=== PATIENT | male | born 1965 | race Hispanic/Latino ===

== ENCOUNTER 2021-12-24 19:20 | Inpatient (IN) | payer SELFPAY ==
[2021-12-24] MEDS ORDERED: SODIUM CHLORIDE 0.9% 1000 ML 1,000 ML IV ONE ×3 (19:37→20:15)
--- NOTE | 2021-12-24 19:45 | Emergency Department Report ---
HPI - General Chief Complaint: Dyspnea/Respdistress Time Seen by Provider: 12/24/21 19:33 - HPI HPI: 56-year-old male with history of diabetes brought in by EMS unresponsive and with agonal breathing. According to the EMS report, initial call out was for shortness of breath. When EMS arrived, the patient was noted to be with agonal respirations and was unresponsive. He was given albuterol and 125 mg of Solu- Medrol. Further history was obtained stating that the patient has been missing for the past 3 days and stepped on a nail with his left foot which has become extremely swollen and red. The patient's fingerstick blood glucose was 233. Further details of the HPI are limited due to the patient's current clinical condition ED Past Medical Hx - Past Medical History Previous Medical History?: Yes Hx Diabetes: Yes ED Review of Systems ROS: Stated complaint: RESPIRATORY DISTRESS Other details as noted in HPI Comment: Unobtainable due to pts medical conditions Physical Exam - Physical Exam Physical Exam: GENERAL: male who appears older than stated age. Obtunded and with agonal respirations. HEAD: Normocephalic. No obvious signs of trauma. ENT: Moist mucous membranes. Very poor dentition. EYES: Pupils are equal round and reactive to light bilaterally NECK: Supple. Full ROM is intact. Trachea is midline. LUNGS: Equal chest rise bilaterally with [id number] ventilation. Scattered rales heard throughout the bilateral lung flores. CARDIOVASCULAR: Tachycardic but with regular rhythm. No murmurs or rubs. VASCULAR: Cap refill < 2 seconds. 1+ pitting edema of the right lower extremity. 3+ pitting edema of the left lower extremity. See musculoskeletal exam below. ABDOMEN: Abdomen is soft and nondistended. There is no significant tenderness, guarding or rebound. SKIN: Skin is warm and dry. There is significant swelling noted of the dorsum of the left foot which extends into the ankle. Over the dorsum of the left foot there is fluctuance and overlying erythema. No crepitus. NEURO: Patient is obtunded. Does not withdraw to pain. GCS of 5. MUSCULOSKELETAL: No obvious deformities with the exception of significant swelling/fluctuance/erythema of the dorsum of the left foot extending into the ankle. - Intubation Sedative: Etomidate Mg Given: 20 Paralytic: Rocuronium Mg Given: 50 Laryngoscope: fiberoptic video scope Size: 4 Assist Device Used: fiberoptic device ET Tube Size: 7 Tube Secured Depth (cm): 24 Tube Secured Location: lips Tube Placement Confirmation: visualized tube passing t, equal breath sounds bilat Patient Tolerated Procedure: no complications Intubation Complications: none ED Medical Decision Making - Lab Data Result diagrams: 12/25/21 08:26 12/25/21 08:26 - EKG Data -: EKG Interpreted by Me - EKG Data 12/25/21 00:55 Sinus bradycardia. Normal axis. Normal intervals. No ectopy. No significant ST segment or T wave abnormalities. - Radiology Data Radiology results: report reviewed - Medical Decision Making 56-year-old male with history of diabetes brought in by EMS from home with initial complaint of shortness of breath but subsequently found to be unresponsive and with agonal respirations. Fingerstick blood glucose was 233. Patient was bagged in route and given 125 mg of Solu-Medrol. Upon arrival to emergency department, the patient was obtunded and with agonal respirations and oxygen saturations in the 60s even with bagging. I immediately called for emergent RSI the patient was backed up to the 90s and then successfully intubated using the glide scope. After intubation the patient was found to be with normal vital signs. On exam, the patient has what appears to be a large abscess to the dorsum of his left foot with overlying erythema and fluctuance and swelling which extends into the ankle. Given his history of diabetes I am concerned about possible necrotizing fasciitis. We will perform broad work-up with a full set of labs and sepsis orders including cultures. We will give 30 m L/kg of IV fluids and broad-spectrum IV vancomycin, Zosyn, and clindamycin. Tdap has been ordered I spoke with Dr. Cotton at 7:48 PM regarding the case and he request CT of the lower extremity and agrees with current antibiotics and states he will come in to perform I&D. Plain film x-rays of the left foot and ankle have been ordered. Chest x-ray shows ET tube in expected position but no other acute findings. X-ray of the left foot shows diffuse soft tissue swelling but no gas or foreign body. Labs reveal no significant leukocytosis or anemia. He has several electrolyte abnormalities including hyponatremia with sodium of 128, hypokalemia with potassium 3.3, normal kidney function and with hypoglycemia and glucose of 38. IV potassium repletion has been ordered. Patient has been started on a D10 drip. Lactic acid is normal. Troponin is negative. AST and ALT are both elevated in the 100s. I have ordered CT of the head, C-spine, chest, abdomen, and pelvis as well as the left lower extremity given the possibility of intracranial bleeding versus mass, traumatic injury, pneumonia, intra-abdominal infection/catastrophe or other abnormality to explain the patient's presentation. I was told by the certified cytotechnologist that the scan will take a long time given that there is only one respiratory therapist in the hospital. I spoke with Dr. Crocker of critical care medicine regarding the case and she accepts patient for admission to the critical care unit I spoke with Dr. Conrad the on-call hospitalist regarding the case and he accepts the patient for admission will assume care. He understands that CT of the head/chest/abdomen are still pending and will be followed up by Dr. Maloney CT of the head, cervical spine, chest, abdomen/pelvis, and left lower extremity reveal findings consistent with left-sided pneumonia, possible colitis/diverticulitis, and suspected osteomyelitis of the left lower extremity. Critical Care Time: Yes Critical care time in (mins) excluding proc time.: 60 Critical care attestation.: If time is entered above; I have spent that time in minutes in the direct care of this critically ill patient, excluding procedure time. Critical care time was spent in the evaluation/assessment, work-up, and management of hypoxic respiratory failure with hypoglycemia and several electrolyte abnormalities requiring initiation of the D10 drip and IV electrolyte repletion as well as intubation and mechanical ventilation, interpretation of EKGs and blood gases, frequent and repeat assessment, and discussion with specialist.. ED Disposition Clinical Impression: Hypoglycemia, Bradycardia, Hyponatremia, Hypokalemia, Abscess of left foot, Acute respiratory failure with hypoxia, Transaminitis, Pneumonia involving left lung, Osteomyelitis of left foot, Colitis Disposition: 09 ADMITTED INPATIENT Is pt being admited?: Yes Condition: Stable
[2021-12-24] MEDS ORDERED: TETANUS,DIPH,PERTUSS(ACELL) VACCINE 0.5 ML SYRINGE IM ONE (20:00)
[2021-12-24 20:06] LABS: Basophils % (Auto) 0.6 % (0.0-1.8); Eosinophils % (Auto) 0.2 % (0.0-4.3); Hematocrit 31.5 % (35.5-45.6); Hemoglobin 10.3 gm/dl (11.8-15.2); Lymphocytes # (Auto) 1.1 K/mm3 (1.2-5.4); Lymphocytes % (Auto) 20.7 % (13.4-35.0); Mean Corpuscular HGB Conc 33 % (32-34); Mean Corpuscular Volume 88 fl (84-94); Monocytes # (Auto) 0.6 K/mm3 (0.0-0.8); Monocytes % (Auto) 10.9 % (0.0-7.3); Platelet Count 178 K/mm3 (140-440); Red Blood Count 3.58 M/mm3 (3.65-5.03); Red Cell Distribution Width 14.2 % (13.2-15.2)
[2021-12-24 20:07] LABS: Bilirubin,Urine NEG (Negative); Blood,Urine MOD (Negative); Color,Urine Yellow (Yellow)
[2021-12-24 20:17] LABS: INR 0.96 (0.87-1.13)
[2021-12-24 20:18] LABS: Partial Thromboplastin Time 39.7 Sec. (24.2-36.6)
[2021-12-24 20:28] LABS: Alanine Aminotransferase 126 units/L (7-56); Albumin 2.6 g/dL (3.9-5); Blood Urea Nitrogen 19 mg/dL (9-20); Calcium 8.5 mg/dL (8.4-10.2); Hemolysis Index 23
--- NOTE | 2021-12-24 20:32 | XRay Report ---
XR ankle 2V LT INDICATION / CLINICAL INFORMATION: assess for gas. COMPARISON: None available. FINDINGS: BONES/JOINT(S): No acute fracture or subluxation. No significant degenerative changes. SOFT TISSUES: No appreciable soft tissue gas or radiopaque foreign body. ADDITIONAL FINDINGS: None. Signer Name: Fran Elam MD Signed: 12/24/2021 8:27 PM Workstation Name: [id number]
--- NOTE | 2021-12-24 20:32 | XRay Report ---
XR foot 2V LT INDICATION / CLINICAL INFORMATION: assess for gas. COMPARISON: None available. FINDINGS: BONES/JOINT(S): There are chronic appearing Lisfranc fracture dislocations in the proximal first thro ugh fourth metatarsals. No significant degenerative changes. SOFT TISSUES: Diffuse soft tissue swelling without soft tissue gas or foreign body. ADDITIONAL FINDINGS: None. Signer Name: Fran Elam MD Signed: 12/24/2021 8:28 PM Workstation Name: [id number]
--- NOTE | 2021-12-24 20:32 | XRay Report ---
XR tibia fibula 2V LT INDICATION / CLINICAL INFORMATION: assess for gas. COMPARISON: None available. FINDINGS: BONES/JOINT(S): No acute fracture or subluxation. No significant degenerative changes. SOFT TISSUES: No radiopaque foreign body or soft tissue gas. ADDITIONAL FINDINGS: None. Signer Name: Fran Elam MD Signed: 12/24/2021 8:28 PM Workstation Name: [id number]
--- NOTE | 2021-12-24 20:33 | XRay Report ---
CHEST 1 VIEW 12/24/2021 8:03 PM INDICATION / CLINICAL INFORMATION: intubation. COMPARISON: None available. FINDINGS: SUPPORT DEVICES: ET tube tip is about 4 cm above the momo. HEART / MEDIASTINUM: No significant abnormality. LUNGS / PLEURA: No significant pulmonary or pleural abnormality. No pneumothorax. ADDITIONAL FINDINGS: No significant additional findings. IMPRESSION: 1. Endotracheal tube in expected position. Signer Name: Fran Elam MD Signed: 12/24/2021 8:28 PM Workstation Name: [id number]
[2021-12-24 20:36] LABS: BUN/Creatinine Ratio 32
[2021-12-24 20:38] LABS: Bilirubin,Direct < 0.2 mg/dL (0-0.2)
[2021-12-24] MEDS ORDERED: DEXTROSE 10% *Hypoglycemia IV ONE (20:39)
[2021-12-24 20:40] LABS: Bacteria,Urine 1+ /HPF (Negative); Mucus,Urine FEW /HPF
[2021-12-24] MEDS ORDERED: propofoL 200 MG/20 ML VIAL IV ONE (20:47)
[2021-12-24] MEDS ORDERED: VANCOMYCIN/NS 1 GM/250 ML 1 GM/250 ML BAG IV ONE (21:00)
[2021-12-24] MEDS ORDERED: POTASSIUM CHLORIDE 40 MEQ in DEXTROSE 10% IN WATER 1,000 ML IV SCH ×2 (21:00)
[2021-12-24] MEDS ORDERED: PIPERACIL/TAZOBACTA 4.5/NS 100 4.5 GM/100 ML VIAL IV ONE (21:00)
--- NOTE | 2021-12-24 21:18 | Procedure Note ---
Date of procedure: 12/24/21 Pre-op diagnosis: Left foot abscess Post-op diagnosis: same Procedure: Incision and drainage left foot abscess Findings: This is a 56-year-old male patient who is with signs of sepsis intubated and in the emergency room. Consultation is for management of a left foot abscess. There is history possibly of of the patient stepping on a nail as etiology of the abscess. He is diabetic and unresponsive. The area of concern is on the dorsum and medial aspect of the left foot and an area of swelling induration and erythema is located. It is fluctuant. The skin is prepped with an alcohol prep and a #11 scalpel was used to make a 3 cm cruciate incision where thick purulent material is immediately encountered. Q- tips were used to probe the wound minimal tunneling is noted. Wound cultures and Gram stain were obtained. Wound is at irrigated with copious amounts of normal saline. A Betadine solution soaked gauze is then used as a dressing with Kerlix Anesthesia: none Surgeon: LATESHA MANCERA Estimated blood loss: minimal Pathology: list (Wound culture and sensitivity and Gram stain) Specimen disposition: to lab Condition: critical Disposition: other (In the emergency room)
[2021-12-24 22:57] LABS: ABG HCO3 19.2 mmol/L (20.0-26.0); ABG Methemoglobin 0.5 % (0.0-1.5); ABG Oxygen Saturation 99.5 % (95.0-99.0); ABG PCO2 32.7 mm Hg; ABG PH 7.386 pH Units (7.350-7.450)
[2021-12-24 22:58] LABS: ABG PO2 308.2 mm Hg (80.0-90.0)
--- NOTE | 2021-12-24 23:26 | History and Physical Report ---
History of Present Illness Date of examination: 12/24/21 Date of admission: 12/24/2021 Chief complaint: Altered mental status History of present illness: 56-year-old male with known history of diabetes mellitus brought into the emergency room today via EMS after being found unresponsive and having agonal breathing. Most of the history was obtained from the ER staff as patient is already intubated and sedated. Patient was found to have been having agonal respiration and unresponsive by EMS. Was given albuterol nebulizing treatment and Solu-Medrol. He was subsequently intubated and sedated in the emergency room. Patient was said to have been missing from home for about 3 days was also said to have stepped on it nail with which his left foot. Left foot has been swollen and red. Work-up in the emergency room today, initial blood glucose was 38, hypokalemia of 3.3 and hyponatremia of 128. Patient was given boluses of IV glucose with improvement of his blood glucose. General surgeon on-call was notified of patient's swollen left foot. He immediately had an incision and drainage of the swollen left foot. Patient also had a tetanus toxoid injection. CT of the head and neck, abdomen and pelvis did not reveal any acute abnormality. Chest x-ray within normal limits. Past History Past Medical History: other (Unobtainable) Past Surgical History: Other (Unobtainable) Social history: other (Unobtainable) Family history: other (Unobtainable) Medications and Allergies Allergies Allergy/AdvReac Type Severity Reaction Status Date / Time No Known Allergies Allergy Unverified 12/24/21 20:07 Active Meds: Active Medications Propofol (Diprivan 10 Mg/Ml) 1,000 mg in 100 mls @ 3.946 mls/hr IV TITR KELTON; Protocol Potassium Chloride 40 meq/ (Dextrose) 1,020 mls @ 100 mls/hr IV DIRECT KELTON Review of Systems ROS unobtainable: due to endotracheal tube Exam - Constitutional Vitals: Temp Pulse Resp BP Pulse Ox 97.0 F L 69 126/86 100 12/24/21 21:07 12/24/21 21:07 12/24/21 21:12/24/21 19:45 General appearance: Present: well-nourished, other (Intubated and sedated) - EENT Eyes: Present: PERRL, EOM intact. Absent: scleral icterus ENT: hearing intact, clear oral mucosa, dentition normal - Neck Neck: Present: supple, normal ROM - Respiratory Respiratory effort: normal Respiratory: bilateral: CTA (ET tube in place) - Cardiovascular Rhythm: regular Heart Sounds: Present: S1 & S2. Absent: gallop, systolic murmur, diastolic murmur, rub, click - Extremities Extremities: no ischemia, pulses intact, pulses symmetrical, No edema, normal temperature, Full ROM Peripheral Pulses: within normal limits - Abdominal General gastrointestinal: Present: soft, non-tender, non-distended, normal bowel sounds. Absent: mass - Integumentary Integumentary: Present: clear, warm, dry. Absent: rash - Musculoskeletal Musculoskeletal: other (Intubated and Sedated) - Psychiatric Psychiatric: cooperative - Neurologic Neurologic: other (Intubated and Sedated) HEART Score - HEART Score Troponin: Troponin T < 0.010 ng/mL (0.00-0.029) 12/24/21 19:43 Results - Labs CBC & Chem 7: 12/24/21 19:43 12/24/21 22:33 Labs: Abnormal lab results 12/24/21 12/24/21 12/24/21 Range/Units 19:43 19:43 19:43 RBC 3.58 L (3.65-5.03) M/mm3 Hgb 10.3 L (11.8-15.2) gm/dl Hct 31.5 L (35.5-45.6) % [place] % (Auto) 10.9 H (0.0-7.3) % Lymph # (Auto) 1.1 L (1.2-5.4) K/mm3 APTT 39.7 H (24.2-36.6) Sec. ABG pO2 (80.0-90.0) mm Hg ABG HCO3 (20.0-26.0) mmol/L ABG O2 Saturation (95.0-99.0) % ABG Base Excess (-2.0-3.0) mmol/L ABG Hemoglobin (14.0-18.0) gm/dl Sodium 128 L (137-145) mmol/L Potassium 3.3 L (3.6-5.0) mmol/L Chloride 95.9 L (98-107) mmol/L Carbon Dioxide 18 L (22-30) mmol/L Creatinine 0.6 L (0.8-1.3) mg/dL Glucose 38 L* (75-100) mg/dL AST 232 H (5-40) units/L ALT 126 H (7-56) units/L Alkaline Phosphatase 132 H (35-129) units/L Albumin 2.6 L (3.9-5) g/dL Lipase 6 L (13-60) units/L Salicylates (2.8-20.0) mg/dL Acetaminophen (10.0-30.0) ug/mL 12/24/21 12/24/21 12/24/21 Range/Units 19:43 19:43 Unknown RBC (3.65-5.03) M/mm3 Hgb (11.8-15.2) gm/dl Hct (35.5-45.6) % [place] % (Auto) (0.0-7.3) % Lymph # (Auto) (1.2-5.4) K/mm3 APTT (24.2-36.6) Sec. ABG pO2 308.2 H (80.0-90.0) mm Hg ABG HCO3 19.2 L (20.0-26.0) mmol/L ABG O2 Saturation 99.5 H (95.0-99.0) % ABG Base Excess -5.0 L (-2.0-3.0) mmol/L ABG Hemoglobin 10.6 L (14.0-18.0) gm/dl Sodium (137-145) mmol/L Potassium (3.6-5.0) mmol/L Chloride (98-107) mmol/L Carbon Dioxide (22-30) mmol/L Creatinine (0.8-1.3) mg/dL Glucose (75-100) mg/dL AST (5-40) units/L ALT (7-56) units/L Alkaline Phosphatase (35-129) units/L Albumin (3.9-5) g/dL Lipase (13-60) units/L Salicylates < 0.3 L (2.8-20.0) mg/dL Acetaminophen 5.0 L (10.0-30.0) ug/mL Assessment and Plan - Patient Problems (1) Acute respiratory failure with hypoxia Current Visit: Yes Status: Acute Plan to address problem: Patient currently intubated and sedated. Consult placed to computer repair technician for further evaluation and recommendations. Will monitor ABG. (2) Abscess of left foot Current Visit: Yes Status: Acute Plan to address problem: Incision and drainage done by general surgeon. We'll continue on empiric IV antibiotics. Patient has had Tdap Injection (3) Hypoglycemia Current Visit: Yes Status: Acute Plan to address problem: Patient placed on dextrose IV fluid. We'll monitor Accu-Cheks closely. (4) Hypokalemia Current Visit: Yes Status: Acute Plan to address problem: We'll replete potassium and monitor chemistry. (5) Hyponatremia Current Visit: Yes Status: Acute Plan to address problem: We'll continue patient on IV fluid normal saline. Will monitor chemistry. (6) Transaminitis Current Visit: Yes Status: Acute Plan to address problem: Etiology unclear. We will monitor liver enzymes. Consult placed to gastroenterology for evaluation and recommendations. (7) DVT prophylaxis Current Visit: Yes Status: Acute Plan to address problem: Patient placed on subcutaneous heparin. (8) Full code status Current Visit: Yes Status: Acute Plan to address problem: Patient is full code.
[2021-12-24 23:48] LABS: Blood Urea Nitrogen 19 mg/dL (9-20); Calcium 8.3 mg/dL (8.4-10.2); Hemolysis Index 6
[2021-12-24 23:54] LABS: BUN/Creatinine Ratio 27
[2021-12-25] MEDS ORDERED: ETOMIDATE 20 MG/10 ML INJ IV ONE (00:30)
[2021-12-25] MEDS ORDERED: ROCURONIUM 50 MG/5 ML INJ IV ONE (00:30)
[2021-12-25] MEDS ORDERED: MORPHINE 4 MG/1 ML INJ IV PRN (01:40)
[2021-12-25] MEDS ORDERED: MAGNESIUM HYDROXIDE (MOM) ORAL LIQD UDC PO PRN (01:40)
[2021-12-25] MEDS ORDERED: ACETAMINOPHEN 650 MG RECT SUPP PR PRN (01:40)
[2021-12-25] MEDS ORDERED: ONDANSETRON 4 MG/2 ML INJ IV PRN (01:40)
[2021-12-25] MEDS ORDERED: MORPHINE 2 MG/1 ML INJ IV PRN (01:40)
[2021-12-25] MEDS ORDERED: DEXTROSE 50% IN WATER (25GM) 50 ML SYRINGE IV PRN ×2 (01:40→10:57)
[2021-12-25] MEDS ORDERED: SODIUM CHLORIDE 0.9% 1000 ML 1,000 ML IV SCH (01:45)
[2021-12-25] MEDS ORDERED: VANCOMYCIN 1,250 MG in SODIUM CHLORIDE 0.9% 250ML 250 ML IV ONE (02:00)
[2021-12-25] MEDS ORDERED: VANCOMYCIN PHARMACY TO DOSE IV SCH (02:00)
[2021-12-25] MEDS ORDERED: DEXTROSE 10% *Hypoglycemia IV PRN (02:02)
--- NOTE | 2021-12-25 03:15 | Cat Scan Report ---
CT lower extremity LT wo con INDICATION / CLINICAL INFORMATION: Tib / Fib to foot, eval for pus COMPARISON: None available. TECHNIQUE: CT of the left tibia and fibula was performed without the administration of intravenous co ntrast. In addition to axial source images, coronal and sagittal series were provided. FINDINGS: Healing fractures of the Lisfranc joint is demonstrated with callus formation and/or sclerotic interf milton is suspected in part reflect chronic osteomyelitis. Moderate soft tissue swelling is noted in the region of the mid foot and dorsum of the foot. Addition al soft tissue swelling is noted along the lower calf and ankle. No discrete fluid collections are cl early demonstrated however the lack of intravenous contrast precludes exclusion of small collections. Possible ulceration along the dorsal medial aspect of the foot in the region of the great toe tarsome tatarsal junction. IMPRESSION: 1. Findings compatible with sequelae of previous Lisfranc fracture dislocation with sclerotic bony st ructures suggestive of chronic osteomyelitis and/or healing fracture. Superimposed acute osteomyeliti s not excluded. 2. Moderate soft tissue swelling in region of fracture/midfoot without obvious drainable collection. Findings thought to reflect sequelae of trauma and/or infection. Signer Name: Shoaib Staley II, MD Signed: 12/25/2021 3:11 AM Workstation Name: [id number]
--- NOTE | 2021-12-25 03:16 | Cat Scan Report ---
CT HEAD WITHOUT CONTRAST INDICATION / CLINICAL INFORMATION: Respiratory arrest. TECHNIQUE: CT of the head was performed without administration of intravenous contrast. All CT scans at this location are performed using CT dose reduction for ALARA by means of automated exposure contr ol. COMPARISON: None available. FINDINGS: CEREBRAL PARENCHYMA: Lopez-white matter differentiation remains fairly distinct throughout the cerebra l hemispheres. HEMORRHAGE: None. EXTRA-AXIAL SPACES: Normal in size and morphology for the patient's age. VENTRICULAR SYSTEM: Normal in size and morphology for the patient's age. MIDLINE SHIFT / HERNIATION: None. CEREBELLUM / BRAINSTEM: No significant abnormality. ORBITS: Normal as visualized. SOFT TISSUES: No significant abnormality. SKULL: No significant abnormality. PARANASAL SINUSES / MASTOID AIR CELLS: Normal as visualized. ADDITIONAL FINDINGS: None. IMPRESSION: 1. No acute intracranial abnormality. Signer Name: Shoaib Staley II, MD Signed: 12/25/2021 3:12 AM Workstation Name: [id number]
--- NOTE | 2021-12-25 03:18 | Cat Scan Report ---
CT CERVICAL SPINE WITHOUT CONTRAST INDICATION / CLINICAL INFORMATION: Respiratory arrest. TECHNIQUE: Axial CT images were obtained through the cervical spine. Sagittal and coronal reformatted images were produced. All CT scans at this location are performed using CT dose reduction for ALARA by means of automated exposure control. COMPARISON: None available. FINDINGS: MANDIBLE: No significant abnormality of the visualized mandible or TMJs. SKULL BASE: No significant abnormality of the skull base. CRANIOCERVICAL JUNCTION: No significant abnormality of the craniocervical junction. ALIGNMENT: No significant abnormality of alignment. VERTEBRAL BODIES: Vertebral body heights fairly uniform throughout. DISK SPACES: Disk spaces are fairly uniform throughout. FACET JOINTS: No significant abnormality of facet articulations. STENOSIS BY LEVEL: None. CENTRAL CANAL: No significant central stenosis. SOFT TISSUES: No significant abnormality of soft tissues or musculature. THYROID: No significant abnormality. UPPER CHEST: No significant abnormality of the visualized chest. ADDITIONAL FINDINGS: Endotracheal tube is present. Small air-fluid level within the posterior pharynx . IMPRESSION: 1. No acute cervical spine injury. No significant degenerative changes. No significant soft tissue ab normalities. Signer Name: Shoaib Staley II, MD Signed: 12/25/2021 3:14 AM Workstation Name: [id number]
--- NOTE | 2021-12-25 03:22 | Cat Scan Report ---
CT CHEST WITH CONTRAST INDICATION / CLINICAL INFORMATION: Sepsis / Respiratory distress. TECHNIQUE: Axial CT images were obtained through the chest after 100 cc Omnipaque [address] IV contrast[address] l CT scans at this location are performed using CT dose reduction for ALARA by means of automated exp osure control. COMPARISON: CT of the abdomen and pelvis performed same date. FINDINGS: CHEST LOWER NECK: Soft tissues of the lower neck including the thyroid demonstrate no significant abnormali ty evidence of acute pathology. THORACIC AORTA: No significant abnormality. PULMONARY ARTERY:No significant abnormality. HEART: No significant abnormality. Small pericardial effusion. CORONARY ARTERY CALCIFICATION: Present -- Mild. MEDIASTINUM / JERRY: Endotracheal tube terminates above the momo. ESOPHAGUS: No significant abnormality. LYMPH NODES: No adenopathy demonstrated within the axilla, jerry, or mediastinum. LUNGS: Nodular foci of airspace attenuation noted within the left upper lobe and more subtle left low er lobe with some evidence of additional associated volume loss in the left lower lobe. Lungs otherwi se appear clear. PLEURA: No pleural effusion. No pneumothorax. THORACIC SOFT TISSUES: No significant abnormality of the chest wall or upper thoracic musculature. OSSEOUS STRUCTURES: No significant abnormality of included osseous structures. UPPER ABDOMEN: Please see comparison study. ADDITIONAL CHEST FINDINGS: None. IMPRESSION: 1. Appearance of the left lung suggests infectious process. 2. Satisfactory positioning of endotracheal tube. Signer Name: Shoaib Staley II, MD Signed: 12/25/2021 3:17 AM Workstation Name: [email or web address]
--- NOTE | 2021-12-25 03:26 | Cat Scan Report ---
CT ABDOMEN AND PELVIS WITH CONTRAST INDICATION / CLINICAL INFORMATION: Sepsis / Respiratory distress. TECHNIQUE: Axial CT images were obtained through the abdomen and pelvis after 100 cc Omnipaque [address] scans at this location are performed using CT dose reduction for ALARA by means of automated exposure control. COMPARISON: CT chest same date FINDINGS: LOWER CHEST: Findings within the chest will be reported separately on dedicated CT of the chest perfo ed same date. LIVER: No significant abnormality. GALLBLADDER: Partially contracted. BILE DUCTS: No significant abnormality. SPLEEN: No significant abnormality. PANCREAS: No significant abnormality. ADRENALS: No significant abnormality. RIGHT KIDNEY / URETER: No significant abnormality. LEFT KIDNEY / URETER: No significant abnormality. STOMACH / DUODENUM / SMALL BOWEL: No significant abnormality. COLON: Nonspecific fluid attenuation around the cecum is demonstrated without evidence of wall thicke stew. Diverticulosis of the sigmoid colon suggested. This segment of bowel is not well distended mild inflammatory changes and excluded. APPENDIX: Normal in size. PERITONEUM: Small collection of dependent free fluid within the pelvis. LYMPH NODES: No significant adenopathy. AORTA / ARTERIES: No significant abnormality. IVC / VEINS: No significant abnormality. URINARY BLADDER: Circumferential bladder wall thickening is present. Phillip catheter is present. REPRODUCTIVE ORGANS: No significant abnormality. ADDITIONAL ABDOMINAL/PELVIC FINDINGS: None. SKELETAL SYSTEM: No significant abnormality. IMPRESSION: 1. Nonspecific fat stranding around the cecum. No obvious abnormality of the sacrum without. Sigmoid colon is underdistended but has suggested diverticula and wall thickening in sigmoid diverticulitis o r colitis not excluded. 2. Circumferential bladder wall thickening with small amount of dependent free fluid within the pelvi s. Acute cystitis not excluded. Signer Name: Shoaib Staley II, MD Signed: 12/25/2021 3:21 AM Workstation Name: [id number]
[2021-12-25] MEDS ORDERED: CLINDAMYCIN 600 MG/50 mL 600 MG/50 ML BAG IV SCH (06:00)
[2021-12-25] MEDS ORDERED: POTASSIUM CHLORIDE 10 MEQ 10 MEQ/100 ML BAG IV ONE (06:01)
[2021-12-25] MEDS: HEPARIN 5,000 UNIT/1 ML VIAL SUB-Q SCH ×3 (06:06→21:44)
[2021-12-25] MEDS ORDERED: NORepinephrine/NS 8 MG-250 ML 8 MG/250 ML INFUS..BTL IV ONE (06:31)
--- NOTE | 2021-12-25 06:39 | XRay Report ---
XR abdomen 1V ap INDICATION / CLINICAL INFORMATION: NG tube placement. COMPARISON: None available. FINDINGS: TUBES / LINES: Esophagogastric tube terminates mid fundus. BOWEL GAS PATTERN: No significant abnormality. FREE AIR / EXTRALUMINAL GAS: None seen. ADDITIONAL FINDINGS: No significant additional findings. IMPRESSION: 1. Esophagogastric tube terminates mid fundus. Signer Name: Shoaib Staley II, MD Signed: 12/25/2021 6:35 AM Workstation Name: [id number]
[2021-12-25 07:06] LABS: Hepatitis B Surface Antigen Non-Reactive (Negative); Hepatitis C Virus Antibody Non-Reactive (NonReactive)
--- NOTE | 2021-12-25 07:19 | Consultation ---
History of Present Illness Consult date: 12/24/21 Reason for consult: other (Left foot abscess in an unresponsive patient) - History of present illness History of present illness: This is a 56-year-old male patient found unresponsive missing for several days patient is known to be a diabetic. He is noted to be hypoglycemic on admission. Patient was intubated on admission to the emergency room. A concerning amount of swelling is noted in the left foot surgical consultation was specifically for management of what is presumed to be an abscess of the left foot. In the emergency room an incision and drainage is done for copious amounts of thick purulent material. Saline irrigations are done and a Betadine soaked gauze is placed. CT scan and x-rays of the foot show a Lisfranc fracture with osteomyelitis likely chronic. The fracture and osteomyelitis immediately below the site of the abscess. Past History Past Medical History: other (Unobtainable) Past Surgical History: Other (Unobtainable) Social history: other (Unobtainable) Family history: other (Unobtainable) Medications and Allergies Allergies Allergy/AdvReac Type Severity Reaction Status Date / Time No Known Allergies Allergy Unverified 12/24/21 20:07 Active Meds: Active Medications Acetaminophen (Acetaminophen 650 Mg Rect Supp) 650 mg OR Q6H PRN PRN Reason: Pain MILD(1-3)/Fever >100.5/PATEL Dextrose (Dextrose 10% *Hypoglycemia) 0 ml IV PRN PRN; Protocol PRN Reason: Hypoglycemia Heparin Sodium (Porcine) (Heparin 5,000 Unit/1 Ml Vial) 5,000 unit SUB-Q Q8HR [facility] Last Admin: 12/25/21 06:06 Dose: 5,000 unit Propofol (Diprivan 10 Mg/Ml) 1,000 mg in 100 mls @ 3.946 mls/hr IV TITR [facility]; Protocol Last Titration: 12/25/21 07:00 Dose: 35 mcg/kg/min, 13.812 mls/hr Potassium Chloride 40 meq/ (Dextrose) 1,020 mls @ 100 mls/hr IV DIRECT [facility] Sodium Chloride (Nacl 0.9% 1000 Ml) 1,000 mls @ 125 mls/hr IV DIRECT [facility] Piperacillin Sod/Tazobactam Sod (Zosyn/Ns 4.5gm/100ml) 4.5 gm in 100 mls @ 200 mls/hr IV Q8H [facility]; Protocol Vancomycin HCl (Vancomycin/Ns 1 Gm/250 Ml) 1 gm in 250 mls @ 166.667 mls/hr IV Q12H [facility] Clindamycin HCl (Cleocin 600 Mg/50 Ml) 600 mg in 50 mls @ 100 mls/hr IV Q8H [facility]; Protocol Insulin Human Lispro (Insulin Lispro 100 Unit/Ml) 0 unit SUB-Q ACHS [facility]; Protocol Magnesium Hydroxide (Magnesium Hydroxide (Mom) Oral Liqd Udc) 30 ml PO Q4H PRN PRN Reason: Constipation Morphine Sulfate (Morphine 2 Mg/1 Ml Inj) 2 mg IV Q4H PRN PRN Reason: Pain, Moderate (4-6) Morphine Sulfate (Morphine 4 Mg/1 Ml Inj) 4 mg IV Q4H PRN PRN Reason: Pain , Severe (7-10) Ondansetron HCl (Ondansetron 4 Mg/2 Ml Inj) 4 mg IV Q8H PRN PRN Reason: Nausea And Vomiting Sodium Chloride (Sodium Chloride 0.9% 10 Ml Flush Syringe) 10 ml IV BID [facility] Sodium Chloride (Sodium Chloride 0.9% 10 Ml Flush Syringe) 10 ml IV PRN PRN PRN Reason: LINE FLUSH Exam Vital Signs Pulse Resp BP Pulse Ox 78 20 124/85 100 12/24/21 19:45 12/24/21 19:45 12/24/21 19:45 12/24/21 19:45 - General physical appearance Positive: other (Patient unresponsive and intubated. No response to deep pain.) - Neck Positive: no masses, no bruits, trachea midline - Respiratory Positive: normal expansion - Cardiovascular Rhythm: regular - Extremities Extremities: abnormal (Swelling is noted in the distal extremity and appears to be centered in the dorsum of the left foot) - Abdomen Abdomen: Present: soft. Absent: masses, guarding, rigid - Neurologic Neurologic: other (Unable to evaluate patient is unresponsive and sedated) Results - Labs 12/24/21 19:43 12/24/21 22:33 Abnormal lab results 12/24/21 12/24/21 12/24/21 Range/Units 19:43 19:43 19:43 RBC 3.58 L (3.65-5.03) M/mm3 Hgb 10.3 L (11.8-15.2) gm/dl Hct 31.5 L (35.5-45.6) % [place] % (Auto) 10.9 H (0.0-7.3) % Lymph # (Auto) 1.1 L (1.2-5.4) K/mm3 APTT 39.7 H (24.2-36.6) Sec. ABG pO2 (80.0-90.0) mm Hg ABG HCO3 (20.0-26.0) mmol/L ABG O2 Saturation (95.0-99.0) % ABG Base Excess (-2.0-3.0) mmol/L ABG Hemoglobin (14.0-18.0) gm/dl Sodium 128 L (137-145) mmol/L Potassium 3.3 L (3.6-5.0) mmol/L Chloride 95.9 L (98-107) mmol/L Carbon Dioxide 18 L (22-30) mmol/L Creatinine 0.6 L (0.8-1.3) mg/dL Glucose 38 L* (75-100) mg/dL POC Glucose (70-105) mg/dL Calcium (8.4-10.2) mg/dL AST 232 H (5-40) units/L ALT 126 H (7-56) units/L Alkaline Phosphatase 132 H (35-129) units/L Albumin 2.6 L (3.9-5) g/dL Lipase 6 L (13-60) units/L Salicylates (2.8-20.0) mg/dL Acetaminophen (10.0-30.0) ug/mL 12/24/21 12/24/21 12/24/21 Range/Units 19:43 19:43 22:33 RBC (3.65-5.03) M/mm3 Hgb (11.8-15.2) gm/dl Hct (35.5-45.6) % [place] % (Auto) (0.0-7.3) % Lymph # (Auto) (1.2-5.4) K/mm3 APTT (24.2-36.6) Sec. ABG pO2 (80.0-90.0) mm Hg ABG HCO3 (20.0-26.0) mmol/L ABG O2 Saturation (95.0-99.0) % ABG Base Excess (-2.0-3.0) mmol/L ABG Hemoglobin (14.0-18.0) gm/dl Sodium 126 L (137-145) mmol/L Potassium 3.1 L (3.6-5.0) mmol/L Chloride 91.7 L (98-107) mmol/L Carbon Dioxide 19 L (22-30) mmol/L Creatinine 0.7 L (0.8-1.3) mg/dL Glucose 115 H (75-100) mg/dL POC Glucose (70-105) mg/dL Calcium 8.3 L (8.4-10.2) mg/dL AST (5-40) units/L ALT (7-56) units/L Alkaline Phosphatase (35-129) units/L Albumin (3.9-5) g/dL Lipase (13-60) units/L Salicylates < 0.3 L (2.8-20.0) mg/dL Acetaminophen 5.0 L (10.0-30.0) ug/mL 12/24/21 12/25/21 12/25/21 Range/Units Unknown 00:23 05:59 RBC (3.65-5.03) M/mm3 Hgb (11.8-15.2) gm/dl Hct (35.5-45.6) % [place] % (Auto) (0.0-7.3) % Lymph # (Auto) (1.2-5.4) K/mm3 APTT (24.2-36.6) Sec. ABG pO2 308.2 H (80.0-90.0) mm Hg ABG HCO3 19.2 L (20.0-26.0) mmol/L ABG O2 Saturation 99.5 H (95.0-99.0) % ABG Base Excess -5.0 L (-2.0-3.0) mmol/L ABG Hemoglobin 10.6 L (14.0-18.0) gm/dl Sodium (137-145) mmol/L Potassium (3.6-5.0) mmol/L Chloride (98-107) mmol/L Carbon Dioxide (22-30) mmol/L Creatinine (0.8-1.3) mg/dL Glucose (75-100) mg/dL POC Glucose 157 H 469 H (70-105) mg/dL Calcium (8.4-10.2) mg/dL AST (5-40) units/L ALT (7-56) units/L Alkaline Phosphatase (35-129) units/L Albumin (3.9-5) g/dL Lipase (13-60) units/L Salicylates (2.8-20.0) mg/dL Acetaminophen (10.0-30.0) ug/mL 12/25/21 Range/Units 06:01 RBC (3.65-5.03) M/mm3 Hgb (11.8-15.2) gm/dl Hct (35.5-45.6) % [place] % (Auto) (0.0-7.3) % Lymph # (Auto) (1.2-5.4) K/mm3 APTT (24.2-36.6) Sec. ABG pO2 (80.0-90.0) mm Hg ABG HCO3 (20.0-26.0) mmol/L ABG O2 Saturation (95.0-99.0) % ABG Base Excess (-2.0-3.0) mmol/L ABG Hemoglobin (14.0-18.0) gm/dl Sodium (137-145) mmol/L Potassium (3.6-5.0) mmol/L Chloride (98-107) mmol/L Carbon Dioxide (22-30) mmol/L Creatinine (0.8-1.3) mg/dL Glucose (75-100) mg/dL POC Glucose 316 H (70-105) mg/dL Calcium (8.4-10.2) mg/dL AST (5-40) units/L ALT (7-56) units/L Alkaline Phosphatase (35-129) units/L Albumin (3.9-5) g/dL Lipase (13-60) units/L Salicylates (2.8-20.0) mg/dL Acetaminophen (10.0-30.0) ug/mL Diabetes panel 12/24/21 12/24/21 Range/Units 19:43 22:33 Sodium 128 L 126 L (137-145) mmol/L Potassium 3.3 L 3.1 L (3.6-5.0) mmol/L Chloride 95.9 L 91.7 L (98-107) mmol/L Carbon Dioxide 18 L 19 L (22-30) mmol/L BUN 19 19 (9-20) mg/dL Creatinine 0.6 L 0.7 L (0.8-1.3) mg/dL Glucose 38 L* 115 H (75-100) mg/dL Calcium 8.5 8.3 L (8.4-10.2) mg/dL AST 232 H (5-40) units/L ALT 126 H (7-56) units/L Alkaline Phosphatase 132 H (35-129) units/L Total Protein 7.1 (6.3-8.2) g/dL Albumin 2.6 L (3.9-5) g/dL Thyroid panel 12/25/21 Range/Units Unknown TSH 0.570 (0.270-4.200) mlU/mL Calcium panel 12/24/21 12/24/21 Range/Units 19:43 22:33 Calcium 8.5 8.3 L (8.4-10.2) mg/dL Albumin 2.6 L (3.9-5) g/dL Pituitary panel 12/24/21 12/24/21 12/25/21 Range/Units 19:43 22:33 Unknown Sodium 128 L 126 L (137-145) mmol/L Potassium 3.3 L 3.1 L (3.6-5.0) mmol/L Chloride 95.9 L 91.7 L (98-107) mmol/L Carbon Dioxide 18 L 19 L (22-30) mmol/L BUN 19 19 (9-20) mg/dL Creatinine 0.6 L 0.7 L (0.8-1.3) mg/dL Glucose 38 L* 115 H (75-100) mg/dL Calcium 8.5 8.3 L (8.4-10.2) mg/dL TSH 0.570 (0.270-4.200) mlU/mL Adrenal panel 12/24/21 12/24/21 Range/Units 19:43 22:33 Sodium 128 L 126 L (137-145) mmol/L Potassium 3.3 L 3.1 L (3.6-5.0) mmol/L Chloride 95.9 L 91.7 L (98-107) mmol/L Carbon Dioxide 18 L 19 L (22-30) mmol/L BUN 19 19 (9-20) mg/dL Creatinine 0.6 L 0.7 L (0.8-1.3) mg/dL Glucose 38 L* 115 H (75-100) mg/dL Calcium 8.5 8.3 L (8.4-10.2) mg/dL Total Bilirubin 0.40 (0.1-1.2) mg/dL AST 232 H (5-40) units/L ALT 126 H (7-56) units/L Alkaline Phosphatase 132 H (35-129) units/L Total Protein 7.1 (6.3-8.2) g/dL Albumin 2.6 L (3.9-5) g/dL Assessment and Plan Patient with multiple medical issues severe hypoglycemia. Depressed mental status. CT of the chest with a indication of a left-sided posterior pneumonia. Sputum Gram stain with gram-negative rods. Patient will need 3 times daily dressing changes to the left foot wound with wound irrigations. Appropriate IV antibiotics. Eventually a vascular evaluation.
[2021-12-25] MEDS ORDERED: INSULIN LISPRO 100 UNIT/ML SUB-Q SCH (07:30)
[2021-12-25 09:08] LABS: Alanine Aminotransferase 111 units/L (7-56); Albumin 2.5 g/dL (3.9-5); Blood Urea Nitrogen 19 mg/dL (9-20); C-Reactive Protein 34.1 mg/dL (0.00-1.30); Calcium 8.3 mg/dL (8.4-10.2); Hemolysis Index 6
[2021-12-25 09:09] LABS: Basophils % (Auto) 0.2 % (0.0-1.8); Eosinophils % (Auto) 0.1 % (0.0-4.3); Hematocrit 35.2 % (35.5-45.6); Hemoglobin 11.7 gm/dl (11.8-15.2); Lymphocytes # (Auto) 0.5 K/mm3 (1.2-5.4); Lymphocytes % (Auto) 9.8 % (13.4-35.0); Mean Corpuscular HGB Conc 33 % (32-34); Mean Corpuscular Volume 90 fl (84-94); Monocytes # (Auto) 0.3 K/mm3 (0.0-0.8); Monocytes % (Auto) 5.7 % (0.0-7.3); Platelet Count 165 K/mm3 (140-440); Red Blood Count 3.92 M/mm3 (3.65-5.03); Red Cell Distribution Width 14.5 % (13.2-15.2)
[2021-12-25] MEDS: FAMOTIDINE 20 MG TAB PO SCH ×2 (09:10→21:46)
[2021-12-25] MEDS: PIPERACIL/TAZOBACTA 4.5/NS 100 4.5 GM/100 ML VIAL IV SCH ×2 (09:11)
[2021-12-25 09:33] LABS: BUN/Creatinine Ratio 27
--- NOTE | 2021-12-25 11:03 | Progress Note ---
<RICHA BANKS - Last Filed: 12/25/21 14:51> Assessment and Plan Assessment and plan: This is a 56-year-old male with known history of DM admitted for Hypoglycemia, hyponatremia, and acute hypoxemic respiratory failure requiring ventilatory support. Pateint also noted with left foot abscess s/p I&D by Gen. Surgery. Hospital Course to Date: 12/25: Patient remains on the vent, awake, following commends on propofol gtt. Possible PST today, plan to wean to extubate. High BG this am, D10W gtt D/C. Hyponatremia is improving continue IVF resuscitation, serial BMP Q6hrs. LLE wound noted with CDI dressing. General Surgery recommendation noted, Vascular consulted. Wound Care also consulted. Continue current IV Abx for now, ID consulted for IV Abx management. Assessment and Plan #Acute Hypoxemic Respiratory Failure 12/11 #Community-Acquired Pneumonia #COVID PUI - Presented with unresponsiveness with agonal breathing - Intubated in the ED on 12/24 - This am Vent Setting:PRVC-40%,6,20,450 - This am ABG pending - CCM consulted, appreciate recommendations - COVID PCR pending - Continue current IV Abx and nebs treatment - VAP bundle addressed - Aspiration precaution HOB above 30 - Daily SBT and SAT trials as tolerated - Daily ABG and CXR - Continue SPO2 monitoring for SPO2 goal above 92% #Community-Acquired Pneumonia #COVID PUI - Imagings suggesting possible Left lung pneumonia - COVID PCR pending - Inflammatory markers and procal pending - Blood culture pending, Sputum culture growing GPC - Continue current IV Abx for now - ID consulted - Continue to F/U on B.cult - Daily CBC monitor #Hyponatremia #Hypokalemia-improved - Probably related to dehydration/volume depletion - Na improved post IV hydration - Continue IVF resuscitation - Monitor and replace electrolytes as needed - Serial BMP Q6hrs - Strict intake and output #Acute Metabolic Encephalopathy - Probably r/t to multifactorial. hypoglycemia vs hyponatremia vs infectious process - Mentation improved this am. Awake, following commands - Plan to wean off sedation - Possible PST to wean to extubate - PRN Analgesia for CPOT greater than 3 - Avoid benzo to prevent delirium - Maintenance of sleep-wake cycle #Abscess of left foot #Possible Chronic Osteomyelitis - Presented LLE swelling and left foot abscess - General Surgery consulted - 12/24 s/p I&D of left foot by gen surgery - Vascular consulted per rec. - Continue current IV Abx - ID consulted - Continue wound care per General surgery - Wound Care also consulted #Hyperglycemia #Hypoglycemia-resolved #H/o Diabetes - Presented with low BG in the 30s required D10w gtt - Hyperglycemic this am, BG in the 300s - D/10w d/c - SSI initiated q6hrs - Continue IVF resuscitation with 1/2NS - Serial BMP - Avoid Hypoglycemia - Continue Hypoglycemic protocol #Transaminitis - Etiology unclear - Consult placed to gastroenterology for evaluation and recommendations - Continue to trend LFTs #GI/DVT prophylaxis - PPI- Pepcid - Continue AC- Hep SubQ The high probability of a clinically significant, sudden or life threatening deterioration of the [multiple] system(s) required my full and direct attention, intervention and personal management. The aggregate critical care time was [60] minutes. This time is in addition to time spent performing reported procedures but includes the following: [x] Data Review and interpretation [x] Patient assessment and monitoring of vital signs [x] Documentation [x] Medication orders and management Disposition Plan: ICU Total Time Spent with Patient (Minutes): 60 History Interval history: Patient seen and examined at the bedside. Intubated, awake, and following commands on propofol gtt, RASS 0. LLE wound with CDI dressing noted. ANISA overnight Hospitalist Physical - Constitutional Vitals: Temp Pulse Resp BP Pulse Ox 97.9 F 59 L 20 81/46 99 12/25/21 07:14 12/25/21 08:00 12/25/21 06:17 12/25/21 08:00 12/25/21 08:00 General appearance: Present: no acute distress, cachectic, other (On the vent) - EENT Eyes: Present: PERRL, EOM intact ENT: clear oral mucosa - Neck Neck: Present: normal ROM - Respiratory Respiratory effort: normal Respiratory: bilateral: rhonchi - Cardiovascular Rhythm: regular Heart Sounds: Present: S1 & S2 - Extremities Extremities: abnormal Extremity abnormal: edema, other (LLE wounds) - Peripheral Assessment Left Lower Extremity Edema Type: Non-pitting Edema Degree: 2+ Capillary Refill: < 3 seconds Skin Temperature: Warm Peripheral Pulses: within normal limits - Abdominal General gastrointestinal: soft, non-distended, normal bowel sounds - Integumentary Integumentary: Present: warm, dry - Psychiatric Psychiatric: appropriate mood/affect, cooperative - Neurologic Neurologic: moves all extremities - Allied Health Allied health notes reviewed: nursing HEART Score - HEART Score Troponin: Troponin T < 0.010 ng/mL (0.00-0.029) 12/24/21 22:33 Results - Labs CBC & Chem 7: 12/25/21 08:26 12/25/21 08:26 Labs: Laboratory Last Values WBC 5.1 K/mm3 (4.5-11.0) 12/25/21 08: RBC 3.92 M/mm3 (3.65-5.03) 12/25/21 08: Hgb 11.7 gm/dl (11.8-15.2) L 12/25/21 08: Hct 35.2 % (35.5-45.6) L 12/25/21 08:26 MCV 90 fl (84-94) 12/25/21 08: MCH 30 pg (28-32) 12/25/21 08: MCHC 33 % (32-34) 12/25/21 08:26 RDW 14.5 % (13.2-15.2) 12/25/21 08:26 Plt Count 165 K/mm3 (140-440) 12/25/21 08:26 Lymph % (Auto) 9.8 % (13.4-35.0) L 12/25/21 08: [place] % (Auto) 5.7 % (0.0-7.3) 12/25/21 08: Eos % (Auto) 0.1 % (0.0-4.3) 12/25/21 08: Baso % (Auto) 0.2 % (0.0-1.8) 12/25/21 08: Lymph # (Auto) 0.5 K/mm3 (1.2-5.4) L 12/25/21 08: [place] # (Auto) 0.3 K/mm3 (0.0-0.8) 12/25/21 08:26 Eos # (Auto) 0.0 K/mm3 (0.0-0.4) 12/25/21 08:26 Baso # (Auto) 0.0 K/mm3 (0.0-0.1) 12/25/21 08:26 Seg Neutrophils % 84.2 % (40.0-70.0) H 12/25/21 08:26 Seg Neutrophils # 4.3 K/mm3 (1.8-7.7) 12/25/21 08:26 PT 13.9 Sec. (12.2-14.9) 12/24/21 19:43 INR 0.96 (0.87-1.13) 12/24/21 19:43 APTT 39.7 Sec. (24.2-36.6) H 12/24/21 19:43 D-Dimer 2019.48 ng/mlDDU (0-234) H 12/25/21 08:26 ABG pH 7.386 pH Units (7.350-7.450) 12/24/21 Unknown ABG pCO2 32.7 mm Hg 12/24/21 Unknown ABG pO2 308.2 mm Hg (80.0-90.0) H 12/24/21 Unknown ABG HCO3 19.2 mmol/L (20.0-26.0) L 12/24/21 Unknown ABG O2 Saturation 99.5 % (95.0-99.0) H 12/24/21 Unknown ABG O2 Content 15.5 (0.0-44) 12/24/21 Unknown ABG Base Excess -5.0 mmol/L (-2.0-3.0) L 12/24/21 Unknown ABG Hemoglobin 10.6 gm/dl (14.0-18.0) L 12/24/21 Unknown ABG Carboxyhemoglobin 0.9 % (0.0-5.0) 12/24/21 Unknown ABG Methemoglobin 0.5 % (0.0-1.5) 12/24/21 Unknown Oxyhemoglobin 98.1 % (95.0-99.0) 12/24/21 Unknown FiO2 100 % 12/24/21 Unknown Sodium 130 mmol/L (137-145) L 12/25/21 08:26 Potassium 3.8 mmol/L (3.6-5.0) D 12/25/21 08:26 Chloride 96.6 mmol/L (98-107) L 12/25/21 08:26 Carbon Dioxide 19 mmol/L (22-30) L 12/25/21 08:26 Anion Gap 18 mmol/L 12/25/21 08:26 BUN 19 mg/dL (9-20) 12/25/21 08:26 Creatinine 0.7 mg/dL (0.8-1.3) L 12/25/21 08:26 Estimated GFR > 60 ml/min 12/25/21 08:26 BUN/Creatinine Ratio 27 % 12/25/21 08:26 Glucose 323 mg/dL (75-100) H 12/25/21 08:26 POC Glucose 305 mg/dL (70-105) H 12/25/21 10:59 Lactic Acid 1.20 mmol/L (0.7-2.0) 12/24/21 22:33 Calcium 8.3 mg/dL (8.4-10.2) L 12/25/21 08:26 Magnesium 1.90 mg/dL (1.7-2.3) 12/24/21 19:43 Ferritin 1288.0 ng/mL (30.0-300.0) H 12/25/21 08:26 Total Bilirubin 0.40 mg/dL (0.1-1.2) 12/25/21 08:26 Direct Bilirubin < 0.2 mg/dL (0-0.2) 12/24/21 19:43 Indirect Bilirubin 0.2 mg/dL 12/24/21 19:43 AST 123 units/L (5-40) H 12/25/21 08:26 ALT 111 units/L (7-56) H 12/25/21 08:26 Alkaline Phosphatase 144 units/L (35-129) H 12/25/21 08:26 Ammonia 31.0 umol/L (25-60) 12/24/21 19:43 Lactate Dehydrogenase 215 units/L (91-180) H 12/25/21 08:26 Troponin T < 0.010 ng/mL (0.00-0.029) 12/24/21 22:33 C-Reactive Protein 34.10 mg/dL (0.00-1.30) H 12/25/21 08:26 NT-Pro-B Natriuret Pep 520.8 pg/mL (0-900) 12/24/21 19:43 Total Protein 6.8 g/dL (6.3-8.2) 12/25/21 08:26 Albumin 2.5 g/dL (3.9-5) L 12/25/21 08:26 Albumin/Globulin Ratio 0.6 % 12/25/21 08:26 Lipase 6 units/L (13-60) L 12/24/21 19:43 Procalcitonin 6.09 ng/mL (<0.15) 12/25/21 08:26 TSH 0.570 mlU/mL (0.270-4.200) 12/25/21 Unknown Urine Color Yellow (Yellow) 12/24/21 Unknown Urine Turbidity Slightly-cloudy (Clear) 12/24/21 Unknown Urine pH 6.0 (5.0-7.0) 12/24/21 Unknown Ur Specific [place] 1.020 (1.003-1.030) 12/24/21 Unknown Urine Protein 100 mg/dl mg/dL (Negative) 12/24/21 Unknown Urine Glucose (UA) Neg mg/dL (Negative) 12/24/21 Unknown Urine Ketones Neg mg/dL (Negative) 12/24/21 Unknown Urine Blood Mod (Negative) 12/24/21 Unknown Urine Nitrite Neg (Negative) 12/24/21 Unknown Urine Bilirubin Neg (Negative) 12/24/21 Unknown Urine Urobilinogen 2.0 mg/dL (<2.0) 12/24/21 Unknown Ur Leukocyte Esterase Neg (Negative) 12/24/21 Unknown Urine WBC (Auto) 1.0 /HPF (0.0-6.0) 12/24/21 Unknown Urine RBC (Auto) 1.0 /HPF (0.0-6.0) 12/24/21 Unknown U Epithel Cells (Auto) 1.0 /HPF (0-13.0) 12/24/21 Unknown Urine Bacteria (Auto) 1+ /HPF (Negative) 12/24/21 Unknown Urine Mucus Few /HPF 12/24/21 Unknown Salicylates < 0.3 mg/dL (2.8-20.0) L 12/24/21 19:43 Acetaminophen 5.0 ug/mL (10.0-30.0) L 12/24/21 19:43 Plasma/Serum Alcohol < 0.01 % (0-0.07) 12/24/21 19:43 Hepatitis A IgM Ab Non-reactive (NonReactive) 12/25/21 Unknown Hep Bs Antigen Non-reactive (Negative) 12/25/21 Unknown Hep B Core IgM Ab Non-reactive (NonReactive) 12/25/21 Unknown Hepatitis C Antibody Non-reactive (NonReactive) 12/25/21 Unknown Blood Type O POSITIVE 12/24/21 19:43 Antibody Screen Negative 12/24/21 19:43 Microbiology: Microbiology 12/24/21 19:50 Sputum - Expectorated Sputum Sputum Culture - Preliminary 12/24/21 19:43 Peripheral/Venous Blood Culture - Preliminary Culture in Progress 12/24/21 19:43 Peripheral/Venous Blood Culture - Preliminary Culture in Progress Phillip/IV: Voiding Method Indwelling Catheter Active Medications - Current Medications Current Medications: Generic Name Dose Route Start Last Admin Trade Name Freq PRN Reason Stop Dose Admin Acetaminophen 650 mg 12/25/21 01:40 Acetaminophen 650 Mg Rect Supp NM Q6H PRN Pain MILD(1-3)/Fever >100.5/PATEL Dextrose 0 ml 12/25/21 02:02 Dextrose 10% *Hypoglycemia IV PRN PRN Hypoglycemia Protocol Dextrose 50 ml 12/25/21 10:57 Dextrose 50% In Water (25gm) 50 Ml Syringe IV Q30MIN PRN Hypoglycemia Protocol Famotidine 20 mg 12/25/21 10:00 12/25/21 09:10 Famotidine 20 Mg Tab PO 20 mg BID KELTON Administration Heparin Sodium (Porcine) 5,000 unit 12/25/21 06:00 12/25/21 06:06 Heparin 5,000 Unit/1 Ml Vial SUB-Q 5,000 unit Q8HR KELTON Administration Propofol 1,000 mg in 100 mls @ 3.946 mls/hr 12/24/21 20:00 12/25/21 07:00 Diprivan 10 Mg/Ml IV 35 mcg/kg/min TITR KELTON 13.812 mls/hr Titration Protocol 10 MCG/KG/MIN Sodium Chloride 1,000 mls @ 125 mls/hr 12/25/21 01:45 12/25/21 09:15 Nacl 0.9% 1000 Ml IV 125 mls/hr DIRECT KELTON Administration Piperacillin Sod/Tazobactam Sod 4.5 gm in 100 mls @ 200 mls/hr 12/25/21 02:00 12/25/21 09:11 Zosyn/Ns 4.5gm/100ml IV 200 mls/hr Q8H KELTON Administration Protocol Vancomycin HCl 1 gm in 250 mls @ 166.667 mls/hr 12/25/21 18:00 Vancomycin/Ns 1 Gm/250 Ml IV Q12H KELTON Clindamycin HCl 600 mg in 50 mls @ 100 mls/hr 12/25/21 14:00 Cleocin 600 Mg/50 Ml IV 12/27/21 22:29 Q8HR [facility] Protocol Insulin Human Lispro 0 unit 12/25/21 12:00 Insulin Lispro 100 Unit/Ml SUB-Q Q6HR [facility] Protocol Magnesium Hydroxide 30 ml 12/25/21 01:40 Magnesium Hydroxide (Mom) Oral Liqd Udc PO Q4H PRN Constipation Morphine Sulfate 2 mg 12/25/21 01:40 Morphine 2 Mg/1 Ml Inj IV Q4H PRN Pain, Moderate (4-6) Morphine Sulfate 4 mg 12/25/21 01:40 Morphine 4 Mg/1 Ml Inj IV Q4H PRN Pain , Severe (7-10) Ondansetron HCl 4 mg 12/25/21 01:40 Ondansetron 4 Mg/2 Ml Inj IV Q8H PRN Nausea And Vomiting Sodium Chloride 10 ml 12/25/21 10:00 12/25/21 09:07 Sodium Chloride 0.9% 10 Ml Flush Syringe IV 10 ml BID KELTON Administration Sodium Chloride 10 ml 12/25/21 01:40 Sodium Chloride 0.9% 10 Ml Flush Syringe IV PRN PRN LINE FLUSH <AJMSHID GREGORY - Last Filed: 12/26/21 08:10> Assessment and Plan Assessment and plan: I saw and evaluated the patient. I agree with the findings and the plan of care as documented in the Nurse Practitioner's~note, with the following corrections and additions. Hospitalist Physical - Constitutional Vitals: Temp Pulse Resp BP Pulse Ox 98.5 F 78 18 105/61 98 12/26/21 04:14 12/26/21 04:14 12/26/21 04:14 12/26/21 04:14 12/26/21 04:14 HEART Score - HEART Score Troponin: Troponin T < 0.010 ng/mL (0.00-0.029) 12/24/21 22:33 Results - Labs CBC & Chem 7: 12/26/21 06:08 12/26/21 06:08 Labs: Laboratory Last Values WBC 6.8 K/mm3 (4.5-11.0) 12/26/21 06:08 RBC 3.59 M/mm3 (3.65-5.03) L 12/26/21 06:08 Hgb 10.8 gm/dl (11.8-15.2) L 12/26/21 06:08 Hct 32.2 % (35.5-45.6) L 12/26/21 06:08 MCV 90 fl (84-94) 12/26/21 06:08 MCH 30 pg (28-32) 12/26/21 06:08 MCHC 34 % (32-34) 12/26/21 06:08 RDW 14.9 % (13.2-15.2) 12/26/21 06:08 Plt Count 215 K/mm3 (140-440) 12/26/21 06:08 Lymph % (Auto) 17.3 % (13.4-35.0) 12/26/21 06:08 [place] % (Auto) 10.2 % (0.0-7.3) H 12/26/21 06:08 Eos % (Auto) 0.1 % (0.0-4.3) 12/26/21 06:08 Baso % (Auto) 0.4 % (0.0-1.8) 12/26/21 06:08 Lymph # (Auto) 1.2 K/mm3 (1.2-5.4) 12/26/21 06:08 [place] # (Auto) 0.7 K/mm3 (0.0-0.8) 12/26/21 06:08 Eos # (Auto) 0.0 K/mm3 (0.0-0.4) 12/26/21 06:08 Baso # (Auto) 0.0 K/mm3 (0.0-0.1) 12/26/21 06:08 Seg Neutrophils % 72.0 % (40.0-70.0) H 12/26/21 06:08 Seg Neutrophils # 4.9 K/mm3 (1.8-7.7) 12/26/21 06:08 PT 13.9 Sec. (12.2-14.9) 12/24/21 19:43 INR 0.96 (0.87-1.13) 12/24/21 19:43 APTT 39.7 Sec. (24.2-36.6) H 12/24/21 19:43 D-Dimer 2019.48 ng/mlDDU (0-234) H 12/25/21 08:26 ABG pH 7.386 pH Units (7.350-7.450) 12/24/21 Unknown ABG pCO2 32.7 mm Hg 12/24/21 Unknown ABG pO2 308.2 mm Hg (80.0-90.0) H 12/24/21 Unknown ABG HCO3 19.2 mmol/L (20.0-26.0) L 12/24/21 Unknown ABG O2 Saturation 99.5 % (95.0-99.0) H 12/24/21 Unknown ABG O2 Content 15.5 (0.0-44) 12/24/21 Unknown ABG Base Excess -5.0 mmol/L (-2.0-3.0) L 12/24/21 Unknown ABG Hemoglobin 10.6 gm/dl (14.0-18.0) L 12/24/21 Unknown ABG Carboxyhemoglobin 0.9 % (0.0-5.0) 12/24/21 Unknown ABG Methemoglobin 0.5 % (0.0-1.5) 12/24/21 Unknown Oxyhemoglobin 98.1 % (95.0-99.0) 12/24/21 Unknown FiO2 100 % 12/24/21 Unknown Sodium 136 mmol/L (137-145) L 12/26/21 06:08 Potassium 3.6 mmol/L (3.6-5.0) 12/26/21 06:08 Chloride 105.2 mmol/L (98-107) 12/26/21 06:08 Carbon Dioxide 18 mmol/L (22-30) L 12/26/21 06:08 Anion Gap 16 mmol/L 12/26/21 06:08 BUN 15 mg/dL (9-20) 12/26/21 06:08 Creatinine 0.7 mg/dL (0.8-1.3) L 12/26/21 06:08 Estimated GFR > 60 ml/min 12/26/21 06:08 BUN/Creatinine Ratio 21 % 12/26/21 06:08 Glucose 154 mg/dL (75-100) H 12/26/21 06:08 POC Glucose 133 mg/dL (70-105) H 12/26/21 05:52 Hemoglobin A1c 14.9 % (4-6) H 12/26/21 06:08 Lactic Acid 1.20 mmol/L (0.7-2.0) 12/24/21 22:33 Calcium 8.4 mg/dL (8.4-10.2) 12/26/21 06:08 Phosphorus 3.40 mg/dL (2.5-4.5) 12/26/21 06:08 Magnesium 1.90 mg/dL (1.7-2.3) 12/26/21 06:08 Ferritin 1335.0 ng/mL (30.0-300.0) H 12/26/21 06:08 Total Bilirubin 0.40 mg/dL (0.1-1.2) 12/25/21 08:26 Direct Bilirubin < 0.2 mg/dL (0-0.2) 12/24/21 19:43 Indirect Bilirubin 0.2 mg/dL 12/24/21 19:43 AST 123 units/L (5-40) H 12/25/21 08:26 ALT 111 units/L (7-56) H 12/25/21 08:26 Alkaline Phosphatase 144 units/L (35-129) H 12/25/21 08:26 Ammonia 31.0 umol/L (25-60) 12/24/21 19:43 Lactate Dehydrogenase 215 units/L (91-180) H 12/25/21 08:26 Troponin T < 0.010 ng/mL (0.00-0.029) 12/24/21 22:33 C-Reactive Protein 34.10 mg/dL (0.00-1.30) H 12/25/21 08:26 NT-Pro-B Natriuret Pep 520.8 pg/mL (0-900) 12/24/21 19:43 Total Protein 6.8 g/dL (6.3-8.2) 12/25/21 08:26 Albumin 2.5 g/dL (3.9-5) L 12/25/21 08:26 Albumin/Globulin Ratio 0.6 % 12/25/21 08:26 Lipase 6 units/L (13-60) L 12/24/21 19:43 Procalcitonin 6.09 ng/mL (<0.15) 12/25/21 08:26 TSH 0.910 mlU/mL (0.270-4.200) 12/26/21 06:08 Urine Color Yellow (Yellow) 12/24/21 Unknown Urine Turbidity Slightly-cloudy (Clear) 12/24/21 Unknown Urine pH 6.0 (5.0-7.0) 12/24/21 Unknown Ur Specific [place] 1.020 (1.003-1.030) 12/24/21 Unknown Urine Protein 100 mg/dl mg/dL (Negative) 12/24/21 Unknown Urine Glucose (UA) Neg mg/dL (Negative) 12/24/21 Unknown Urine Ketones Neg mg/dL (Negative) 12/24/21 Unknown Urine Blood Mod (Negative) 12/24/21 Unknown Urine Nitrite Neg (Negative) 12/24/21 Unknown Urine Bilirubin Neg (Negative) 12/24/21 Unknown Urine Urobilinogen 2.0 mg/dL (<2.0) 12/24/21 Unknown Ur Leukocyte Esterase Neg (Negative) 12/24/21 Unknown Urine WBC (Auto) 1.0 /HPF (0.0-6.0) 12/24/21 Unknown Urine RBC (Auto) 1.0 /HPF (0.0-6.0) 12/24/21 Unknown U Epithel Cells (Auto) 1.0 /HPF (0-13.0) 12/24/21 Unknown Urine Bacteria (Auto) 1+ /HPF (Negative) 12/24/21 Unknown Urine Mucus Few /HPF 12/24/21 Unknown Salicylates < 0.3 mg/dL (2.8-20.0) L 12/24/21 19:43 Acetaminophen 5.0 ug/mL (10.0-30.0) L 12/24/21 19:43 Plasma/Serum Alcohol < 0.01 % (0-0.07) 12/24/21 19:43 Coronavirus (PCR) Negative (Negative) 12/25/21 09:45 Hepatitis A IgM Ab Non-reactive (NonReactive) 12/25/21 Unknown Hep Bs Antigen Non-reactive (Negative) 12/25/21 Unknown Hep B Core IgM Ab Non-reactive (NonReactive) 12/25/21 Unknown Hepatitis C Antibody Non-reactive (NonReactive) 12/25/21 Unknown Blood Type O POSITIVE 12/24/21 19:43 Antibody Screen Negative 12/24/21 19:43 Microbiology: Microbiology 12/24/21 19:43 Peripheral/Venous Blood Culture - Preliminary NO GROWTH AFTER 24 HOURS 12/24/21 19:43 Peripheral/Venous Blood Culture - Preliminary NO GROWTH AFTER 24 HOURS 12/24/21 19:48 Urine,Catheterized - Indwelling Catheter Urine Culture - Preliminary Staphylococcus Aureus 12/24/21 Unknown Foot - Left Wound Culture - Preliminary Staphylococcus Aureus Phillip/IV: Voiding Method Indwelling Catheter Active Medications - Current Medications Current Medications: Generic Name Dose Route Start Last Admin Trade Name Freq PRN Reason Stop Dose Admin Acetaminophen 650 mg 12/25/21 01:40 Acetaminophen 650 Mg Rect Supp NM Q6H PRN Pain MILD(1-3)/Fever >100.5/PATEL Dextrose 0 ml 12/25/21 02:02 Dextrose 10% *Hypoglycemia IV PRN PRN Hypoglycemia Protocol Famotidine 20 mg 12/25/21 10:00 12/25/21 21:46 Famotidine 20 Mg Tab PO 20 mg BID KELTON Administration Heparin Sodium (Porcine) 5,000 unit 12/25/21 06:00 12/26/21 05:17 Heparin 5,000 Unit/1 Ml Vial SUB-Q 5,000 unit Q8HR KELTON Administration Piperacillin Sod/Tazobactam Sod 4.5 gm in 100 mls @ 200 mls/hr 12/25/21 02:00 12/26/21 01:40 Zosyn/Ns 4.5gm/100ml IV 200 mls/hr Q8H KELTON Administration Protocol Vancomycin HCl 1 gm in 250 mls @ 166.667 mls/hr 12/25/21 18:00 12/25/21 21:54 Vancomycin/Ns 1 Gm/250 Ml IV 166.667 mls/hr Q12H KELTON Administration Clindamycin HCl 600 mg in 50 mls @ 100 mls/hr 12/25/21 14:00 12/26/21 05:16 Cleocin 600 Mg/50 Ml IV 12/27/21 22:29 100 mls/hr Q8HR KELTON Administration Protocol Sodium Chloride 1,000 mls @ 100 mls/hr 12/25/21 12:30 12/26/21 01:39 Nacl 0.45% 1000 Ml IV 100 mls/hr DIRECT KELTON Administration Insulin Human Lispro 0 unit 12/25/21 12:00 12/26/21 06:24 Insulin Lispro 100 Unit/Ml SUB-Q Not Given Q6HR [facility] Protocol Magnesium Hydroxide 30 ml 12/25/21 01:40 Magnesium Hydroxide (Mom) Oral Liqd Udc PO Q4H PRN Constipation Morphine Sulfate 2 mg 12/25/21 01:40 Morphine 2 Mg/1 Ml Inj IV Q4H PRN Pain, Moderate (4-6) Ondansetron HCl 4 mg 12/25/21 01:40 Ondansetron 4 Mg/2 Ml Inj IV Q8H PRN Nausea And Vomiting Sodium Chloride 10 ml 12/25/21 10:00 12/25/21 22:57 Sodium Chloride 0.9% 10 Ml Flush Syringe IV Not Given BID KELTON Sodium Chloride 10 ml 12/25/21 01:40 Sodium Chloride 0.9% 10 Ml Flush Syringe IV PRN PRN LINE FLUSH Nutrition/Malnutrition Assess - Dietary Evaluation Nutrition/Malnutrition Findings: Nutrition Notes Start: 12/25/21 11 :36 Freq: Status: Active Protocol: Document 12/25/21 11:36 ADELA (Rec: 12/25/21 12:35 ADELA [email or web address]) Nutrition Notes Need for Assessment generated from: MD Order,lighting specialist,MST Initial or Follow up Assessment Current Diagnosis Diabetes,Sepsis,Respiratory Failure Other Pertinent Diagnosis L-Foot Abscess/Fracture/ Ostomyelitis, AMS, Pneumonia. Current Diet NPO (since 12/25 01:41), TF- Glucerna 1.2 [place] @ 45 ml/hr ( since D 12/25). Labs/Tests 12/25: Na 130, Cl 96.6, CO2 19 , Crea 0.7, Glu 323, Ca 8.3. Pertinent Medications 12/25: Propofol 1000 mg in 100 ml @ 13.812 ml/hr (365 Kcal), others nutritionally unremarkable. Height 5 ft 3 in Weight 65.771 kg [place] Body Weight (kg) 56.36 BMI 25.7 Intake Prior to Admission Good Weight change and time frame Pt states being unsure if loss body weight recently. Weight Status Overweight Subjective/Other Information RD consult for skin risk and risk of malnutrition assessments, and write/manage TF. Pt shows no signs of concern for risk of malnutrition at the time, according to Physical Assessment History notes. Pt shows infected wound on left foot secondary to stepping on a needle few days ago, according to Progress notes. Pt has missing teeth, according to Physical Assessment History notes. TF ordered. Percent of energy/protein needs met: Pt currently on NPO. Prescribed TF-Glucerna 1.2 Jairo @ 45 ml/hr provides for energy/protein needs (1,299 Kcal/65 g) during LOS, 100% Kcal; 78% AA. Burn Absent Trauma Absent GI Symptoms None Food Allergy No Skin Integrity/Comment L-Foot abscess. Current % PO Other Minimum of two criteria No #1 Nutrition Diagnosis Increased nutrient needs ( specify in comment below) Comments: Protein to support wound healing processes. Etiology Pt stepped on a needle few days ago. As Evidenced by Signs and Symptoms Open wound with abscess, fracture and ostomyelitis. Is patient on ventilator? Yes Is Patient Ambulatory and/or Out of Bed No REE-([place] Je[facility]-confined to bed) [phone] Calculation Used for Recommendations [place] Additional Notes EEN: [phone] (propofol)= 1, 299 Kcal. Protein: 1.25-1.5 g/Kg; 83-99 g/day. Fluids: 1 ml/Kcal, or as per MD. Nutrition Intervention Nutrition Support: Start Glucerna 1.2 [place] @ 45 ml /hr. Flush: 70 ml water Q 4 hr, or as per MD. Kcal 1,299 Protein (gm) 65 Carbohydrates (gm) 124 Fat (gm) 65 Fluid (mL) 871 Fiber (gm) 17 % RDI: 100% Kcal; 78% AA. Goal #1 Provide at least 75% of energy /protein needs through Enteral Feeding during LOS. Goal #2 Maintain body weight within +/ -3% of admission body weight during LOS. Follow-Up By: 12/27/21 Additional Comments Continue monitoring TF tolerance and BM.
[2021-12-25] MEDS ORDERED: SODIUM CHLORIDE 0.9% 1000 ML 1,000 ML IV ONE (12:00)
[2021-12-25] MEDS: SODIUM CHLORIDE 0.45% 1000 ML 1,000 ML IV SCH (12:03)
[2021-12-25] MEDS: INSULIN LISPRO 100 UNIT/ML SUB-Q SCH ×2 (12:03→17:43)
--- NOTE | 2021-12-25 15:01 | Consultation ---
History of Present Illness - Reason for Consult Consult date: 12/25/21 Left Foot Abscess with Possible PVD Requesting physician: RICHA BANKS - History of Present Illness The patient is a 56-year-old male with a history of diabetes who was brought to the emergency department obtunded with agonal breathing. Per report the patient had been missing for 3 days and reportedly stepped on a nail with his left foot. He was found by EMS and brought to [facility] Emergency Department in the previously described condition. Upon evaluation he was found to have an abscess in his left foot and underwent incision and drainage in the emergency department along with administration of tetanus toxoid injection. Since incision and drainage the patient has improved medically. He has some pain in his left foot but has no other complaints at this time. Past History Past Medical History: diabetes Past Surgical History: Other (Incision and Drainage of Left Foot) Social history: no significant social history Family history: no significant family history Medications and Allergies Allergies Allergy/AdvReac Type Severity Reaction Status Date / Time No Known Allergies Allergy Unverified 12/24/21 20:07 Active Meds: Active Medications Acetaminophen (Acetaminophen 650 Mg Rect Supp) 650 mg NE Q6H PRN PRN Reason: Pain MILD(1-3)/Fever >100.5/PATEL Dextrose (Dextrose 10% *Hypoglycemia) 0 ml IV PRN PRN; Protocol PRN Reason: Hypoglycemia Famotidine (Famotidine 20 Mg Tab) 20 mg PO BID KELTON Last Admin: 12/25/21 09:10 Dose: 20 mg Heparin Sodium (Porcine) (Heparin 5,000 Unit/1 Ml Vial) 5,000 unit SUB-Q Q8HR [facility] Last Admin: 12/25/21 06:06 Dose: 5,000 unit Propofol (Diprivan 10 Mg/Ml) 1,000 mg in 100 mls @ 3.946 mls/hr IV TITR KEL[facility]; Protocol Last Admin: 12/25/21 12:02 Dose: 35 mcg/kg/min, 13.812 mls/hr Piperacillin Sod/Tazobactam Sod (Zosyn/Ns 4.5gm/100ml) 4.5 gm in 100 mls @ 200 mls/hr IV Q8H KEL[facility]; Protocol Last Infusion: 12/25/21 10:15 Dose: Infused Vancomycin HCl (Vancomycin/Ns 1 Gm/250 Ml) 1 gm in 250 mls @ 166.667 mls/hr IV Q12H [facility] Clindamycin HCl (Cleocin 600 Mg/50 Ml) 600 mg in 50 mls @ 100 mls/hr IV Q8HR [facility]; Protocol Stop: 12/27/21 22:29 Sodium Chloride (Nacl 0.45% 1000 Ml) 1,000 mls @ 100 mls/hr IV DIRECT KELTON Last Admin: 12/25/21 12:03 Dose: 100 mls/hr Insulin Human Lispro (Insulin Lispro 100 Unit/Ml) 0 unit SUB-Q Q6HR [facility]; Protocol Last Admin: 12/25/21 12:03 Dose: 6 unit Magnesium Hydroxide (Magnesium Hydroxide (Mom) Oral Liqd Udc) 30 ml PO Q4H PRN PRN Reason: Constipation Morphine Sulfate (Morphine 2 Mg/1 Ml Inj) 2 mg IV Q4H PRN PRN Reason: Pain, Moderate (4-6) Morphine Sulfate (Morphine 4 Mg/1 Ml Inj) 4 mg IV Q4H PRN PRN Reason: Pain , Severe (7-10) Ondansetron HCl (Ondansetron 4 Mg/2 Ml Inj) 4 mg IV Q8H PRN PRN Reason: Nausea And Vomiting Sodium Chloride (Sodium Chloride 0.9% 10 Ml Flush Syringe) 10 ml IV BID [facility] Last Admin: 12/25/21 09:07 Dose: 10 ml Sodium Chloride (Sodium Chloride 0.9% 10 Ml Flush Syringe) 10 ml IV PRN PRN PRN Reason: LINE FLUSH Review of Systems All systems: negative Exam - Constitutional Vitals: Temp Pulse Resp BP Pulse Ox 97.4 F L 72 12 113/74 99 12/25/21 11:44 12/25/21 14:41 12/25/21 14:41 12/25/21 14:41 12/25/21 14:41 General appearance: Present: no acute distress - Respiratory Respiratory effort: normal - Cardiovascular Rhythm: regular - Extremities Extremities: pulses intact (Palpable right pedal pulses, palpable left DP) Extremity abnormal: pulses diminished (difficulty palpating the left PT secondary to induration), other (left foot with induration, minimal purulent drainage from the medial aspect of the midfoot) - Abdominal General gastrointestinal: Present: soft, non-tender, non-distended Male genitourinary: Present: deferred - Rectal Rectal Exam: deferred Results - Labs CBC & Chem 7: 12/25/21 08:26 12/25/21 08:26 Labs: Abnormal lab results 12/24/21 12/24/21 12/24/21 Range/Units 19:43 19:43 19:43 RBC 3.58 L (3.65-5.03) M/mm3 Hgb 10.3 L (11.8-15.2) gm/dl Hct 31.5 L (35.5-45.6) % Lymph % (Auto) (13.4-35.0) % [place] % (Auto) 10.9 H (0.0-7.3) % Lymph # (Auto) 1.1 L (1.2-5.4) K/mm3 Seg Neutrophils % (40.0-70.0) % APTT 39.7 H (24.2-36.6) Sec. D-Dimer (0-234) ng/mlDDU ABG pO2 (80.0-90.0) mm Hg ABG HCO3 (20.0-26.0) mmol/L ABG O2 Saturation (95.0-99.0) % ABG Base Excess (-2.0-3.0) mmol/L ABG Hemoglobin (14.0-18.0) gm/dl Sodium 128 L (137-145) mmol/L Potassium 3.3 L (3.6-5.0) mmol/L Chloride 95.9 L (98-107) mmol/L Carbon Dioxide 18 L (22-30) mmol/L Creatinine 0.6 L (0.8-1.3) mg/dL Glucose 38 L* (75-100) mg/dL POC Glucose (70-105) mg/dL Calcium (8.4-10.2) mg/dL Ferritin (30.0-300.0) ng/mL AST 232 H (5-40) units/L ALT 126 H (7-56) units/L Alkaline Phosphatase 132 H (35-129) units/L Lactate Dehydrogenase (91-180) units/L C-Reactive Protein (0.00-1.30) mg/dL Albumin 2.6 L (3.9-5) g/dL Lipase 6 L (13-60) units/L Salicylates (2.8-20.0) mg/dL Acetaminophen (10.0-30.0) ug/mL 12/24/21 12/24/21 12/24/21 Range/Units 19:43 19:43 22:33 RBC (3.65-5.03) M/mm3 Hgb (11.8-15.2) gm/dl Hct (35.5-45.6) % Lymph % (Auto) (13.4-35.0) % [place] % (Auto) (0.0-7.3) % Lymph # (Auto) (1.2-5.4) K/mm3 Seg Neutrophils % (40.0-70.0) % APTT (24.2-36.6) Sec. D-Dimer (0-234) ng/mlDDU ABG pO2 (80.0-90.0) mm Hg ABG HCO3 (20.0-26.0) mmol/L ABG O2 Saturation (95.0-99.0) % ABG Base Excess (-2.0-3.0) mmol/L ABG Hemoglobin (14.0-18.0) gm/dl Sodium 126 L (137-145) mmol/L Potassium 3.1 L (3.6-5.0) mmol/L Chloride 91.7 L (98-107) mmol/L Carbon Dioxide 19 L (22-30) mmol/L Creatinine 0.7 L (0.8-1.3) mg/dL Glucose 115 H (75-100) mg/dL POC Glucose (70-105) mg/dL Calcium 8.3 L (8.4-10.2) mg/dL Ferritin (30.0-300.0) ng/mL AST (5-40) units/L ALT (7-56) units/L Alkaline Phosphatase (35-129) units/L Lactate Dehydrogenase (91-180) units/L C-Reactive Protein (0.00-1.30) mg/dL Albumin (3.9-5) g/dL Lipase (13-60) units/L Salicylates < 0.3 L (2.8-20.0) mg/dL Acetaminophen 5.0 L (10.0-30.0) ug/mL 12/24/21 12/25/21 12/25/21 Range/Units Unknown 00:23 05:59 RBC (3.65-5.03) M/mm3 Hgb (11.8-15.2) gm/dl Hct (35.5-45.6) % Lymph % (Auto) (13.4-35.0) % [place] % (Auto) (0.0-7.3) % Lymph # (Auto) (1.2-5.4) K/mm3 Seg Neutrophils % (40.0-70.0) % APTT (24.2-36.6) Sec. D-Dimer (0-234) ng/mlDDU ABG pO2 308.2 H (80.0-90.0) mm Hg ABG HCO3 19.2 L (20.0-26.0) mmol/L ABG O2 Saturation 99.5 H (95.0-99.0) % ABG Base Excess -5.0 L (-2.0-3.0) mmol/L ABG Hemoglobin 10.6 L (14.0-18.0) gm/dl Sodium (137-145) mmol/L Potassium (3.6-5.0) mmol/L Chloride (98-107) mmol/L Carbon Dioxide (22-30) mmol/L Creatinine (0.8-1.3) mg/dL Glucose (75-100) mg/dL POC Glucose 157 H 469 H (70-105) mg/dL Calcium (8.4-10.2) mg/dL Ferritin (30.0-300.0) ng/mL AST (5-40) units/L ALT (7-56) units/L Alkaline Phosphatase (35-129) units/L Lactate Dehydrogenase (91-180) units/L C-Reactive Protein (0.00-1.30) mg/dL Albumin (3.9-5) g/dL Lipase (13-60) units/L Salicylates (2.8-20.0) mg/dL Acetaminophen (10.0-30.0) ug/mL 12/25/21 12/25/21 12/25/21 Range/Units 06:01 08:26 08:26 RBC (3.65-5.03) M/mm3 Hgb 11.7 L (11.8-15.2) gm/dl Hct 35.2 L (35.5-45.6) % Lymph % (Auto) 9.8 L (13.4-35.0) % [place] % (Auto) (0.0-7.3) % Lymph # (Auto) 0.5 L (1.2-5.4) K/mm3 Seg Neutrophils % 84.2 H (40.0-70.0) % APTT (24.2-36.6) Sec. D-Dimer (0-234) ng/mlDDU ABG pO2 (80.0-90.0) mm Hg ABG HCO3 (20.0-26.0) mmol/L ABG O2 Saturation (95.0-99.0) % ABG Base Excess (-2.0-3.0) mmol/L ABG Hemoglobin (14.0-18.0) gm/dl Sodium 130 L (137-145) mmol/L Potassium (3.6-5.0) mmol/L Chloride 96.6 L (98-107) mmol/L Carbon Dioxide 19 L (22-30) mmol/L Creatinine 0.7 L (0.8-1.3) mg/dL Glucose 323 H (75-100) mg/dL POC Glucose 316 H (70-105) mg/dL Calcium 8.3 L (8.4-10.2) mg/dL Ferritin (30.0-300.0) ng/mL AST 123 H (5-40) units/L ALT 111 H (7-56) units/L Alkaline Phosphatase 144 H (35-129) units/L Lactate Dehydrogenase (91-180) units/L C-Reactive Protein (0.00-1.30) mg/dL Albumin 2.5 L (3.9-5) g/dL Lipase (13-60) units/L Salicylates (2.8-20.0) mg/dL Acetaminophen (10.0-30.0) ug/mL 12/25/21 12/25/21 12/25/21 Range/Units 08:26 08:26 08:26 RBC (3.65-5.03) M/mm3 Hgb (11.8-15.2) gm/dl Hct (35.5-45.6) % Lymph % (Auto) (13.4-35.0) % [place] % (Auto) (0.0-7.3) % Lymph # (Auto) (1.2-5.4) K/mm3 Seg Neutrophils % (40.0-70.0) % APTT (24.2-36.6) Sec. D-Dimer 2019.48 H (0-234) ng/mlDDU ABG pO2 (80.0-90.0) mm Hg ABG HCO3 (20.0-26.0) mmol/L ABG O2 Saturation (95.0-99.0) % ABG Base Excess (-2.0-3.0) mmol/L ABG Hemoglobin (14.0-18.0) gm/dl Sodium (137-145) mmol/L Potassium (3.6-5.0) mmol/L Chloride (98-107) mmol/L Carbon Dioxide (22-30) mmol/L Creatinine (0.8-1.3) mg/dL Glucose (75-100) mg/dL POC Glucose (70-105) mg/dL Calcium (8.4-10.2) mg/dL Ferritin 1288.0 H (30.0-300.0) ng/mL AST (5-40) units/L ALT (7-56) units/L Alkaline Phosphatase (35-129) units/L Lactate Dehydrogenase 215 H (91-180) units/L C-Reactive Protein 34.10 H (0.00-1.30) mg/dL Albumin (3.9-5) g/dL Lipase (13-60) units/L Salicylates (2.8-20.0) mg/dL Acetaminophen (10.0-30.0) ug/mL 12/25/21 Range/Units 10:59 RBC (3.65-5.03) M/mm3 Hgb (11.8-15.2) gm/dl Hct (35.5-45.6) % Lymph % (Auto) (13.4-35.0) % [place] % (Auto) (0.0-7.3) % Lymph # (Auto) (1.2-5.4) K/mm3 Seg Neutrophils % (40.0-70.0) % APTT (24.2-36.6) Sec. D-Dimer (0-234) ng/mlDDU ABG pO2 (80.0-90.0) mm Hg ABG HCO3 (20.0-26.0) mmol/L ABG O2 Saturation (95.0-99.0) % ABG Base Excess (-2.0-3.0) mmol/L ABG Hemoglobin (14.0-18.0) gm/dl Sodium (137-145) mmol/L Potassium (3.6-5.0) mmol/L Chloride (98-107) mmol/L Carbon Dioxide (22-30) mmol/L Creatinine (0.8-1.3) mg/dL Glucose (75-100) mg/dL POC Glucose 305 H (70-105) mg/dL Calcium (8.4-10.2) mg/dL Ferritin (30.0-300.0) ng/mL AST (5-40) units/L ALT (7-56) units/L Alkaline Phosphatase (35-129) units/L Lactate Dehydrogenase (91-180) units/L C-Reactive Protein (0.00-1.30) mg/dL Albumin (3.9-5) g/dL Lipase (13-60) units/L Salicylates (2.8-20.0) mg/dL Acetaminophen (10.0-30.0) ug/mL - Imaging and Cardiology CT scan - abdomen: image reviewed CT scan - chest: image reviewed Assessment and Plan The patient is a 56-year old male who presented with a left foot abscess, after stepping on nail. He underwent incision and drainage of the abscess and has improved mentally. He has an easily palpable left DP however his PT is difficult to palpate secondary induration of the medial foot and ankle. He likely has adequate arterial flow, to heal his wounds, however I will obtain arterial duplex with ABIs to confirm.
[2021-12-25] MEDS: CLINDAMYCIN 600 MG/50 mL 600 MG/50 ML BAG IV SCH ×2 (17:41→21:45)
--- NOTE | 2021-12-25 17:41 | Cat Scan Report ---
CTA CHEST WITH CONTRAST 3:25 PM INDICATION / CLINICAL INFORMATION: respiratory failure. TECHNIQUE: Axial CT images were obtained through the chest after injection of 100 cc Omnipaque 350 IV contrast. 3 plane MIP and/or 3D reconstructions were produced. All CT scans at this location are per formed using CT dose reduction for ALARA by means of automated exposure control. COMPARISON: CT chest 12/25/2021 2:10 AM FINDINGS: PULMONARY EMBOLUS: None. THORACIC AORTA: No significant abnormality. HEART: No significant abnormality. CORONARY ARTERY CALCIFICATION: Absent -- None. MEDIASTINUM / JERRY: No significant abnormality. PLEURA: No pleural effusion. No pneumothorax. LUNGS: Airspace consolidation left lower lobe, unchanged. ADDITIONAL FINDINGS: None. UPPER ABDOMEN: No acute findings. SKELETAL STRUCTURES: No significant osseous abnormality. IMPRESSION: 1. No CT evidence for pulmonary embolism. 2. Moderate left lower lobe pneumonia, unchanged. Signer Name: Antonio Zhou MD Signed: 12/25/2021 5:37 PM Workstation Name: [id number]
--- NOTE | 2021-12-25 18:03 | Consultation ---
History of Present Illness Consult date: 12/25/21 Requesting physician: JAMSHID GREGORY Reason for consult: other (Resp failure on MVS) History of present illness: This is a 56-year-old male with known history of DM admitted for Hypoglycemia, hyponatremia, and acute hypoxemic respiratory failure requiring ventilatory support. Patient also had a left foot abscess s/p I&D by Gen. Surgery. Patient seen and examined. Vitals, labs, medications, chart and imaging reviewed . Discussed with respiratory and nursing care staff. Patient remains on the mechanical ventilatory support awake, following commands on propofol gtt. SBT today, plan to liberate from MVS Past History Past Medical History: diabetes Past Surgical History: Other (Incision and Drainage of Left Foot) Social history: no significant social history Family history: no significant family history Medications and Allergies Allergies Allergy/AdvReac Type Severity Reaction Status Date / Time No Known Allergies Allergy Unverified 12/24/21 20:07 Active Meds: Active Medications Acetaminophen (Acetaminophen 650 Mg Rect Supp) 650 mg MT Q6H PRN PRN Reason: Pain MILD(1-3)/Fever >100.5/PATEL Dextrose (Dextrose 10% *Hypoglycemia) 0 ml IV PRN PRN; Protocol PRN Reason: Hypoglycemia Famotidine (Famotidine 20 Mg Tab) 20 mg PO BID KELTON Last Admin: 12/25/21 09:10 Dose: 20 mg Heparin Sodium (Porcine) (Heparin 5,000 Unit/1 Ml Vial) 5,000 unit SUB-Q Q8HR [facility] Last Admin: 12/25/21 17:41 Dose: 5,000 unit Propofol (Diprivan 10 Mg/Ml) 1,000 mg in 100 mls @ 3.946 mls/hr IV TITR [facility]; Protocol Last Admin: 12/25/21 12:02 Dose: 35 mcg/kg/min, 13.812 mls/hr Piperacillin Sod/Tazobactam Sod (Zosyn/Ns 4.5gm/100ml) 4.5 gm in 100 mls @ 200 mls/hr IV Q8H [facility]; Protocol Last Infusion: 12/25/21 10:15 Dose: Infused Vancomycin HCl (Vancomycin/Ns 1 Gm/250 Ml) 1 gm in 250 mls @ 166.667 mls/hr IV Q12H [facility] Clindamycin HCl (Cleocin 600 Mg/50 Ml) 600 mg in 50 mls @ 100 mls/hr IV Q8HR [facility]; Protocol Stop: 12/27/21 22:29 Last Admin: 12/25/21 17:41 Dose: 100 mls/hr Sodium Chloride (Nacl 0.45% 1000 Ml) 1,000 mls @ 100 mls/hr IV DIRECT KELTON Last Admin: 12/25/21 12:03 Dose: 100 mls/hr Insulin Human Lispro (Insulin Lispro 100 Unit/Ml) 0 unit SUB-Q Q6HR [facility]; Protocol Last Admin: 12/25/21 17:43 Dose: 3 unit Magnesium Hydroxide (Magnesium Hydroxide (Mom) Oral Liqd Udc) 30 ml PO Q4H PRN PRN Reason: Constipation Morphine Sulfate (Morphine 2 Mg/1 Ml Inj) 2 mg IV Q4H PRN PRN Reason: Pain, Moderate (4-6) Morphine Sulfate (Morphine 4 Mg/1 Ml Inj) 4 mg IV Q4H PRN PRN Reason: Pain , Severe (7-10) Ondansetron HCl (Ondansetron 4 Mg/2 Ml Inj) 4 mg IV Q8H PRN PRN Reason: Nausea And Vomiting Sodium Chloride (Sodium Chloride 0.9% 10 Ml Flush Syringe) 10 ml IV BID KELTON Last Admin: 12/25/21 09:07 Dose: 10 ml Sodium Chloride (Sodium Chloride 0.9% 10 Ml Flush Syringe) 10 ml IV PRN PRN PRN Reason: LINE FLUSH Review of Systems ROS unobtainable: due to endotracheal tube Physical Examination Vital signs: Vital Signs Pulse Resp BP Pulse Ox 78 20 124/85 100 12/24/21 19:45 12/24/21 19:45 12/24/21 19:45 12/24/21 19:45 General appearance: Present: chronically ill looking, other (Intubated and sedated) - EENT Eyes: Present: PERRL, EOM intact. Absent: scleral icterus ENT: hearing intact, clear oral mucosa, dentition normal - Neck Neck: Present: supple, normal ROM - Respiratory Respiratory effort: normal Respiratory: bilateral: CTA (ET tube in place) - Cardiovascular Rhythm: regular Heart Sounds: Present: S1 & S2. Absent: gallop, systolic murmur, diastolic murmur, rub, click - Extremities Extremities: no ischemia, pulses intact, pulses symmetrical, No edema, normal temperature, Full ROM Peripheral Pulses: within normal limits - Abdominal General gastrointestinal: Present: soft, non-tender, non-distended, normal bowel sounds. Absent: mass - Integumentary Integumentary: Present: clear, warm, dry. Absent: rash - Musculoskeletal Musculoskeletal: other (Intubated and Sedated) - Psychiatric Psychiatric: cooperative - Neurologic Neurologic: other Moves all extremities Results - Laboratory Findings CBC and BMP: 12/26/21 06:08 12/26/21 06:08 ABG ABG pH 7.386 pH Units (7.350-7.450) 12/24/21 Unknown ABG pCO2 32.7 mm Hg 12/24/21 Unknown ABG pO2 308.2 mm Hg (80.0-90.0) H 12/24/21 Unknown ABG O2 Saturation 99.5 % (95.0-99.0) H 12/24/21 Unknown PT/INR, D-dimer PT 13.9 Sec. (12.2-14.9) 12/24/21 19:43 INR 0.96 (0.87-1.13) 12/24/21 19:43 D-Dimer 2019.48 ng/mlDDU (0-234) H 12/25/21 08:26 Abnormal lab findings: Abnormal Labs 12/24/21 12/24/21 12/24/21 19:43 19:43 19:43 RBC 3.58 L Hgb 10.3 L Hct 31.5 L Lymph % (Auto) [place] % (Auto) 10.9 H Lymph # (Auto) 1.1 L Seg Neutrophils % APTT 39.7 H D-Dimer ABG pO2 ABG HCO3 ABG O2 Saturation ABG Base Excess ABG Hemoglobin Sodium 128 L Potassium 3.3 L Chloride 95.9 L Carbon Dioxide 18 L Creatinine 0.6 L Glucose 38 L* POC Glucose Calcium Ferritin AST 232 H ALT 126 H Alkaline Phosphatase 132 H Lactate Dehydrogenase C-Reactive Protein Albumin 2.6 L Lipase 6 L Salicylates Acetaminophen 12/24/21 12/24/21 12/24/21 19:43 19:43 22:33 RBC Hgb Hct Lymph % (Auto) [place] % (Auto) Lymph # (Auto) Seg Neutrophils % APTT D-Dimer ABG pO2 ABG HCO3 ABG O2 Saturation ABG Base Excess ABG Hemoglobin Sodium 126 L Potassium 3.1 L Chloride 91.7 L Carbon Dioxide 19 L Creatinine 0.7 L Glucose 115 H POC Glucose Calcium 8.3 L Ferritin AST ALT Alkaline Phosphatase Lactate Dehydrogenase C-Reactive Protein Albumin Lipase Salicylates < 0.3 L Acetaminophen 5.0 L 12/24/21 12/25/21 12/25/21 Unknown 00:23 05:59 RBC Hgb Hct Lymph % (Auto) [place] % (Auto) Lymph # (Auto) Seg Neutrophils % APTT D-Dimer ABG pO2 308.2 H ABG HCO3 19.2 L ABG O2 Saturation 99.5 H ABG Base Excess -5.0 L ABG Hemoglobin 10.6 L Sodium Potassium Chloride Carbon Dioxide Creatinine Glucose POC Glucose 157 H 469 H Calcium Ferritin AST ALT Alkaline Phosphatase Lactate Dehydrogenase C-Reactive Protein Albumin Lipase Salicylates Acetaminophen 12/25/21 12/25/21 12/25/21 06:01 08:26 08:26 RBC Hgb 11.7 L Hct 35.2 L Lymph % (Auto) 9.8 L [place] % (Auto) Lymph # (Auto) 0.5 L Seg Neutrophils % 84.2 H APTT D-Dimer ABG pO2 ABG HCO3 ABG O2 Saturation ABG Base Excess ABG Hemoglobin Sodium 130 L Potassium Chloride 96.6 L Carbon Dioxide 19 L Creatinine 0.7 L Glucose 323 H POC Glucose 316 H Calcium 8.3 L Ferritin AST 123 H ALT 111 H Alkaline Phosphatase 144 H Lactate Dehydrogenase C-Reactive Protein Albumin 2.5 L Lipase Salicylates Acetaminophen 12/25/21 12/25/21 12/25/21 08:26 08:26 08:26 RBC Hgb Hct Lymph % (Auto) [place] % (Auto) Lymph # (Auto) Seg Neutrophils % APTT D-Dimer 2019.48 H ABG pO2 ABG HCO3 ABG O2 Saturation ABG Base Excess ABG Hemoglobin Sodium Potassium Chloride Carbon Dioxide Creatinine Glucose POC Glucose Calcium Ferritin 1288.0 H AST ALT Alkaline Phosphatase Lactate Dehydrogenase 215 H C-Reactive Protein 34.10 H Albumin Lipase Salicylates Acetaminophen 12/25/21 12/25/21 10:59 15:45 RBC Hgb Hct Lymph % (Auto) [place] % (Auto) Lymph # (Auto) Seg Neutrophils % APTT D-Dimer ABG pO2 ABG HCO3 ABG O2 Saturation ABG Base Excess ABG Hemoglobin Sodium Potassium Chloride Carbon Dioxide Creatinine Glucose POC Glucose 305 H 236 H Calcium Ferritin AST ALT Alkaline Phosphatase Lactate Dehydrogenase C-Reactive Protein Albumin Lipase Salicylates Acetaminophen Assessment and Plan #Acute Hypoxemic Respiratory Failure 2/2 respiratory distress - Presented with unresponsiveness with agonal breathing - Intubated in the ED on 12/24 Self extubated and is currently stable from a respiratory standpoint. Monitor closely, titrate supplemental oxygen to keep SpO2 88-90 Bronchodilators If he remains stable can transfer out of the ICU this evening #Community-Acquired Pneumonia #Hyponatremia #Hypokalemia-improved - Probably related to dehydration/volume depletion - Na improved post IV hydration - Continue IVF resuscitation - Monitor and replace electrolytes as needed - Serial BMP Q6hrs - Strict intake and output #Acute Metabolic Encephalopathy - Probably r/t to multifactorial. hypoglycemia vs hyponatremia vs infectious process - Mentation improved this am. Awake, following commands - Plan to wean off sedation - Possible PST to wean to extubate - PRN Analgesia for CPOT greater than 3 - Avoid benzo to prevent delirium - Maintenance of sleep-wake cycle #Abscess of left foot #Possible Chronic Osteomyelitis - Presented LLE swelling and left foot abscess - General Surgery consulted - 12/24 s/p I&D of left foot by gen surgery - Vascular consulted per rec. - Continue current IV Abx - ID consulted - Continue wound care per General surgery - Wound Care also consulted #Hyperglycemia #Hypoglycemia-resolved #H/o Diabetes - Presented with low BG in the 30s required D10w gtt - Hyperglycemic this am, BG in the 300s - D/10w d/c - SSI initiated q6hrs - Continue IVF resuscitation with 1/2NS - Serial BMP - Avoid Hypoglycemia - Continue Hypoglycemic protocol #Transaminitis - Etiology unclear - Consult placed to gastroenterology for evaluation and recommendations - Continue to trend LFTs #GI/DVT prophylaxis - PPI- Pepcid - Continue AC- Hep SubQ
--- NOTE | 2021-12-25 18:10 | Vascular Lab Report ---
DUPLEX DOPPLER LOWER EXTREMITY VEINS, BILATERAL INDICATION / CLINICAL INFORMATION: elevated d.dimer. TECHNIQUE: Duplex doppler imaging was performed through the veins of both lower extremities using venous otoniel tristen and other maneuvers. COMPARISON: None available. FINDINGS: RIGHT COMMON FEMORAL VEIN: Negative. RIGHT FEMORAL VEIN: Negative. RIGHT POPLITEAL VEIN: Negative. RIGHT CALF VEINS: Negative. LEFT COMMON FEMORAL VEIN: Negative. LEFT FEMORAL VEIN: Negative. LEFT POPLITEAL VEIN: Negative. LEFT CALF VEINS: Negative. ADDITIONAL FINDINGS: None. IMPRESSION: 1. No sonographic evidence for DVT in either lower extremity. Signer Name: Shankar Mane MD Signed: 12/25/2021 6:06 PM Workstation Name: [id number]
--- NOTE | 2021-12-25 18:13 | Vascular Lab Report ---
DUPLEX DOPPLER LOWER EXTREMITY ARTERIAL, BILATERAL INDICATION / CLINICAL INFORMATION: Left foot abscess with diminshed Left PT. TECHNIQUE: Arterial duplex examination of both lower extremities performed using B-mode, color flow and spectral Doppler assessment. FINDINGS: RIGHT: - Atherosclerotic Plaque & Vessel: No significant atherosclerotic plaque. - Elevated Velocity (>200 cm/s) & Vessel: None. - Abnormal Waveform & Vessel: None. LEFT: - Atherosclerotic Plaque & Vessel: No significant atherosclerotic plaque. - Elevated Velocity (>200 cm/s) & Vessel: None. - Abnormal Waveform & Vessel: Monophasic waveforms are seen in the left posterior tibial, anterior ti bial, and dorsalis pedis arteries. ADDITIONAL FINDINGS: None. ABIs were not calculated. IMPRESSION: 1. Monophasic waveforms below the knee in the left lower extremity indicative of potentially signific ant peripheral vascular disease. Peak systolic velocities are within normal limits but asymmetrically increased on the left. Doppler Waveform: - Triphasic is normal. - Biphasic is abnormal if clear transition from triphasic signal along vascular tree. - Monophasic is abnormal. Signer Name: Shankar Mane MD Signed: 12/25/2021 6:09 PM Workstation Name: [id number]
[2021-12-25 21:07] LABS: Blood Urea Nitrogen 15 mg/dL (9-20); Calcium 7.9 mg/dL (8.4-10.2); Hemolysis Index 9
[2021-12-25 21:12] LABS: BUN/Creatinine Ratio 25
[2021-12-25] MEDS: VANCOMYCIN/NS 1 GM/250 ML 1 GM/250 ML BAG IV SCH (21:54)
[2021-12-25] MEDS: POTASSIUM CHLORIDE 10 MEQ 10 MEQ/100 ML BAG IV SCH (22:55)
[2021-12-26] MEDS: PIPERACIL/TAZOBACTA 4.5/NS 100 4.5 GM/100 ML VIAL IV SCH ×3 (00:16→12:04)
[2021-12-26 01:03] LABS: Blood Urea Nitrogen 15 mg/dL (9-20); Calcium 7.9 mg/dL (8.4-10.2); Hemolysis Index 5
[2021-12-26 01:11] LABS: BUN/Creatinine Ratio 25
--- NOTE | 2021-12-26 01:25 | Consultation ---
DATE OF CONSULTATION: 12/25/2021 REFERRING PHYSICIAN: Dr. Walter Quiroz. INDICATION: Increased liver function tests. HISTORY OF PRESENT ILLNESS: The patient is a 56-year-old male with history of diabetes, who was found unresponsive at home and agonal breathing. The patient subsequently intubated in field, sedated and brought to the Emergency Room. The patient subsequently has been extubated. The patient had been missing for 3 days and said he had stepped on a nail and his foot has gotten infected. The patient subsequently came to the Emergency Room with us and the patient subsequently when he was admitted was noted to be hyponatremic with hypokalemia as well as signs of foot abscesses, which were drained. The patient was noted to have increased liver function tests and GI is sent for evaluation. No other specific complaints at this time. PAST MEDICAL HISTORY: Diabetes. MEDICATIONS: Reviewed and updated in chart. ALLERGIES: No known drug allergies. SOCIAL HISTORY: Denies alcohol, tobacco, or drug abuse. FAMILY HISTORY: Negative for colon cancer, IBD or liver disease. REVIEW OF SYSTEMS: GENERAL: Reports for some weakness. HEENT: Denies visual complaints or tinnitus. PULMONARY: Denies shortness of breath, cough, or chest pain. GASTROINTESTINAL: No specific complaints. All points of 13-point review of system otherwise negative. PHYSICAL EXAMINATION: VITAL SIGNS: Temperature of 98.7, pulse 70, respirations 18, blood pressure 113/75. GENERAL: Fairly nourished, with no acute distress. HEENT: Pupils equal, round and reactive. PULMONARY: Clear to auscultation bilaterally. CARDIOVASCULAR: Regular rate and rhythm. Normal S1, S2. ABDOMEN: Positive bowel sounds, soft. SKIN: No obvious rashes. LABORATORY DATA: Pertinent for white count of 5.1, hemoglobin and hematocrit of 11.7 and 34.2, platelet count of 165. Chem-7: Sodium of 130, potassium 3.8, chloride 97, CO2 of 19, BUN and creatinine of 19 and 0.7. AST and ALT of 123 and 111 and alkaline phosphatase of 144 and a total bilirubin of 0.4. These numbers are all decreased. ASSESSMENT: A 56-year-old male who recently stepped on a nail and developed a foot infection, was found down, unresponsive, in agonal breathing, was initially intubated, now extubated, now noted to have increased liver function tests, which are actually already improving. Suspect shock liver. Management as noted below. PLAN: 1. We will review abdominal ultrasound that has already been ordered. 2. CT abdomen and pelvis will review, which reportedly was benign. 3. Liver related labs including acute hepatitis panel. 4. Hemodynamic stability per primary team. 5. No plans for liver biopsy. 6. Avoid hepatotoxic drugs. 7. We will follow. Further recommendation based on progress. TID: [id number] RECEIPT: [id number] CAB/PRE/GOD
[2021-12-26] MEDS: SODIUM CHLORIDE 0.45% 1000 ML 1,000 ML IV SCH ×2 (01:39→16:33)
[2021-12-26] MEDS: INSULIN LISPRO 100 UNIT/ML SUB-Q SCH ×4 (01:41→17:54)
[2021-12-26] MEDS: CLINDAMYCIN 600 MG/50 mL 600 MG/50 ML BAG IV SCH ×2 (05:16→13:21)
[2021-12-26] MEDS: HEPARIN 5,000 UNIT/1 ML VIAL SUB-Q SCH ×3 (05:17→21:06)
[2021-12-26 06:31] LABS: Basophils % (Auto) 0.4 % (0.0-1.8); Eosinophils % (Auto) 0.1 % (0.0-4.3); Hematocrit 32.2 % (35.5-45.6); Hemoglobin 10.8 gm/dl (11.8-15.2); Lymphocytes # (Auto) 1.2 K/mm3 (1.2-5.4); Lymphocytes % (Auto) 17.3 % (13.4-35.0); Mean Corpuscular HGB Conc 34 % (32-34); Mean Corpuscular Volume 90 fl (84-94); Monocytes # (Auto) 0.7 K/mm3 (0.0-0.8); Monocytes % (Auto) 10.2 % (0.0-7.3); Platelet Count 215 K/mm3 (140-440); Red Blood Count 3.59 M/mm3 (3.65-5.03); Red Cell Distribution Width 14.9 % (13.2-15.2)
--- NOTE | 2021-12-26 06:42 | Ultrasound Report ---
ULTRASOUND ABDOMEN, LIMITED INDICATION / CLINICAL INFORMATION: r/o liver disease. COMPARISON: CT of the abdomen and pelvis 12/25/2021 and CTA of the chest 12/25/2021 FINDINGS: PANCREAS: Visualized portion shows no significant abnormality. LIVER: Underlying the anterior margin of the right hepatic lobe, there is a 0.8 x 1.3 x 0.7 cm unifor mly hyperechoic focus with no obvious corresponding lesion on comparison CT. Small calcification is a dditionally present. Margins of the liver are smooth. Normal hepatopedal blood flow in the main valerie l vein. GALLBLADDER: No significant abnormality. BILE DUCTS: No significant abnormality. Common bile duct measures mm. FREE FLUID: None. ADDITIONAL FINDINGS: The aorta demonstrates no significant abnormality. IMPRESSION: 1. Homogeneous smoothly marginated subcapsular focus within the right hepatic lobe as no obvious philipp esponding lesion on comparison cross-sectional imaging. Small hepatic hemangioma could be considered. Liver otherwise demonstrates no focal mass and no evidence of cirrhosis or other chronic illness. Signer Name: Shoaib Staley II, MD Signed: 12/26/2021 6:37 AM Workstation Name: [id number]
[2021-12-26 06:46] LABS: Blood Urea Nitrogen 15 mg/dL (9-20); Calcium 8.4 mg/dL (8.4-10.2); Hemolysis Index 1
[2021-12-26 07:02] LABS: BUN/Creatinine Ratio 21
--- NOTE | 2021-12-26 08:58 | Progress Note ---
Assessment and Plan #Acute Hypoxemic Respiratory Failure 2/2 respiratory distress - Stable, not requiring supplemental oxygen -ABG and CXR as clinically indicated #Community-Acquired Pneumonia #Hyponatremia #Hypokalemia-improved - Probably related to dehydration/volume depletion - Na improved post IV hydration - Continue IVF resuscitation - Monitor and replace electrolytes as needed - Serial BMP Q6hrs - Strict intake and output #Acute Metabolic Encephalopathy-resolving - Probably r/t to multifactorial. hypoglycemia vs hyponatremia vs infectious process Awake, following commands - Maintenance of sleep-wake cycle #Abscess of left foot #Possible Chronic Osteomyelitis - Presented LLE swelling and left foot abscess - 12/24 s/p I&D of left foot by gen surgery - Continue current IV Abx - ID following - Continue wound care per General surgery #Hyperglycemia #Hypoglycemia-resolved #H/o Diabetes - Glycemic control to promote wound healing -Accuchecks wth glycemic control, keep blood glucose <180mg/dL. Avoid hypoglycemia #Transaminitis - Continue to trend LFTs #DVT prophylaxis - Hep SubQ Subjective Date of service: 12/26/21 Interval history: This is a 56-year-old male with known history of DM admitted for Hypoglycemia, hyponatremia, and acute hypoxemic respiratory failure requiring ventilatory support. Patient with left foot abscess s/p I&D by Gen. Surgery. s/p extubation 12/26: cx growing staph Seen and examined. Vitals, labs, medications, chart reviewed. No adverse overnight evens, no fevers, resting peacefully in bed. In no distress Objective - Exam Narrative Exam: General appearance: Present: no acute distress, cachectic, - EENT Eyes: Present: PERRL, EOM intact ENT: clear oral mucosa - Neck Neck: Present: normal ROM - Respiratory Respiratory effort: normal Respiratory: bilateral: rhonchi - Cardiovascular Rhythm: regular Heart Sounds: Present: S1 & S2 - Extremities Extremities: abnormal Extremity abnormal: edema, other (LLE wounds) - Peripheral Assessment Left Lower Extremity Edema Type: Non-pitting Edema Degree: 2+ Capillary Refill: < 3 seconds Skin Temperature: Warm Peripheral Pulses: within normal limits - Abdominal General gastrointestinal: soft, non-distended, normal bowel sounds - Integumentary Integumentary: Present: warm, dry - Psychiatric Psychiatric: appropriate mood/affect, cooperative - Neurologic Neurologic: moves all extremities Vital Signs - 12hr 12/25/21 12/25/21 12/25/21 21:00 21:01 21:11 Temperature Pulse Rate 79 83 81 Respiratory 20 17 19 Rate Blood Pressure 110/73 110/73 110/73 Blood Pressure [Right] O2 Sat by Pulse 95 98 96 Oximetry 12/25/21 12/25/21 12/25/21 21:21 21:31 21:41 Temperature Pulse Rate 80 79 79 Respiratory 16 15 19 Rate Blood Pressure 114/70 117/69 117/69 Blood Pressure [Right] O2 Sat by Pulse 97 99 99 Oximetry 12/25/21 12/25/21 12/25/21 21:51 22:00 22:10 Temperature Pulse Rate 79 79 Respiratory 13 15 Rate Blood Pressure 121/67 108/70 108/70 Blood Pressure [Right] O2 Sat by Pulse 97 98 Oximetry 12/25/21 12/26/21 12/26/21 23:19 00:59 04:14 Temperature 98.5 F 98.5 F 98.5 F Pulse Rate 79 79 78 Respiratory 17 17 18 Rate Blood Pressure 115/73 105/61 Blood Pressure 115/73 [Right] O2 Sat by Pulse 99 99 98 Oximetry CBC and BMP: 12/26/21 06:08 12/26/21 06:08 ABG, PT/INR, D-dimer: ABG ABG pH 7.386 pH Units (7.350-7.450) 12/24/21 Unknown ABG pCO2 32.7 mm Hg 12/24/21 Unknown ABG pO2 308.2 mm Hg (80.0-90.0) H 12/24/21 Unknown ABG O2 Saturation 99.5 % (95.0-99.0) H 12/24/21 Unknown PT/INR, D-dimer PT 13.9 Sec. (12.2-14.9) 12/24/21 19:43 INR 0.96 (0.87-1.13) 12/24/21 19:43 D-Dimer 2019.48 ng/mlDDU (0-234) H 12/25/21 08:26 Abnormal lab findings: Abnormal Labs 12/24/21 12/24/21 12/24/21 19:43 19:43 19:43 RBC 3.58 L Hgb 10.3 L Hct 31.5 L Lymph % (Auto) [place] % (Auto) 10.9 H Lymph # (Auto) 1.1 L Seg Neutrophils % APTT 39.7 H D-Dimer ABG pO2 ABG HCO3 ABG O2 Saturation ABG Base Excess ABG Hemoglobin Sodium 128 L Potassium 3.3 L Chloride 95.9 L Carbon Dioxide 18 L Creatinine 0.6 L Glucose 38 L* POC Glucose Hemoglobin A1c Calcium Ferritin AST 232 H ALT 126 H Alkaline Phosphatase 132 H Lactate Dehydrogenase C-Reactive Protein Albumin 2.6 L Lipase 6 L Salicylates Acetaminophen 12/24/21 12/24/21 12/24/21 19:43 19:43 22:33 RBC Hgb Hct Lymph % (Auto) [place] % (Auto) Lymph # (Auto) Seg Neutrophils % APTT D-Dimer ABG pO2 ABG HCO3 ABG O2 Saturation ABG Base Excess ABG Hemoglobin Sodium 126 L Potassium 3.1 L Chloride 91.7 L Carbon Dioxide 19 L Creatinine 0.7 L Glucose 115 H POC Glucose Hemoglobin A1c Calcium 8.3 L Ferritin AST ALT Alkaline Phosphatase Lactate Dehydrogenase C-Reactive Protein Albumin Lipase Salicylates < 0.3 L Acetaminophen 5.0 L 12/24/21 12/25/21 12/25/21 Unknown 00:23 05:59 RBC Hgb Hct Lymph % (Auto) [place] % (Auto) Lymph # (Auto) Seg Neutrophils % APTT D-Dimer ABG pO2 308.2 H ABG HCO3 19.2 L ABG O2 Saturation 99.5 H ABG Base Excess -5.0 L ABG Hemoglobin 10.6 L Sodium Potassium Chloride Carbon Dioxide Creatinine Glucose POC Glucose 157 H 469 H Hemoglobin A1c Calcium Ferritin AST ALT Alkaline Phosphatase Lactate Dehydrogenase C-Reactive Protein Albumin Lipase Salicylates Acetaminophen 12/25/21 12/25/21 12/25/21 06:01 08:26 08:26 RBC Hgb 11.7 L Hct 35.2 L Lymph % (Auto) 9.8 L [place] % (Auto) Lymph # (Auto) 0.5 L Seg Neutrophils % 84.2 H APTT D-Dimer ABG pO2 ABG HCO3 ABG O2 Saturation ABG Base Excess ABG Hemoglobin Sodium 130 L Potassium Chloride 96.6 L Carbon Dioxide 19 L Creatinine 0.7 L Glucose 323 H POC Glucose 316 H Hemoglobin A1c Calcium 8.3 L Ferritin AST 123 H ALT 111 H Alkaline Phosphatase 144 H Lactate Dehydrogenase C-Reactive Protein Albumin 2.5 L Lipase Salicylates Acetaminophen 0212/25/21 12/25/21 08:26 08:26 08:26 RBC Hgb Hct Lymph % (Auto) [place] % (Auto) Lymph # (Auto) Seg Neutrophils % APTT D-Dimer 2019.48 H ABG pO2 ABG HCO3 ABG O2 Saturation ABG Base Excess ABG Hemoglobin Sodium Potassium Chloride Carbon Dioxide Creatinine Glucose POC Glucose Hemoglobin A1c Calcium Ferritin 1288.0 H AST ALT Alkaline Phosphatase Lactate Dehydrogenase 215 H C-Reactive Protein 34.10 H Albumin Lipase Salicylates Acetaminophen 12/25/21 12/25/21 12/25/21 10:59 15:45 20:29 RBC Hgb Hct Lymph % (Auto) [place] % (Auto) Lymph # (Auto) Seg Neutrophils % APTT D-Dimer ABG pO2 ABG HCO3 ABG O2 Saturation ABG Base Excess ABG Hemoglobin Sodium 135 L Potassium Chloride Carbon Dioxide 17 L Creatinine 0.6 L Glucose 161 H POC Glucose 305 H 236 H Hemoglobin A1c Calcium 7.9 L Ferritin AST ALT Alkaline Phosphatase Lactate Dehydrogenase C-Reactive Protein Albumin Lipase Salicylates Acetaminophen 12/25/21 12/26/21 12/26/21 20:59 00:19 01:23 RBC Hgb Hct Lymph % (Auto) [place] % (Auto) Lymph # (Auto) Seg Neutrophils % APTT D-Dimer ABG pO2 ABG HCO3 ABG O2 Saturation ABG Base Excess ABG Hemoglobin Sodium 133 L Potassium Chloride Carbon Dioxide 17 L Creatinine 0.6 L Glucose 178 H POC Glucose 184 H 191 H Hemoglobin A1c Calcium 7.9 L Ferritin AST ALT Alkaline Phosphatase Lactate Dehydrogenase C-Reactive Protein Albumin Lipase Salicylates Acetaminophen 12/26/21 12/26/21 12/26/21 05:52 06:08 06:08 RBC 3.59 L Hgb 10.8 L Hct 32.2 L Lymph % (Auto) [place] % (Auto) 10.2 H Lymph # (Auto) Seg Neutrophils % 72.0 H APTT D-Dimer ABG pO2 ABG HCO3 ABG O2 Saturation ABG Base Excess ABG Hemoglobin Sodium 136 L Potassium Chloride Carbon Dioxide 18 L Creatinine 0.7 L Glucose 154 H POC Glucose 133 H Hemoglobin A1c Calcium Ferritin AST ALT Alkaline Phosphatase Lactate Dehydrogenase C-Reactive Protein Albumin Lipase Salicylates Acetaminophen 12/26/21 12/26/21 06:08 06:08 RBC Hgb Hct Lymph % (Auto) [place] % (Auto) Lymph # (Auto) Seg Neutrophils % APTT D-Dimer ABG pO2 ABG HCO3 ABG O2 Saturation ABG Base Excess ABG Hemoglobin Sodium Potassium Chloride Carbon Dioxide Creatinine Glucose POC Glucose Hemoglobin A1c 14.9 H Calcium Ferritin 1335.0 H AST ALT Alkaline Phosphatase Lactate Dehydrogenase C-Reactive Protein Albumin Lipase Salicylates Acetaminophen
[2021-12-26] MEDS: VANCOMYCIN/NS 1 GM/250 ML 1 GM/250 ML BAG IV SCH ×2 (09:08→22:16)
--- NOTE | 2021-12-26 10:24 | Progress Note ---
Assessment and Plan Patient with arterial duplex performed which demonstrates some blunted waveforms distally likely secondary to edema. No significant atherosclerotic disease is identified. Patient has adequate blood flow to heal his wounds. No interventi ons planned. Subjective Date of service: 12/26/21 Interval history: Patient with a history of left foot abscess. On initial examination, the patient is strongly palpable dorsalis pedis however, the given the degree of infection an arterial duplex was ordered to determine that there is adequate arterial inflow to heal his infection. On examination, the patient is resting comfortably in bed. No significant complaints of any pain except when dressing changes. His left leg is edematous to mid calf. Warm. Objective - Constitutional Vitals: Vital Signs - 12hr 12/25/21 12/26/21 12/26/21 23:19 00:59 04:14 Temperature 98.5 F 98.5 F 98.5 F Pulse Rate 79 79 78 Respiratory 17 17 18 Rate Blood Pressure 115/73 105/61 Blood Pressure 115/73 [Right] O2 Sat by Pulse 99 99 98 Oximetry 12/26/21 12/26/21 08:09 09:33 Temperature 98.1 F Pulse Rate 81 Respiratory 16 Rate Blood Pressure 112/74 Blood Pressure [Right] O2 Sat by Pulse 96 98 Oximetry General appearance: Present: no acute distress - EENT Eyes: EOM intact ENT: hearing intact - Neck Neck: normal ROM - Respiratory Respiratory effort: normal Extremity abnormal: edema (Left leg mid calf) - Gastrointestinal General gastrointestinal: Present: deferred Rectal Exam: deferred - Genitourinary Male genitourinary: deferred - Psychiatric Psychiatric: cooperative - Labs CBC & Chem 7: 12/26/21 06:08 12/26/21 06:08 Labs: Abnormal lab results 12/25/21 12/25/21 12/25/21 Range/Units 10:59 15:45 20:29 RBC (3.65-5.03) M/mm3 Hgb (11.8-15.2) gm/dl Hct (35.5-45.6) % [place] % (Auto) (0.0-7.3) % Seg Neutrophils % (40.0-70.0) % Sodium 135 L (137-145) mmol/L Carbon Dioxide 17 L (22-30) mmol/L Creatinine 0.6 L (0.8-1.3) mg/dL Glucose 161 H (75-100) mg/dL POC Glucose 305 H 236 H (70-105) mg/dL Hemoglobin A1c (4-6) % Calcium 7.9 L (8.4-10.2) mg/dL Ferritin (30.0-300.0) ng/mL 12/25/21 12/26/21 12/26/21 Range/Units 20:59 00:19 01:23 RBC (3.65-5.03) M/mm3 Hgb (11.8-15.2) gm/dl Hct (35.5-45.6) % [place] % (Auto) (0.0-7.3) % Seg Neutrophils % (40.0-70.0) % Sodium 133 L (137-145) mmol/L Carbon Dioxide 17 L (22-30) mmol/L Creatinine 0.6 L (0.8-1.3) mg/dL Glucose 178 H (75-100) mg/dL POC Glucose 184 H 191 H (70-105) mg/dL Hemoglobin A1c (4-6) % Calcium 7.9 L (8.4-10.2) mg/dL Ferritin (30.0-300.0) ng/mL 12/26/21 12/26/21 12/26/21 Range/Units 05:52 06:08 06:08 RBC 3.59 L (3.65-5.03) M/mm3 Hgb 10.8 L (11.8-15.2) gm/dl Hct 32.2 L (35.5-45.6) % [place] % (Auto) 10.2 H (0.0-7.3) % Seg Neutrophils % 72.0 H (40.0-70.0) % Sodium 136 L (137-145) mmol/L Carbon Dioxide 18 L (22-30) mmol/L Creatinine 0.7 L (0.8-1.3) mg/dL Glucose 154 H (75-100) mg/dL POC Glucose 133 H (70-105) mg/dL Hemoglobin A1c (4-6) % Calcium (8.4-10.2) mg/dL Ferritin (30.0-300.0) ng/mL 12/26/21 12/26/21 Range/Units 06:08 06:08 RBC (3.65-5.03) M/mm3 Hgb (11.8-15.2) gm/dl Hct (35.5-45.6) % [place] % (Auto) (0.0-7.3) % Seg Neutrophils % (40.0-70.0) % Sodium (137-145) mmol/L Carbon Dioxide (22-30) mmol/L Creatinine (0.8-1.3) mg/dL Glucose (75-100) mg/dL POC Glucose (70-105) mg/dL Hemoglobin A1c 14.9 H (4-6) % Calcium (8.4-10.2) mg/dL Ferritin 1335.0 H (30.0-300.0) ng/mL Medications & Allergies - Medications Allergies/Adverse Reactions: Allergies No Known Allergies Allergy (Unverified 12/24/21 20:07) Active Medications: Generic Name Dose Route Start Last Admin Trade Name Freq PRN Reason Stop Dose Admin Acetaminophen 650 mg 12/25/21 01:40 Acetaminophen 650 Mg Rect Supp VT Q6H PRN Pain MILD(1-3)/Fever >100.5/PATEL Dextrose 0 ml 12/25/21 02:02 Dextrose 10% *Hypoglycemia IV PRN PRN Hypoglycemia Protocol Famotidine 20 mg 12/25/21 10:00 12/25/21 21:46 Famotidine 20 Mg Tab PO 20 mg BID KELTON Administration Heparin Sodium (Porcine) 5,000 unit 12/25/21 06:00 12/26/21 05:17 Heparin 5,000 Unit/1 Ml Vial SUB-Q 5,000 unit Q8HR KELTON Administration Piperacillin Sod/Tazobactam Sod 4.5 gm in 100 mls @ 200 mls/hr 12/25/21 02:00 12/26/21 01:40 Zosyn/Ns 4.5gm/100ml IV 200 mls/hr Q8H KELTON Administration Protocol Vancomycin HCl 1 gm in 250 mls @ 166.667 mls/hr 12/25/21 18:00 12/26/21 09:08 Vancomycin/Ns 1 Gm/250 Ml IV 166.667 mls/hr Q12H KELTON Administration Clindamycin HCl 600 mg in 50 mls @ 100 mls/hr 12/25/21 14:00 12/26/21 05:16 Cleocin 600 Mg/50 Ml IV 12/27/21 22:29 100 mls/hr Q8HR KELTON Administration Protocol Sodium Chloride 1,000 mls @ 100 mls/hr 12/25/21 12:30 12/26/21 01:39 Nacl 0.45% 1000 Ml IV 100 mls/hr DIRECT KELTON Administration Insulin Human Lispro 0 unit 12/25/21 12:00 12/26/21 06:24 Insulin Lispro 100 Unit/Ml SUB-Q Not Given Q6HR [facility] Protocol Magnesium Hydroxide 30 ml 12/25/21 01:40 Magnesium Hydroxide (Mom) Oral Liqd Udc PO Q4H PRN Constipation Morphine Sulfate 2 mg 12/25/21 01:40 Morphine 2 Mg/1 Ml Inj IV Q4H PRN Pain, Moderate (4-6) Ondansetron HCl 4 mg 12/25/21 01:40 Ondansetron 4 Mg/2 Ml Inj IV Q8H PRN Nausea And Vomiting Sodium Chloride 10 ml 12/25/21 10:00 12/26/21 09:09 Sodium Chloride 0.9% 10 Ml Flush Syringe IV 10 ml BID KELTON Administration Sodium Chloride 10 ml 12/25/21 01:40 Sodium Chloride 0.9% 10 Ml Flush Syringe IV PRN PRN LINE FLUSH HEART Score - HEART Score Troponin: Troponin T < 0.010 ng/mL (0.00-0.029) 12/24/21 22:33
[2021-12-26] MEDS: FAMOTIDINE 20 MG TAB PO SCH ×2 (12:04→21:06)
--- NOTE | 2021-12-26 13:14 | Electrocardiograph Report ---
[facility] Test Date: 2021-12-25 Test Time: 00:25:56 Pat Name: CLEMENCIA LE Department: Room: A480 Gender: M Detail Technician: JEREMIE : 1965 Requested By: PAIGE CHATMAN Order Number: [id number] Reading MD: Ariel Linares Measurements Intervals Bandy Rate: 52 P: 73 MT: 144 QRS: 84 QRSD: 111 T: 75 QT: 469 QTc: 437 Interpretive Statements Sinus rhythm Early repolarization ST changes No previous ECG available for comparison Electronically Signed On 12-26-2021 13:13:47 EST by Ariel Linares
--- NOTE | 2021-12-26 13:35 | Consultation ---
History of Present Illness - Reason for Consult Consult date: 12/26/21 CAP, osteomyelitis Requesting physician: RICHA BANKS - History of Present Illness The patient is a 56-year-old male with diabetes mellitus was admitted to the hospital on December 24, 2021 with altered mental status after being found unresponsive and having agonal breathing. He was intubated in the emergency room, noted to have a left foot cellulitis with abscess for which he underwent a bedside I&D. CT scan of the chest revealed a possible left lower lobe pneumonia, CT abdomen pelvis did not reveal any acute abnormality. He has been on empiric antibiotics. Infectious diseases was consulted for additional evaluation and concern for osteomyelitis of the left foot. Review of Systems: As per HPI Past History Past Medical History: diabetes Past Surgical History: Other (Incision and Drainage of Left Foot) Social history: no significant social history Family history: no significant family history Medications and Allergies Allergies Allergy/AdvReac Type Severity Reaction Status Date / Time No Known Allergies Allergy Unverified 12/24/21 20:07 Active Meds: Active Medications Acetaminophen (Acetaminophen 650 Mg Rect Supp) 650 mg AR Q6H PRN PRN Reason: Pain MILD(1-3)/Fever >100.5/PATEL Dextrose (Dextrose 10% *Hypoglycemia) 0 ml IV PRN PRN; Protocol PRN Reason: Hypoglycemia Famotidine (Famotidine 20 Mg Tab) 20 mg PO BID [facility] Last Admin: 12/26/21 12:04 Dose: 20 mg Heparin Sodium (Porcine) (Heparin 5,000 Unit/1 Ml Vial) 5,000 unit SUB-Q Q8HR S Last Admin: 12/26/21 13:21 Dose: 5,000 unit Piperacillin Sod/Tazobactam Sod (Zosyn/Ns 4.5gm/100ml) 4.5 gm in 100 mls @ 200 mls/hr IV Q8H [facility]; Protocol Last Admin: 12/26/21 12:04 Dose: 200 mls/hr Vancomycin HCl (Vancomycin/Ns 1 Gm/250 Ml) 1 gm in 250 mls @ 166.667 mls/hr IV Q12H [facility] Last Admin: 12/26/21 09:08 Dose: 166.667 mls/hr Clindamycin HCl (Cleocin 600 Mg/50 Ml) 600 mg in 50 mls @ 100 mls/hr IV Q8HR [facility]; Protocol Stop: 12/27/21 22:29 Last Admin: 12/26/21 13:21 Dose: 100 mls/hr Sodium Chloride (Nacl 0.45% 1000 Ml) 1,000 mls @ 100 mls/hr IV DIRECT [facility] Last Admin: 12/26/21 01:39 Dose: 100 mls/hr Insulin Human Lispro (Insulin Lispro 100 Unit/Ml) 0 unit SUB-Q Q6HR [facility]; Protocol Last Admin: 12/26/21 12:11 Dose: 3 unit Magnesium Hydroxide (Magnesium Hydroxide (Mom) Oral Liqd Udc) 30 ml PO Q4H PRN PRN Reason: Constipation Morphine Sulfate (Morphine 2 Mg/1 Ml Inj) 2 mg IV Q4H PRN PRN Reason: Pain, Moderate (4-6) Ondansetron HCl (Ondansetron 4 Mg/2 Ml Inj) 4 mg IV Q8H PRN PRN Reason: Nausea And Vomiting Sodium Chloride (Sodium Chloride 0.9% 10 Ml Flush Syringe) 10 ml IV BID [facility] Last Admin: 12/26/21 09:09 Dose: 10 ml Sodium Chloride (Sodium Chloride 0.9% 10 Ml Flush Syringe) 10 ml IV PRN PRN PRN Reason: LINE FLUSH Physical Examination - Physical Exam Narrative exam: Physical Exam: Constitutional: Alert, cooperative. No acute distress Head, Ears, Nose: Normocephalic, atraumatic. External ears, nose normal Eyes: Conjunctivae/corneas clear. No icterus. No ptosis. Neck: Supple, no meningeal signs Cardiovascular: S1, S2 + Respiratory: Good air entry, clear to auscultation bilaterally GI: Soft, non-tender; bowel sounds normal. No peritoneal signs Musculoskeletal: Left foot with swelling, cellulitis, dressing present, left foot laterally with wound and purulence. Cabezas with scab, non tendern, no purulence Skin: No rash or abscess Hem/Lymphatic: No palpable cervical or supraclavicular nodes. No lymphangitis Psych: Mood ok. Affect normal Neurological: Awake, alert, oriented. No gross abnormality - Constitutional Vitals: Vital Signs Temp Pulse Resp BP Pulse Ox 98.3 F 83 16 154/86 97 12/26/21 12:05 12/26/21 12:05 12/26/21 08:09 12/26/21 12:05 12/26/21 12:05 Temperature -Last 24 Hours Temperature 98.3 F Temperature 98.1 F Temperature 98.5 F Temperature 98.5 F Temperature 98.5 F Temperature 98.2 F Temperature 98.7 F Results - Labs CBC & Chem 7: 12/26/21 06:08 12/26/21 06:08 Labs: Abnormal lab results 12/25/21 12/25/21 12/25/21 Range/Units 15:45 20:29 20:59 RBC (3.65-5.03) M/mm3 Hgb (11.8-15.2) gm/dl Hct (35.5-45.6) % [place] % (Auto) (0.0-7.3) % Seg Neutrophils % (40.0-70.0) % Sodium 135 L (137-145) mmol/L Carbon Dioxide 17 L (22-30) mmol/L Creatinine 0.6 L (0.8-1.3) mg/dL Glucose 161 H (75-100) mg/dL POC Glucose 236 H 184 H (70-105) mg/dL Hemoglobin A1c (4-6) % Calcium 7.9 L (8.4-10.2) mg/dL Ferritin (30.0-300.0) ng/mL 12/26/21 12/26/21 12/26/21 Range/Units 00:19 01:23 05:52 RBC (3.65-5.03) M/mm3 Hgb (11.8-15.2) gm/dl Hct (35.5-45.6) % [place] % (Auto) (0.0-7.3) % Seg Neutrophils % (40.0-70.0) % Sodium 133 L (137-145) mmol/L Carbon Dioxide 17 L (22-30) mmol/L Creatinine 0.6 L (0.8-1.3) mg/dL Glucose 178 H (75-100) mg/dL POC Glucose 191 H 133 H (70-105) mg/dL Hemoglobin A1c (4-6) % Calcium 7.9 L (8.4-10.2) mg/dL Ferritin (30.0-300.0) ng/mL 12/26/21 12/26/21 12/26/21 Range/Units 06:08 06:08 06:08 RBC 3.59 L (3.65-5.03) M/mm3 Hgb 10.8 L (11.8-15.2) gm/dl Hct 32.2 L (35.5-45.6) % [place] % (Auto) 10.2 H (0.0-7.3) % Seg Neutrophils % 72.0 H (40.0-70.0) % Sodium 136 L (137-145) mmol/L Carbon Dioxide 18 L (22-30) mmol/L Creatinine 0.7 L (0.8-1.3) mg/dL Glucose 154 H (75-100) mg/dL POC Glucose (70-105) mg/dL Hemoglobin A1c 14.9 H (4-6) % Calcium (8.4-10.2) mg/dL Ferritin (30.0-300.0) ng/mL 12/26/21 12/26/21 Range/Units 06:08 12:07 RBC (3.65-5.03) M/mm3 Hgb (11.8-15.2) gm/dl Hct (35.5-45.6) % [place] % (Auto) (0.0-7.3) % Seg Neutrophils % (40.0-70.0) % Sodium (137-145) mmol/L Carbon Dioxide (22-30) mmol/L Creatinine (0.8-1.3) mg/dL Glucose (75-100) mg/dL POC Glucose 210 H (70-105) mg/dL Hemoglobin A1c (4-6) % Calcium (8.4-10.2) mg/dL Ferritin 1335.0 H (30.0-300.0) ng/mL - Imaging and Cardiology CT scan - chest: report reviewed, image reviewed (LLL pneumonia) Assessment and Plan Cultures: 12/24/2021 blood culture: No growth 12/24/2021 urine culture: MSSA 12/24/2021 sputum culture: In process 12/24/2021 left foot wound culture: Staph aureus A/P: 56-year-old male with diabetes mellitus was admitted to the hospital on December 24, 2021 with altered mental status: #Left foot cellulitis with abscess, diabetic foot infection: Likely underlying peripheral vascular disease as well as evidence of osteomyelitis as noted on CT scanning. Underwent bedside I&D in the ER. Cultures growing Staph aureus. Vascular evaluated, no interventions planned. #Left lower lobe pneumonia: On antibiotics #Diabetes mellitus type 2, uncontrolled #MSSA in urine culture: Generally not all uropathogen in the absence of instrumentation, its presence in the urinary tract is typically bacteremia related. #Acute encephalopathy: resolved. Recs: -Empiric IV Ceftriaxone, PO Flagyl, IV vancomycin -Follow-up final cultures -Wound care -optimal glycemic control Gisele Peralta MD, FACP, [facility] O: [phone] F: [phone]
--- NOTE | 2021-12-26 13:56 | Gastroenterology Progress Note ---
Assessment and Plan 1. GI: increased lft's most likely due to simba liver - lft;s improving - hepatitis serologies negative\ - continue to follow lft's - further management and follow up as outpt - ok to dc from GI standpoint, will sign off, call if needed Subjective Date of service: 12/26/21 Interval history: - no GI or liver issues overnight Objective - Constitutional Vitals: Temp Pulse Resp BP Pulse Ox 98.3 F 83 16 154/86 97 12/26/21 12:05 12/26/21 12:05 12/26/21 08:09 12/26/21 12:05 12/26/21 12:05 General appearance: no acute distress - EENT Eyes: PERRL - Respiratory Respiratory: bilateral: CTA - Cardiovascular Rhythm: regular Heart Sounds: Present: S1 & S2 - Gastrointestinal General gastrointestinal: Present: soft, non-tender, non-distended - Labs CBC & Chem 7: 12/26/21 06:08 12/26/21 06:08 Labs: Laboratory Results - last 24 hr 12/25/21 12/25/21 12/25/21 15:45 20:29 20:59 WBC RBC Hgb Hct MCV MCH MCHC RDW Plt Count Lymph % (Auto) [place] % (Auto) Eos % (Auto) Baso % (Auto) Lymph # (Auto) [place] # (Auto) Eos # (Auto) Baso # (Auto) Seg Neutrophils % Seg Neutrophils # Sodium 135 L Potassium 3.6 Chloride 104.0 Carbon Dioxide 17 L Anion Gap 18 BUN 15 Creatinine 0.6 L Estimated GFR > 60 BUN/Creatinine Ratio 25 Glucose 161 H POC Glucose 236 H 184 H Hemoglobin A1c Calcium 7.9 L Phosphorus Magnesium Ferritin TSH 12/26/21 12/26/21 12/26/21 00:19 01:23 05:52 WBC RBC Hgb Hct MCV MCH MCHC RDW Plt Count Lymph % (Auto) [place] % (Auto) Eos % (Auto) Baso % (Auto) Lymph # (Auto) [place] # (Auto) Eos # (Auto) Baso # (Auto) Seg Neutrophils % Seg Neutrophils # Sodium 133 L Potassium 3.7 Chloride 101.1 Carbon Dioxide 17 L Anion Gap 19 BUN 15 Creatinine 0.6 L Estimated GFR > 60 BUN/Creatinine Ratio 25 Glucose 178 H POC Glucose 191 H 133 H Hemoglobin A1c Calcium 7.9 L Phosphorus Magnesium Ferritin TSH 12/26/21 12/26/21 12/26/21 06:08 06:08 06:08 WBC 6.8 RBC 3.59 L Hgb 10.8 L Hct 32.2 L MCV 90 MCH 30 MCHC 34 RDW 14.9 Plt Count 215 Lymph % (Auto) 17.3 [place] % (Auto) 10.2 H Eos % (Auto) 0.1 Baso % (Auto) 0.4 Lymph # (Auto) 1.2 [place] # (Auto) 0.7 Eos # (Auto) 0.0 Baso # (Auto) 0.0 Seg Neutrophils % 72.0 H Seg Neutrophils # 4.9 Sodium 136 L Potassium 3.6 Chloride 105.2 Carbon Dioxide 18 L Anion Gap 16 BUN 15 Creatinine 0.7 L Estimated GFR > 60 BUN/Creatinine Ratio 21 Glucose 154 H POC Glucose Hemoglobin A1c 14.9 H Calcium 8.4 Phosphorus 3.40 Magnesium 1.90 Ferritin TSH 12/26/21 12/26/21 12/26/21 06:08 06:08 12:07 WBC RBC Hgb Hct MCV MCH MCHC RDW Plt Count Lymph % (Auto) [place] % (Auto) Eos % (Auto) Baso % (Auto) Lymph # (Auto) [place] # (Auto) Eos # (Auto) Baso # (Auto) Seg Neutrophils % Seg Neutrophils # Sodium Potassium Chloride Carbon Dioxide Anion Gap BUN Creatinine Estimated GFR BUN/Creatinine Ratio Glucose POC Glucose 210 H Hemoglobin A1c Calcium Phosphorus Magnesium Ferritin 1335.0 H TSH 0.910
[2021-12-26] MEDS ORDERED: cefTRIAXone/NS 2 GM/100 ML 2 GM/100 ML BAG IV SCH (14:00)
--- NOTE | 2021-12-26 14:37 | Progress Note ---
Assessment and Plan This is a 56-year-old male with known history of DM admitted for Hypoglycemia, hyponatremia, and acute hypoxemic respiratory failure requiring ventilatory support. Pateint also noted with left foot abscess s/p I&D by Gen. Surgery. Hospital Course to Date: 12/25: Patient remains on the vent, awake, following commends on propofol gtt. Possible PST today, plan to wean to extubate. High BG this am, D10W gtt D/C. Hyponatremia is improving continue IVF resuscitation, serial BMP Q6hrs. LLE wound noted with CDI dressing. General Surgery recommendation noted, Vascular consulted. Wound Care also consulted. Continue current IV Abx for now, ID consulted for IV Abx management. 12/26: cx growing staph, wait for final report. Continue empiric antibiotics Assessment and Plan #Acute Hypoxemic Respiratory Failure 12/11 #Community-Acquired Pneumonia #COVID PUI - Presented with unresponsiveness with agonal breathing - Intubated in the ED on 12/24 - This am Vent Setting:PRVC-40%,6,20,450 - This am ABG pending - CCM consulted, appreciate recommendations - COVID PCR pending - Continue current IV Abx and nebs treatment - VAP bundle addressed - Aspiration precaution HOB above 30 - Daily SBT and SAT trials as tolerated - Daily ABG and CXR - Continue SPO2 monitoring for SPO2 goal above 92% #Community-Acquired Pneumonia #COVID PUI - Imagings suggesting possible Left lung pneumonia - COVID PCR pending - Inflammatory markers and procal pending - Blood culture pending, Sputum culture growing GPC - Continue current IV Abx for now - ID consulted - Continue to F/U on B.cult - Daily CBC monitor #Hyponatremia #Hypokalemia-improved - Probably related to dehydration/volume depletion - Na improved post IV hydration - Continue IVF resuscitation - Monitor and replace electrolytes as needed - Serial BMP Q6hrs - Strict intake and output #Acute Metabolic Encephalopathy - Probably r/t to multifactorial. hypoglycemia vs hyponatremia vs infectious process - Mentation improved this am. Awake, following commands - Plan to wean off sedation - Possible PST to wean to extubate - PRN Analgesia for CPOT greater than 3 - Avoid benzo to prevent delirium - Maintenance of sleep-wake cycle #Abscess of left foot #Possible Chronic Osteomyelitis - Presented LLE swelling and left foot abscess - General Surgery consulted - 12/24 s/p I&D of left foot by gen surgery - Vascular consulted per rec. - Continue current IV Abx - ID consulted - Continue wound care per General surgery - Wound Care also consulted #Hyperglycemia #Hypoglycemia-resolved #H/o Diabetes - Presented with low BG in the 30s required D10w gtt - Hyperglycemic this am, BG in the 300s - D/10w d/c - SSI initiated q6hrs - Continue IVF resuscitation with 1/2NS - Serial BMP - Avoid Hypoglycemia - Continue Hypoglycemic protocol #Transaminitis - Etiology unclear - Consult placed to gastroenterology for evaluation and recommendations - Continue to trend LFTs #GI/DVT prophylaxis - PPI- Pepcid - Continue AC- Hep SubQ Subjective Date of service: 12/26/21 Interval history: Patient seen and examined. Medical records and medication list reviewed. No acute event overnight noted by the RN. Patient denies any chest pain or difficulty breathing. Patient is tolerating diet. Discussed plan of care at bedside with patient. Objective - Exam Narrative Exam: General appearance: Present: no acute distress, cachectic, - EENT Eyes: Present: PERRL, EOM intact ENT: clear oral mucosa - Neck Neck: Present: normal ROM - Respiratory Respiratory effort: normal Respiratory: bilateral: rhonchi - Cardiovascular Rhythm: regular Heart Sounds: Present: S1 & S2 - Extremities Extremities: abnormal Extremity abnormal: edema, other (LLE wounds) - Abdominal General gastrointestinal: soft, non-distended, normal bowel sounds - Integumentary Integumentary: Present: warm, dry - Psychiatric Psychiatric: appropriate mood/affect, cooperative - Neurologic Neurologic: moves all extremities - Allied Health Allied health notes reviewed: nursing - Constitutional Vitals: Vital Signs - 12hr 12/26/21 12/26/21 12/26/21 04:14 08:09 08:13 Temperature 98.5 F 98.1 F Pulse Rate 78 81 81 Respiratory 18 16 Rate Blood Pressure 105/61 112/74 O2 Sat by Pulse 98 96 Oximetry 12/26/21 12/26/21 09:33 12:05 Temperature 98.3 F Pulse Rate 83 Respiratory Rate Blood Pressure 154/86 O2 Sat by Pulse 98 97 Oximetry - Labs CBC & Chem 7: 12/26/21 06:08 12/26/21 06:08 Labs: Abnormal lab results 12/25/21 12/25/21 12/25/21 Range/Units 15:45 20:29 20:59 RBC (3.65-5.03) M/mm3 Hgb (11.8-15.2) gm/dl Hct (35.5-45.6) % [place] % (Auto) (0.0-7.3) % Seg Neutrophils % (40.0-70.0) % Sodium 135 L (137-145) mmol/L Carbon Dioxide 17 L (22-30) mmol/L Creatinine 0.6 L (0.8-1.3) mg/dL Glucose 161 H (75-100) mg/dL POC Glucose 236 H 184 H (70-105) mg/dL Hemoglobin A1c (4-6) % Calcium 7.9 L (8.4-10.2) mg/dL Ferritin (30.0-300.0) ng/mL 12/26/21 12/26/21 12/26/21 Range/Units 00:19 01:23 05:52 RBC (3.65-5.03) M/mm3 Hgb (11.8-15.2) gm/dl Hct (35.5-45.6) % [place] % (Auto) (0.0-7.3) % Seg Neutrophils % (40.0-70.0) % Sodium 133 L (137-145) mmol/L Carbon Dioxide 17 L (22-30) mmol/L Creatinine 0.6 L (0.8-1.3) mg/dL Glucose 178 H (75-100) mg/dL POC Glucose 191 H 133 H (70-105) mg/dL Hemoglobin A1c (4-6) % Calcium 7.9 L (8.4-10.2) mg/dL Ferritin (30.0-300.0) ng/mL 12/26/21 12/26/21 12/26/21 Range/Units 06:08 06:08 06:08 RBC 3.59 L (3.65-5.03) M/mm3 Hgb 10.8 L (11.8-15.2) gm/dl Hct 32.2 L (35.5-45.6) % [place] % (Auto) 10.2 H (0.0-7.3) % Seg Neutrophils % 72.0 H (40.0-70.0) % Sodium 136 L (137-145) mmol/L Carbon Dioxide 18 L (22-30) mmol/L Creatinine 0.7 L (0.8-1.3) mg/dL Glucose 154 H (75-100) mg/dL POC Glucose (70-105) mg/dL Hemoglobin A1c 14.9 H (4-6) % Calcium (8.4-10.2) mg/dL Ferritin (30.0-300.0) ng/mL 12/26/21 12/26/21 Range/Units 06:08 12:07 RBC (3.65-5.03) M/mm3 Hgb (11.8-15.2) gm/dl Hct (35.5-45.6) % [place] % (Auto) (0.0-7.3) % Seg Neutrophils % (40.0-70.0) % Sodium (137-145) mmol/L Carbon Dioxide (22-30) mmol/L Creatinine (0.8-1.3) mg/dL Glucose (75-100) mg/dL POC Glucose 210 H (70-105) mg/dL Hemoglobin A1c (4-6) % Calcium (8.4-10.2) mg/dL Ferritin 1335.0 H (30.0-300.0) ng/mL HEART Score - HEART Score Troponin: Troponin T < 0.010 ng/mL (0.00-0.029) 12/24/21 22:33
[2021-12-26] MEDS: metroNIDAZOLE 500 MG TAB PO SCH ×2 (16:34→21:06)
[2021-12-27] MEDS: INSULIN LISPRO 100 UNIT/ML SUB-Q SCH ×3 (00:44→19:39)
[2021-12-27] MEDS: SODIUM CHLORIDE 0.45% 1000 ML 1,000 ML IV SCH (05:20)
[2021-12-27] MEDS: HEPARIN 5,000 UNIT/1 ML VIAL SUB-Q SCH ×3 (05:20→21:30)
[2021-12-27] MEDS: metroNIDAZOLE 500 MG TAB PO SCH (05:20)
--- NOTE | 2021-12-27 06:57 | Progress Note ---
Assessment and Plan Patient with multiple medical issues severe hypoglycemia. Depressed mental status. CT of the chest with a indication of a left-sided posterior pneumonia. Sputum Gram stain with gram-negative rods. Patient will need 3 times daily dressing changes to the left foot wound with wound irrigations. Appropriate IV antibiotics. Subjective Date of service: 12/26/21 Narrative: Dressing changed yesterday wound with continued purulent discharge. Begin 3 times daily wound resting changes. Prognosis for salvage of lower extremity is poor. Continue to wait for final evaluation from vascular. Objective Vital Signs - 12hr 12/26/21 12/27/21 12/27/21 20:25 00:09 04:25 Temperature 98.9 F 98.5 F 99.7 F H Pulse Rate 82 92 H 89 Respiratory 18 19 17 Rate Blood Pressure 148/87 156/81 138/78 O2 Sat by Pulse 96 94 96 Oximetry - Labs 12/26/21 06:08 12/26/21 06:08 Diabetes panel 12/26/21 12/26/21 Range/Units 06:08 06:08 Creatinine 0.7 L (0.8-1.3) mg/dL Hemoglobin A1c 14.9 H (4-6) % Thyroid panel 12/26/21 Range/Units 06:08 TSH 0.910 (0.270-4.200) mlU/mL Pituitary panel 12/26/21 12/26/21 Range/Units 06:08 06:08 Creatinine 0.7 L (0.8-1.3) mg/dL TSH 0.910 (0.270-4.200) mlU/mL Adrenal panel 12/26/21 Range/Units 06:08 Creatinine 0.7 L (0.8-1.3) mg/dL
[2021-12-27] MEDS: VANCOMYCIN/NS 1 GM/250 ML 1 GM/250 ML BAG IV SCH (11:00)
[2021-12-27] MEDS: FAMOTIDINE 20 MG TAB PO SCH ×2 (12:36→21:31)
--- NOTE | 2021-12-27 13:50 | Progress Note ---
Assessment and Plan Cultures: 12/24/2021 blood culture: No growth 12/24/2021 urine culture: MSSA 12/24/2021 sputum culture: usual resp daniel 12/24/2021 left foot wound culture: MSSA A/P: 56-year-old male with diabetes mellitus was admitted to the hospital on December 24, 2021 with altered mental status: #Left foot cellulitis with abscess, diabetic foot infection: Likely underlying peripheral vascular disease as well as evidence of osteomyelitis as noted on CT scanning. Underwent bedside I&D in the ER. Cultures growing Staph aureus. Vascular evaluated, no interventions planned. #Left lower lobe pneumonia: On antibiotics, now on room air. #Diabetes mellitus type 2, uncontrolled #MSSA in urine culture: Generally not all uropathogen in the absence of instrumentation, its presence in the urinary tract is typically bacteremia related. #Acute encephalopathy: resolved. Recs: -antibiotics streamlined to IV Ancef 2 gm q8 hrs -continue wound care and debridement as needed. No interventions per vascular. Will order MRI to rule out abscess -optimal glycemic control Gisele Peralta MD, FACP, [facility] O: [phone] F: [phone] Subjective Date of service: 12/27/21 Interval history: No fever. No new complaints. Denies any pain in the foot. Objective - Exam Narrative Exam: Physical Exam: Constitutional: Alert, cooperative. No acute distress Head, Ears, Nose: Normocephalic, atraumatic. External ears, nose normal Eyes: Conjunctivae/corneas clear. No icterus. No ptosis. Neck: Supple, no meningeal signs Cardiovascular: S1, S2 + Respiratory: Good air entry, clear to auscultation bilaterally GI: Soft, non-tender; bowel sounds normal. No peritoneal signs Musculoskeletal: Left foot with swelling, cellulitis, dressing present, left foot laterally with wound and purulence. Cabezas with scab, no tenderness or purulence Skin: No rash or abscess Hem/Lymphatic: No palpable cervical or supraclavicular nodes. No lymphangitis Psych: Mood ok. Affect normal Neurological: Awake, alert, oriented. No gross abnormality - Constitutional Vitals: Vital Signs Temp Pulse Resp BP Pulse Ox 99.7 F H 89 17 138/78 96 12/27/21 04:25 12/27/21 04:25 12/27/21 04:25 12/27/21 04:25 12/27/21 04:25 Temperature -Last 24 Hours Temperature 99.7 F Temperature 98.5 F Temperature 98.9 F Temperature 98.0 F - Labs CBC & Chem 7: 12/26/21 06:08 12/26/21 06:08 Labs: Abnormal lab results 12/26/21 12/26/21 12/27/21 Range/Units 17:14 23:20 00:09 POC Glucose 213 H 195 H (70-105) mg/dL Vancomycin Trough 28.8 H (5.0-20.0) ug/mL 12/27/21 12/27/21 Range/Units 06:14 12:04 POC Glucose 177 H 229 H (70-105) mg/dL Vancomycin Trough (5.0-20.0) ug/mL
--- NOTE | 2021-12-27 15:52 | Progress Note ---
Assessment and Plan This is a 56-year-old male with known history of DM admitted for Hypoglycemia, hyponatremia, and acute hypoxemic respiratory failure requiring ventilatory support. Pateint also noted with left foot abscess s/p I&D by Gen. Surgery. Hospital Course to Date: 12/25: Patient remains on the vent, awake, following commends on propofol gtt. Possible PST today, plan to wean to extubate. High BG this am, D10W gtt D/C. H yponatremia is improving continue IVF resuscitation, serial BMP Q6hrs. LLE wound noted with CDI dressing. General Surgery recommendation noted, Vascular consulted. Wound Care also consulted. Continue current IV Abx for now, ID consulted for IV Abx management. 12/26: cx growing staph, wait for final report. Continue empiric antibiotics 12/27: Wound culture growing MSSA, continue empiric IV Ceftriaxone, PO Flagyl, IV vancomycin. Ordered for left foot MRI for further assessment of the infection Assessment and Plan #Acute Hypoxemic Respiratory Failure 12/11 #Community-Acquired Pneumonia #COVID PUI - Presented with unresponsiveness with agonal breathing - Intubated in the ED on 12/24 - This am Vent Setting:PRVC-40%,6,20,450 - This am ABG pending - CCM consulted, appreciate recommendations - COVID PCR pending - Continue current IV Abx and nebs treatment - VAP bundle addressed - Aspiration precaution HOB above 30 - Daily SBT and SAT trials as tolerated - Daily ABG and CXR - Continue SPO2 monitoring for SPO2 goal above 92% #Community-Acquired Pneumonia #COVID PUI - Imagings suggesting possible Left lung pneumonia - COVID PCR pending - Inflammatory markers and procal pending - Blood culture pending, Sputum culture growing GPC - Continue current IV Abx for now - ID consulted - Continue to F/U on B.cult - Daily CBC monitor #Hyponatremia #Hypokalemia-improved - Probably related to dehydration/volume depletion - Na improved post IV hydration - Continue IVF resuscitation - Monitor and replace electrolytes as needed - Serial BMP Q6hrs - Strict intake and output #Acute Metabolic Encephalopathy - Probably r/t to multifactorial. hypoglycemia vs hyponatremia vs infectious process - Mentation improved this am. Awake, following commands - Plan to wean off sedation - Possible PST to wean to extubate - PRN Analgesia for CPOT greater than 3 - Avoid benzo to prevent delirium - Maintenance of sleep-wake cycle #Abscess of left foot #Possible Chronic Osteomyelitis - Presented LLE swelling and left foot abscess - General Surgery consulted - 12/24 s/p I&D of left foot by gen surgery - Vascular consulted per rec. - Continue current IV Abx - ID consulted - Continue wound care per General surgery - Wound Care also consulted #Hyperglycemia #Hypoglycemia-resolved #H/o Diabetes - Presented with low BG in the 30s required D10w gtt - Hyperglycemic this am, BG in the 300s - D/10w d/c - SSI initiated q6hrs - Continue IVF resuscitation with 1/2NS - Serial BMP - Avoid Hypoglycemia - Continue Hypoglycemic protocol #Transaminitis - Etiology unclear - Consult placed to gastroenterology for evaluation and recommendations - Continue to trend LFTs #GI/DVT prophylaxis - PPI- Pepcid - Continue AC- Hep SubQ Subjective Date of service: 12/27/21 Interval history: Patient seen and examined. Medical records and medication list reviewed. No acute event overnight noted by the RN. Patient denies any chest pain or difficulty breathing. Patient is tolerating diet. Discussed plan of care at bedside with patient. Objective - Exam Narrative Exam: General appearance: Present: no acute distress, cachectic, - EENT Eyes: Present: PERRL, EOM intact ENT: clear oral mucosa - Neck Neck: Present: normal ROM - Respiratory Respiratory effort: normal Respiratory: bilateral: rhonchi - Cardiovascular Rhythm: regular Heart Sounds: Present: S1 & S2 - Extremities Extremities: abnormal Extremity abnormal: edema, other (LLE wounds) - Abdominal General gastrointestinal: soft, non-distended, normal bowel sounds - Integumentary Integumentary: Present: warm, dry - Psychiatric Psychiatric: appropriate mood/affect, cooperative - Neurologic Neurologic: moves all extremities - Allied Health Allied health notes reviewed: nursing - Constitutional Vitals: Vital Signs - 12hr 12/27/21 04:25 Temperature 99.7 F H Pulse Rate 89 Respiratory 17 Rate Blood Pressure 138/78 O2 Sat by Pulse 96 Oximetry - Labs CBC & Chem 7: 12/26/21 06:08 12/26/21 06:08 Labs: Abnormal lab results 12/26/21 12/26/21 12/27/21 Range/Units 17:14 23:20 00:09 POC Glucose 213 H 195 H (70-105) mg/dL Vancomycin Trough 28.8 H (5.0-20.0) ug/mL 12/27/21 12/27/21 Range/Units 06:14 12:04 POC Glucose 177 H 229 H (70-105) mg/dL Vancomycin Trough (5.0-20.0) ug/mL HEART Score - HEART Score Troponin: Troponin T < 0.010 ng/mL (0.00-0.029) 12/24/21 22:33
--- NOTE | 2021-12-27 17:02 | Magnetic Resonance Report ---
MRI LEFT FOOT WITHOUT AND WITH CONTRAST INDICATION / CLINICAL INFORMATION: Left foot abscess, osteomyelitis. Sepsis. TECHNIQUE: Multiplanar, multisequence MR images were obtained. Pre and postcontrast sequences were ob tained. 13 mL Clariscan injected IV. [id number] is limited to the midfoot and forefoot. 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 There is widening of the Lisfranc interval with dorsal and lateral sublu xation of the 2nd through 5th metatarsals. There is a chronic appearing fracture of the base of the 2 nd metatarsal. There are erosive changes and periosteal reaction at the base of the 1st metatarsal. T here is abnormal low T1 and high T2 signal within the cuneiforms, navicular, cuboid, and bases of all 5 metatarsals. There is abnormal enhancement of all of these bones. No abnormality of the distal me tatarsals or phalanges. MUSCLES: No significant abnormality. FLEXOR TENDONS: No significant abnormality. EXTENSOR TENDONS: No significant abnormality. PERONEAL TENDONS: No significant abnormality. LIGAMENTS: Chronic tear of the Lisfranc ligament. SOFT TISSUES: Extensive subcutaneous and deep soft tissue edema of the midfoot extending into the for efoot. There is a soft tissue ulcer with sinus tract in the medial aspect of the midfoot best seen on coronal series 10 image 11. This sinus tract extends to a multiloculated, peripherally enhancing flu id collection throughout the midfoot extending along the plantar and dorsal aspects of the foot. ADDITIONAL FINDINGS: None. IMPRESSION: 1. 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 2. Midfoot and forefoot cellulitis with soft tissue ulcer on the medial aspect of the midfoot with si nus tract extending to extensive enhancing fluid collections which likely represent abscess. 3. Probable osteomyelitis throughout the midfoot from the navicular to the bases of all 5 metatarsals . Signer Name: Clifton Nguyen MD Signed: 12/27/2021 4:58 PM Workstation Name: [id number]
--- NOTE | 2021-12-27 18:30 | Progress Note ---
Assessment and Plan 56-year-old male with known history of diabetes mellitus brought into the emergency room today via EMS after being found unresponsive and having agonal breathing. Most of the history was obtained from the ER staff as patient is already intubated and sedated. Patient was found to have been having agonal respiration and unresponsive by EMS. Was given albuterol nebulizing treatment and Solu-Medrol. He was subsequently intubated and sedated in the emergency room. Patient was said to have been missing from home for about 3 days was also said to have stepped on it nail with which his left foot. Left foot has been swollen and red. Work-up in the emergency room , initial blood glucose was 38, hypokalemia of 3.3 and hyponatremia of 128. Patient was given boluses of IV glucose with improvement of his blood glucose. General surgery consulted. He immediately had an incision and drainage of the swollen left foot. Patient started on antibiotics Zosyn, Vancomycin and Clindamycin. Patient also had a tetanus toxoid injection. CT of the head and neck, abdomen and pelvis did not reveal any acute abnormality. Chest x-ray within normal limits. Patient extubated . Patient transfered to Telemetry. Patient awake. Resting on room air. O2 saturation 96%. Denies chest pain, shortness of breath or cough. Patient running low grade temp. No Leukocytosis. Blood pressure 138/78, Pulse 89 , Respirations 17. CT of chest done 12/25/[address] evidence for pulmonary embolism. Moderate left lower lobe pneumonia, unchanged. Patient presently on Cephazolin., S/C heparin and famotidine. Just finished course of ceftriaxone and vancomycin. - Patient Problems (1) Acute respiratory failure with hypoxia Current Visit: Yes Status: Acute Plan to address problem: Patient intubated and extubated. Patient presently on room air. O2 saturation 96%. (2) Abscess of left foot Current Visit: Yes Status: Acute Plan to address problem: Incision and drainage and wound care. (3) Pneumonia involving left lung Current Visit: Yes Status: Acute Plan to address problem: Patient was on multiple antibiotics. Zosyn, vancomycin, Clindamycin and Ceftriaxone. Patient presently on cephazolin. (4) Osteomyelitis of left foot Current Visit: Yes Status: Acute Plan to address problem: Antibiotics as per ID. Subjective Date of service: 12/27/21 Interval history: 56-year-old male with known history of diabetes mellitus brought into the emergency room today via EMS after being found unresponsive and having agonal breathing. Most of the history was obtained from the ER staff as patient is already intubated and sedated. Patient was found to have been having agonal respiration and unresponsive by EMS. Was given albuterol nebulizing treatment and Solu-Medrol. He was subsequently intubated and sedated in the emergency room. Patient was said to have been missing from home for about 3 days was also said to have stepped on it nail with which his left foot. Left foot has been swollen and red. Work-up in the emergency room , initial blood glucose was 38, hypokalemia of 3.3 and hyponatremia of 128. Patient was given boluses of IV glucose with improvement of his blood glucose. General surgery consulted. He immediately had an incision and drainage of the swollen left foot. Patient started on antibiotics Zosyn, Vancomycin and Clindamycin. Patient also had a tetanus toxoid injection. CT of the head and neck, abdomen and pelvis did not reveal any acute abnormality. Chest x-ray within normal limits. Patient extubated . Patient transfered to Telemetry. Patient awake. Resting on room air. O2 saturation 96%. Denies chest pain, shortness of breath or cough. Patient running low grade temp. No Leukocytosis. Blood pressure 138/78, Pulse 89 , Respirations 17. CT of chest done 12/25/[address] evidence for pulmonary embolism. Moderate left lower lobe pneumonia, unchanged. Patient presently on Cephazolin., S/C heparin and famotidine. Just finished course of ceftriaxone and vancomycin. Objective Constitutional: no acute distress, alert, other (Weak) Eyes: non-icteric ENT: oropharynx moist Neck: supple, no lymphadenopathy Effort: mildly labored Ascultation: Bilateral: diminished breath sounds Cardiovascular: regular rate and rhythm Gastrointestinal: normoactive bowel sounds, soft, non-tender Integumentary: normal Extremities: edema, other (Incision and drinage of left foot abscess.) Neurologic: non-focal exam, pupils equal and round, CN II-XII normal Psychiatric: depressed CBC and BMP: 12/26/21 06:08 12/26/21 06:08 ABG, PT/INR, D-dimer: ABG ABG pH 7.386 pH Units (7.350-7.450) 12/24/21 Unknown ABG pCO2 32.7 mm Hg 12/24/21 Unknown ABG pO2 308.2 mm Hg (80.0-90.0) H 12/24/21 Unknown ABG O2 Saturation 99.5 % (95.0-99.0) H 12/24/21 Unknown PT/INR, D-dimer PT 13.9 Sec. (12.2-14.9) 12/24/21 19:43 INR 0.96 (0.87-1.13) 12/24/21 19:43 D-Dimer 2019.48 ng/mlDDU (0-234) H 12/25/21 08:26 Abnormal lab findings: Abnormal Labs 12/24/21 12/24/21 12/24/21 19:43 19:43 19:43 RBC 3.58 L Hgb 10.3 L Hct 31.5 L Lymph % (Auto) [place] % (Auto) 10.9 H Lymph # (Auto) 1.1 L Seg Neutrophils % APTT 39.7 H D-Dimer ABG pO2 ABG HCO3 ABG O2 Saturation ABG Base Excess ABG Hemoglobin Sodium 128 L Potassium 3.3 L Chloride 95.9 L Carbon Dioxide 18 L Creatinine 0.6 L Glucose 38 L* POC Glucose Hemoglobin A1c Calcium Ferritin AST 232 H ALT 126 H Alkaline Phosphatase 132 H Lactate Dehydrogenase C-Reactive Protein Albumin 2.6 L Lipase 6 L Vancomycin Trough Salicylates Acetaminophen 12/24/21 12/24/21 12/24/21 19:43 19:43 22:33 RBC Hgb Hct Lymph % (Auto) [place] % (Auto) Lymph # (Auto) Seg Neutrophils % APTT D-Dimer ABG pO2 ABG HCO3 ABG O2 Saturation ABG Base Excess ABG Hemoglobin Sodium 126 L Potassium 3.1 L Chloride 91.7 L Carbon Dioxide 19 L Creatinine 0.7 L Glucose 115 H POC Glucose Hemoglobin A1c Calcium 8.3 L Ferritin AST ALT Alkaline Phosphatase Lactate Dehydrogenase C-Reactive Protein Albumin Lipase Vancomycin Trough Salicylates < 0.3 L Acetaminophen 5.0 L 12/24/21 12/25/21 12/25/21 Unknown 00:23 05:59 RBC Hgb Hct Lymph % (Auto) [place] % (Auto) Lymph # (Auto) Seg Neutrophils % APTT D-Dimer ABG pO2 308.2 H ABG HCO3 19.2 L ABG O2 Saturation 99.5 H ABG Base Excess -5.0 L ABG Hemoglobin 10.6 L Sodium Potassium Chloride Carbon Dioxide Creatinine Glucose POC Glucose 157 H 469 H Hemoglobin A1c Calcium Ferritin AST ALT Alkaline Phosphatase Lactate Dehydrogenase C-Reactive Protein Albumin Lipase Vancomycin Trough Salicylates Acetaminophen 12/25/21 12/25/21 12/25/21 06:01 08:26 08:26 RBC Hgb 11.7 L Hct 35.2 L Lymph % (Auto) 9.8 L [place] % (Auto) Lymph # (Auto) 0.5 L Seg Neutrophils % 84.2 H APTT D-Dimer ABG pO2 ABG HCO3 ABG O2 Saturation ABG Base Excess ABG Hemoglobin Sodium 130 L Potassium Chloride 96.6 L Carbon Dioxide 19 L Creatinine 0.7 L Glucose 323 H POC Glucose 316 H Hemoglobin A1c Calcium 8.3 L Ferritin AST 123 H ALT 111 H Alkaline Phosphatase 144 H Lactate Dehydrogenase C-Reactive Protein Albumin 2.5 L Lipase Vancomycin Trough Salicylates Acetaminophen 12/25/21 12/25/21 12/25/21 08:26 08:26 08:26 RBC Hgb Hct Lymph % (Auto) [place] % (Auto) Lymph # (Auto) Seg Neutrophils % APTT D-Dimer 2019.48 H ABG pO2 ABG HCO3 ABG O2 Saturation ABG Base Excess ABG Hemoglobin Sodium Potassium Chloride Carbon Dioxide Creatinine Glucose POC Glucose Hemoglobin A1c Calcium Ferritin 1288.0 H AST ALT Alkaline Phosphatase Lactate Dehydrogenase 215 H C-Reactive Protein 34.10 H Albumin Lipase Vancomycin Trough Salicylates Acetaminophen 12/25/21 12/25/21 12/25/21 10:59 15:45 20:29 RBC Hgb Hct Lymph % (Auto) [place] % (Auto) Lymph # (Auto) Seg Neutrophils % APTT D-Dimer ABG pO2 ABG HCO3 ABG O2 Saturation ABG Base Excess ABG Hemoglobin Sodium 135 L Potassium Chloride Carbon Dioxide 17 L Creatinine 0.6 L Glucose 161 H POC Glucose 305 H 236 H Hemoglobin A1c Calcium 7.9 L Ferritin AST ALT Alkaline Phosphatase Lactate Dehydrogenase C-Reactive Protein Albumin Lipase Vancomycin Trough Salicylates Acetaminophen 12/25/21 12/26/21 12/26/21 20:59 00:19 01:23 RBC Hgb Hct Lymph % (Auto) [place] % (Auto) Lymph # (Auto) Seg Neutrophils % APTT D-Dimer ABG pO2 ABG HCO3 ABG O2 Saturation ABG Base Excess ABG Hemoglobin Sodium 133 L Potassium Chloride Carbon Dioxide 17 L Creatinine 0.6 L Glucose 178 H POC Glucose 184 H 191 H Hemoglobin A1c Calcium 7.9 L Ferritin AST ALT Alkaline Phosphatase Lactate Dehydrogenase C-Reactive Protein Albumin Lipase Vancomycin Trough Salicylates Acetaminophen 12/26/21 12/26/21 12/26/21 05:52 06:08 06:08 RBC 3.59 L Hgb 10.8 L Hct 32.2 L Lymph % (Auto) [place] % (Auto) 10.2 H Lymph # (Auto) Seg Neutrophils % 72.0 H APTT D-Dimer ABG pO2 ABG HCO3 ABG O2 Saturation ABG Base Excess ABG Hemoglobin Sodium 136 L Potassium Chloride Carbon Dioxide 18 L Creatinine 0.7 L Glucose 154 H POC Glucose 133 H Hemoglobin A1c Calcium Ferritin AST ALT Alkaline Phosphatase Lactate Dehydrogenase C-Reactive Protein Albumin Lipase Vancomycin Trough Salicylates Acetaminophen 12/26/21 12/26/21 12/26/21 06:08 06:08 12:07 RBC Hgb Hct Lymph % (Auto) [place] % (Auto) Lymph # (Auto) Seg Neutrophils % APTT D-Dimer ABG pO2 ABG HCO3 ABG O2 Saturation ABG Base Excess ABG Hemoglobin Sodium Potassium Chloride Carbon Dioxide Creatinine Glucose POC Glucose 210 H Hemoglobin A1c 14.9 H Calcium Ferritin 1335.0 H AST ALT Alkaline Phosphatase Lactate Dehydrogenase C-Reactive Protein Albumin Lipase Vancomycin Trough Salicylates Acetaminophen 12/26/21 12/26/21 12/27/21 17:14 23:20 00:09 RBC Hgb Hct Lymph % (Auto) [place] % (Auto) Lymph # (Auto) Seg Neutrophils % APTT D-Dimer ABG pO2 ABG HCO3 ABG O2 Saturation ABG Base Excess ABG Hemoglobin Sodium Potassium Chloride Carbon Dioxide Creatinine Glucose POC Glucose 213 H 195 H Hemoglobin A1c Calcium Ferritin AST ALT Alkaline Phosphatase Lactate Dehydrogenase C-Reactive Protein Albumin Lipase Vancomycin Trough 28.8 H Salicylates Acetaminophen 12/27/21 12/27/21 12/27/21 06:14 12:04 17:23 RBC Hgb Hct Lymph % (Auto) [place] % (Auto) Lymph # (Auto) Seg Neutrophils % APTT D-Dimer ABG pO2 ABG HCO3 ABG O2 Saturation ABG Base Excess ABG Hemoglobin Sodium Potassium Chloride Carbon Dioxide Creatinine Glucose POC Glucose 177 H 229 H 231 H Hemoglobin A1c Calcium Ferritin AST ALT Alkaline Phosphatase Lactate Dehydrogenase C-Reactive Protein Albumin Lipase Vancomycin Trough Salicylates Acetaminophen CT scan - chest: report reviewed, image reviewed Prior PFT's, U/S of legs: report reviewed Additional Studies: DUPLEX DOPPLER LOWER EXTREMITY ARTERIAL, BILATERAL 12/25/21 INDICATION / CLINICAL INFORMATION: Left foot abscess with diminshed Left PT. TECHNIQUE: Arterial duplex examination of both lower extremities performed using B-mode, color flow and spectral Doppler assessment. FINDINGS: RIGHT: - Atherosclerotic Plaque Vessel: No significant atherosclerotic plaque. - Elevated Velocity (>200 cm/s) Vessel: None. - Abnormal Waveform Vessel: None. LEFT: - Atherosclerotic Plaque Vessel: No significant atherosclerotic plaque. - Elevated Velocity (>200 cm/s) Vessel: None. - Abnormal Waveform Vessel: Monophasic waveforms are seen in the left po sterior tibial, anterior tibial, and dorsalis pedis arteries. ADDITIONAL FINDINGS: None. ABIs were not calculated. IMPRESSION: 1. Monophasic waveforms below the knee in the left lower extremity indicative of potentially significant peripheral vascular disease. Peak systolic velocities are within normal limits but asymmetrically increased on the left. CTA CHEST WITH CONTRAST 3:25 PM 12/25/21 INDICATION / CLINICAL INFORMATION: respiratory failure. TECHNIQUE: Axial CT images were obtained through the chest after injection of 100 cc Omnipaque 350 IV contrast. 3 plane MIP and/or 3D reconstructions were produced. All CT scans at this location are performed using CT dose reduction for ALARA by means of automated exposure control. COMPARISON: CT chest 12/25/2021 2:10 AM FINDINGS: PULMONARY EMBOLUS: None. THORACIC AORTA: No significant abnormality. HEART: No significant abnormality. CORONARY ARTERY CALCIFICATION: Absent -- None. MEDIASTINUM / JERRY: No significant abnormality. PLEURA: No pleural effusion. No pneumothorax. LUNGS: Airspace consolidation left lower lobe, unchanged. ADDITIONAL FINDINGS: None. UPPER ABDOMEN: No acute findings. SKELETAL STRUCTURES: No significant osseous abnormality. IMPRESSION: 1. No CT evidence for pulmonary embolism. 2. Moderate left lower lobe pneumonia, unchanged.
[2021-12-28] MEDS: INSULIN LISPRO 100 UNIT/ML SUB-Q SCH ×4 (00:09→17:08)
[2021-12-28] MEDS: HEPARIN 5,000 UNIT/1 ML VIAL SUB-Q SCH ×3 (06:20→21:03)
[2021-12-28] MEDS: SODIUM CHLORIDE 0.45% 1000 ML 1,000 ML IV SCH ×2 (06:26→17:08)
[2021-12-28] MEDS: FAMOTIDINE 20 MG TAB PO SCH ×2 (09:21→21:03)
--- NOTE | 2021-12-28 11:46 | Event Note ---
Date: 12/28/21
--- NOTE | 2021-12-28 20:11 | Progress Note ---
Assessment and Plan This is a 56-year-old male with known history of DM admitted for Hypoglycemia, hyponatremia, and acute hypoxemic respiratory failure requiring ventilatory support. Pateint also noted with left foot abscess s/p I&D by Gen. Surgery. Hospital Course to Date: 12/25: Patient remains on the vent, awake, following commends on propofol gtt. Possible PST today, plan to wean to extubate. High BG this am, D10W gtt D/C. Hyponatremia is improving continue IVF resuscitation, serial BMP Q6hrs. LLE wound noted with CDI dressing. General Surgery recommendation noted, Vascular consulted. Wound Care also consulted. Continue current IV Abx for now, ID consulted for IV Abx management. 12/26: cx growing staph, wait for final report. Continue empiric antibiotics 12/27: Wound culture growing MSSA, continue empiric IV Ceftriaxone, PO Flagyl, IV vancomycin. Ordered for left foot MRI for further assessment of the infection 12/28: MRI left foot suggestive of plantar abscess, continue empiric antibiotics, patient would need another I and D, continue to follow clinically. Assessment and Plan #Acute Hypoxemic Respiratory Failure 12/11 #Community-Acquired Pneumonia #COVID PUI - Presented with unresponsiveness with agonal breathing - Intubated in the ED on 12/24 - This am Vent Setting:PRVC-40%,6,20,450 - This am ABG pending - CCM consulted, appreciate recommendations - COVID PCR pending - Continue current IV Abx and nebs treatment - VAP bundle addressed - Aspiration precaution HOB above 30 - Daily SBT and SAT trials as tolerated - Daily ABG and CXR - Continue SPO2 monitoring for SPO2 goal above 92% #Community-Acquired Pneumonia #COVID PUI - Imagings suggesting possible Left lung pneumonia - COVID PCR pending - Inflammatory markers and procal pending - Blood culture pending, Sputum culture growing GPC - Continue current IV Abx for now - ID consulted - Continue to F/U on B.cult - Daily CBC monitor #Hyponatremia #Hypokalemia-improved - Probably related to dehydration/volume depletion - Na improved post IV hydration - Continue IVF resuscitation - Monitor and replace electrolytes as needed - Serial BMP Q6hrs - Strict intake and output #Acute Metabolic Encephalopathy - Probably r/t to multifactorial. hypoglycemia vs hyponatremia vs infectious process - Mentation improved this am. Awake, following commands - Plan to wean off sedation - Possible PST to wean to extubate - PRN Analgesia for CPOT greater than 3 - Avoid benzo to prevent delirium - Maintenance of sleep-wake cycle #Abscess of left foot #Possible Chronic Osteomyelitis - Presented LLE swelling and left foot abscess - General Surgery consulted - 12/24 s/p I&D of left foot by gen surgery - Vascular consulted per rec. - Continue current IV Abx - ID consulted - Continue wound care per General surgery - Wound Care also consulted #Hyperglycemia #Hypoglycemia-resolved #H/o Diabetes - Presented with low BG in the 30s required D10w gtt - Hyperglycemic this am, BG in the 300s - D/10w d/c - SSI initiated q6hrs - Continue IVF resuscitation with 1/2NS - Serial BMP - Avoid Hypoglycemia - Continue Hypoglycemic protocol #Transaminitis - Etiology unclear - Consult placed to gastroenterology for evaluation and recommendations - Continue to trend LFTs #GI/DVT prophylaxis - PPI- Pepcid - Continue AC- Hep SubQ Subjective Date of service: 12/28/21 Interval history: Patient seen and examined. Medical records and medication list reviewed. No acute event overnight noted by the RN. Patient denies any chest pain or difficulty breathing. Patient is tolerating diet. Discussed plan of care at bedside with patient. Objective - Exam Narrative Exam: General appearance: Present: no acute distress, cachectic, - EENT Eyes: Present: PERRL, EOM intact ENT: clear oral mucosa - Neck Neck: Present: normal ROM - Respiratory Respiratory effort: normal Respiratory: bilateral: rhonchi - Cardiovascular Rhythm: regular Heart Sounds: Present: S1 & S2 - Extremities Extremities: abnormal Extremity abnormal: edema, other (LLE wounds) - Abdominal General gastrointestinal: soft, non-distended, normal bowel sounds - Integumentary Integumentary: Present: warm, dry - Psychiatric Psychiatric: appropriate mood/affect, cooperative - Neurologic Neurologic: moves all extremities - Allied Health Allied health notes reviewed: nursing - Constitutional Vitals: Vital Signs - 12hr 12/28/21 12/28/21 12/28/21 08:22 12:03 16:28 Temperature 97.8 F 99.3 F Pulse Rate 60 71 Respiratory 18 18 Rate Blood Pressure 158/63 140/72 O2 Sat by Pulse 97 98 97 Oximetry 12/28/21 19:40 Temperature 99.7 F H Pulse Rate 72 Respiratory 16 Rate Blood Pressure 136/73 O2 Sat by Pulse 97 Oximetry - Labs CBC & Chem 7: 12/26/21 06:08 12/26/21 06:08 Labs: Abnormal lab results 12/27/21 12/28/21 12/28/21 Range/Units 23:56 06:57 12:03 POC Glucose 237 H 211 H 221 H (70-105) mg/dL 12/28/21 Range/Units 16:29 POC Glucose 209 H (70-105) mg/dL HEART Score - HEART Score Troponin: Troponin T < 0.010 ng/mL (0.00-0.029) 12/24/21 22:33
[2021-12-29] MEDS: INSULIN LISPRO 100 UNIT/ML SUB-Q SCH ×5 (00:45→20:11)
[2021-12-29] MEDS: SODIUM CHLORIDE 0.45% 1000 ML 1,000 ML IV SCH ×3 (04:44→21:50)
[2021-12-29] MEDS: ACETAMINOPHEN 325 MG TAB PO PRN (04:46)
[2021-12-29] MEDS: HEPARIN 5,000 UNIT/1 ML VIAL SUB-Q SCH ×3 (05:56→21:51)
--- NOTE | 2021-12-29 09:05 | Progress Note ---
Assessment and Plan #Acute Hypoxemic Respiratory Failure 2/2 respiratory distress - Stable, not requiring supplemental oxygen -ABG and CXR as clinically indicated #Community-Acquired Pneumonia #Hyponatremia #Hypokalemia-improved - Probably related to dehydration/volume depletion - Na improved post IV hydration - Continue IVF resuscitation - Monitor and replace electrolytes as needed - Serial BMP Q6hrs - Strict intake and output #Acute Metabolic Encephalopathy-resolving - Probably r/t to multifactorial. hypoglycemia vs hyponatremia vs infectious process Awake, following commands - Maintenance of sleep-wake cycle #Abscess of left foot #Possible Chronic Osteomyelitis - Presented LLE swelling and left foot abscess - 12/24 s/p I&D of left foot by gen surgery Plan fro I adn D again in the morning. MRI shows persistent multi-loculated abscesses - Continue current IV Abx - ID following - Continue wound care per General surgery #Hyperglycemia #Hypoglycemia-resolved #H/o Diabetes - Glycemic control to promote wound healing -Accuchecks wth glycemic control, keep blood glucose <180mg/dL. Avoid hypoglycemia #Transaminitis - Continue to trend LFTs #DVT prophylaxis - Hep SubQ Subjective Date of service: 12/29/21 Interval history: This is a 56-year-old male with known history of DM admitted for Hypoglycemia, hyponatremia, and acute hypoxemic respiratory failure requiring ventilatory support. Patient with left foot abscess s/p I&D by Gen. Surgery. s/p extubation 12/26: cx growing staph Seen and examined. Vitals, labs, medications, chart reviewed. No adverse overnight evens, no fevers, resting peacefully in bed. In no distress MRI does demonstrate a multiloculated abscess of the left midfoot. Objective Vital Signs - 12hr 12/28/21 12/29/21 12/29/21 23:57 04:22 07:33 Temperature 100.1 F H 100.3 F H 98.7 F Pulse Rate 81 79 66 Respiratory 18 18 16 Rate Blood Pressure 141/71 133/71 144/72 O2 Sat by Pulse 98 96 98 Oximetry Constitutional: no acute distress, alert, other (Weak) Eyes: non-icteric ENT: oropharynx moist Neck: supple, no lymphadenopathy Effort: normal Ascultation: Bilateral: diminished breath sounds Cardiovascular: regular rate and rhythm, other (S1,S2) Gastrointestinal: normoactive bowel sounds, soft, non-tender Integumentary: normal Extremities: edema, other (Incision and drinage of left foot abscess.) Neurologic: normal mental status, non-focal exam, pupils equal and round, CN II- XII normal Psychiatric: mood appropriate, affect normal CBC and BMP: 12/26/21 06:08 12/26/21 06:08 ABG, PT/INR, D-dimer: ABG ABG pH 7.386 pH Units (7.350-7.450) 12/24/21 Unknown ABG pCO2 32.7 mm Hg 12/24/21 Unknown ABG pO2 308.2 mm Hg (80.0-90.0) H 12/24/21 Unknown ABG O2 Saturation 99.5 % (95.0-99.0) H 12/24/21 Unknown PT/INR, D-dimer PT 13.9 Sec. (12.2-14.9) 12/24/21 19:43 INR 0.96 (0.87-1.13) 12/24/21 19:43 D-Dimer 2019.48 ng/mlDDU (0-234) H 12/25/21 08:26 Abnormal lab findings: Abnormal Labs 12/24/21 12/24/21 12/24/21 19:43 19:43 19:43 RBC 3.58 L Hgb 10.3 L Hct 31.5 L Lymph % (Auto) Miner % (Auto) 10.9 H Lymph # (Auto) 1.1 L Seg Neutrophils % APTT 39.7 H D-Dimer ABG pO2 ABG HCO3 ABG O2 Saturation ABG Base Excess ABG Hemoglobin Sodium 128 L Potassium 3.3 L Chloride 95.9 L Carbon Dioxide 18 L Creatinine 0.6 L Glucose 38 L* POC Glucose Hemoglobin A1c Calcium Ferritin AST 232 H ALT 126 H Alkaline Phosphatase 132 H Lactate Dehydrogenase C-Reactive Protein Albumin 2.6 L Lipase 6 L Vancomycin Trough Salicylates Acetaminophen 12/24/21 12/24/21 12/24/21 19:43 19:43 22:33 RBC Hgb Hct Lymph % (Auto) Miner % (Auto) Lymph # (Auto) Seg Neutrophils % APTT D-Dimer ABG pO2 ABG HCO3 ABG O2 Saturation ABG Base Excess ABG Hemoglobin Sodium 126 L Potassium 3.1 L Chloride 91.7 L Carbon Dioxide 19 L Creatinine 0.7 L Glucose 115 H POC Glucose Hemoglobin A1c Calcium 8.3 L Ferritin AST ALT Alkaline Phosphatase Lactate Dehydrogenase C-Reactive Protein Albumin Lipase Vancomycin Trough Salicylates < 0.3 L Acetaminophen 5.0 L 12/24/21 12/25/21 12/25/21 Unknown 00:23 05:59 RBC Hgb Hct Lymph % (Auto) Miner % (Auto) Lymph # (Auto) Seg Neutrophils % APTT D-Dimer ABG pO2 308.2 H ABG HCO3 19.2 L ABG O2 Saturation 99.5 H ABG Base Excess -5.0 L ABG Hemoglobin 10.6 L Sodium Potassium Chloride Carbon Dioxide Creatinine Glucose POC Glucose 157 H 469 H Hemoglobin A1c Calcium Ferritin AST ALT Alkaline Phosphatase Lactate Dehydrogenase C-Reactive Protein Albumin Lipase Vancomycin Trough Salicylates Acetaminophen 12/25/21 12/25/21 12/25/21 06:01 08:26 08:26 RBC Hgb 11.7 L Hct 35.2 L Lymph % (Auto) 9.8 L Miner % (Auto) Lymph # (Auto) 0.5 L Seg Neutrophils % 84.2 H APTT D-Dimer ABG pO2 ABG HCO3 ABG O2 Saturation ABG Base Excess ABG Hemoglobin Sodium 130 L Potassium Chloride 96.6 L Carbon Dioxide 19 L Creatinine 0.7 L Glucose 323 H POC Glucose 316 H Hemoglobin A1c Calcium 8.3 L Ferritin AST 123 H ALT 111 H Alkaline Phosphatase 144 H Lactate Dehydrogenase C-Reactive Protein Albumin 2.5 L Lipase Vancomycin Trough Salicylates Acetaminophen 12/25/21 12/25/21 12/25/21 08:26 08:26 08:26 RBC Hgb Hct Lymph % (Auto) Miner % (Auto) Lymph # (Auto) Seg Neutrophils % APTT D-Dimer 2019.48 H ABG pO2 ABG HCO3 ABG O2 Saturation ABG Base Excess ABG Hemoglobin Sodium Potassium Chloride Carbon Dioxide Creatinine Glucose POC Glucose Hemoglobin A1c Calcium Ferritin 1288.0 H AST ALT Alkaline Phosphatase Lactate Dehydrogenase 215 H C-Reactive Protein 34.10 H Albumin Lipase Vancomycin Trough Salicylates Acetaminophen 12/25/21 12/25/21 12/25/21 10:59 15:45 20:29 RBC Hgb Hct Lymph % (Auto) Miner % (Auto) Lymph # (Auto) Seg Neutrophils % APTT D-Dimer ABG pO2 ABG HCO3 ABG O2 Saturation ABG Base Excess ABG Hemoglobin Sodium 135 L Potassium Chloride Carbon Dioxide 17 L Creatinine 0.6 L Glucose 161 H POC Glucose 305 H 236 H Hemoglobin A1c Calcium 7.9 L Ferritin AST ALT Alkaline Phosphatase Lactate Dehydrogenase C-Reactive Protein Albumin Lipase Vancomycin Trough Salicylates Acetaminophen 12/25/21 12/26/21 12/26/21 20:59 00:19 01:23 RBC Hgb Hct Lymph % (Auto) Miner % (Auto) Lymph # (Auto) Seg Neutrophils % APTT D-Dimer ABG pO2 ABG HCO3 ABG O2 Saturation ABG Base Excess ABG Hemoglobin Sodium 133 L Potassium Chloride Carbon Dioxide 17 L Creatinine 0.6 L Glucose 178 H POC Glucose 184 H 191 H Hemoglobin A1c Calcium 7.9 L Ferritin AST ALT Alkaline Phosphatase Lactate Dehydrogenase C-Reactive Protein Albumin Lipase Vancomycin Trough Salicylates Acetaminophen 12/26/21 12/26/21 12/26/21 05:52 06:08 06:08 RBC 3.59 L Hgb 10.8 L Hct 32.2 L Lymph % (Auto) Miner % (Auto) 10.2 H Lymph # (Auto) Seg Neutrophils % 72.0 H APTT D-Dimer ABG pO2 ABG HCO3 ABG O2 Saturation ABG Base Excess ABG Hemoglobin Sodium 136 L Potassium Chloride Carbon Dioxide 18 L Creatinine 0.7 L Glucose 154 H POC Glucose 133 H Hemoglobin A1c Calcium Ferritin AST ALT Alkaline Phosphatase Lactate Dehydrogenase C-Reactive Protein Albumin Lipase Vancomycin Trough Salicylates Acetaminophen 12/26/21 12/26/21 12/26/21 06:08 06:08 12:07 RBC Hgb Hct Lymph % (Auto) Miner % (Auto) Lymph # (Auto) Seg Neutrophils % APTT D-Dimer ABG pO2 ABG HCO3 ABG O2 Saturation ABG Base Excess ABG Hemoglobin Sodium Potassium Chloride Carbon Dioxide Creatinine Glucose POC Glucose 210 H Hemoglobin A1c 14.9 H Calcium Ferritin 1335.0 H AST ALT Alkaline Phosphatase Lactate Dehydrogenase C-Reactive Protein Albumin Lipase Vancomycin Trough Salicylates Acetaminophen 12/26/21 12/26/21 12/27/21 17:14 23:20 00:09 RBC Hgb Hct Lymph % (Auto) Miner % (Auto) Lymph # (Auto) Seg Neutrophils % APTT D-Dimer ABG pO2 ABG HCO3 ABG O2 Saturation ABG Base Excess ABG Hemoglobin Sodium Potassium Chloride Carbon Dioxide Creatinine Glucose POC Glucose 213 H 195 H Hemoglobin A1c Calcium Ferritin AST ALT Alkaline Phosphatase Lactate Dehydrogenase C-Reactive Protein Albumin Lipase Vancomycin Trough 28.8 H Salicylates Acetaminophen 12/27/21 12/27/21 12/27/21 06:14 12:04 17:23 RBC Hgb Hct Lymph % (Auto) Miner % (Auto) Lymph # (Auto) Seg Neutrophils % APTT D-Dimer ABG pO2 ABG HCO3 ABG O2 Saturation ABG Base Excess ABG Hemoglobin Sodium Potassium Chloride Carbon Dioxide Creatinine Glucose POC Glucose 177 H 229 H 231 H Hemoglobin A1c Calcium Ferritin AST ALT Alkaline Phosphatase Lactate Dehydrogenase C-Reactive Protein Albumin Lipase Vancomycin Trough Salicylates Acetaminophen 12/27/21 12/28/21 12/28/21 23:56 06:57 12:03 RBC Hgb Hct Lymph % (Auto) Miner % (Auto) Lymph # (Auto) Seg Neutrophils % APTT D-Dimer ABG pO2 ABG HCO3 ABG O2 Saturation ABG Base Excess ABG Hemoglobin Sodium Potassium Chloride Carbon Dioxide Creatinine Glucose POC Glucose 237 H 211 H 221 H Hemoglobin A1c Calcium Ferritin AST ALT Alkaline Phosphatase Lactate Dehydrogenase C-Reactive Protein Albumin Lipase Vancomycin Trough Salicylates Acetaminophen 12/28/21 12/29/21 12/29/21 16:29 00:01 05:25 RBC Hgb Hct Lymph % (Auto) Miner % (Auto) Lymph # (Auto) Seg Neutrophils % APTT D-Dimer ABG pO2 ABG HCO3 ABG O2 Saturation ABG Base Excess ABG Hemoglobin Sodium Potassium Chloride Carbon Dioxide Creatinine Glucose POC Glucose 209 H 203 H 163 H Hemoglobin A1c Calcium Ferritin AST ALT Alkaline Phosphatase Lactate Dehydrogenase C-Reactive Protein Albumin Lipase Vancomycin Trough Salicylates Acetaminophen Allied health notes reviewed: nursing
[2021-12-29] MEDS: FAMOTIDINE 20 MG TAB PO SCH ×2 (10:17→21:51)
--- NOTE | 2021-12-29 13:31 | Event Note ---
Date: 12/29/21 The patient has adequate arterial flow to heal his wounds. He has recent MRI does demonstrate a multiloculated abscess of the left midfoot. Would recommend debridement of the left foot as well as incision and drainage of the abscess in the operating room to ensure that all potential fluid pockets as well as necrotic tissue is well debrided. Although he has possible osteomyelitis of the metatarsals given his blood flow it is possible to treat this with antibiotics if the abscess is adequately drained.
--- NOTE | 2021-12-29 21:49 | Progress Note ---
Assessment and Plan This is a 56-year-old male with known history of DM admitted for Hypoglycemia, hyponatremia, and acute hypoxemic respiratory failure requiring ventilatory support. Pateint also noted with left foot abscess s/p I&D by Gen. Surgery. Hospital Course to Date: 12/25: Patient remains on the vent, awake, following commends on propofol gtt. Possible PST today, plan to wean to extubate. High BG this am, D10W gtt D/C. Hyponatremia is improving continue IVF resuscitation, serial BMP Q6hrs. LLE wound noted with CDI dressing. General Surgery recommendation noted, Vascular consulted. Wound Care also consulted. Continue current IV Abx for now, ID consulted for IV Abx management. 12/26: cx growing staph, wait for final report. Continue empiric antibiotics 12/27: Wound culture growing MSSA, continue empiric IV Ceftriaxone, PO Flagyl, IV vancomycin. Ordered for left foot MRI for further assessment of the infection 12/28: MRI left foot suggestive of plantar abscess, continue empiric antibiotics, patient would need another I and D, continue to follow clinically. 12/29: Continue empiric antibiotics per ID recommendation. MRI does demonstrate a multiloculated abscess of the left midfoot. vascular recommended debridement of the left foot as well as incision and drainage of the abscess in the operating room to ensure that all potential fluid pockets as well as necrotic tissue is well debrided -planned for tomorrow Assessment and Plan #Acute Hypoxemic Respiratory Failure 12/11 #Community-Acquired Pneumonia #COVID PUI - Presented with unresponsiveness with agonal breathing - Intubated in the ED on 12/24 - This am Vent Setting:PRVC-40%,6,20,450 - This am ABG pending - CCM consulted, appreciate recommendations - COVID PCR pending - Continue current IV Abx and nebs treatment - VAP bundle addressed - Aspiration precaution HOB above 30 - Daily SBT and SAT trials as tolerated - Daily ABG and CXR - Continue SPO2 monitoring for SPO2 goal above 92% #Community-Acquired Pneumonia #COVID PUI - Imagings suggesting possible Left lung pneumonia - COVID PCR pending - Inflammatory markers and procal pending - Blood culture pending, Sputum culture growing GPC - Continue current IV Abx for now - ID consulted - Continue to F/U on B.cult - Daily CBC monitor #Hyponatremia #Hypokalemia-improved - Probably related to dehydration/volume depletion - Na improved post IV hydration - Continue IVF resuscitation - Monitor and replace electrolytes as needed - Serial BMP Q6hrs - Strict intake and output #Acute Metabolic Encephalopathy - Probably r/t to multifactorial. hypoglycemia vs hyponatremia vs infectious process - Mentation improved this am. Awake, following commands - Plan to wean off sedation - Possible PST to wean to extubate - PRN Analgesia for CPOT greater than 3 - Avoid benzo to prevent delirium - Maintenance of sleep-wake cycle #Abscess of left foot #Possible Chronic Osteomyelitis - Presented LLE swelling and left foot abscess - General Surgery consulted - 12/24 s/p I&D of left foot by gen surgery - Vascular consulted per rec. - Continue current IV Abx - ID consulted - Continue wound care per General surgery - Wound Care also consulted #Hyperglycemia #Hypoglycemia-resolved #H/o Diabetes - Presented with low BG in the 30s required D10w gtt - Hyperglycemic this am, BG in the 300s - D/10w d/c - SSI initiated q6hrs - Continue IVF resuscitation with 1/2NS - Serial BMP - Avoid Hypoglycemia - Continue Hypoglycemic protocol #Transaminitis - Etiology unclear - Consult placed to gastroenterology for evaluation and recommendations - Continue to trend LFTs #GI/DVT prophylaxis - PPI- Pepcid - Continue AC- Hep SubQ Subjective Date of service: 12/29/21 Interval history: Patient seen and examined. Medical records and medication list reviewed. No acute event overnight noted by the RN. Patient denies any chest pain or difficulty breathing. Patient is tolerating diet. Discussed plan of care at bedside with patient. Objective - Exam Narrative Exam: General appearance: Present: no acute distress, cachectic, - EENT Eyes: Present: PERRL, EOM intact ENT: clear oral mucosa - Neck Neck: Present: normal ROM - Respiratory Respiratory effort: normal Respiratory: bilateral: rhonchi - Cardiovascular Rhythm: regular Heart Sounds: Present: S1 & S2 - Extremities Extremities: abnormal Extremity abnormal: edema, other (LLE wounds) - Abdominal General gastrointestinal: soft, non-distended, normal bowel sounds - Integumentary Integumentary: Present: warm, dry - Psychiatric Psychiatric: appropriate mood/affect, cooperative - Neurologic Neurologic: moves all extremities - Allied Health Allied health notes reviewed: nursing - Constitutional Vitals: Vital Signs - 12hr 02/12/29/21 12/29/21 11:49 17:01 19:52 Temperature 97.8 F 98.4 F 100.3 F H Pulse Rate 65 78 81 Respiratory 18 18 18 Rate Blood Pressure 149/71 145/73 139/75 O2 Sat by Pulse 99 96 98 Oximetry - Labs CBC & Chem 7: 12/26/21 06:08 12/26/21 06:08 Labs: Abnormal lab results 12/29/21 12/29/21 12/29/21 Range/Units 00:01 05:25 11:51 POC Glucose 203 H 163 H 244 H (70-105) mg/dL 12/29/21 Range/Units 17:02 POC Glucose 214 H (70-105) mg/dL HEART Score - HEART Score Troponin: Troponin T < 0.010 ng/mL (0.00-0.029) 12/24/21 22:33
[2021-12-30] MEDS: INSULIN LISPRO 100 UNIT/ML SUB-Q SCH ×4 (01:00→19:36)
[2021-12-30] MEDS: HEPARIN 5,000 UNIT/1 ML VIAL SUB-Q SCH ×3 (06:14→22:18)
--- NOTE | 2021-12-30 08:27 | Progress Note ---
Assessment and Plan 56-year-old male with known history of diabetes mellitus brought into the emergency room today via EMS after being found unresponsive and having agonal breathing. Most of the history was obtained from the ER staff as patient is already intubated and sedated. Patient was found to have been having agonal respiration and unresponsive by EMS. Was given albuterol nebulizing treatment and Solu-Medrol. He was subsequently intubated and sedated in the emergency room. Patient was said to have been missing from home for about 3 days was also said to have stepped on it nail with which his left foot. Left foot has been swollen and red. Work-up in the emergency room , initial blood glucose was 38, hypokalemia of 3.3 and hyponatremia of 128. Patient was given boluses of IV glucose with improvement of his blood glucose. General surgery consulted. He immediately had an incision and drainage of the swollen left foot. Patient started on antibiotics Zosyn, Vancomycin and Clindamycin. Patient also had a tetanus toxoid injection. CT of the head and neck, abdomen and pelvis did not reveal any acute abnormality. Chest x-ray within normal limits. Patient extubated . Patient transfered to Telemetry. Patient awake. Resting on room air. O2 saturation 97%. Denies chest pain, shortness of breath or cough. Patient running low grade temp. No Leukocytosis. Blood pressure 143/75, Pulse 81 , Respirations 18. CT of chest done 12/25/[address] evidence for pulmonary embolism. Moderate left lower lobe pneumonia, unchanged. Patient presently on Cephazolin., S/C heparin and famotidine. Finished course of ceftriaxone and vancomycin. - Patient Problems (1) Acute respiratory failure with hypoxia Current Visit: Yes Status: Acute Plan to address problem: Patient intubated and extubated. Patient presently on room air. O2 saturation 97%. (2) Abscess of left foot Current Visit: Yes Status: Acute Plan to address problem: Incision and drainage and wound care. (3) Pneumonia involving left lung Current Visit: Yes Status: Acute Plan to address problem: Patient was on multiple antibiotics. Zosyn, vancomycin, Clindamycin and C eftriaxone. Patient presently on cephazolin. (4) Osteomyelitis of left foot Current Visit: Yes Status: Acute Plan to address problem: Antibiotics as per ID. Patient presently on cefazolin. Subjective Date of service: 12/30/21 Interval history: 56-year-old male with known history of diabetes mellitus brought into the emergency room today via EMS after being found unresponsive and having agonal breathing. Most of the history was obtained from the ER staff as patient is already intubated and sedated. Patient was found to have been having agonal respiration and unresponsive by EMS. Was given albuterol nebulizing treatment and Solu-Medrol. He was subsequently intubated and sedated in the emergency room. Patient was said to have been missing from home for about 3 days was also said to have stepped on it nail with which his left foot. Left foot has been swollen and red. Work-up in the emergency room , initial blood glucose was 38, hypokalemia of 3.3 and hyponatremia of 128. Patient was given boluses of IV glucose with i mprovement of his blood glucose. General surgery consulted. He immediately had an incision and drainage of the swollen left foot. Patient started on antibiotics Zosyn, Vancomycin and Clindamycin. Patient also had a tetanus toxoid injection. CT of the head and neck, abdomen and pelvis did not reveal any acute abnormality. Chest x-ray within normal limits. Patient extubated . Patient transfered to Telemetry. Patient awake. Resting on room air. O2 saturation 97%. Denies chest pain, shortness of breath or cough. Patient running low grade temp. No Leukocytosis. Blood pressure 143/75, Pulse 81 , Respirations 18. CT of chest done 12/25/[address] evidence for pulmonary embolism. Mod erate left lower lobe pneumonia, unchanged. Patient presently on Cephazolin., S/C heparin and famotidine. Finished course of ceftriaxone and vancomycin. Objective Vital Signs - 12hr 12/30/21 12/30/21 00:00 04:21 Temperature 101.8 F H 101.1 F H Pulse Rate 87 80 Respiratory 18 18 Rate Blood Pressure 152/77 147/79 O2 Sat by Pulse 98 98 Oximetry Constitutional: no acute distress, alert, other (Weak) Eyes: non-icteric ENT: oropharynx moist Neck: supple, no lymphadenopathy Effort: mildly labored Ascultation: Bilateral: diminished breath sounds Cardiovascular: regular rate and rhythm Gastrointestinal: normoactive bowel sounds, soft, non-tender Integumentary: normal Extremities: edema, other (Swelling of left foot. Left foot abscess.) Neurologic: non-focal exam, pupils equal and round, CN II-XII normal Psychiatric: depressed CBC and BMP: 12/26/21 06:08 12/26/21 06:08 ABG, PT/INR, D-dimer: ABG ABG pH 7.386 pH Units (7.350-7.450) 12/24/21 Unknown ABG pCO2 32.7 mm Hg 12/24/21 Unknown ABG pO2 308.2 mm Hg (80.0-90.0) H 12/24/21 Unknown ABG O2 Saturation 99.5 % (95.0-99.0) H 12/24/21 Unknown PT/INR, D-dimer PT 13.9 Sec. (12.2-14.9) 12/24/21 19:43 INR 0.96 (0.87-1.13) 12/24/21 19:43 D-Dimer 2019.48 ng/mlDDU (0-234) H 12/25/21 08:26 Abnormal lab findings: Abnormal Labs 12/24/21 12/24/21 12/24/21 19:43 19:43 19:43 RBC 3.58 L Hgb 10.3 L Hct 31.5 L Lymph % (Auto) [place] % (Auto) 10.9 H Lymph # (Auto) 1.1 L Seg Neutrophils % APTT 39.7 H D-Dimer ABG pO2 ABG HCO3 ABG O2 Saturation ABG Base Excess ABG Hemoglobin Sodium 128 L Potassium 3.3 L Chloride 95.9 L Carbon Dioxide 18 L Creatinine 0.6 L Glucose 38 L* POC Glucose Hemoglobin A1c Calcium Ferritin AST 232 H ALT 126 H Alkaline Phosphatase 132 H Lactate Dehydrogenase C-Reactive Protein Albumin 2.6 L Lipase 6 L Vancomycin Trough Salicylates Acetaminophen 12/24/21 12/24/21 12/24/21 19:43 19:43 22:33 RBC Hgb Hct Lymph % (Auto) [place] % (Auto) Lymph # (Auto) Seg Neutrophils % APTT D-Dimer ABG pO2 ABG HCO3 ABG O2 Saturation ABG Base Excess ABG Hemoglobin Sodium 126 L Potassium 3.1 L Chloride 91.7 L Carbon Dioxide 19 L Creatinine 0.7 L Glucose 115 H POC Glucose Hemoglobin A1c Calcium 8.3 L Ferritin AST ALT Alkaline Phosphatase Lactate Dehydrogenase C-Reactive Protein Albumin Lipase Vancomycin Trough Salicylates < 0.3 L Acetaminophen 5.0 L 12/24/21 12/25/21 12/25/21 Unknown 00:23 05:59 RBC Hgb Hct Lymph % (Auto) [place] % (Auto) Lymph # (Auto) Seg Neutrophils % APTT D-Dimer ABG pO2 308.2 H ABG HCO3 19.2 L ABG O2 Saturation 99.5 H ABG Base Excess -5.0 L ABG Hemoglobin 10.6 L Sodium Potassium Chloride Carbon Dioxide Creatinine Glucose POC Glucose 157 H 469 H Hemoglobin A1c Calcium Ferritin AST ALT Alkaline Phosphatase Lactate Dehydrogenase C-Reactive Protein Albumin Lipase Vancomycin Trough Salicylates Acetaminophen 12/25/21 12/25/21 12/25/21 06:01 08:26 08:26 RBC Hgb 11.7 L Hct 35.2 L Lymph % (Auto) 9.8 L [place] % (Auto) Lymph # (Auto) 0.5 L Seg Neutrophils % 84.2 H APTT D-Dimer ABG pO2 ABG HCO3 ABG O2 Saturation ABG Base Excess ABG Hemoglobin Sodium 130 L Potassium Chloride 96.6 L Carbon Dioxide 19 L Creatinine 0.7 L Glucose 323 H POC Glucose 316 H Hemoglobin A1c Calcium 8.3 L Ferritin AST 123 H ALT 111 H Alkaline Phosphatase 144 H Lactate Dehydrogenase C-Reactive Protein Albumin 2.5 L Lipase Vancomycin Trough Salicylates Acetaminophen 12/25/21 12/25/21 12/25/21 08:26 08:26 08:26 RBC Hgb Hct Lymph % (Auto) [place] % (Auto) Lymph # (Auto) Seg Neutrophils % APTT D-Dimer 2019.48 H ABG pO2 ABG HCO3 ABG O2 Saturation ABG Base Excess ABG Hemoglobin Sodium Potassium Chloride Carbon Dioxide Creatinine Glucose POC Glucose Hemoglobin A1c Calcium Ferritin 1288.0 H AST ALT Alkaline Phosphatase Lactate Dehydrogenase 215 H C-Reactive Protein 34.10 H Albumin Lipase Vancomycin Trough Salicylates Acetaminophen 12/25/21 12/25/21 12/25/21 10:59 15:45 20:29 RBC Hgb Hct Lymph % (Auto) [place] % (Auto) Lymph # (Auto) Seg Neutrophils % APTT D-Dimer ABG pO2 ABG HCO3 ABG O2 Saturation ABG Base Excess ABG Hemoglobin Sodium 135 L Potassium Chloride Carbon Dioxide 17 L Creatinine 0.6 L Glucose 161 H POC Glucose 305 H 236 H Hemoglobin A1c Calcium 7.9 L Ferritin AST ALT Alkaline Phosphatase Lactate Dehydrogenase C-Reactive Protein Albumin Lipase Vancomycin Trough Salicylates Acetaminophen 12/25/21 12/26/21 12/26/21 20:59 00:19 01:23 RBC Hgb Hct Lymph % (Auto) [place] % (Auto) Lymph # (Auto) Seg Neutrophils % APTT D-Dimer ABG pO2 ABG HCO3 ABG O2 Saturation ABG Base Excess ABG Hemoglobin Sodium 133 L Potassium Chloride Carbon Dioxide 17 L Creatinine 0.6 L Glucose 178 H POC Glucose 184 H 191 H Hemoglobin A1c Calcium 7.9 L Ferritin AST ALT Alkaline Phosphatase Lactate Dehydrogenase C-Reactive Protein Albumin Lipase Vancomycin Trough Salicylates Acetaminophen 12/26/21 12/26/21 12/26/21 05:52 06:08 06:08 RBC 3.59 L Hgb 10.8 L Hct 32.2 L Lymph % (Auto) [place] % (Auto) 10.2 H Lymph # (Auto) Seg Neutrophils % 72.0 H APTT D-Dimer ABG pO2 ABG HCO3 ABG O2 Saturation ABG Base Excess ABG Hemoglobin Sodium 136 L Potassium Chloride Carbon Dioxide 18 L Creatinine 0.7 L Glucose 154 H POC Glucose 133 H Hemoglobin A1c Calcium Ferritin AST ALT Alkaline Phosphatase Lactate Dehydrogenase C-Reactive Protein Albumin Lipase Vancomycin Trough Salicylates Acetaminophen 12/26/21 12/26/21 12/26/21 06:08 06:08 12:07 RBC Hgb Hct Lymph % (Auto) [place] % (Auto) Lymph # (Auto) Seg Neutrophils % APTT D-Dimer ABG pO2 ABG HCO3 ABG O2 Saturation ABG Base Excess ABG Hemoglobin Sodium Potassium Chloride Carbon Dioxide Creatinine Glucose POC Glucose 210 H Hemoglobin A1c 14.9 H Calcium Ferritin 1335.0 H AST ALT Alkaline Phosphatase Lactate Dehydrogenase C-Reactive Protein Albumin Lipase Vancomycin Trough Salicylates Acetaminophen 12/26/21 12/26/21 12/27/21 17:14 23:20 00:09 RBC Hgb Hct Lymph % (Auto) [place] % (Auto) Lymph # (Auto) Seg Neutrophils % APTT D-Dimer ABG pO2 ABG HCO3 ABG O2 Saturation ABG Base Excess ABG Hemoglobin Sodium Potassium Chloride Carbon Dioxide Creatinine Glucose POC Glucose 213 H 195 H Hemoglobin A1c Calcium Ferritin AST ALT Alkaline Phosphatase Lactate Dehydrogenase C-Reactive Protein Albumin Lipase Vancomycin Trough 28.8 H Salicylates Acetaminophen 12/27/21 12/27/21 12/27/21 06:14 12:04 17:23 RBC Hgb Hct Lymph % (Auto) [place] % (Auto) Lymph # (Auto) Seg Neutrophils % APTT D-Dimer ABG pO2 ABG HCO3 ABG O2 Saturation ABG Base Excess ABG Hemoglobin Sodium Potassium Chloride Carbon Dioxide Creatinine Glucose POC Glucose 177 H 229 H 231 H Hemoglobin A1c Calcium Ferritin AST ALT Alkaline Phosphatase Lactate Dehydrogenase C-Reactive Protein Albumin Lipase Vancomycin Trough Salicylates Acetaminophen 12/27/21 12/28/21 12/28/21 23:56 06:57 12:03 RBC Hgb Hct Lymph % (Auto) [place] % (Auto) Lymph # (Auto) Seg Neutrophils % APTT D-Dimer ABG pO2 ABG HCO3 ABG O2 Saturation ABG Base Excess ABG Hemoglobin Sodium Potassium Chloride Carbon Dioxide Creatinine Glucose POC Glucose 237 H 211 H 221 H Hemoglobin A1c Calcium Ferritin AST ALT Alkaline Phosphatase Lactate Dehydrogenase C-Reactive Protein Albumin Lipase Vancomycin Trough Salicylates Acetaminophen 12/28/21 12/29/21 12/29/21 16:29 00:01 05:25 RBC Hgb Hct Lymph % (Auto) [place] % (Auto) Lymph # (Auto) Seg Neutrophils % APTT D-Dimer ABG pO2 ABG HCO3 ABG O2 Saturation ABG Base Excess ABG Hemoglobin Sodium Potassium Chloride Carbon Dioxide Creatinine Glucose POC Glucose 209 H 203 H 163 H Hemoglobin A1c Calcium Ferritin AST ALT Alkaline Phosphatase Lactate Dehydrogenase C-Reactive Protein Albumin Lipase Vancomycin Trough Salicylates Acetaminophen 12/29/21 12/29/21 12/30/21 11:51 17:02 00:01 RBC Hgb Hct Lymph % (Auto) [place] % (Auto) Lymph # (Auto) Seg Neutrophils % APTT D-Dimer ABG pO2 ABG HCO3 ABG O2 Saturation ABG Base Excess ABG Hemoglobin Sodium Potassium Chloride Carbon Dioxide Creatinine Glucose POC Glucose 244 H 214 H 160 H Hemoglobin A1c Calcium Ferritin AST ALT Alkaline Phosphatase Lactate Dehydrogenase C-Reactive Protein Albumin Lipase Vancomycin Trough Salicylates Acetaminophen 12/30/21 05:48 RBC Hgb Hct Lymph % (Auto) [place] % (Auto) Lymph # (Auto) Seg Neutrophils % APTT D-Dimer ABG pO2 ABG HCO3 ABG O2 Saturation ABG Base Excess ABG Hemoglobin Sodium Potassium Chloride Carbon Dioxide Creatinine Glucose POC Glucose 121 H Hemoglobin A1c Calcium Ferritin AST ALT Alkaline Phosphatase Lactate Dehydrogenase C-Reactive Protein Albumin Lipase Vancomycin Trough Salicylates Acetaminophen
[2021-12-30] MEDS: FAMOTIDINE 20 MG TAB PO SCH ×2 (10:00→22:17)
[2021-12-30] MEDS ORDERED: HYDROmorphone 1 MG/1 ML INJ IV PRN ×2 (11:53→12:00)
[2021-12-30] MEDS ORDERED: LACTATED RINGERS 1,000 ML ONE (11:53)
--- NOTE | 2021-12-30 11:54 | Anesthesia Day of Surgery ---
Anesthesia Day of Surgery - Day of Surgery Patient Examined: Yes Patient H&P Reviewed: Yes Patient is NPO: Yes
[2021-12-30] MEDS: LACTATED RINGERS 1,000 ML IV SCH (12:00)
[2021-12-30] MEDS ORDERED: ONDANSETRON 4 MG/2 ML INJ IV PRN (12:00)
--- NOTE | 2021-12-30 12:04 | Anesthesia Consultation ---
Anesthesia Consult and Med Hx Date of service: 12/30/21 - Airway Anesthetic Teeth Evaluation: Good ROM Head & Neck: Adequate Mental/Hyoid Distance: Adequate Mallampati Class: Class II Intubation Access Assessment: Good - Pre-Operative Health Status ASA Pre-Surgery Classification: ASA3 Proposed Anesthetic Plan: General - Pulmonary Hx Pneumonia: Yes - Endocrine Hx Liver Disease: Yes (Elevated LFTS) Hx Non-Insulin Dependent Diabetes: Yes (14.9) - Hematic Hx Anemia: Yes - Other Systems Hx Obesity: No
[2021-12-30] MEDS ORDERED: LIDOCAINE MPF (2%) 20 MG/1 ML VIAL 5 ML ONE (12:09)
[2021-12-30] MEDS ORDERED: fentaNYL 100 MCG/2 ML INJ ONE (12:10)
[2021-12-30] MEDS ORDERED: propofoL 200 MG/20 ML VIAL IV ONE (12:10)
[2021-12-30] MEDS ORDERED: BUPIVACAINE/PF (0.5%) 5 MG/1 ML 30 ML VIAL INFILTRATI ONE (12:57)
[2021-12-30] MEDS ORDERED: KETOROLAC 30 MG/1 ML INJ ONE (13:22)
[2021-12-30] MEDS ORDERED: ONDANSETRON 4 MG/2 ML INJ ONE (13:22)
[2021-12-30] MEDS ORDERED: ePHEDrine SULFATE 50 MG/1 ML INJ ONE (13:31)
--- NOTE | 2021-12-30 14:02 | Operative Report ---
Operative Report Operative Report: Date of procedure: 12/30/2021 Preop diagnosis: Abscess of left foot Postop diagnosis: Same Procedure: Drainage of abscess Surgeon: Dr. Cotton Anesthesia: General endotracheal anesthesia Estimated blood loss: Minimal Specimen: Gram stain and culture sensitivity Findings: This is a 50-year-old patient with an abscess of the left foot. He was taken to the OR timeouts are completed consents on the chart. He is under general anesthesia. The area of concern is prepped with Betadine draped in a sterile fashion. The area of fluctuance is noted and a 2 cm cruciate incision is made. The wound is probed and the abscess is noted to extend 5 cm away from the initial cruciate incision. The abscess extends over the dorsum of the foot. A second incision is made 2 cm in length. The [place] is passed from 1 incision to the other and tied to itself. The wound is irrigated with copious amounts of saline. A 2-0 nylon is used to tie the suture to itself. The patient had a prior I&D on the medial dorsum of the foot it is apparent that it tracks posteriorly another 5 cm. Another 2 cm [place] incision is made. A Gael is again passed from one wound to the other. Copious amounts of saline is used to irrigate the wound out. The [place] is sutured to itself with a 3-0 nylon suture. Sterile dressing is placed on this.
--- NOTE | 2021-12-30 17:13 | Progress Note ---
Assessment and Plan Cultures: 12/24/2021 blood culture: No growth 12/24/2021 urine culture: MSSA 12/24/2021 sputum culture: usual resp daniel 12/24/2021 left foot wound culture: MSSA 12/30/2021 surgical culture pending A/P: 56-year-old male with diabetes mellitus was admitted to the hospital on December 24, 2021 with altered mental status: #Left foot cellulitis with abscess, diabetic foot infection: Likely underlying peripheral vascular disease as well as evidence of osteomyelitis as noted on CT scanning. Underwent bedside I&D in the ER. Cultures growing Staph aureus. Vascular evaluated, no interventions planned. #Left lower lobe pneumonia: On antibiotics, now on room air. #Diabetes mellitus type 2, uncontrolled #MSSA in urine culture: Generally not all uropathogen in the absence of instrumentation, its presence in the urinary tract is typically bacteremia related. #Acute encephalopathy: resolved. Recs: -antibiotics streamlined to IV Ancef 2 gm q8 hrs -Given abscess and osteomyelitis, will treat for 6 weeks -Case management consulted for Ancef 2 g every 8 hours until 02/10/2022 -Okay for PICC line on DC -optimal glycemic control Michelle Sorto MD [facility] O: [phone] F: [phone] Subjective Date of service: 12/30/21 Interval history: Febrile overnight to 101.1 with a white count was not checked in the last 5 days. Blood cultures remain negative. He was taken to the OR today for drainage of abscess Imaging personally reviewed: Lower extremity MRI needed and forefoot cellulitis with ulcer and sinus tract extended to extensive fluid collections probable osteomyelitis. Objective - Exam Narrative Exam: Physical Exam: Constitutional: Alert, cooperative. No acute distress Head, Ears, Nose: Normocephalic, atraumatic. External ears, nose normal Eyes: Conjunctivae/corneas clear. No icterus. No ptosis. Neck: Supple, no meningeal signs Cardiovascular: S1, S2 + Respiratory: Good air entry, clear to auscultation bilaterally GI: Soft, non-tender; bowel sounds normal. No peritoneal signs Musculoskeletal: Left foot with swelling, cellulitis, dressing present, left foot laterally with wound and purulence. [place] with scab, no tenderness or purulence Skin: No rash or abscess Hem/Lymphatic: No palpable cervical or supraclavicular nodes. No lymphangitis Psych: Mood ok. Affect normal Neurological: Awake, alert, oriented. No gross abnormality - Constitutional Vitals: Vital Signs Temp Pulse Resp BP Pulse Ox 98.0 F 77 12 139/69 96 12/30/21 14:30 12/30/21 14:30 12/30/21 14:30 12/30/21 14:30 12/30/21 14:30 Temperature -Last 24 Hours Temperature 98.0 F Temperature 97.9 F Temperature 99.1 F Temperature 99.1 F Temperature 99.6 F Temperature 101.1 F Temperature 101.8 F Temperature 100.3 F - Labs CBC & Chem 7: 12/26/21 06:08 12/26/21 06:08 Labs: Abnormal lab results 12/30/21 12/30/21 12/30/21 Range/Units 00:01 05:48 11:10 POC Glucose 160 H 121 H 159 H (70-105) mg/dL 12/30/21 12/30/21 Range/Units 14:34 16:00 POC Glucose 167 H 172 H (70-105) mg/dL
--- NOTE | 2021-12-30 17:23 | Progress Note ---
Assessment and Plan This is a 56-year-old male with known history of DM admitted for Hypoglycemia, hyponatremia, and acute hypoxemic respiratory failure requiring ventilatory support. Pateint also noted with left foot abscess s/p I&D by Gen. Surgery. Hospital Course to Date: 12/25: Patient remains on the vent, awake, following commends on propofol gtt. Possible PST today, plan to wean to extubate. High BG this am, D10W gtt D/C. Hyponatremia is improving continue IVF resuscitation, serial BMP Q6hrs. LLE wound noted with CDI dressing. General Surgery recommendation noted, Vascular consulted. Wound Care also consulted. Continue current IV Abx for now, ID consulted for IV Abx management. 12/26: cx growing staph, wait for final report. Continue empiric antibiotics 12/27: Wound culture growing MSSA, continue empiric IV Ceftriaxone, PO Flagyl, IV vancomycin. Ordered for left foot MRI for further assessment of the infection 12/28: MRI left foot suggestive of plantar abscess, continue empiric antibiotics, patient would need another I and D, continue to follow clinically. 12/29: Continue empiric antibiotics per ID recommendation. MRI does demonstrate a multiloculated abscess of the left midfoot. vascular recommended debridement of the left foot as well as incision and drainage of the abscess in the operating room to ensure that all potential fluid pockets as well as necrotic tissue is well debrided -planned for tomorrow 12/30: S/p repeat I&D today, -antibiotics changed to IV Ancef 2 gm q8 hrs. Given abscess and osteomyelitis, will need to treat for 6 weeks. Case management consulted for Ancef 2 g every 8 hours until 02/10/2022. Order for PICC line Assessment and Plan #Acute Hypoxemic Respiratory Failure 12/11 #Community-Acquired Pneumonia #COVID PUI - Presented with unresponsiveness with agonal breathing - Intubated in the ED on 12/24, extubated next day - Aspiration precaution HOB above 30 - Daily SBT and SAT trials as tolerated - Daily ABG and CXR - Continue SPO2 monitoring for SPO2 goal above 92% #Community-Acquired Pneumonia #COVID PUI - Imagings suggesting possible Left lung pneumonia - COVID PCR pending - Inflammatory markers and procal pending - Blood culture pending, Sputum culture growing GPC - Continue current IV Abx for now - ID consulted - Continue to F/U on B.cult - Daily CBC monitor #Hyponatremia #Hypokalemia-improved - Probably related to dehydration/volume depletion - Na improved post IV hydration - Continue IVF resuscitation - Monitor and replace electrolytes as needed - Serial BMP Q6hrs - Strict intake and output #Acute Metabolic Encephalopathy - Probably r/t to multifactorial. hypoglycemia vs hyponatremia vs infectious process - Mentation improved . Awake, following commands #Abscess of left foot #Possible Chronic Osteomyelitis - Presented LLE swelling and left foot abscess - General Surgery consulted - s/p I&D of left foot by surgery on 12/24 and today - Vascular consulted per rec. - Continue current IV Abx - ID consulted - Continue wound care per General surgery - Wound Care also consulted #Hyperglycemia #Hypoglycemia-resolved #H/o Diabetes - Presented with low BG in the 30s required D10w gtt - Hyperglycemic this am, BG in the 300s - D/10w d/c - SSI initiated q6hrs - Continue IVF resuscitation with 1/2NS - Serial BMP - Avoid Hypoglycemia - Continue Hypoglycemic protocol #Transaminitis - Etiology unclear - Consult placed to gastroenterology for evaluation and recommendations - Continue to trend LFTs #GI/DVT prophylaxis - PPI- Pepcid - Continue AC- Hep SubQ Subjective Date of service: 12/30/21 Interval history: Patient seen and examined. Medical records and medication list reviewed. No acute event overnight noted by the RN. Patient denies any chest pain or difficulty breathing. Patient is tolerating diet. Discussed plan of care at bedside with patient. Objective - Exam Narrative Exam: General appearance: Present: no acute distress, cachectic, - EENT Eyes: Present: PERRL, EOM intact ENT: clear oral mucosa - Neck Neck: Present: normal ROM - Respiratory Respiratory effort: normal Respiratory: bilateral: rhonchi - Cardiovascular Rhythm: regular Heart Sounds: Present: S1 & S2 - Extremities Extremities: abnormal Extremity abnormal: edema, other (LLE wounds) - Abdominal General gastrointestinal: soft, non-distended, normal bowel sounds - Integumentary Integumentary: Present: warm, dry - Psychiatric Psychiatric: appropriate mood/affect, cooperative - Neurologic Neurologic: moves all extremities - Allied Health Allied health notes reviewed: nursing - Constitutional Vitals: Vital Signs - 12hr 12/30/21 12/30/21 12/30/21 08:00 08:14 10:00 Temperature 99.6 F Pulse Rate 77 81 Respiratory 18 Rate Blood Pressure 143/75 O2 Sat by Pulse 97 97 Oximetry 12/30/21 12/30/21 12/30/21 11:43 12:20 14:02 Temperature 99.1 F 99.1 F 97.9 F Pulse Rate 70 70 74 Respiratory 16 16 12 Rate Blood Pressure 141/81 141/81 145/68 O2 Sat by Pulse 98 98 100 Oximetry 12/30/21 12/30/21 12/30/21 14:05 14:10 14:15 Temperature Pulse Rate 78 77 76 Respiratory 13 12 12 Rate Blood Pressure 134/65 136/66 138/66 O2 Sat by Pulse 100 95 95 Oximetry 12/30/21 14:30 Temperature 98.0 F Pulse Rate 77 Respiratory 12 Rate Blood Pressure 139/69 O2 Sat by Pulse 96 Oximetry - Labs CBC & Chem 7: 12/26/21 06:08 12/26/21 06:08 Labs: Abnormal lab results 12/30/21 12/30/21 12/30/21 Range/Units 00:01 05:48 11:10 POC Glucose 160 H 121 H 159 H (70-105) mg/dL 12/30/21 12/30/21 Range/Units 14:34 16:00 POC Glucose 167 H 172 H (70-105) mg/dL HEART Score - HEART Score Troponin: Troponin T < 0.010 ng/mL (0.00-0.029) 12/24/21 22:33
--- NOTE | 2021-12-30 19:00 | Post Anesthesia Evaluation ---
- Post Anesthesia Evaluation Patient Participated: Yes Airway Patent: Yes Stable Respiratory Function: Yes Nausea/Vomiting: No Temp > 96.8F: Yes Pain Manageable: Yes Adequeate Hydration: Yes Anesthesia Complications: No Block Receding Appropriately: Not Applicable Patient on Ventilator: No
[2021-12-31] MEDS: INSULIN LISPRO 100 UNIT/ML SUB-Q SCH ×4 (00:55→17:09)
[2021-12-31] MEDS: HEPARIN 5,000 UNIT/1 ML VIAL SUB-Q SCH ×3 (05:35→22:29)
[2021-12-31] MEDS: LACTATED RINGERS 1,000 ML IV SCH ×2 (05:37→15:03)
--- NOTE | 2021-12-31 07:08 | Progress Note ---
Assessment and Plan Patient is to begin aggressive local wound care with 3 times daily soaking of the foot with Betadine and saline soaks. His WBC count has never been elevated despite the finding of multiple abscesses in his left foot. We will continue to follow the results of microbiology. In addition to the local wound care IV antibiotics for several additional days will be highly recommended. Subjective Date of service: 12/31/21 Narrative: This is a 56-year-old male with return to the OR for I&D of additional abscesses in his left foot. A second large abscess is located laterally on the left foot. I&D's are completed and Gael drain is placed. The initial abscess on the right side is found to have extended to the proximal foot towards the ankle the second I&D is placed in this area also with a Gael drain. Patient is to begin aggressive local wound care with 3 times daily soaking of the foot with Betadine and saline soaks. His WBC count has never been elevated despite the finding of multiple abscesses in his left foot. We will continue to follow the results of microbiology. In addition to the local wound care IV antibiotics for several additional days will be highly recommended. Objective Vital Signs - 12hr 12/30/21 12/31/21 12/31/21 20:35 00:00 00:35 Temperature 97.7 F 98.3 F Pulse Rate 81 79 75 Respiratory 18 18 Rate Blood Pressure Blood Pressure 157/87 150/70 [Right] O2 Sat by Pulse 98 96 Oximetry 12/31/21 04:47 Temperature 98.5 F Pulse Rate 75 Respiratory 18 Rate Blood Pressure 142/73 Blood Pressure [Right] O2 Sat by Pulse 100 Oximetry - Labs 12/26/21 06:08 12/26/21 06:08
[2021-12-31 07:51] LABS: Hematocrit 26.9 % (35.5-45.6); Hemoglobin 9.1 gm/dl (11.8-15.2); Mean Corpuscular HGB Conc 34 % (32-34); Mean Corpuscular Volume 88 fl (84-94); Platelet Count 292 K/mm3 (140-440); Red Blood Count 3.05 M/mm3 (3.65-5.03); Red Cell Distribution Width 14.7 % (13.2-15.2)
[2021-12-31 08:08] LABS: Blood Urea Nitrogen 5 mg/dL (9-20); Hemolysis Index 0
[2021-12-31 08:09] LABS: BUN/Creatinine Ratio 10
--- NOTE | 2021-12-31 09:48 | Progress Note ---
Assessment and Plan Assessment and plan: Assessment and Plan #Acute Hypoxemic Respiratory Failure 12/11 #Community-Acquired Pneumonia #COVID PUI - Presented with unresponsiveness with agonal breathing - Intubated in the ED on 12/24, extubated next day - Aspiration precaution HOB above 30 - Daily SBT and SAT trials as tolerated - Daily ABG and CXR - Continue SPO2 monitoring for SPO2 goal above 92% #Community-Acquired Pneumonia #COVID PUI - Imagings suggesting possible Left lung pneumonia - COVID PCR pending - Inflammatory markers and procal pending - Blood culture pending, Sputum culture growing GPC - Continue current IV Abx for now - ID consulted - Continue to F/U on B.cult - Daily CBC monitor #Hyponatremia #Hypokalemia-improved - Probably related to dehydration/volume depletion - Na improved post IV hydration - Continue IVF resuscitation - Monitor and replace electrolytes as needed - Serial BMP Q6hrs - Strict intake and output #Acute Metabolic Encephalopathy - Probably r/t to multifactorial. hypoglycemia vs hyponatremia vs infectious process - Mentation improved . Awake, following commands #Abscess of left foot #Possible Chronic Osteomyelitis - Presented LLE swelling and left foot abscess - General Surgery consulted - s/p I&D of left foot by surgery on 12/24 and today - Vascular consulted per rec. - Continue current IV Abx - ID consulted - Continue wound care per General surgery - Wound Care also consulted #Hyperglycemia #Hypoglycemia-resolved #H/o Diabetes - Presented with low BG in the 30s required D10w gtt - Hyperglycemic this am, BG in the 300s - D/10w d/c - SSI initiated q6hrs - Continue IVF resuscitation with 1/2NS - Serial BMP - Avoid Hypoglycemia - Continue Hypoglycemic protocol #Transaminitis - Etiology unclear - Consult placed to gastroenterology for evaluation and recommendations - Continue to trend LFTs #GI/DVT prophylaxis - PPI- Pepcid - Continue AC- Hep SubQ This is a 56-year-old male with known history of DM admitted for Hypoglycemia, hyponatremia, and acute hypoxemic respiratory failure requiring ventilatory support. Pateint also noted with left foot abscess s/p I&D by Gen. Surgery. Hospital Course to Date: 12/25: Patient remains on the vent, awake, following commends on propofol gtt. Possible PST today, plan to wean to extubate. High BG this am, D10W gtt D/C. Hyponatremia is improving continue IVF resuscitation, serial BMP Q6hrs. LLE wound noted with CDI dressing. General Surgery recommendation noted, Vascular consulted. Wound Care also consulted. Continue current IV Abx for now, ID consulted for IV Abx management. 12/26: cx growing staph, wait for final report. Continue empiric antibiotics 12/27: Wound culture growing MSSA, continue empiric IV Ceftriaxone, PO Flagyl, IV vancomycin. Ordered for left foot MRI for further assessment of the infection 12/28: MRI left foot suggestive of plantar abscess, continue empiric antibiotics, patient would need another I and D, continue to follow clinically. 12/29: Continue empiric antibiotics per ID recommendation. MRI does demonstrate a multiloculated abscess of the left midfoot. vascular recommended debridement of the left foot as well as incision and drainage of the abscess in the operating room to ensure that all potential fluid pockets as well as necrotic tissue is well debrided -planned for tomorrow 12/30: S/p repeat I&D today, -antibiotics changed to IV Ancef 2 gm q8 hrs. Given abscess and osteomyelitis, will need to treat for 6 weeks. Case management consulted for Ancef 2 g every 8 hours until 02/10/2022. Order for PICC line 12/31; patient is evaluated by ID, in the setting of osteomyelitis recommended 6 weeks of IV Ancef, PICC line requested, case management setting up long-term antibiotics History Interval history: I have seen and examined the patient at the bedside Patient's chart and medications reviewed Left foot abscess for I&D today Patient is afebrile not in acute distress Hospitalist Physical - Constitutional Vitals: Temp Pulse Resp BP Pulse Ox 98.6 F 67 18 143/78 98 12/31/21 07:43 12/31/21 07:43 12/31/21 07:43 12/31/21 07:43 12/31/21 09:00 General appearance: Present: no acute distress, well-nourished - EENT Eyes: Present: PERRL, EOM intact - Neck Neck: Present: supple, normal ROM - Respiratory Respiratory effort: normal Respiratory: bilateral: diminished, negative: rales, rhonchi, wheezing - Cardiovascular Rhythm: regular Heart Sounds: Present: S1 & S2 - Extremities Extremities: no ischemia, abnormal (Abscess left foot, dressing in place) - Abdominal General gastrointestinal: soft, non-tender, non-distended, normal bowel sounds - Integumentary Integumentary: Present: clear, warm - Psychiatric Psychiatric: appropriate mood/affect, cooperative - Neurologic Neurologic: moves all extremities HEART Score - HEART Score Troponin: Troponin T < 0.010 ng/mL (0.00-0.029) 12/24/21 22:33 Results - Labs CBC & Chem 7: 12/31/21 06:52 12/31/21 06:52 Labs: Laboratory Last Values WBC 9.9 K/mm3 (4.5-11.0) 12/31/21 06:52 RBC 3.05 M/mm3 (3.65-5.03) L 12/31/21 06:52 Hgb 9.1 gm/dl (11.8-15.2) L 12/31/21 06:52 Hct 26.9 % (35.5-45.6) L 12/31/21 06:52 MCV 88 fl (84-94) 12/31/21 06:52 MCH 30 pg (28-32) 12/31/21 06:52 MCHC 34 % (32-34) 12/31/21 06:52 RDW 14.7 % (13.2-15.2) 12/31/21 06:52 Plt Count 292 K/mm3 (140-440) 12/31/21 06:52 Lymph % (Auto) 17.3 % (13.4-35.0) 12/26/21 06:08 [place] % (Auto) 10.2 % (0.0-7.3) H 12/26/21 06:08 Eos % (Auto) 0.1 % (0.0-4.3) 12/26/21 06:08 Baso % (Auto) 0.4 % (0.0-1.8) 12/26/21 06:08 Lymph # (Auto) 1.2 K/mm3 (1.2-5.4) 12/26/21 06:08 [place] # (Auto) 0.7 K/mm3 (0.0-0.8) 12/26/21 06:08 Eos # (Auto) 0.0 K/mm3 (0.0-0.4) 12/26/21 06:08 Baso # (Auto) 0.0 K/mm3 (0.0-0.1) 12/26/21 06:08 Seg Neutrophils % 72.0 % (40.0-70.0) H 12/26/21 06:08 Seg Neutrophils # 4.9 K/mm3 (1.8-7.7) 12/26/21 06:08 PT 13.9 Sec. (12.2-14.9) 12/24/21 19:43 INR 0.96 (0.87-1.13) 12/24/21 19:43 APTT 39.7 Sec. (24.2-36.6) H 12/24/21 19:43 D-Dimer 2019.48 ng/mlDDU (0-234) H 12/25/21 08:26 ABG pH 7.386 pH Units (7.350-7.450) 12/24/21 Unknown ABG pCO2 32.7 mm Hg 12/24/21 Unknown ABG pO2 308.2 mm Hg (80.0-90.0) H 12/24/21 Unknown ABG HCO3 19.2 mmol/L (20.0-26.0) L 12/24/21 Unknown ABG O2 Saturation 99.5 % (95.0-99.0) H 12/24/21 Unknown ABG O2 Content 15.5 (0.0-44) 12/24/21 Unknown ABG Base Excess -5.0 mmol/L (-2.0-3.0) L 12/24/21 Unknown ABG Hemoglobin 10.6 gm/dl (14.0-18.0) L 12/24/21 Unknown ABG Carboxyhemoglobin 0.9 % (0.0-5.0) 12/24/21 Unknown ABG Methemoglobin 0.5 % (0.0-1.5) 12/24/21 Unknown Oxyhemoglobin 98.1 % (95.0-99.0) 12/24/21 Unknown FiO2 100 % 12/24/21 Unknown Sodium 138 mmol/L (137-145) 12/31/21 06:52 Potassium 3.1 mmol/L (3.6-5.0) L 12/31/21 06:52 Chloride 99.8 mmol/L (98-107) 12/31/21 06:52 Carbon Dioxide 28 mmol/L (22-30) 12/31/21 06:52 Anion Gap 13 mmol/L 12/31/21 06:52 BUN 5 mg/dL (9-20) L 12/31/21 06:52 Creatinine 0.5 mg/dL (0.8-1.3) L 12/31/21 06:52 Estimated GFR > 60 ml/min 12/31/21 06:52 BUN/Creatinine Ratio 10 % 12/31/21 06:52 Glucose 128 mg/dL (75-100) H 12/31/21 06:52 POC Glucose 100 mg/dL (70-105) 12/31/21 08:20 Hemoglobin A1c 14.9 % (4-6) H 12/26/21 06:08 Lactic Acid 1.20 mmol/L (0.7-2.0) 12/24/21 22:33 Calcium 7.0 mg/dL (8.4-10.2) L 12/31/21 06:52 Phosphorus 3.40 mg/dL (2.5-4.5) 12/26/21 06:08 Magnesium 1.90 mg/dL (1.7-2.3) 12/26/21 06:08 Ferritin 1335.0 ng/mL (30.0-300.0) H 12/26/21 06:08 Total Bilirubin 0.40 mg/dL (0.1-1.2) 12/25/21 08:26 Direct Bilirubin < 0.2 mg/dL (0-0.2) 12/24/21 19:43 Indirect Bilirubin 0.2 mg/dL 12/24/21 19:43 AST 123 units/L (5-40) H 12/25/21 08:26 ALT 111 units/L (7-56) H 12/25/21 08:26 Alkaline Phosphatase 144 units/L (35-129) H 12/25/21 08:26 Ammonia 31.0 umol/L (25-60) 12/24/21 19:43 Lactate Dehydrogenase 215 units/L (91-180) H 12/25/21 08:26 Troponin T < 0.010 ng/mL (0.00-0.029) 12/24/21 22:33 C-Reactive Protein 34.10 mg/dL (0.00-1.30) H 12/25/21 08:26 NT-Pro-B Natriuret Pep 520.8 pg/mL (0-900) 12/24/21 19:43 Total Protein 6.8 g/dL (6.3-8.2) 12/25/21 08:26 Albumin 2.5 g/dL (3.9-5) L 12/25/21 08:26 Albumin/Globulin Ratio 0.6 % 12/25/21 08:26 Lipase 6 units/L (13-60) L 12/24/21 19:43 Procalcitonin 6.09 ng/mL (<0.15) 12/25/21 08:26 TSH 0.910 mlU/mL (0.270-4.200) 12/26/21 06:08 Urine Color Yellow (Yellow) 12/24/21 Unknown Urine Turbidity Slightly-cloudy (Clear) 12/24/21 Unknown Urine pH 6.0 (5.0-7.0) 12/24/21 Unknown Ur Specific [place] 1.020 (1.003-1.030) 12/24/21 Unknown Urine Protein 100 mg/dl mg/dL (Negative) 12/24/21 Unknown Urine Glucose (UA) Neg mg/dL (Negative) 12/24/21 Unknown Urine Ketones Neg mg/dL (Negative) 12/24/21 Unknown Urine Blood Mod (Negative) 12/24/21 Unknown Urine Nitrite Neg (Negative) 12/24/21 Unknown Urine Bilirubin Neg (Negative) 12/24/21 Unknown Urine Urobilinogen 2.0 mg/dL (<2.0) 12/24/21 Unknown Ur Leukocyte Esterase Neg (Negative) 12/24/21 Unknown Urine WBC (Auto) 1.0 /HPF (0.0-6.0) 12/24/21 Unknown Urine RBC (Auto) 1.0 /HPF (0.0-6.0) 12/24/21 Unknown U Epithel Cells (Auto) 1.0 /HPF (0-13.0) 12/24/21 Unknown Urine Bacteria (Auto) 1+ /HPF (Negative) 12/24/21 Unknown Urine Mucus Few /HPF 12/24/21 Unknown Vancomycin Trough 28.8 ug/mL (5.0-20.0) H 12/26/21 23:20 Salicylates < 0.3 mg/dL (2.8-20.0) L 12/24/21 19:43 Acetaminophen 5.0 ug/mL (10.0-30.0) L 12/24/21 19:43 Plasma/Serum Alcohol < 0.01 % (0-0.07) 12/24/21 19:43 Coronavirus (PCR) Negative (Negative) 12/25/21 09:45 Hepatitis A IgM Ab Non-reactive (NonReactive) 12/25/21 Unknown Hep Bs Antigen Non-reactive (Negative) 12/25/21 Unknown Hep B Core IgM Ab Non-reactive (NonReactive) 12/25/21 Unknown Hepatitis C Antibody Non-reactive (NonReactive) 12/25/21 Unknown Blood Type O POSITIVE 12/24/21 19:43 Antibody Screen Negative 12/24/21 19:43 Microbiology: Microbiology 12/30/21 Unknown Foot - Left Surgical Culture - Preliminary Phillip/IV: Voiding Method Indwelling Catheter Active Medications - Current Medications Current Medications: Generic Name Dose Route Start Last Admin Trade Name Freq PRN Reason Stop Dose Admin Acetaminophen 650 mg 12/25/21 01:40 Acetaminophen 650 Mg Rect Supp MO Q6H PRN Pain MILD(1-3)/Fever >100.5/PATEL Acetaminophen 650 mg 12/29/21 04:27 12/29/21 04:46 Acetaminophen 325 Mg Tab PO 650 mg Q6H PRN Administration Pain, Mild (1-3) Dextrose 0 ml 12/25/21 02:02 Dextrose 10% *Hypoglycemia IV PRN PRN Hypoglycemia Protocol Famotidine 20 mg 12/25/21 10:00 12/30/21 22:17 Famotidine 20 Mg Tab PO 20 mg BID KELTON Administration Heparin Sodium (Porcine) 5,000 unit 12/25/21 06:00 12/31/21 05:35 Heparin 5,000 Unit/1 Ml Vial SUB-Q 5,000 unit Q8HR KELTON Administration Cefazolin Sodium 2 gm/ Sodium 100 mls @ 200 mls/hr 12/27/21 15:00 12/31/21 06:09 Chloride IV 02/10/22 23:29 200 mls/hr Q8H KELTON Administration Protocol Lactated Ringer's 1,000 mls @ 125 mls/hr 12/30/21 12:00 12/31/21 05:37 Lactated Ringers IV 125 mls/hr DIRECT KELTON Administration Insulin Human Lispro 0 unit 12/25/21 12:00 12/31/21 05:35 Insulin Lispro 100 Unit/Ml SUB-Q 2 unit Q6HR KELTON Administration Protocol Magnesium Hydroxide 30 ml 12/25/21 01:40 Magnesium Hydroxide (Mom) Oral Liqd Udc PO Q4H PRN Constipation Morphine Sulfate 2 mg 12/25/21 01:40 Morphine 2 Mg/1 Ml Inj IV Q4H PRN Pain, Moderate (4-6) Ondansetron HCl 4 mg 12/25/21 01:40 Ondansetron 4 Mg/2 Ml Inj IV Q8H PRN Nausea And Vomiting Sodium Chloride 10 ml 12/25/21 10:00 12/30/21 22:18 Sodium Chloride 0.9% 10 Ml Flush Syringe IV 10 ml BID KELTON Administration Sodium Chloride 10 ml 12/25/21 01:40 Sodium Chloride 0.9% 10 Ml Flush Syringe IV PRN PRN LINE FLUSH Nutrition/Malnutrition Assess - Dietary Evaluation Nutrition/Malnutrition Findings: Nutrition Notes Start: 12/25/21 11:36 Freq: Status: Active Protocol: Document 12/30/21 13:52 [facility] (Rec: 12/30/21 13:56 [facility] [email or web address]) Nutrition Notes Initial or Follow up Reassessment Current Diagnosis Diabetes Other Pertinent Diagnosis (L) foot abscess, pneu Current Diet Consistent CHO/Cardiac Labs/Tests POC Glu range since last assessment: 133-244 Pertinent Medications Reviewed Height 5 ft 3 in Weight 65.7 kg Dorr Body Weight (kg) 56.36 BMI 25.6 Weight Status Overweight Subjective/Other Information Pt in operating room at this time (14:53); scheduled for incision and drainage of (L) foot abscess. No PO intakes documented. Burn Absent Trauma Absent #1 Nutrition Diagnosis Increased nutrient needs ( specify in comment below) Comments: protein Diagnosis Progress(for reassessment Continues documentation) Is patient on ventilator? No Is Patient Ambulatory and/or Out of Bed No REE-([facility]-confined to bed) [phone] Calculation Used for Recommendations [facility] Additional Notes Pro needs 1.25-1.5g/k-99g /day Fluid needs 1ml/kcal Nutrition Intervention Change Diet Order: Continue current diet order Goal #1 PO intakes to meet at least 75 % energy and pro needs Goal #2 Wound healing Anticipated Discharge Needs: CHO-controlled diet Follow-Up By: 01/02/22 Additional Comments F/U: intakes
[2021-12-31] MEDS ORDERED: POTASSIUM CHLORIDE ER 20 MEQ TAB PO ONE (11:14)
--- NOTE | 2021-12-31 11:38 | Progress Note ---
Assessment and Plan Acute Hypoxemic Respiratory Failure Community Acquired Pneumonia Hyponatremia Hypokalemia Acute Metabolic Encephalopathy Abscess of left foot Possible Chronic Osteomyelitis DM II Transaminitis - supplemental oxygen to keep O2 sats > 90% - prn bronchodilators (MAN) with pulm hygiene per RT - complete AB's per ID recommendations (IV Ancef X 6 weeks) - avoid nephrotoxins, renally dose all medications - continue mobility protocols to prevent pressure ulcers - PT/OT as tolerated - Wound care per RN/WCT - continue accuchecks with glycemic control per SSI for target blood glucose < 180 mg/dL - tobacco abstinence strongly counseled at the bedside - home oxygen evaluation at discharge - GI & VTE prophylaxis - Flu & pneumovax per protocol - continue other care per attending / other consultants - prn analgesia per pain score ... re-evaluate in am & prn Subjective Date of service: 12/31/21 Principal diagnosis: AHRF; CAP; AMS; Abscess of left foot; Possible Osteomyelitis; DM II Interval history: Patient is seen today for: AHRF; CAP; Hyponatremia; AMS; Abscess of left foot; Possible Chronic Osteomyelitis; DM II; Transaminitis Seen and examined at bedside; 24hour events reviewed; nursing and respiratory care staff consulted; no adverse overnight events reported to me; resting in bed; denies chest pain or SOB; remains on AB's; seen by ID and for Ancef X 6 weeks Objective Vital Signs - 12hr 12/31/21 12/31/21 12/31/21 00:00 00:34 00:35 Temperature 98.3 F Pulse Rate 79 75 75 Respiratory 18 18 Rate Blood Pressure 150/70 Blood Pressure 150/70 [Right] O2 Sat by Pulse 96 96 Oximetry 12/31/21 12/31/21 12/31/21 04:47 07:43 09:00 Temperature 98.5 F 98.6 F Pulse Rate 75 67 Respiratory 18 18 Rate Blood Pressure 142/73 143/78 Blood Pressure [Right] O2 Sat by Pulse 100 99 98 Oximetry Constitutional: no acute distress, alert Eyes: non-icteric ENT: oropharynx moist Neck: supple, no lymphadenopathy Effort: normal Ascultation: Bilateral: clear Percussion: Bilateral: not dull Cardiovascular: regular rate and rhythm Gastrointestinal: normoactive bowel sounds, soft, non-tender, non-distended Integumentary: other (L. foot infection) Extremities: no cyanosis, edema, other (Swelling of left foot. Left foot abscess in clean dressing) Neurologic: non-focal exam, pupils equal and round, CN II-XII normal Psychiatric: mood appropriate, affect normal CBC and BMP: 12/31/21 06:52 12/31/21 06:52 ABG, PT/INR, D-dimer: ABG ABG pH 7.386 pH Units (7.350-7.450) 12/24/21 Unknown ABG pCO2 32.7 mm Hg 12/24/21 Unknown ABG pO2 308.2 mm Hg (80.0-90.0) H 12/24/21 Unknown ABG O2 Saturation 99.5 % (95.0-99.0) H 12/24/21 Unknown PT/INR, D-dimer PT 13.9 Sec. (12.2-14.9) 12/24/21 19:43 INR 0.96 (0.87-1.13) 12/24/21 19:43 D-Dimer 2019.48 ng/mlDDU (0-234) H 12/25/21 08:26 Abnormal lab findings: Abnormal Labs 12/24/21 12/24/21 12/24/21 19:43 19:43 19:43 RBC 3.58 L Hgb 10.3 L Hct 31.5 L Lymph % (Auto) [place] % (Auto) 10.9 H Lymph # (Auto) 1.1 L Seg Neutrophils % APTT 39.7 H D-Dimer ABG pO2 ABG HCO3 ABG O2 Saturation ABG Base Excess ABG Hemoglobin Sodium 128 L Potassium 3.3 L Chloride 95.9 L Carbon Dioxide 18 L BUN Creatinine 0.6 L Glucose 38 L* POC Glucose Hemoglobin A1c Calcium Ferritin AST 232 H ALT 126 H Alkaline Phosphatase 132 H Lactate Dehydrogenase C-Reactive Protein Albumin 2.6 L Lipase 6 L Vancomycin Trough Salicylates Acetaminophen 12/24/21 12/24/21 12/24/21 19:43 19:43 22:33 RBC Hgb Hct Lymph % (Auto) [place] % (Auto) Lymph # (Auto) Seg Neutrophils % APTT D-Dimer ABG pO2 ABG HCO3 ABG O2 Saturation ABG Base Excess ABG Hemoglobin Sodium 126 L Potassium 3.1 L Chloride 91.7 L Carbon Dioxide 19 L BUN Creatinine 0.7 L Glucose 115 H POC Glucose Hemoglobin A1c Calcium 8.3 L Ferritin AST ALT Alkaline Phosphatase Lactate Dehydrogenase C-Reactive Protein Albumin Lipase Vancomycin Trough Salicylates < 0.3 L Acetaminophen 5.0 L 12/24/21 12/25/21 12/25/21 Unknown 00:23 05:59 RBC Hgb Hct Lymph % (Auto) [place] % (Auto) Lymph # (Auto) Seg Neutrophils % APTT D-Dimer ABG pO2 308.2 H ABG HCO3 19.2 L ABG O2 Saturation 99.5 H ABG Base Excess -5.0 L ABG Hemoglobin 10.6 L Sodium Potassium Chloride Carbon Dioxide BUN Creatinine Glucose POC Glucose 157 H 469 H Hemoglobin A1c Calcium Ferritin AST ALT Alkaline Phosphatase Lactate Dehydrogenase C-Reactive Protein Albumin Lipase Vancomycin Trough Salicylates Acetaminophen 12/25/21 12/25/21 12/25/21 06:01 08:26 08:26 RBC Hgb 11.7 L Hct 35.2 L Lymph % (Auto) 9.8 L [place] % (Auto) Lymph # (Auto) 0.5 L Seg Neutrophils % 84.2 H APTT D-Dimer ABG pO2 ABG HCO3 ABG O2 Saturation ABG Base Excess ABG Hemoglobin Sodium 130 L Potassium Chloride 96.6 L Carbon Dioxide 19 L BUN Creatinine 0.7 L Glucose 323 H POC Glucose 316 H Hemoglobin A1c Calcium 8.3 L Ferritin AST 123 H ALT 111 H Alkaline Phosphatase 144 H Lactate Dehydrogenase C-Reactive Protein Albumin 2.5 L Lipase Vancomycin Trough Salicylates Acetaminophen 12/25/21 12/25/21 12/25/21 08:26 08:26 08:26 RBC Hgb Hct Lymph % (Auto) [place] % (Auto) Lymph # (Auto) Seg Neutrophils % APTT D-Dimer 2019.48 H ABG pO2 ABG HCO3 ABG O2 Saturation ABG Base Excess ABG Hemoglobin Sodium Potassium Chloride Carbon Dioxide BUN Creatinine Glucose POC Glucose Hemoglobin A1c Calcium Ferritin 1288.0 H AST ALT Alkaline Phosphatase Lactate Dehydrogenase 215 H C-Reactive Protein 34.10 H Albumin Lipase Vancomycin Trough Salicylates Acetaminophen 12/25/21 12/25/21 12/25/21 10:59 15:45 20:29 RBC Hgb Hct Lymph % (Auto) [place] % (Auto) Lymph # (Auto) Seg Neutrophils % APTT D-Dimer ABG pO2 ABG HCO3 ABG O2 Saturation ABG Base Excess ABG Hemoglobin Sodium 135 L Potassium Chloride Carbon Dioxide 17 L BUN Creatinine 0.6 L Glucose 161 H POC Glucose 305 H 236 H Hemoglobin A1c Calcium 7.9 L Ferritin AST ALT Alkaline Phosphatase Lactate Dehydrogenase C-Reactive Protein Albumin Lipase Vancomycin Trough Salicylates Acetaminophen 12/25/21 12/26/21 12/26/21 20:59 00:19 01:23 RBC Hgb Hct Lymph % (Auto) [place] % (Auto) Lymph # (Auto) Seg Neutrophils % APTT D-Dimer ABG pO2 ABG HCO3 ABG O2 Saturation ABG Base Excess ABG Hemoglobin Sodium 133 L Potassium Chloride Carbon Dioxide 17 L BUN Creatinine 0.6 L Glucose 178 H POC Glucose 184 H 191 H Hemoglobin A1c Calcium 7.9 L Ferritin AST ALT Alkaline Phosphatase Lactate Dehydrogenase C-Reactive Protein Albumin Lipase Vancomycin Trough Salicylates Acetaminophen 12/26/21 12/26/21 12/26/21 05:52 06:08 06:08 RBC 3.59 L Hgb 10.8 L Hct 32.2 L Lymph % (Auto) [place] % (Auto) 10.2 H Lymph # (Auto) Seg Neutrophils % 72.0 H APTT D-Dimer ABG pO2 ABG HCO3 ABG O2 Saturation ABG Base Excess ABG Hemoglobin Sodium 136 L Potassium Chloride Carbon Dioxide 18 L BUN Creatinine 0.7 L Glucose 154 H POC Glucose 133 H Hemoglobin A1c Calcium Ferritin AST ALT Alkaline Phosphatase Lactate Dehydrogenase C-Reactive Protein Albumin Lipase Vancomycin Trough Salicylates Acetaminophen 12/26/21 12/26/21 12/26/21 06:08 06:08 12:07 RBC Hgb Hct Lymph % (Auto) [place] % (Auto) Lymph # (Auto) Seg Neutrophils % APTT D-Dimer ABG pO2 ABG HCO3 ABG O2 Saturation ABG Base Excess ABG Hemoglobin Sodium Potassium Chloride Carbon Dioxide BUN Creatinine Glucose POC Glucose 210 H Hemoglobin A1c 14.9 H Calcium Ferritin 1335.0 H AST ALT Alkaline Phosphatase Lactate Dehydrogenase C-Reactive Protein Albumin Lipase Vancomycin Trough Salicylates Acetaminophen 12/26/21 12/26/21 12/27/21 17:14 23:20 00:09 RBC Hgb Hct Lymph % (Auto) [place] % (Auto) Lymph # (Auto) Seg Neutrophils % APTT D-Dimer ABG pO2 ABG HCO3 ABG O2 Saturation ABG Base Excess ABG Hemoglobin Sodium Potassium Chloride Carbon Dioxide BUN Creatinine Glucose POC Glucose 213 H 195 H Hemoglobin A1c Calcium Ferritin AST ALT Alkaline Phosphatase Lactate Dehydrogenase C-Reactive Protein Albumin Lipase Vancomycin Trough 28.8 H Salicylates Acetaminophen 12/27/21 12/27/21 12/27/21 06:14 12:04 17:23 RBC Hgb Hct Lymph % (Auto) [place] % (Auto) Lymph # (Auto) Seg Neutrophils % APTT D-Dimer ABG pO2 ABG HCO3 ABG O2 Saturation ABG Base Excess ABG Hemoglobin Sodium Potassium Chloride Carbon Dioxide BUN Creatinine Glucose POC Glucose 177 H 229 H 231 H Hemoglobin A1c Calcium Ferritin AST ALT Alkaline Phosphatase Lactate Dehydrogenase C-Reactive Protein Albumin Lipase Vancomycin Trough Salicylates Acetaminophen 12/27/21 12/28/21 12/28/21 23:56 06:57 12:03 RBC Hgb Hct Lymph % (Auto) [place] % (Auto) Lymph # (Auto) Seg Neutrophils % APTT D-Dimer ABG pO2 ABG HCO3 ABG O2 Saturation ABG Base Excess ABG Hemoglobin Sodium Potassium Chloride Carbon Dioxide BUN Creatinine Glucose POC Glucose 237 H 211 H 221 H Hemoglobin A1c Calcium Ferritin AST ALT Alkaline Phosphatase Lactate Dehydrogenase C-Reactive Protein Albumin Lipase Vancomycin Trough Salicylates Acetaminophen 12/28/21 12/29/21 12/29/21 16:29 00:01 05:25 RBC Hgb Hct Lymph % (Auto) [place] % (Auto) Lymph # (Auto) Seg Neutrophils % APTT D-Dimer ABG pO2 ABG HCO3 ABG O2 Saturation ABG Base Excess ABG Hemoglobin Sodium Potassium Chloride Carbon Dioxide BUN Creatinine Glucose POC Glucose 209 H 203 H 163 H Hemoglobin A1c Calcium Ferritin AST ALT Alkaline Phosphatase Lactate Dehydrogenase C-Reactive Protein Albumin Lipase Vancomycin Trough Salicylates Acetaminophen 12/29/21 12/29/21 12/30/21 11:51 17:02 00:01 RBC Hgb Hct Lymph % (Auto) [place] % (Auto) Lymph # (Auto) Seg Neutrophils % APTT D-Dimer ABG pO2 ABG HCO3 ABG O2 Saturation ABG Base Excess ABG Hemoglobin Sodium Potassium Chloride Carbon Dioxide BUN Creatinine Glucose POC Glucose 244 H 214 H 160 H Hemoglobin A1c Calcium Ferritin AST ALT Alkaline Phosphatase Lactate Dehydrogenase C-Reactive Protein Albumin Lipase Vancomycin Trough Salicylates Acetaminophen 12/30/21 12/30/21 12/30/21 05:48 11:10 14:34 RBC Hgb Hct Lymph % (Auto) [place] % (Auto) Lymph # (Auto) Seg Neutrophils % APTT D-Dimer ABG pO2 ABG HCO3 ABG O2 Saturation ABG Base Excess ABG Hemoglobin Sodium Potassium Chloride Carbon Dioxide BUN Creatinine Glucose POC Glucose 121 H 159 H 167 H Hemoglobin A1c Calcium Ferritin AST ALT Alkaline Phosphatase Lactate Dehydrogenase C-Reactive Protein Albumin Lipase Vancomycin Trough Salicylates Acetaminophen 12/30/21 12/30/21 12/31/21 16:00 20:46 05:04 RBC Hgb Hct Lymph % (Auto) [place] % (Auto) Lymph # (Auto) Seg Neutrophils % APTT D-Dimer ABG pO2 ABG HCO3 ABG O2 Saturation ABG Base Excess ABG Hemoglobin Sodium Potassium Chloride Carbon Dioxide BUN Creatinine Glucose POC Glucose 172 H 254 H 158 H Hemoglobin A1c Calcium Ferritin AST ALT Alkaline Phosphatase Lactate Dehydrogenase C-Reactive Protein Albumin Lipase Vancomycin Trough Salicylates Acetaminophen 12/31/21 12/31/21 06:52 06:52 RBC 3.05 L Hgb 9.1 L Hct 26.9 L Lymph % (Auto) [place] % (Auto) Lymph # (Auto) Seg Neutrophils % APTT D-Dimer ABG pO2 ABG HCO3 ABG O2 Saturation ABG Base Excess ABG Hemoglobin Sodium Potassium 3.1 L Chloride Carbon Dioxide BUN 5 L Creatinine 0.5 L Glucose 128 H POC Glucose Hemoglobin A1c Calcium 7.0 L Ferritin AST ALT Alkaline Phosphatase Lactate Dehydrogenase C-Reactive Protein Albumin Lipase Vancomycin Trough Salicylates Acetaminophen Allied health notes reviewed: nursing
[2021-12-31] MEDS: FAMOTIDINE 20 MG TAB PO SCH ×2 (12:49→22:29)
[2021-12-31] MEDS ORDERED: POTASSIUM CHLORIDE ER 10 MEQ TAB PO ONE (20:07)
[2022-01-01] MEDS: INSULIN LISPRO 100 UNIT/ML SUB-Q SCH ×4 (00:10→17:07)
[2022-01-01] MEDS: HEPARIN 5,000 UNIT/1 ML VIAL SUB-Q SCH ×3 (06:09→21:54)
[2022-01-01] MEDS: LACTATED RINGERS 1,000 ML IV SCH ×2 (06:13)
--- NOTE | 2022-01-01 07:24 | Progress Note ---
Assessment and Plan Patient is to begin aggressive local wound care with 3 times daily soaking of the foot with Betadine and saline soaks. His WBC count has never been elevated despite the finding of multiple abscesses in his left foot. We will continue to follow the results of microbiology. In addition to the local wound care IV antibiotics for several additional days will be highly recommended. Subjective Date of service: 01/01/22 Patient Reports: Positive: no new complaints Narrative: Patient with continued abscess treatment and soft tissue treatment to the left foot. Initial plans were to have 3 times daily wound soaks and dressing changes. Orders have been placed for 3 times daily saline and Betadine wound soaks. Continue to follow with you for local wound care. Objective Vital Signs - 12hr 12/31/21 12/31/21 01/01/22 20:23 21:00 05:00 Temperature 100.7 F H Pulse Rate 88 75 84 Respiratory 18 Rate Blood Pressure 153/82 O2 Sat by Pulse 94 98 Oximetry - Labs 12/31/21 06:52 12/31/21 06:52 Diabetes panel 12/31/21 Range/Units 06:52 Sodium 138 (137-145) mmol/L Potassium 3.1 L (3.6-5.0) mmol/L Chloride 99.8 (98-107) mmol/L Carbon Dioxide 28 (22-30) mmol/L BUN 5 L (9-20) mg/dL Creatinine 0.5 L (0.8-1.3) mg/dL Glucose 128 H (75-100) mg/dL Calcium 7.0 L (8.4-10.2) mg/dL Calcium panel 12/31/21 Range/Units 06:52 Calcium 7.0 L (8.4-10.2) mg/dL Pituitary panel 12/31/21 Range/Units 06:52 Sodium 138 (137-145) mmol/L Potassium 3.1 L (3.6-5.0) mmol/L Chloride 99.8 (98-107) mmol/L Carbon Dioxide 28 (22-30) mmol/L BUN 5 L (9-20) mg/dL Creatinine 0.5 L (0.8-1.3) mg/dL Glucose 128 H (75-100) mg/dL Calcium 7.0 L (8.4-10.2) mg/dL Adrenal panel 12/31/21 Range/Units 06:52 Sodium 138 (137-145) mmol/L Potassium 3.1 L (3.6-5.0) mmol/L Chloride 99.8 (98-107) mmol/L Carbon Dioxide 28 (22-30) mmol/L BUN 5 L (9-20) mg/dL Creatinine 0.5 L (0.8-1.3) mg/dL Glucose 128 H (75-100) mg/dL Calcium 7.0 L (8.4-10.2) mg/dL
[2022-01-01] MEDS: FAMOTIDINE 20 MG TAB PO SCH ×2 (09:28→21:54)
[2022-01-01] MEDS: ACETAMINOPHEN 325 MG TAB PO PRN (09:29)
--- NOTE | 2022-01-01 12:14 | Progress Note ---
Assessment and Plan Acute Hypoxemic Respiratory Failure Community Acquired Pneumonia Hyponatremia Hypokalemia Acute Metabolic Encephalopathy Abscess of left foot Possible Chronic Osteomyelitis DM II Transaminitis - doing better, on room air, will sign off, please continue care as below; - supplemental oxygen to keep O2 sats > 90% - prn bronchodilators (MAN) with pulm hygiene per RT - complete AB's per ID recommendations (IV Ancef X 6 weeks) - avoid nephrotoxins, renally dose all medications - continue mobility protocols to prevent pressure ulcers - PT/OT as tolerated - Wound care per RN/WCT - continue accuchecks with glycemic control per SSI for target blood glucose < 180 mg/dL - tobacco abstinence strongly counseled at the bedside - home oxygen evaluation at discharge - GI & VTE prophylaxis - Flu & pneumovax per protocol - continue other care per attending / other consultants - prn analgesia per pain score ... re-evaluate in am & prn Subjective Date of service: 01/01/22 Principal diagnosis: AHRF; CAP; AMS; Abscess of left foot; Possible Osteo myelitis; DM II Interval history: Patient is seen today for: AHRF; CAP; Hyponatremia; AMS; Abscess of left foot; Possible Chronic Osteomyelitis; DM II; Transaminitis Seen and examined at bedside; 24hour events reviewed; nursing and respiratory care staff consulted; no adverse overnight events reported to me; resting in bed; no new issues respiratory-flores Objective Vital Signs - 12hr 01/01/22 01/01/22 01/01/22 04:41 05:00 08:32 Temperature 101.1 F H 98.2 F Pulse Rate 77 84 74 Respiratory 18 18 Rate Blood Pressure 166/81 167/82 O2 Sat by Pulse 97 97 Oximetry Constitutional: no acute distress, alert Eyes: non-icteric ENT: oropharynx moist Neck: supple, no lymphadenopathy Effort: normal Ascultation: Bilateral: clear, diminished breath sounds Percussion: Bilateral: not dull Cardiovascular: regular rate and rhythm Gastrointestinal: normoactive bowel sounds, soft, non-tender, non-distended Integumentary: other (L. foot infection) Extremities: no cyanosis, edema, other (Swelling of left foot. Left foot abscess in clean dressing) Neurologic: non-focal exam, pupils equal and round, CN II-XII normal Psychiatric: mood appropriate, affect normal CBC and BMP: 12/31/21 06:52 12/31/21 06:52 ABG, PT/INR, D-dimer: ABG ABG pH 7.386 pH Units (7.350-7.450) 12/24/21 Unknown ABG pCO2 32.7 mm Hg 12/24/21 Unknown ABG pO2 308.2 mm Hg (80.0-90.0) H 12/24/21 Unknown ABG O2 Saturation 99.5 % (95.0-99.0) H 12/24/21 Unknown PT/INR, D-dimer PT 13.9 Sec. (12.2-14.9) 12/24/21 19:43 INR 0.96 (0.87-1.13) 12/24/21 19:43 D-Dimer 2019.48 ng/mlDDU (0-234) H 12/25/21 08:26 Abnormal lab findings: Abnormal Labs 12/24/21 12/24/21 12/24/21 19:43 19:43 19:43 RBC 3.58 L Hgb 10.3 L Hct 31.5 L Lymph % (Auto) Harlan % (Auto) 10.9 H Lymph # (Auto) 1.1 L Seg Neutrophils % APTT 39.7 H D-Dimer ABG pO2 ABG HCO3 ABG O2 Saturation ABG Base Excess ABG Hemoglobin Sodium 128 L Potassium 3.3 L Chloride 95.9 L Carbon Dioxide 18 L BUN Creatinine 0.6 L Glucose 38 L* POC Glucose Hemoglobin A1c Calcium Ferritin AST 232 H ALT 126 H Alkaline Phosphatase 132 H Lactate Dehydrogenase C-Reactive Protein Albumin 2.6 L Lipase 6 L Vancomycin Trough Salicylates Acetaminophen 12/24/21 12/24/21 12/24/21 19:43 19:43 22:33 RBC Hgb Hct Lymph % (Auto) Harlan % (Auto) Lymph # (Auto) Seg Neutrophils % APTT D-Dimer ABG pO2 ABG HCO3 ABG O2 Saturation ABG Base Excess ABG Hemoglobin Sodium 126 L Potassium 3.1 L Chloride 91.7 L Carbon Dioxide 19 L BUN Creatinine 0.7 L Glucose 115 H POC Glucose Hemoglobin A1c Calcium 8.3 L Ferritin AST ALT Alkaline Phosphatase Lactate Dehydrogenase C-Reactive Protein Albumin Lipase Vancomycin Trough Salicylates < 0.3 L Acetaminophen 5.0 L 12/24/21 12/25/21 12/25/21 Unknown 00:23 05:59 RBC Hgb Hct Lymph % (Auto) Harlan % (Auto) Lymph # (Auto) Seg Neutrophils % APTT D-Dimer ABG pO2 308.2 H ABG HCO3 19.2 L ABG O2 Saturation 99.5 H ABG Base Excess -5.0 L ABG Hemoglobin 10.6 L Sodium Potassium Chloride Carbon Dioxide BUN Creatinine Glucose POC Glucose 157 H 469 H Hemoglobin A1c Calcium Ferritin AST ALT Alkaline Phosphatase Lactate Dehydrogenase C-Reactive Protein Albumin Lipase Vancomycin Trough Salicylates Acetaminophen 12/25/21 12/25/21 12/25/21 06:01 08:26 08:26 RBC Hgb 11.7 L Hct 35.2 L Lymph % (Auto) 9.8 L Harlan % (Auto) Lymph # (Auto) 0.5 L Seg Neutrophils % 84.2 H APTT D-Dimer ABG pO2 ABG HCO3 ABG O2 Saturation ABG Base Excess ABG Hemoglobin Sodium 130 L Potassium Chloride 96.6 L Carbon Dioxide 19 L BUN Creatinine 0.7 L Glucose 323 H POC Glucose 316 H Hemoglobin A1c Calcium 8.3 L Ferritin AST 123 H ALT 111 H Alkaline Phosphatase 144 H Lactate Dehydrogenase C-Reactive Protein Albumin 2.5 L Lipase Vancomycin Trough Salicylates Acetaminophen 12/25/21 12/25/21 12/25/21 08:26 08:26 08:26 RBC Hgb Hct Lymph % (Auto) Har[place] % (Auto) Lymph # (Auto) Seg Neutrophils % APTT D-Dimer 2019.48 H ABG pO2 ABG HCO3 ABG O2 Saturation ABG Base Excess ABG Hemoglobin Sodium Potassium Chloride Carbon Dioxide BUN Creatinine Glucose POC Glucose Hemoglobin A1c Calcium Ferritin 1288.0 H AST ALT Alkaline Phosphatase Lactate Dehydrogenase 215 H C-Reactive Protein 34.10 H Albumin Lipase Vancomycin Trough Salicylates Acetaminophen 12/25/21 12/25/21 12/25/21 10:59 15:45 20:29 RBC Hgb Hct Lymph % (Auto) Harlan % (Auto) Lymph # (Auto) Seg Neutrophils % APTT D-Dimer ABG pO2 ABG HCO3 ABG O2 Saturation ABG Base Excess ABG Hemoglobin Sodium 135 L Potassium Chloride Carbon Dioxide 17 L BUN Creatinine 0.6 L Glucose 161 H POC Glucose 305 H 236 H Hemoglobin A1c Calcium 7.9 L Ferritin AST ALT Alkaline Phosphatase Lactate Dehydrogenase C-Reactive Protein Albumin Lipase Vancomycin Trough Salicylates Acetaminophen 12/25/21 12/26/21 12/26/21 20:59 00:19 01:23 RBC Hgb Hct Lymph % (Auto) Har[place] % (Auto) Lymph # (Auto) Seg Neutrophils % APTT D-Dimer ABG pO2 ABG HCO3 ABG O2 Saturation ABG Base Excess ABG Hemoglobin Sodium 133 L Potassium Chloride Carbon Dioxide 17 L BUN Creatinine 0.6 L Glucose 178 H POC Glucose 184 H 191 H Hemoglobin A1c Calcium 7.9 L Ferritin AST ALT Alkaline Phosphatase Lactate Dehydrogenase C-Reactive Protein Albumin Lipase Vancomycin Trough Salicylates Acetaminophen 12/26/21 12/26/21 12/26/21 05:52 06:08 06:08 RBC 3.59 L Hgb 10.8 L Hct 32.2 L Lymph % (Auto) Harlan % (Auto) 10.2 H Lymph # (Auto) Seg Neutrophils % 72.0 H APTT D-Dimer ABG pO2 ABG HCO3 ABG O2 Saturation ABG Base Excess ABG Hemoglobin Sodium 136 L Potassium Chloride Carbon Dioxide 18 L BUN Creatinine 0.7 L Glucose 154 H POC Glucose 133 H Hemoglobin A1c Calcium Ferritin AST ALT Alkaline Phosphatase Lactate Dehydrogenase C-Reactive Protein Albumin Lipase Vancomycin Trough Salicylates Acetaminophen 12/26/21 12/26/21 12/26/21 06:08 06:08 12:07 RBC Hgb Hct Lymph % (Auto) [place] % (Auto) Lymph # (Auto) Seg Neutrophils % APTT D-Dimer ABG pO2 ABG HCO3 ABG O2 Saturation ABG Base Excess ABG Hemoglobin Sodium Potassium Chloride Carbon Dioxide BUN Creatinine Glucose POC Glucose 210 H Hemoglobin A1c 14.9 H Calcium Ferritin 1335.0 H AST ALT Alkaline Phosphatase Lactate Dehydrogenase C-Reactive Protein Albumin Lipase Vancomycin Trough Salicylates Acetaminophen 12/26/21 12/26/21 12/27/21 17:14 23:20 00:09 RBC Hgb Hct Lymph % (Auto) [place] % (Auto) Lymph # (Auto) Seg Neutrophils % APTT D-Dimer ABG pO2 ABG HCO3 ABG O2 Saturation ABG Base Excess ABG Hemoglobin Sodium Potassium Chloride Carbon Dioxide BUN Creatinine Glucose POC Glucose 213 H 195 H Hemoglobin A1c Calcium Ferritin AST ALT Alkaline Phosphatase Lactate Dehydrogenase C-Reactive Protein Albumin Lipase Vancomycin Trough 28.8 H Salicylates Acetaminophen 12/27/21 12/27/21 12/27/21 06:14 12:04 17:23 RBC Hgb Hct Lymph % (Auto) [place] % (Auto) Lymph # (Auto) Seg Neutrophils % APTT D-Dimer ABG pO2 ABG HCO3 ABG O2 Saturation ABG Base Excess ABG Hemoglobin Sodium Potassium Chloride Carbon Dioxide BUN Creatinine Glucose POC Glucose 177 H 229 H 231 H Hemoglobin A1c Calcium Ferritin AST ALT Alkaline Phosphatase Lactate Dehydrogenase C-Reactive Protein Albumin Lipase Vancomycin Trough Salicylates Acetaminophen 12/27/21 12/28/21 12/28/21 23:56 06:57 12:03 RBC Hgb Hct Lymph % (Auto) [place] % (Auto) Lymph # (Auto) Seg Neutrophils % APTT D-Dimer ABG pO2 ABG HCO3 ABG O2 Saturation ABG Base Excess ABG Hemoglobin Sodium Potassium Chloride Carbon Dioxide BUN Creatinine Glucose POC Glucose 237 H 211 H 221 H Hemoglobin A1c Calcium Ferritin AST ALT Alkaline Phosphatase Lactate Dehydrogenase C-Reactive Protein Albumin Lipase Vancomycin Trough Salicylates Acetaminophen 12/28/21 12/29/21 12/29/21 16:29 00:01 05:25 RBC Hgb Hct Lymph % (Auto) [place] % (Auto) Lymph # (Auto) Seg Neutrophils % APTT D-Dimer ABG pO2 ABG HCO3 ABG O2 Saturation ABG Base Excess ABG Hemoglobin Sodium Potassium Chloride Carbon Dioxide BUN Creatinine Glucose POC Glucose 209 H 203 H 163 H Hemoglobin A1c Calcium Ferritin AST ALT Alkaline Phosphatase Lactate Dehydrogenase C-Reactive Protein Albumin Lipase Vancomycin Trough Salicylates Acetaminophen 12/29/21 12/29/21 12/30/21 11:51 17:02 00:01 RBC Hgb Hct Lymph % (Auto) [place] % (Auto) Lymph # (Auto) Seg Neutrophils % APTT D-Dimer ABG pO2 ABG HCO3 ABG O2 Saturation ABG Base Excess ABG Hemoglobin Sodium Potassium Chloride Carbon Dioxide BUN Creatinine Glucose POC Glucose 244 H 214 H 160 H Hemoglobin A1c Calcium Ferritin AST ALT Alkaline Phosphatase Lactate Dehydrogenase C-Reactive Protein Albumin Lipase Vancomycin Trough Salicylates Acetaminophen 12/30/21 12/30/21 12/30/21 05:48 11:10 14:34 RBC Hgb Hct Lymph % (Auto) [place] % (Auto) Lymph # (Auto) Seg Neutrophils % APTT D-Dimer ABG pO2 ABG HCO3 ABG O2 Saturation ABG Base Excess ABG Hemoglobin Sodium Potassium Chloride Carbon Dioxide BUN Creatinine Glucose POC Glucose 121 H 159 H 167 H Hemoglobin A1c Calcium Ferritin AST ALT Alkaline Phosphatase Lactate Dehydrogenase C-Reactive Protein Albumin Lipase Vancomycin Trough Salicylates Acetaminophen 12/30/21 12/30/21 12/31/21 16:00 20:46 05:04 RBC Hgb Hct Lymph % (Auto) [place] % (Auto) Lymph # (Auto) Seg Neutrophils % APTT D-Dimer ABG pO2 ABG HCO3 ABG O2 Saturation ABG Base Excess ABG Hemoglobin Sodium Potassium Chloride Carbon Dioxide BUN Creatinine Glucose POC Glucose 172 H 254 H 158 H Hemoglobin A1c Calcium Ferritin AST ALT Alkaline Phosphatase Lactate Dehydrogenase C-Reactive Protein Albumin Lipase Vancomycin Trough Salicylates Acetaminophen 12/31/21 12/31/21 12/31/21 06:52 06:52 12:47 RBC 3.05 L Hgb 9.1 L Hct 26.9 L Lymph % (Auto) [place] % (Auto) Lymph # (Auto) Seg Neutrophils % APTT D-Dimer ABG pO2 ABG HCO3 ABG O2 Saturation ABG Base Excess ABG Hemoglobin Sodium Potassium 3.1 L Chloride Carbon Dioxide BUN 5 L Creatinine 0.5 L Glucose 128 H POC Glucose 163 H Hemoglobin A1c Calcium 7.0 L Ferritin AST ALT Alkaline Phosphatase Lactate Dehydrogenase C-Reactive Protein Albumin Lipase Vancomycin Trough Salicylates Acetaminophen 12/31/21 01/01/22 01/01/22 21:35 06:24 07:26 RBC Hgb Hct Lymph % (Auto) [place] % (Auto) Lymph # (Auto) Seg Neutrophils % APTT D-Dimer ABG pO2 ABG HCO3 ABG O2 Saturation ABG Base Excess ABG Hemoglobin Sodium Potassium Chloride Carbon Dioxide BUN Creatinine Glucose POC Glucose 153 H 119 H 109 H Hemoglobin A1c Calcium Ferritin AST ALT Alkaline Phosphatase Lactate Dehydrogenase C-Reactive Protein Albumin Lipase Vancomycin Trough Salicylates Acetaminophen 01/01/22 11:38 RBC Hgb Hct Lymph % (Auto) [place] % (Auto) Lymph # (Auto) Seg Neutrophils % APTT D-Dimer ABG pO2 ABG HCO3 ABG O2 Saturation ABG Base Excess ABG Hemoglobin Sodium Potassium Chloride Carbon Dioxide BUN Creatinine Glucose POC Glucose 175 H Hemoglobin A1c Calcium Ferritin AST ALT Alkaline Phosphatase Lactate Dehydrogenase C-Reactive Protein Albumin Lipase Vancomycin Trough Salicylates Acetaminophen Allied health notes reviewed: nursing
--- NOTE | 2022-01-01 17:56 | Progress Note ---
Assessment and Plan Cultures: 12/24/2021 blood culture: No growth 12/24/2021 urine culture: MSSA 12/24/2021 sputum culture: usual resp daniel 12/24/2021 left foot wound culture: MSSA 12/30/2021 surgical culture pending A/P: 56-year-old male with diabetes mellitus was admitted to the hospital on December 24, 2021 with altered mental status: #Left foot cellulitis with abscess, diabetic foot infection: Likely underlying peripheral vascular disease as well as evidence of osteomyelitis as noted on CT scanning. Underwent bedside I&D in the ER. Cultures growing Staph aureus. Vascular evaluated, no interventions planned. #Left lower lobe pneumonia: On antibiotics, now on room air. #Diabetes mellitus type 2, uncontrolled #MSSA in urine culture: Generally not a uropathogen in the absence of instrumentation, its presence in the urinary tract is typically bacteremia related. #Acute encephalopathy: resolved. Recs: -antibiotics streamlined to IV Ancef 2 gm q8 hrs -Given abscess and osteomyelitis, will treat for 6 weeks -Case management consulted for Ancef 2 g every 8 hours until 02/10/2022 -Okay for PICC line on DC -optimal glycemic control Michelle Sorto MD [facility] O: [phone] F: [phone] Subjective Date of service: 01/01/22 Principal diagnosis: AHRF; CAP; AMS; Abscess of left foot; Possible Osteomyelitis; DM II Objective - Exam Narrative Exam: Physical Exam: Constitutional: Alert, cooperative. No acute distress Head, Ears, Nose: Normocephalic, atraumatic. External ears, nose normal Eyes: Conjunctivae/corneas clear. No icterus. No ptosis. Neck: Supple, no meningeal signs Cardiovascular: S1, S2 + Respiratory: Good air entry, clear to auscultation bilaterally GI: Soft, non-tender; bowel sounds normal. No peritoneal signs Musculoskeletal: Left foot with swelling, cellulitis, dressing present, left foot laterally with wound and purulence. Cabezas with scab, no tenderness or purulence Skin: No rash or abscess Hem/Lymphatic: No palpable cervical or supraclavicular nodes. No lymphangitis Psych: Mood ok. Affect normal Neurological: Awake, alert, oriented. No gross abnormality - Constitutional Vitals: Vital Signs Temp Pulse Resp BP Pulse Ox 98.2 F 74 18 167/82 99 01/01/22 08:32 01/01/22 08:32 01/01/22 09:00 01/01/22 08:32 01/01/22 09:00 Temperature -Last 24 Hours Temperature 98.2 F Temperature 101.1 F Temperature 100.1 F Temperature 100.7 F - Labs CBC & Chem 7: 12/31/21 06:52 12/31/21 06:52 Labs: Abnormal lab results 12/31/21 01/01/22 01/01/22 Range/Units 21:35 06:24 07:26 POC Glucose 153 H 119 H 109 H (70-105) mg/dL 01/01/22 01/01/22 Range/Units 11:38 16:04 POC Glucose 175 H 187 H (70-105) mg/dL
--- NOTE | 2022-01-01 20:52 | Progress Note ---
Assessment and Plan Assessment and plan: #Acute Hypoxemic Respiratory Failure 12/11 #COVID 19 - campbell PCR test negative - Presented with unresponsiveness with agonal breathing - Intubated in the ED on 12/24, extubated next day - Aspiration precaution HOB above 30 - Daily SBT and SAT trials as tolerated - Daily ABG and CXR - Continue SPO2 monitoring for SPO2 goal above 92% #Community-Acquired Pneumonia - Imagings suggesting possible Left lung pneumonia - COVID PCR pending - Inflammatory markers and procal pending - Blood culture pending, Sputum culture growing GPC - Continue current IV Abx for now - ID consulted - Continue to F/U on B.cult - Daily CBC monitor MSSA wound cultures MSSA urine cultures; ID recommend antibiotics Ancef 2 g every 8 hours stop date 02/10/2022 #Hyponatremia #Hypokalemia-improved - Probably related to dehydration/volume depletion - Na improved post IV hydration - Continue IVF resuscitation - Monitor and replace electrolytes as needed - Serial BMP Q6hrs - Strict intake and output #Acute Metabolic Encephalopathy - Probably r/t to multifactorial. hypoglycemia vs hyponatremia vs infectious process -Resolved #Abscess of left foot status post I&D #Possible Chronic Osteomyelitis - Presented LLE swelling and left foot abscess - General Surgery consulted - s/p I&D of left foot by surgery on 12/24 and today - Vascular consulted per rec. - Continue current IV Abx - ID consulted - Continue wound care per General surgery - Wound Care also consulted #Hyperglycemia #Hypoglycemia-resolved #H/o Diabetes - Presented with low BG in the 30s required D10w gtt - Hyperglycemic this am, BG in the 300s - D/10w d/c - SSI initiated q6hrs - Continue IVF resuscitation with 1/2NS - Serial BMP - Avoid Hypoglycemia - Continue Hypoglycemic protocol #Transaminitis - Etiology unclear - Consult placed to gastroenterology for evaluation and recommendations - Continue to trend LFTs #GI/DVT prophylaxis - PPI- Pepcid - Continue AC- Hep SubQ This is a 56-year-old male with known history of DM admitted for Hypoglycemia, hyponatremia, and acute hypoxemic respiratory failure requiring ventilatory support. Pateint also noted with left foot abscess s/p I&D by Gen. Surgery. Hospital Course to Date: 12/25: Patient remains on the vent, awake, following commends on propofol gtt. Possible PST today, plan to wean to extubate. High BG this am, D10W gtt D/C. Hyponatremia is improving continue IVF resuscitation, serial BMP Q6hrs. LLE wound noted with CDI dressing. General Surgery recommendation noted, Vascular consulted. Wound Care also consulted. Continue current IV Abx for now, ID consulted for IV Abx management. 12/26: cx growing staph, wait for final report. Continue empiric antibiotics 12/27: Wound culture growing MSSA, continue empiric IV Ceftriaxone, PO Flagyl, IV vancomycin. Ordered for left foot MRI for further assessment of the infection 12/28: MRI left foot suggestive of plantar abscess, continue empiric antibiotics, patient would need another I and D, continue to follow clinically. 12/29: Continue empiric antibiotics per ID recommendation. MRI does demonstrate a multiloculated abscess of the left midfoot. vascular recommended debridement of the left foot as well as incision and drainage of the abscess in the operating room to ensure that all potential fluid pockets as well as necrotic tissue is well debrided -planned for tomorrow 12/30: S/p repeat I&D today, -antibiotics changed to IV Ancef 2 gm q8 hrs. Given abscess and osteomyelitis, will need to treat for 6 weeks. Case management con sulted for Ancef 2 g every 8 hours until 02/10/2022. Order for PICC line 12/31; patient is evaluated by ID, in the setting of osteomyelitis recommended 6 weeks of IV Ancef, PICC line requested, case management setting up long-term antibiotics 01/01/2022; continue Ancef for total 6 weeks stop date 02/10/2022 Patient has social issues, no resources for long-term antibiotics, will check with ID for any alternative oral antibiotics that patient can afford DC planning per case management History Interval history: I have seen and examined the patient at the bedside patient's chart and medications reviewed Patient received therapy by soaking the foot in the water 3 times nurse assisted Patient complains of some pain at the surgical site Hospitalist Physical - Constitutional Vitals: Temp Pulse Resp BP Pulse Ox 98.2 F 80 18 167/82 99 01/01/22 08:32 01/01/22 10:00 01/01/22 09:00 01/01/22 08:32 01/01/22 09:00 General appearance: Present: no acute distress, well-nourished - EENT Eyes: Present: PERRL, EOM intact - Neck Neck: Present: supple, normal ROM - Respiratory Respiratory effort: normal Respiratory: bilateral: diminished, negative: rales, rhonchi, wheezing - Cardiovascular Rhythm: regular Heart Sounds: Present: S1 & S2 - Extremities Extremities: abnormal (Wound dressing in place) - Abdominal General gastrointestinal: soft, non-tender, non-distended, normal bowel sounds - Integumentary Integumentary: Present: clear, warm - Psychiatric Psychiatric: appropriate mood/affect, cooperative - Neurologic Neurologic: moves all extremities HEART Score - HEART Score Troponin: Troponin T < 0.010 ng/mL (0.00-0.029) 12/24/21 22:33 Results - Labs CBC & Chem 7: 12/31/21 06:52 12/31/21 06:52 Labs: Laboratory Last Values WBC 9.9 K/mm3 (4.5-11.0) 12/31/21 06:52 RBC 3.05 M/mm3 (3.65-5.03) L 12/31/21 06:52 Hgb 9.1 gm/dl (11.8-15.2) L 12/31/21 06:52 Hct 26.9 % (35.5-45.6) L 12/31/21 06:52 MCV 88 fl (84-94) 12/31/21 06:52 MCH 30 pg (28-32) 12/31/21 06:52 MCHC 34 % (32-34) 12/31/21 06:52 RDW 14.7 % (13.2-15.2) 12/31/21 06:52 Plt Count 292 K/mm3 (140-440) 12/31/21 06:52 Lymph % (Auto) 17.3 % (13.4-35.0) 12/26/21 06:08 [place] % (Auto) 10.2 % (0.0-7.3) H 12/26/21 06:08 Eos % (Auto) 0.1 % (0.0-4.3) 12/26/21 06:08 Baso % (Auto) 0.4 % (0.0-1.8) 12/26/21 06:08 Lymph # (Auto) 1.2 K/mm3 (1.2-5.4) 12/26/21 06:08 [place] # (Auto) 0.7 K/mm3 (0.0-0.8) 12/26/21 06:08 Eos # (Auto) 0.0 K/mm3 (0.0-0.4) 12/26/21 06:08 Baso # (Auto) 0.0 K/mm3 (0.0-0.1) 12/26/21 06:08 Seg Neutrophils % 72.0 % (40.0-70.0) H 12/26/21 06:08 Seg Neutrophils # 4.9 K/mm3 (1.8-7.7) 12/26/21 06:08 PT 13.9 Sec. (12.2-14.9) 12/24/21 19:43 INR 0.96 (0.87-1.13) 12/24/21 19:43 APTT 39.7 Sec. (24.2-36.6) H 12/24/21 19:43 D-Dimer 2019.48 ng/mlDDU (0-234) H 12/25/21 08:26 ABG pH 7.386 pH Units (7.350-7.450) 12/24/21 Unknown ABG pCO2 32.7 mm Hg 12/24/21 Unknown ABG pO2 308.2 mm Hg (80.0-90.0) H 12/24/21 Unknown ABG HCO3 19.2 mmol/L (20.0-26.0) L 12/24/21 Unknown ABG O2 Saturation 99.5 % (95.0-99.0) H 12/24/21 Unknown ABG O2 Content 15.5 (0.0-44) 12/24/21 Unknown ABG Base Excess -5.0 mmol/L (-2.0-3.0) L 12/24/21 Unknown ABG Hemoglobin 10.6 gm/dl (14.0-18.0) L 12/24/21 Unknown ABG Carboxyhemoglobin 0.9 % (0.0-5.0) 12/24/21 Unknown ABG Methemoglobin 0.5 % (0.0-1.5) 12/24/21 Unknown Oxyhemoglobin 98.1 % (95.0-99.0) 12/24/21 Unknown FiO2 100 % 12/24/21 Unknown Sodium 138 mmol/L (137-145) 12/31/21 06:52 Potassium 3.1 mmol/L (3.6-5.0) L 12/31/21 06:52 Chloride 99.8 mmol/L (98-107) 12/31/21 06:52 Carbon Dioxide 28 mmol/L (22-30) 12/31/21 06:52 Anion Gap 13 mmol/L 12/31/21 06:52 BUN 5 mg/dL (9-20) L 12/31/21 06:52 Creatinine 0.5 mg/dL (0.8-1.3) L 12/31/21 06:52 Estimated GFR > 60 ml/min 12/31/21 06:52 BUN/Creatinine Ratio 10 % 12/31/21 06:52 Glucose 128 mg/dL (75-100) H 12/31/21 06:52 POC Glucose 187 mg/dL (70-105) H 01/01/22 16:04 Hemoglobin A1c 14.9 % (4-6) H 12/26/21 06:08 Lactic Acid 1.20 mmol/L (0.7-2.0) 12/24/21 22:33 Calcium 7.0 mg/dL (8.4-10.2) L 12/31/21 06:52 Phosphorus 3.40 mg/dL (2.5-4.5) 12/26/21 06:08 Magnesium 1.90 mg/dL (1.7-2.3) 12/26/21 06:08 Ferritin 1335.0 ng/mL (30.0-300.0) H 12/26/21 06:08 Total Bilirubin 0.40 mg/dL (0.1-1.2) 12/25/21 08:26 Direct Bilirubin < 0.2 mg/dL (0-0.2) 12/24/21 19:43 Indirect Bilirubin 0.2 mg/dL 12/24/21 19:43 AST 123 units/L (5-40) H 12/25/21 08:26 ALT 111 units/L (7-56) H 12/25/21 08:26 Alkaline Phosphatase 144 units/L (35-129) H 12/25/21 08:26 Ammonia 31.0 umol/L (25-60) 12/24/21 19:43 Lactate Dehydrogenase 215 units/L (91-180) H 12/25/21 08:26 Troponin T < 0.010 ng/mL (0.00-0.029) 12/24/21 22:33 C-Reactive Protein 34.10 mg/dL (0.00-1.30) H 12/25/21 08:26 NT-Pro-B Natriuret Pep 520.8 pg/mL (0-900) 12/24/21 19:43 Total Protein 6.8 g/dL (6.3-8.2) 12/25/21 08:26 Albumin 2.5 g/dL (3.9-5) L 12/25/21 08:26 Albumin/Globulin Ratio 0.6 % 12/25/21 08:26 Lipase 6 units/L (13-60) L 12/24/21 19:43 Procalcitonin 6.09 ng/mL (<0.15) 12/25/21 08:26 TSH 0.910 mlU/mL (0.270-4.200) 12/26/21 06:08 Urine Color Yellow (Yellow) 12/24/21 Unknown Urine Turbidity Slightly-cloudy (Clear) 12/24/21 Unknown Urine pH 6.0 (5.0-7.0) 12/24/21 Unknown Ur Specific Petros 1.020 (1.003-1.030) 12/24/21 Unknown Urine Protein 100 mg/dl mg/dL (Negative) 12/24/21 Unknown Urine Glucose (UA) Neg mg/dL (Negative) 12/24/21 Unknown Urine Ketones Neg mg/dL (Negative) 12/24/21 Unknown Urine Blood Mod (Negative) 12/24/21 Unknown Urine Nitrite Neg (Negative) 12/24/21 Unknown Urine Bilirubin Neg (Negative) 12/24/21 Unknown Urine Urobilinogen 2.0 mg/dL (<2.0) 12/24/21 Unknown Ur Leukocyte Esterase Neg (Negative) 12/24/21 Unknown Urine WBC (Auto) 1.0 /HPF (0.0-6.0) 12/24/21 Unknown Urine RBC (Auto) 1.0 /HPF (0.0-6.0) 12/24/21 Unknown U Epithel Cells (Auto) 1.0 /HPF (0-13.0) 12/24/21 Unknown Urine Bacteria (Auto) 1+ /HPF (Negative) 12/24/21 Unknown Urine Mucus Few /HPF 12/24/21 Unknown Vancomycin Trough 28.8 ug/mL (5.0-20.0) H 12/26/21 23:20 Salicylates < 0.3 mg/dL (2.8-20.0) L 12/24/21 19:43 Acetaminophen 5.0 ug/mL (10.0-30.0) L 12/24/21 19:43 Plasma/Serum Alcohol < 0.01 % (0-0.07) 12/24/21 19:43 Coronavirus (PCR) Negative (Negative) 12/25/21 09:45 Hepatitis A IgM Ab Non-reactive (NonReactive) 12/25/21 Unknown Hep Bs Antigen Non-reactive (Negative) 12/25/21 Unknown Hep B Core IgM Ab Non-reactive (NonReactive) 12/25/21 Unknown Hepatitis C Antibody Non-reactive (NonReactive) 12/25/21 Unknown Blood Type O POSITIVE 12/24/21 19:43 Antibody Screen Negative 12/24/21 19:43 Microbiology: Microbiology 12/30/21 Unknown Foot - Left Surgical Culture - Final Staphylococcus Aureus Phillip/IV: Voiding Method Indwelling Catheter Active Medications - Current Medications Current Medications: Generic Name Dose Route Start Last Admin Trade Name Freq PRN Reason Stop Dose Admin Acetaminophen 650 mg 12/25/21 01:40 Acetaminophen 650 Mg Rect Supp MD Q6H PRN Pain MILD(1-3)/Fever >100.5/PATEL Acetaminophen 650 mg 12/29/21 04:27 01/01/22 09:29 Acetaminophen 325 Mg Tab PO 650 mg Q6H PRN Administration Pain, Mild (1-3) Dextrose 0 ml 12/25/21 02:02 Dextrose 10% *Hypoglycemia IV PRN PRN Hypoglycemia Protocol Famotidine 20 mg 12/25/21 10:00 01/01/22 09:28 Famotidine 20 Mg Tab PO 20 mg BID KELTON Administration Heparin Sodium (Porcine) 5,000 unit 12/25/21 06:00 01/01/22 13:27 Heparin 5,000 Unit/1 Ml Vial SUB-Q 5,000 unit Q8HR KELTON Administration Cefazolin Sodium 2 gm/ Sodium 100 mls @ 200 mls/hr 12/27/21 15:00 01/01/22 16:52 Chloride IV 02/10/22 23:29 200 mls/hr Q8H KELTON Administration Protocol Insulin Human Lispro 0 unit 12/25/21 12:00 01/01/22 17:07 Insulin Lispro 100 Unit/Ml SUB-Q 2 unit Q6HR KELTON Administration Protocol Magnesium Hydroxide 30 ml 12/25/21 01:40 Magnesium Hydroxide (Mom) Oral Liqd Udc PO Q4H PRN Constipation Morphine Sulfate 2 mg 12/25/21 01:40 Morphine 2 Mg/1 Ml Inj IV Q4H PRN Pain, Moderate (4-6) Ondansetron HCl 4 mg 12/25/21 01:40 Ondansetron 4 Mg/2 Ml Inj IV Q8H PRN Nausea And Vomiting Sodium Chloride 10 ml 12/25/21 10:00 01/01/22 09:40 Sodium Chloride 0.9% 10 Ml Flush Syringe IV 10 ml BID KELTON Administration Sodium Chloride 10 ml 12/25/21 01:40 01/01/22 16:53 Sodium Chloride 0.9% 10 Ml Flush Syringe IV 10 ml PRN PRN Administration LINE FLUSH Nutrition/Malnutrition Assess - Dietary Evaluation Nutrition/Malnutrition Findings: Nutrition Notes Start: 12/25/21 11:36 Freq: Status: Active Protocol: Document 12/30/21 13:52 RUSSEL (Rec: 12/30/21 13:56 [facility] [id number]) Nutrition Notes Initial or Follow up Reassessment Current Diagnosis Diabetes Other Pertinent Diagnosis (L) foot abscess, pneu Current Diet Consistent CHO/Cardiac Labs/Tests POC Glu range since last assessment: 133-244 Pertinent Medications Reviewed Height 5 ft 3 in Weight 65.7 kg [place] Body Weight (kg) 56.36 BMI 25.6 Weight Status Overweight Subjective/Other Information Pt in operating room at this time (14:53); scheduled for incision and drainage of (L) foot abscess. No PO intakes documented. Burn Absent Trauma Absent #1 Nutrition Diagnosis Increased nutrient needs ( specify in comment below) Comments: protein Diagnosis Progress(for reassessment Continues documentation) Is patient on ventilator? No Is Patient Ambulatory and/or Out of Bed No REE-([facility]-confined to bed) [phone] Calculation Used for Recommendations [facility] Additional Notes Pro needs 1.25-1.5g/k-99g /day Fluid needs 1ml/kcal Nutrition Intervention Change Diet Order: Continue current diet order Goal #1 PO intakes to meet at least 75 % energy and pro needs Goal #2 Wound healing Anticipated Discharge Needs: CHO-controlled diet Follow-Up By: 01/02/22 Additional Comments F/U: intakes
[2022-01-02] MEDS: INSULIN LISPRO 100 UNIT/ML SUB-Q SCH ×4 (01:09→19:42)
[2022-01-02] MEDS: HEPARIN 5,000 UNIT/1 ML VIAL SUB-Q SCH ×3 (06:03→22:00)
[2022-01-02] MEDS: ACETAMINOPHEN 325 MG TAB PO PRN (11:00)
[2022-01-02] MEDS: FAMOTIDINE 20 MG TAB PO SCH ×2 (11:00→22:00)
--- NOTE | 2022-01-02 13:43 | Progress Note ---
Assessment and Plan Cultures: 12/24/2021 blood culture: No growth 12/24/2021 urine culture: MSSA 12/24/2021 sputum culture: usual resp daniel 12/24/2021 left foot wound culture: MSSA 12/30/2021 surgical culture L foot: MSSA A/P: 56-year-old male with diabetes mellitus was admitted to the hospital on December 24, 2021 with altered mental status: #Left foot cellulitis with abscess, diabetic foot infection: underlying peripheral vascular disease as well as evidence of abscess and extensive osteomyelitis. Underwent bedside I&D in the ER and then in OR by general surgery. Cultures growing MSSA. Vascular evaluated, no interventions planned. #Left lower lobe pneumonia: completed abx, on room air. #Diabetes mellitus type 2, uncontrolled #MSSA in urine culture: Generally not a uropathogen in the absence of instrumentation, its presence in the urinary tract is typically bacteremia related. #Acute encephalopathy: resolved. Recs: -still febrile, continue IV Ancef 2 gm q8 hrs -anticipate 6 weeks of IV abx therapy -need him to be afebrile before a PICC line can be placed Gisele Peralta MD, FACP, [facility] O: [phone] F: [phone] C: [phone] Subjective Date of service: 01/02/22 Principal diagnosis: AHRF; CAP; AMS; Abscess of left foot; Possible Osteomy elitis; DM II Interval history: No fever. No new complaints. Denies any pain in the foot. Objective - Exam Narrative Exam: Physical Exam: Constitutional: Alert, cooperative. No acute distress Head, Ears, Nose: Normocephalic, atraumatic. External ears, nose normal Eyes: Conjunctivae/corneas clear. No icterus. No ptosis. Neck: Supple, no meningeal signs Cardiovascular: S1, S2 + Respiratory: Good air entry, clear to auscultation bilaterally GI: Soft, non-tender; bowel sounds normal. No peritoneal signs Musculoskeletal: Left foot swelling +, dressing + Skin: No rash or abscess Hem/Lymphatic: No palpable cervical or supraclavicular nodes. No lymphangitis Psych: Mood ok. Affect normal Neurological: Awake, alert, oriented. No gross abnormality - Constitutional Vitals: Vital Signs Temp Pulse Resp BP Pulse Ox 99.6 F 91 H 17 150/74 97 01/02/22 04:51 01/02/22 05:00 01/02/22 04:51 01/02/22 04:51 01/02/22 04:51 Temperature -Last 24 Hours Temperature 99.6 F Temperature 100.3 F Temperature 100.4 F Temperature 97.8 F - Labs CBC & Chem 7: 12/31/21 06:52 12/31/21 06:52 Labs: Abnormal lab results 01/01/22 01/01/22 01/02/22 Range/Units 16:04 21:46 06:00 POC Glucose 187 H 242 H 137 H (70-105) mg/dL 01/02/22 01/02/22 Range/Units 09:13 11:42 POC Glucose 158 H 210 H (70-105) mg/dL
--- NOTE | 2022-01-02 20:08 | Progress Note ---
Assessment and Plan Assessment and plan: --Abscess of left foot status post I&D Wound care, elevate the limb Continue current antibiotics, ID and surgery following --Probable chronic Osteomyelitis[on MRI foot] - Presented LLE swelling and left foot abscess - General Surgery consulted - s/p I&D of left foot by surgery on 12/24 and today - Vascular evaluated the patient - Continue current IV Abx Ancef 2 g every 8 hours for total 6 weeks stop date 02/11/[address] Kvng SAEED, if he can recommend alternative more affordable oral antibiotics And he informed that no other oral antibiotic is available to treat osteomyelitis. --Acute Hypoxemic Respiratory Failure ; requiring intubation Present on admission O2 sat on arrival was 60% Patient was intubated on the day of admission, extubated the next day Today patient is on room air saturating more than 94% --COVID 19 - [place] PCR test negative - Presented with unresponsiveness with agonal breathing - Intubated in the ED on 12/24, extubated next day Currently on room air saturating well --Community-Acquired Pneumonia - Imagings suggesting possible Left lung pneumonia - COVID PCR negative - Inflammatory markers and procal pending - Blood culture pending, Sputum culture growing GPC - Continue current IV Abx for now - ID following MSSA wound cultures MSSA urine cultures; ID recommend antibiotics Ancef 2 g every 8 hours stop date 02/10/2022 --Hyponatremia --Hypokalemia-improved - Probably related to dehydration/volume depletion - Na improved post IV hydration - Continue IVF resuscitation - Monitor and replace electrolytes as needed - Serial BMP Q6hrs - Strict intake and output #Acute Metabolic Encephalopathy - Probably r/t to multifactorial. hypoglycemia vs hyponatremia vs infectious process -Resolved #Hyperglycemia #Hypoglycemia-resolved #H/o Diabetes - Presented with low BG in the 30s required D10w gtt - Hyperglycemic this am, BG in the 300s - D/10w d/c - SSI initiated q6hrs - Continue IVF resuscitation with 1/2NS - Serial BMP - Avoid Hypoglycemia - Continue Hypoglycemic protocol #Transaminitis - Etiology unclear - Consult placed to gastroenterology for evaluation and recommendations - Continue to trend LFTs #GI/DVT prophylaxis - PPI- Pepcid - Continue AC- Hep SubQ This is a 56-year-old male with known history of DM admitted for Hypoglycemia, hyponatremia, and acute hypoxemic respiratory failure requiring ventilatory support. Pateint also noted with left foot abscess s/p I&D by Gen. Surgery. Hospital Course to Date: 12/25: Patient remains on the vent, awake, following commends on propofol gtt. Possible PST today, plan to wean to extubate. High BG this am, D10W gtt D/C. Hyponatremia is improving continue IVF resuscitation, serial BMP Q6hrs. LLE wound noted with CDI dressing. General Surgery recommendation noted, Vascular consulted. Wound Care also consulted. Continue current IV Abx for now, ID consulted for IV Abx management. 12/26: cx growing staph, wait for final report. Continue empiric antibiotics 12/27: Wound culture growing MSSA, continue empiric IV Ceftriaxone, PO Flagyl, IV vancomycin. Ordered for left foot MRI for further assessment of the infection 12/28: MRI left foot suggestive of plantar abscess, continue empiric antibiotics, patient would need another I and D, continue to follow clinically. 12/29: Continue empiric antibiotics per ID recommendation. MRI does demonstrate a multiloculated abscess of the left midfoot. vascular recommended debridement of the left foot as well as incision and drainage of the abscess in the operating room to ensure that all potential fluid pockets as well as necrotic tissue is well debrided -planned for tomorrow 12/30: S/p repeat I&D today, -antibiotics changed to IV Ancef 2 gm q8 hrs. Given abscess and osteomyelitis, will need to treat for 6 weeks. Case management consulted for Ancef 2 g every 8 hours until 02/10/2022. Order for PICC line 12/31; patient is evaluated by ID, in the setting of osteomyelitis recommended 6 weeks of IV Ancef, PICC line requested, case management setting up long-term antibiotics 01/01/2022; continue Ancef for total 6 weeks stop date 02/10/2022 Patient has social issues, no resources for long-term antibiotics, will check with ID for any alternative oral antibiotics that patient can afford 01/02; I discussed with ID Dr. Peralta if patient can be placed on alternative oral antibiotics due to patient's lack of resources and the high cost of the IV antibiotics , Dr. Peralta informed me that as patient has osteomyelitis patient needs IV Ancef for total 6 weeks and no other oral medications to treat osteomyelitis . Will inform the case management. History Interval history: I have seen and examined the patient at the bedside Patient's chart and medications reviewed No new events reported by the nursing staff Patient has no new complaints Hospitalist Physical - Constitutional Vitals: Temp Pulse Resp BP Pulse Ox 98.5 F 79 18 146/75 98 01/02/22 19:24 01/02/22 19:24 01/02/22 19:24 01/02/22 19:24 01/02/22 19:24 General appearance: Present: no acute distress, well-nourished - EENT Eyes: Present: PERRL, EOM intact - Neck Neck: Present: supple, normal ROM - Respiratory Respiratory: bilateral: diminished, negative: rales, rhonchi, wheezing - Cardiovascular Rhythm: regular Heart Sounds: Present: S1 & S2 - Extremities Extremities: no ischemia, No edema, abnormal (Foot dressing in place) - Abdominal General gastrointestinal: soft, non-tender, non-distended, normal bowel sounds - Integumentary Integumentary: Present: clear, warm - Psychiatric Psychiatric: appropriate mood/affect, cooperative - Neurologic Neurologic: moves all extremities HEART Score - HEART Score Troponin: Troponin T < 0.010 ng/mL (0.00-0.029) 12/24/21 22:33 Results - Labs CBC & Chem 7: 12/31/21 06:52 12/31/21 06:52 Labs: Laboratory Last Values WBC 9.9 K/mm3 (4.5-11.0) 12/31/21 06:52 RBC 3.05 M/mm3 (3.65-5.03) L 12/31/21 06:52 Hgb 9.1 gm/dl (11.8-15.2) L 12/31/21 06:52 Hct 26.9 % (35.5-45.6) L 12/31/21 06:52 MCV 88 fl (84-94) 12/31/21 06:52 MCH 30 pg (28-32) 12/31/21 06:52 MCHC 34 % (32-34) 12/31/21 06:52 RDW 14.7 % (13.2-15.2) 12/31/21 06:52 Plt Count 292 K/mm3 (140-440) 12/31/21 06:52 Lymph % (Auto) 17.3 % (13.4-35.0) 12/26/21 06:08 Coal % (Auto) 10.2 % (0.0-7.3) H 12/26/21 06:08 Eos % (Auto) 0.1 % (0.0-4.3) 12/26/21 06:08 Baso % (Auto) 0.4 % (0.0-1.8) 12/26/21 06:08 Lymph # (Auto) 1.2 K/mm3 (1.2-5.4) 12/26/21 06:08 Coal # (Auto) 0.7 K/mm3 (0.0-0.8) 12/26/21 06:08 Eos # (Auto) 0.0 K/mm3 (0.0-0.4) 12/26/21 06:08 Baso # (Auto) 0.0 K/mm3 (0.0-0.1) 12/26/21 06:08 Seg Neutrophils % 72.0 % (40.0-70.0) H 12/26/21 06:08 Seg Neutrophils # 4.9 K/mm3 (1.8-7.7) 12/26/21 06:08 PT 13.9 Sec. (12.2-14.9) 12/24/21 19:43 INR 0.96 (0.87-1.13) 12/24/21 19:43 APTT 39.7 Sec. (24.2-36.6) H 12/24/21 19:43 D-Dimer 2019.48 ng/mlDDU (0-234) H 12/25/21 08:26 ABG pH 7.386 pH Units (7.350-7.450) 12/24/21 Unknown ABG pCO2 32.7 mm Hg 12/24/21 Unknown ABG pO2 308.2 mm Hg (80.0-90.0) H 12/24/21 Unknown ABG HCO3 19.2 mmol/L (20.0-26.0) L 12/24/21 Unknown ABG O2 Saturation 99.5 % (95.0-99.0) H 12/24/21 Unknown ABG O2 Content 15.5 (0.0-44) 12/24/21 Unknown ABG Base Excess -5.0 mmol/L (-2.0-3.0) L 12/24/21 Unknown ABG Hemoglobin 10.6 gm/dl (14.0-18.0) L 12/24/21 Unknown ABG Carboxyhemoglobin 0.9 % (0.0-5.0) 12/24/21 Unknown ABG Methemoglobin 0.5 % (0.0-1.5) 12/24/21 Unknown Oxyhemoglobin 98.1 % (95.0-99.0) 12/24/21 Unknown FiO2 100 % 12/24/21 Unknown Sodium 138 mmol/L (137-145) 12/31/21 06:52 Potassium 3.1 mmol/L (3.6-5.0) L 12/31/21 06:52 Chloride 99.8 mmol/L (98-107) 12/31/21 06:52 Carbon Dioxide 28 mmol/L (22-30) 12/31/21 06:52 Anion Gap 13 mmol/L 12/31/21 06:52 BUN 5 mg/dL (9-20) L 12/31/21 06:52 Creatinine 0.5 mg/dL (0.8-1.3) L 12/31/21 06:52 Estimated GFR > 60 ml/min 12/31/21 06:52 BUN/Creatinine Ratio 10 % 12/31/21 06:52 Glucose 128 mg/dL (75-100) H 12/31/21 06:52 POC Glucose 211 mg/dL (70-105) H 01/02/22 20:04 Hemoglobin A1c 14.9 % (4-6) H 12/26/21 06:08 Lactic Acid 1.20 mmol/L (0.7-2.0) 12/24/21 22:33 Calcium 7.0 mg/dL (8.4-10.2) L 12/31/21 06:52 Phosphorus 3.40 mg/dL (2.5-4.5) 12/26/21 06:08 Magnesium 1.90 mg/dL (1.7-2.3) 12/26/21 06:08 Ferritin 1335.0 ng/mL (30.0-300.0) H 12/26/21 06:08 Total Bilirubin 0.40 mg/dL (0.1-1.2) 12/25/21 08:26 Direct Bilirubin < 0.2 mg/dL (0-0.2) 12/24/21 19:43 Indirect Bilirubin 0.2 mg/dL 12/24/21 19:43 AST 123 units/L (5-40) H 12/25/21 08:26 ALT 111 units/L (7-56) H 12/25/21 08:26 Alkaline Phosphatase 144 units/L (35-129) H 12/25/21 08:26 Ammonia 31.0 umol/L (25-60) 12/24/21 19:43 Lactate Dehydrogenase 215 units/L (91-180) H 12/25/21 08:26 Troponin T < 0.010 ng/mL (0.00-0.029) 12/24/21 22:33 C-Reactive Protein 34.10 mg/dL (0.00-1.30) H 12/25/21 08:26 NT-Pro-B Natriuret Pep 520.8 pg/mL (0-900) 12/24/21 19:43 Total Protein 6.8 g/dL (6.3-8.2) 12/25/21 08:26 Albumin 2.5 g/dL (3.9-5) L 12/25/21 08:26 Albumin/Globulin Ratio 0.6 % 12/25/21 08:26 Lipase 6 units/L (13-60) L 12/24/21 19:43 Procalcitonin 6.09 ng/mL (<0.15) 12/25/21 08:26 TSH 0.910 mlU/mL (0.270-4.200) 12/26/21 06:08 Urine Color Yellow (Yellow) 12/24/21 Unknown Urine Turbidity Slightly-cloudy (Clear) 12/24/21 Unknown Urine pH 6.0 (5.0-7.0) 12/24/21 Unknown Ur Specific [place] 1.020 (1.003-1.030) 12/24/21 Unknown Urine Protein 100 mg/dl mg/dL (Negative) 12/24/21 Unknown Urine Glucose (UA) Neg mg/dL (Negative) 12/24/21 Unknown Urine Ketones Neg mg/dL (Negative) 12/24/21 Unknown Urine Blood Mod (Negative) 12/24/21 Unknown Urine Nitrite Neg (Negative) 12/24/21 Unknown Urine Bilirubin Neg (Negative) 12/24/21 Unknown Urine Urobilinogen 2.0 mg/dL (<2.0) 12/24/21 Unknown Ur Leukocyte Esterase Neg (Negative) 12/24/21 Unknown Urine WBC (Auto) 1.0 /HPF (0.0-6.0) 12/24/21 Unknown Urine RBC (Auto) 1.0 /HPF (0.0-6.0) 12/24/21 Unknown U Epithel Cells (Auto) 1.0 /HPF (0-13.0) 12/24/21 Unknown Urine Bacteria (Auto) 1+ /HPF (Negative) 12/24/21 Unknown Urine Mucus Few /HPF 12/24/21 Unknown Vancomycin Trough 28.8 ug/mL (5.0-20.0) H 12/26/21 23:20 Salicylates < 0.3 mg/dL (2.8-20.0) L 12/24/21 19:43 Acetaminophen 5.0 ug/mL (10.0-30.0) L 12/24/21 19:43 Plasma/Serum Alcohol < 0.01 % (0-0.07) 12/24/21 19:43 Coronavirus (PCR) Negative (Negative) 12/25/21 09:45 Hepatitis A IgM Ab Non-reactive (NonReactive) 12/25/21 Unknown Hep Bs Antigen Non-reactive (Negative) 12/25/21 Unknown Hep B Core IgM Ab Non-reactive (NonReactive) 12/25/21 Unknown Hepatitis C Antibody Non-reactive (NonReactive) 12/25/21 Unknown Blood Type O POSITIVE 12/24/21 19:43 Antibody Screen Negative 12/24/21 19:43 Microbiology: Microbiology 12/30/21 Unknown Foot - Left Anaerobic Culture - Preliminary 12/30/21 Unknown Foot - Left Surgical Culture - Final Staphylococcus Aureus Phillip/IV: Voiding Method Indwelling Catheter Active Medications - Current Medications Current Medications: Generic Name Dose Route Start Last Admin Trade Name Freq PRN Reason Stop Dose Admin Acetaminophen 650 mg 12/25/21 01:40 Acetaminophen 650 Mg Rect Supp OR Q6H PRN Pain MILD(1-3)/Fever >100.5/PATEL Acetaminophen 650 mg 12/29/21 04:27 01/02/22 11:00 Acetaminophen 325 Mg Tab PO 650 mg Q6H PRN Administration Pain, Mild (1-3) Dextrose 0 ml 12/25/21 02:02 Dextrose 10% *Hypoglycemia IV PRN PRN Hypoglycemia Protocol Famotidine 20 mg 12/25/21 10:00 01/02/22 11:00 Famotidine 20 Mg Tab PO 20 mg BID KELTON Administration Heparin Sodium (Porcine) 5,000 unit 12/25/21 06:00 01/02/22 13:36 Heparin 5,000 Unit/1 Ml Vial SUB-Q 5,000 unit Q8HR KELTON Administration Cefazolin Sodium 2 gm/ Sodium 100 mls @ 200 mls/hr 12/27/21 15:00 01/02/22 16:26 Chloride IV 02/10/22 23:29 200 mls/hr Q8H KELTON Administration Protocol Insulin Human Lispro 0 unit 12/25/21 12:00 01/02/22 19:42 Insulin Lispro 100 Unit/Ml SUB-Q 2 unit Q6HR KELTON Administration Protocol Magnesium Hydroxide 30 ml 12/25/21 01:40 Magnesium Hydroxide (Mom) Oral Liqd Udc PO Q4H PRN Constipation Morphine Sulfate 2 mg 12/25/21 01:40 Morphine 2 Mg/1 Ml Inj IV Q4H PRN Pain, Moderate (4-6) Ondansetron HCl 4 mg 12/25/21 01:40 Ondansetron 4 Mg/2 Ml Inj IV Q8H PRN Nausea And Vomiting Sodium Chloride 10 ml 12/25/21 10:00 01/02/22 11:02 Sodium Chloride 0.9% 10 Ml Flush Syringe IV 10 ml BID KELTON Administration Sodium Chloride 10 ml 12/25/21 01:40 01/02/22 16:27 Sodium Chloride 0.9% 10 Ml Flush Syringe IV 10 ml PRN PRN Administration LINE FLUSH Nutrition/Malnutrition Assess - Dietary Evaluation Nutrition/Malnutrition Findings: Nutrition Notes Start: 12/25/21 11:36 Freq: Status: Active Protocol: Document 01/02/22 17:08 ADELA (Rec: 01/02/22 17:32 ADELA [id number]) Nutrition Notes Initial or Follow up Reassessment Current Diagnosis Diabetes,Respiratory Failure Other Pertinent Diagnosis L-Foot Cellulitis/ Osteomyelitis, MSSA Bacteremia , CAP. Current Diet Cardiac/Consistent Carbohydrates Diet (since L ). Labs/Tests 01/02: N/A. Pertinent Medications 01/02: Insulin, others nutritionally unremarkable. Height 5 ft 3 in Weight 65.7 kg [place] Body Weight (kg) 56.36 BMI 25.6 Weight change and time frame No body weight change reported in 3 days. Weight Status Overweight Subjective/Other Information RD consult for routine F/U on Dietary Advancement. No reports available on Pt's PO intake of meals at the time , but diet appears to be well tolerated, according to RN notes.. Procedure 12/30: Drainage of L -Foot Abscess, well tolerated. Percent of energy/protein needs met: Prescribed Cardiac/Consistent Carbohydrates Diet provides for energy/protein needs (1, 977 Kcal/86 g) during LOS. Burn Absent Trauma Absent GI Symptoms None Food Allergy No Skin Integrity/Comment L-Foot s/p procedure Minimum of two criteria No #1 Nutrition Diagnosis Increased nutrient needs ( specify in comment below) Comments: Protein to support wound healing processes. No reports available on Pt's PO intake of meals at the time , but diet appears to be well tolerated, according to RN notes. Diagnosis Progress(for reassessment Improved documentation) Is patient on ventilator? No Is Patient Ambulatory and/or Out of Bed No REE-([place] [facility]-confined to bed) [phone] Calculation Used for Recommendations [place] or Additional Notes Protein: 1.25-1.5 g/Kg; 83-99 g/day. Fluids: 1 ml/Kcal, or as per MD. Nutrition Intervention Change Diet Order: Continue Cardiac/Consistent Carbohydrates Diet. Goal #1 Maintain body weight within +/ -3% of admission body weight during LOS. Follow-Up By: 01/09/22 Additional Comments Continue monitoring food tolerance, %PO intake of meals , and BM.
[2022-01-03] MEDS: INSULIN LISPRO 100 UNIT/ML SUB-Q SCH ×4 (00:30→18:00)
[2022-01-03] MEDS: HEPARIN 5,000 UNIT/1 ML VIAL SUB-Q SCH ×3 (06:28→22:06)
--- NOTE | 2022-01-03 09:15 | Progress Note ---
Assessment and Plan Assessment and plan: --Abscess of left foot status post I&D Wound care, elevate the limb Continue current antibiotics, ID and surgery following --Probable chronic Osteomyelitis[on MRI foot] - Presented LLE swelling and left foot abscess - General Surgery consulted - s/p I&D of left foot by surgery on 12/24 and today - Vascular evaluated the patient - Continue current IV Abx Ancef 2 g every 8 hours for total 6 weeks stop date 02/11/[address] Kvng SAEED, if he can recommend alternative more affordable oral antibiotics And he informed that no other oral antibiotic is available to treat osteomyelitis. --Acute Hypoxemic Respiratory Failure ; requiring intubation Present on admission O2 sat on arrival was 60% Patient was intubated on the day of admission, extubated the next day Today patient is on room air saturating more than 94% --COVID 19 - campbell PCR test negative - Presented with unresponsiveness with agonal breathing - Intubated in the ED on 12/24, extubated next day Currently on room air saturating well --Community-Acquired Pneumonia - Imagings suggesting possible Left lung pneumonia - COVID PCR negative - Inflammatory markers and procal pending - Blood culture pending, Sputum culture growing GPC - Continue current IV Abx for now - ID following MSSA wound cultures MSSA urine cultures; ID recommend antibiotics Ancef 2 g every 8 hours stop date 02/10/2022 --Hyponatremia --Hypokalemia-improved - Probably related to dehydration/volume depletion - Na improved post IV hydration - Continue IVF resuscitation - Monitor and replace electrolytes as needed - Serial BMP Q6hrs - Strict intake and output #Acute Metabolic Encephalopathy - Probably r/t to multifactorial. hypoglycemia vs hyponatremia vs infectious process -Resolved #Hyperglycemia #Hypoglycemia-resolved #H/o Diabetes - Presented with low BG in the 30s required D10w gtt - Hyperglycemic this am, BG in the 300s - D/10w d/c - SSI initiated q6hrs - Continue IVF resuscitation with 1/2NS - Serial BMP - Avoid Hypoglycemia - Continue Hypoglycemic protocol #Transaminitis - Etiology unclear - Consult placed to gastroenterology for evaluation and recommendations - Continue to trend LFTs #GI/DVT prophylaxis - PPI- Pepcid - Continue AC- Hep SubQ This is a 56-year-old male with known history of DM admitted for Hypoglycemia, hyponatremia, and acute hypoxemic respiratory failure requiring ventilatory support. Pateint also noted with left foot abscess s/p I&D by Gen. Surgery. Hospital Course to Date: 12/25: Patient remains on the vent, awake, following commends on propofol gtt. Possible PST today, plan to wean to extubate. High BG this am, D10W gtt D/C. Hyponatremia is improving continue IVF resuscitation, serial BMP Q6hrs. LLE wound noted with CDI dressing. General Surgery recommendation noted, Vascular consulted. Wound Care also consulted. Continue current IV Abx for now, ID consulted for IV Abx management. 12/26: cx growing staph, wait for final report. Continue empiric antibiotics 12/27: Wound culture growing MSSA, continue empiric IV Ceftriaxone, PO Flagyl, IV vancomycin. Ordered for left foot MRI for further assessment of the infection 12/28: MRI left foot suggestive of plantar abscess, continue empiric antibiotics, patient would need another I and D, continue to follow clinically. 12/29: Continue empiric antibiotics per ID recommendation. MRI does demonstrate a multiloculated abscess of the left midfoot. vascular recommended debridement of the left foot as well as incision and drainage of the abscess in the operating room to ensure that all potential fluid pockets as well as necrotic tissue is well debrided -planned for tomorrow 12/30: S/p repeat I&D today, -antibiotics changed to IV Ancef 2 gm q8 hrs. Given abscess and osteomyelitis, will need to treat for 6 weeks. Case management consulted for Ancef 2 g every 8 hours until 02/10/2022. Order for PICC line 12/31; patient is evaluated by ID, in the setting of osteomyelitis recommended 6 weeks of IV Ancef, PICC line requested, case management setting up long-term antibiotics 01/01/2022; continue Ancef for total 6 weeks stop date 02/10/2022 Patient has social issues, no resources for long-term antibiotics, will check with ID for any alternative oral antibiotics that patient can afford 01/02; I discussed with ID Dr. Peralta if patient can be placed on alternative oral antibiotics due to patient's lack of resources and the high cost of the IV antibiotics , Dr. Peralta informed me that as patient has osteomyelitis patient needs IV Ancef for total 6 weeks and no other oral medications to treat osteomyelitis . Will inform the case management. 01/03; CM assisting with long-term antibiotics, follow-up with infusion center, and outpatient wound care PICC line is already ordered, discharge planning per case management Patient is medically stable for discharge History Interval history: I seen and examined the patient at the bedside Patient's chart and medications reviewed Patient feels slightly better CM assisting with long-term IV antibiotic ar rangements Patient has no resources Hospitalist Physical - Constitutional Vitals: Temp Pulse Resp BP Pulse Ox 99.2 F 81 16 169/89 97 01/03/22 08:36 01/03/22 08:36 01/03/22 08:36 01/03/22 08:36 01/03/22 08:36 General appearance: Present: no acute distress, well-nourished - EENT Eyes: Present: PERRL, EOM intact - Neck Neck: Present: supple, normal ROM - Respiratory Respiratory effort: normal Respiratory: bilateral: diminished, negative: rales, rhonchi, wheezing - Cardiovascular Rhythm: regular Heart Sounds: Present: S1 & S2 - Extremities Extremities: no ischemia, No edema, abnormal (Dressing foot in place) - Abdominal General gastrointestinal: soft, non-tender, non-distended, normal bowel sounds - Integumentary Integumentary: Present: clear, warm - Psychiatric Psychiatric: appropriate mood/affect - Neurologic Neurologic: moves all extremities HEART Score - HEART Score Troponin: Troponin T < 0.010 ng/mL (0.00-0.029) 12/24/21 22:33 Results - Labs CBC & Chem 7: 12/31/21 06:52 12/31/21 06:52 Labs: Laboratory Last Values WBC 9.9 K/mm3 (4.5-11.0) 12/31/21 06:52 RBC 3.05 M/mm3 (3.65-5.03) L 12/31/21 06:52 Hgb 9.1 gm/dl (11.8-15.2) L 12/31/21 06:52 Hct 26.9 % (35.5-45.6) L 12/31/21 06:52 MCV 88 fl (84-94) 12/31/21 06:52 MCH 30 pg (28-32) 12/31/21 06:52 MCHC 34 % (32-34) 12/31/21 06:52 RDW 14.7 % (13.2-15.2) 12/31/21 06:52 Plt Count 292 K/mm3 (140-440) 12/31/21 06:52 Lymph % (Auto) 17.3 % (13.4-35.0) 12/26/21 06:08 [place] % (Auto) 10.2 % (0.0-7.3) H 12/26/21 06:08 Eos % (Auto) 0.1 % (0.0-4.3) 12/26/21 06:08 Baso % (Auto) 0.4 % (0.0-1.8) 12/26/21 06:08 Lymph # (Auto) 1.2 K/mm3 (1.2-5.4) 12/26/21 06:08 [place] # (Auto) 0.7 K/mm3 (0.0-0.8) 12/26/21 06:08 Eos # (Auto) 0.0 K/mm3 (0.0-0.4) 12/26/21 06:08 Baso # (Auto) 0.0 K/mm3 (0.0-0.1) 12/26/21 06:08 Seg Neutrophils % 72.0 % (40.0-70.0) H 12/26/21 06:08 Seg Neutrophils # 4.9 K/mm3 (1.8-7.7) 12/26/21 06:08 PT 13.9 Sec. (12.2-14.9) 12/24/21 19:43 INR 0.96 (0.87-1.13) 12/24/21 19:43 APTT 39.7 Sec. (24.2-36.6) H 12/24/21 19:43 D-Dimer 2019.48 ng/mlDDU (0-234) H 12/25/21 08:26 ABG pH 7.386 pH Units (7.350-7.450) 12/24/21 Unknown ABG pCO2 32.7 mm Hg 12/24/21 Unknown ABG pO2 308.2 mm Hg (80.0-90.0) H 12/24/21 Unknown ABG HCO3 19.2 mmol/L (20.0-26.0) L 12/24/21 Unknown ABG O2 Saturation 99.5 % (95.0-99.0) H 12/24/21 Unknown ABG O2 Content 15.5 (0.0-44) 12/24/21 Unknown ABG Base Excess -5.0 mmol/L (-2.0-3.0) L 12/24/21 Unknown ABG Hemoglobin 10.6 gm/dl (14.0-18.0) L 12/24/21 Unknown ABG Carboxyhemoglobin 0.9 % (0.0-5.0) 12/24/21 Unknown ABG Methemoglobin 0.5 % (0.0-1.5) 12/24/21 Unknown Oxyhemoglobin 98.1 % (95.0-99.0) 12/24/21 Unknown FiO2 100 % 12/24/21 Unknown Sodium 138 mmol/L (137-145) 12/31/21 06:52 Potassium 3.1 mmol/L (3.6-5.0) L 12/31/21 06:52 Chloride 99.8 mmol/L (98-107) 12/31/21 06:52 Carbon Dioxide 28 mmol/L (22-30) 12/31/21 06:52 Anion Gap 13 mmol/L 12/31/21 06:52 BUN 5 mg/dL (9-20) L 12/31/21 06:52 Creatinine 0.5 mg/dL (0.8-1.3) L 12/31/21 06:52 Estimated GFR > 60 ml/min 12/31/21 06:52 BUN/Creatinine Ratio 10 % 12/31/21 06:52 Glucose 128 mg/dL (75-100) H 12/31/21 06:52 POC Glucose 211 mg/dL (70-105) H 01/02/22 20:04 Hemoglobin A1c 14.9 % (4-6) H 12/26/21 06:08 Lactic Acid 1.20 mmol/L (0.7-2.0) 12/24/21 22:33 Calcium 7.0 mg/dL (8.4-10.2) L 12/31/21 06:52 Phosphorus 3.40 mg/dL (2.5-4.5) 12/26/21 06:08 Magnesium 1.90 mg/dL (1.7-2.3) 12/26/21 06:08 Ferritin 1335.0 ng/mL (30.0-300.0) H 12/26/21 06:08 Total Bilirubin 0.40 mg/dL (0.1-1.2) 12/25/21 08:26 Direct Bilirubin < 0.2 mg/dL (0-0.2) 12/24/21 19:43 Indirect Bilirubin 0.2 mg/dL 12/24/21 19:43 AST 123 units/L (5-40) H 12/25/21 08:26 ALT 111 units/L (7-56) H 12/25/21 08:26 Alkaline Phosphatase 144 units/L (35-129) H 12/25/21 08:26 Ammonia 31.0 umol/L (25-60) 12/24/21 19:43 Lactate Dehydrogenase 215 units/L (91-180) H 12/25/21 08:26 Troponin T < 0.010 ng/mL (0.00-0.029) 12/24/21 22:33 C-Reactive Protein 34.10 mg/dL (0.00-1.30) H 12/25/21 08:26 NT-Pro-B Natriuret Pep 520.8 pg/mL (0-900) 12/24/21 19:43 Total Protein 6.8 g/dL (6.3-8.2) 12/25/21 08:26 Albumin 2.5 g/dL (3.9-5) L 12/25/21 08:26 Albumin/Globulin Ratio 0.6 % 12/25/21 08:26 Lipase 6 units/L (13-60) L 12/24/21 19:43 Procalcitonin 6.09 ng/mL (<0.15) 12/25/21 08:26 TSH 0.910 mlU/mL (0.270-4.200) 12/26/21 06:08 Urine Color Yellow (Yellow) 12/24/21 Unknown Urine Turbidity Slightly-cloudy (Clear) 12/24/21 Unknown Urine pH 6.0 (5.0-7.0) 12/24/21 Unknown Ur Specific [place] 1.020 (1.003-1.030) 12/24/21 Unknown Urine Protein 100 mg/dl mg/dL (Negative) 12/24/21 Unknown Urine Glucose (UA) Neg mg/dL (Negative) 12/24/21 Unknown Urine Ketones Neg mg/dL (Negative) 12/24/21 Unknown Urine Blood Mod (Negative) 12/24/21 Unknown Urine Nitrite Neg (Negative) 12/24/21 Unknown Urine Bilirubin Neg (Negative) 12/24/21 Unknown Urine Urobilinogen 2.0 mg/dL (<2.0) 12/24/21 Unknown Ur Leukocyte Esterase Neg (Negative) 12/24/21 Unknown Urine WBC (Auto) 1.0 /HPF (0.0-6.0) 12/24/21 Unknown Urine RBC (Auto) 1.0 /HPF (0.0-6.0) 12/24/21 Unknown U Epithel Cells (Auto) 1.0 /HPF (0-13.0) 12/24/21 Unknown Urine Bacteria (Auto) 1+ /HPF (Negative) 12/24/21 Unknown Urine Mucus Few /HPF 12/24/21 Unknown Vancomycin Trough 28.8 ug/mL (5.0-20.0) H 12/26/21 23:20 Salicylates < 0.3 mg/dL (2.8-20.0) L 12/24/21 19:43 Acetaminophen 5.0 ug/mL (10.0-30.0) L 12/24/21 19:43 Plasma/Serum Alcohol < 0.01 % (0-0.07) 12/24/21 19:43 Coronavirus (PCR) Negative (Negative) 12/25/21 09:45 Hepatitis A IgM Ab Non-reactive (NonReactive) 12/25/21 Unknown Hep Bs Antigen Non-reactive (Negative) 12/25/21 Unknown Hep B Core IgM Ab Non-reactive (NonReactive) 12/25/21 Unknown Hepatitis C Antibody Non-reactive (NonReactive) 12/25/21 Unknown Blood Type O POSITIVE 12/24/21 19:43 Antibody Screen Negative 12/24/21 19:43 Microbiology: Microbiology 12/30/21 Unknown Foot - Left Anaerobic Culture - Preliminary Phillip/IV: Voiding Method Indwelling Catheter Active Medications - Current Medications Current Medications: Generic Name Dose Route Start Last Admin Trade Name Freq PRN Reason Stop Dose Admin Acetaminophen 650 mg 12/25/21 01:40 Acetaminophen 650 Mg Rect Supp [place] Q6H PRN Pain MILD(1-3)/Fever >100.5/PATEL Acetaminophen 650 mg 12/29/21 04:27 01/02/22 11:00 Acetaminophen 325 Mg Tab PO 650 mg Q6H PRN Administration Pain, Mild (1-3) Dextrose 0 ml 12/25/21 02:02 Dextrose 10% *Hypoglycemia IV PRN PRN Hypoglycemia Protocol Famotidine 20 mg 12/25/21 10:00 01/02/22 22:00 Famotidine 20 Mg Tab PO 20 mg BID KELTON Administration Heparin Sodium (Porcine) 5,000 unit 12/25/21 06:00 01/03/22 06:28 Heparin 5,000 Unit/1 Ml Vial SUB-Q 5,000 unit Q8HR KELTON Administration Cefazolin Sodium 2 gm/ Sodium 100 mls @ 200 mls/hr 12/27/21 15:00 01/03/22 07:27 Chloride IV 02/10/22 23:29 200 mls/hr Q8H KELTON Administration Protocol Insulin Human Lispro 0 unit 12/25/21 12:00 01/03/22 00:30 Insulin Lispro 100 Unit/Ml SUB-Q 3 unit Q6HR KELTON Administration Protocol Magnesium Hydroxide 30 ml 12/25/21 01:40 Magnesium Hydroxide (Mom) Oral Liqd Udc PO Q4H PRN Constipation Morphine Sulfate 2 mg 12/25/21 01:40 Morphine 2 Mg/1 Ml Inj IV Q4H PRN Pain, Moderate (4-6) Ondansetron HCl 4 mg 12/25/21 01:40 Ondansetron 4 Mg/2 Ml Inj IV Q8H PRN Nausea And Vomiting Sodium Chloride 10 ml 12/25/21 10:00 01/02/22 22:00 Sodium Chloride 0.9% 10 Ml Flush Syringe IV 10 ml BID KELTON Administration Sodium Chloride 10 ml 12/25/21 01:40 01/02/22 16:27 Sodium Chloride 0.9% 10 Ml Flush Syringe IV 10 ml PRN PRN Administration LINE FLUSH Nutrition/Malnutrition Assess - Dietary Evaluation Nutrition/Malnutrition Findings: Nutrition Notes Start: 12/25/21 11:36 Freq: Status: Active Protocol: Document 01/02/22 17:08 ADELA (Rec: 01/02/22 17:32 ADELA [email or web address]) Nutrition Notes Initial or Follow up Reassessment Current Diagnosis Diabetes,Respiratory Failure Other Pertinent Diagnosis L-Foot Cellulitis/ Osteomyelitis, MSSA Bacteremia , CAP. Current Diet Cardiac/Consistent Carbohydrates Diet (since L ). Labs/Tests 01/02: N/A. Pertinent Medications 01/02: Insulin, others nutritionally unremarkable. Height 5 ft 3 in Weight 65.7 kg [place] Body Weight (kg) 56.36 BMI 25.6 Weight change and time frame No body weight change reported in 3 days. Weight Status Overweight Subjective/Other Information RD consult for routine F/U on Dietary Advancement. No reports available on Pt's PO intake of meals at the time , but diet appears to be well tolerated, according to RN notes.. Procedure 12/30: Drainage of L -Foot Abscess, well tolerated. Percent of energy/protein needs met: Prescribed Cardiac/Consistent Carbohydrates Diet provides for energy/protein needs (1, 977 Kcal/86 g) during LOS. Burn Absent Trauma Absent GI Symptoms None Food Allergy No Skin Integrity/Comment L-Foot s/p procedure Minimum of two criteria No #1 Nutrition Diagnosis Increased nutrient needs ( specify in comment below) Comments: Protein to support wound healing processes. No reports available on Pt's PO intake of meals at the time , but diet appears to be well tolerated, according to RN notes. Diagnosis Progress(for reassessment Improved documentation) Is patient on ventilator? No Is Patient Ambulatory and/or Out of Bed No REE-([facility]-confined to bed) [phone] Calculation Used for Recommendations [facility] Additional Notes Protein: 1.25-1.5 g/Kg; 83-99 g/day. Fluids: 1 ml/Kcal, or as per MD. Nutrition Intervention Change Diet Order: Continue Cardiac/Consistent Carbohydrates Diet. Goal #1 Maintain body weight within +/ -3% of admission body weight during LOS. Follow-Up By: 01/09/22 Additional Comments Continue monitoring food tolerance, %PO intake of meals , and BM.
[2022-01-03] MEDS: FAMOTIDINE 20 MG TAB PO SCH ×2 (11:35→22:06)
--- NOTE | 2022-01-03 11:40 | Progress Note ---
Assessment and Plan Cultures: 12/24/2021 blood culture: No growth 12/24/2021 urine culture: MSSA 12/24/2021 sputum culture: usual resp daniel 12/24/2021 left foot wound culture: MSSA 12/30/2021 surgical culture L foot: MSSA A/P: 56-year-old male with diabetes mellitus was admitted to the hospital on December 24, 2021 with altered mental status: #Left foot cellulitis with abscess, diabetic foot infection: underlying peripheral vascular disease as well as evidence of abscess and extensive osteomyelitis. Underwent bedside I&D in the ER and then in OR by general surgery. Cultures growing MSSA. Vascular evaluated, no interventions planned. #Left lower lobe pneumonia: completed abx, on room air. #Diabetes mellitus type 2, uncontrolled #MSSA in urine culture: Generally not a uropathogen in the absence of instrumentation, its presence in the urinary tract is typically bacteremia related but blood cultures remained negative. #Acute encephalopathy: resolved. Recs: -continue IV Ancef 2 gm q8 hrs x 6 weeks (ending 02/04/2022) at high risk of limb loss. Oral antibiotics not preferred, d/w Dr. Ardon -wound care -optimize glycemic control Gisele Peralta MD, FACP, [facility] O: [phone] F: [phone] C: [phone] Subjective Date of service: 01/03/22 Principal diagnosis: AHRF; CAP; AMS; Abscess of left foot; Possible Osteomyelitis; DM II Interval history: No fever. No new complaints. Denies any pain in the foot. Dressing + Objective - Exam Narrative Exam: Physical Exam: Constitutional: Alert, cooperative. No acute distress Head, Ears, Nose: Normocephalic, atraumatic. External ears, nose normal Eyes: Conjunctivae/corneas clear. No icterus. No ptosis. Neck: Supple, no meningeal signs Cardiovascular: S1, S2 + Respiratory: Good air entry, clear to auscultation bilaterally GI: Soft, non-tender; bowel sounds normal. No peritoneal signs Musculoskeletal: Left foot swelling +, dressing + Skin: No rash or abscess Hem/Lymphatic: No palpable cervical or supraclavicular nodes. No lymphangitis Psych: Mood ok. Affect normal Neurological: Awake, alert, oriented. No gross abnormality - Constitutional Vitals: Vital Signs Temp Pulse Resp BP Pulse Ox 99.2 F 81 16 169/89 97 01/03/22 08:36 01/03/22 08:36 01/03/22 08:36 01/03/22 08:36 01/03/22 08:36 Temperature -Last 24 Hours Temperature 99.2 F Temperature 99.5 F Temperature 99.0 F Temperature 98.5 F Temperature 97.8 F Temperature 98.1 F - Labs CBC & Chem 7: 12/31/21 06:52 12/31/21 06:52 Labs: Abnormal lab results 01/02/22 01/02/22 01/02/22 Range/Units 11:42 16:58 20:04 POC Glucose 210 H 166 H 211 H (70-105) mg/dL
--- NOTE | 2022-01-03 18:29 | Progress Note ---
Assessment and Plan 56-year-old male with known history of diabetes mellitus brought into the emergency room today via EMS after being found unresponsive and having agonal breathing. Most of the history was obtained from the ER staff as patient is already intubated and sedated. Patient was found to have been having agonal respiration and unresponsive by EMS. Was given albuterol nebulizing treatment and Solu-Medrol. He was subsequently intubated and sedated in the emergency room. Patient was said to have been missing from home for about 3 days was also said to have stepped on it nail with which his left foot. Left foot has been swollen and red. Work-up in the emergency room , initial blood glucose was 38, hypokalemia of 3.3 and hyponatremia of 128. Patient was given boluses of IV glucose with improvement of his blood glucose. General surgery consulted. He immediately had an incision and drainage of the swollen left foot. Patient started on antibiotics Zosyn, Vancomycin and Clindamycin. Patient also had a tetanus toxoid injection. CT of the head and neck, abdomen and pelvis did not reveal any acute abnormality. Chest x-ray within normal limits. Patient extubated . Patient transfered to Telemetry. atient awake. Resting on room air. O2 saturation 97%. Denies chest pain, shortness of breath or cough. Patient afebrile. No Leukocytosis. Blood pressure 145/74, Pulse 74 , Respirations 16. CT of chest done 12/25/[address] evidence for pulmonary embolism. Moderate left lower lobe pneumonia, unchanged. Patient presently on Cephazolin., S/C heparin and famotidine. - Patient Problems (1) Acute respiratory failure with hypoxia Current Visit: Yes Status: Acute Plan to address problem: Patient intubated and extubated. Patient presently on room air. O2 saturation 97%. (2) Abscess of left foot Current Visit: Yes Status: Acute Plan to address problem: Incision and drainage and wound care. (3) Pneumonia involving left lung Current Visit: Yes Status: Acute Plan to address problem: Patient was on multiple antibiotics. Zosyn, vancomycin, Clindamycin and Ceftriaxone. Patient presently on cephazolin. (4) Osteomyelitis of left foot Current Visit: Yes Status: Acute Plan to address problem: Antibiotics as per ID. Patient presently on cefazolin. Subjective Date of service: 01/03/22 Principal diagnosis: AHRF; CAP; AMS; Abscess of left foot; Possible Oste omyelitis; DM II Interval history: 56-year-old male with known history of diabetes mellitus brought into the emergency room today via EMS after being found unresponsive and having agonal breathing. Most of the history was obtained from the ER staff as patient is already intubated and sedated. Patient was found to have been having agonal respiration and unresponsive by EMS. Was given albuterol nebulizing treatment and Solu-Medrol. He was subsequently intubated and sedated in the emergency room. Patient was said to have been missing from home for about 3 days was also said to have stepped on it nail with which his left foot. Left foot has been swollen and red. Work-up in the emergency room , initial blood glucose was 38, hypokalemia of 3.3 and hyponatremia of 128. Patient was given boluses of IV glucose with improvement of his blood glucose. General surgery consulted. He immediately had an incision and drainage of the swollen left foot. Patient started on antibiotics Zosyn, Vancomycin and Clindamycin. Patient also had a tetanus toxoid injection. CT of the head and neck, abdomen and pelvis did not reveal any acute abnormality. Chest x-ray within normal limits. Patient extubated . Patient transfered to Telemetry. Patient awake. Resting on room air. O2 saturation 97%. Denies chest pain, shortness of breath or cough. Patient afebrile. No Leukocytosis. Blood pressure 145/74, Pulse 74 , Respirations 16. CT of chest done 12/25/[address] evidence for pulmonary embolism. Moderate left lower lobe pneumonia, unchanged. Patient presently on Cephazolin., S/C heparin and famotidine. Objective Vital Signs - 12hr 01/03/22 01/03/22 01/03/22 08:36 12:09 18:16 Temperature 99.2 F 98.0 F 97.9 F Pulse Rate 81 81 110 H Respiratory 16 16 17 Rate Blood Pressure 169/89 162/84 Blood Pressure 154/74 [Right] O2 Sat by Pulse 97 96 100 Oximetry Constitutional: no acute distress, alert Eyes: non-icteric ENT: oropharynx moist Neck: supple, no lymphadenopathy Effort: normal Ascultation: Bilateral: diminished breath sounds Percussion: Bilateral: not dull Cardiovascular: regular rate and rhythm Gastrointestinal: normoactive bowel sounds, soft, non-tender, non-distended Integumentary: other (L. foot infection) Extremities: no cyanosis, edema, other (Swelling of left foot. Left foot abscess .) Neurologic: non-focal exam, pupils equal and round, CN II-XII normal Psychiatric: mood appropriate, affect normal CBC and BMP: 12/31/21 06:52 12/31/21 06:52 ABG, PT/INR, D-dimer: ABG ABG pH 7.386 pH Units (7.350-7.450) 12/24/21 Unknown ABG pCO2 32.7 mm Hg 12/24/21 Unknown ABG pO2 308.2 mm Hg (80.0-90.0) H 12/24/21 Unknown ABG O2 Saturation 99.5 % (95.0-99.0) H 12/24/21 Unknown PT/INR, D-dimer PT 13.9 Sec. (12.2-14.9) 12/24/21 19:43 INR 0.96 (0.87-1.13) 12/24/21 19:43 D-Dimer 2019.48 ng/mlDDU (0-234) H 12/25/21 08:26 Abnormal lab findings: Abnormal Labs 12/24/21 12/24/21 12/24/21 19:43 19:43 19:43 RBC 3.58 L Hgb 10.3 L Hct 31.5 L Lymph % (Auto) [place] % (Auto) 10.9 H Lymph # (Auto) 1.1 L Seg Neutrophils % APTT 39.7 H D-Dimer ABG pO2 ABG HCO3 ABG O2 Saturation ABG Base Excess ABG Hemoglobin Sodium 128 L Potassium 3.3 L Chloride 95.9 L Carbon Dioxide 18 L BUN Creatinine 0.6 L Glucose 38 L* POC Glucose Hemoglobin A1c Calcium Ferritin AST 232 H ALT 126 H Alkaline Phosphatase 132 H Lactate Dehydrogenase C-Reactive Protein Albumin 2.6 L Lipase 6 L Vancomycin Trough Salicylates Acetaminophen 12/24/21 12/24/21 12/24/21 19:43 19:43 22:33 RBC Hgb Hct Lymph % (Auto) [place] % (Auto) Lymph # (Auto) Seg Neutrophils % APTT D-Dimer ABG pO2 ABG HCO3 ABG O2 Saturation ABG Base Excess ABG Hemoglobin Sodium 126 L Potassium 3.1 L Chloride 91.7 L Carbon Dioxide 19 L BUN Creatinine 0.7 L Glucose 115 H POC Glucose Hemoglobin A1c Calcium 8.3 L Ferritin AST ALT Alkaline Phosphatase Lactate Dehydrogenase C-Reactive Protein Albumin Lipase Vancomycin Trough Salicylates < 0.3 L Acetaminophen 5.0 L 12/24/21 12/25/21 12/25/21 Unknown 00:23 05:59 RBC Hgb Hct Lymph % (Auto) [place] % (Auto) Lymph # (Auto) Seg Neutrophils % APTT D-Dimer ABG pO2 308.2 H ABG HCO3 19.2 L ABG O2 Saturation 99.5 H ABG Base Excess -5.0 L ABG Hemoglobin 10.6 L Sodium Potassium Chloride Carbon Dioxide BUN Creatinine Glucose POC Glucose 157 H 469 H Hemoglobin A1c Calcium Ferritin AST ALT Alkaline Phosphatase Lactate Dehydrogenase C-Reactive Protein Albumin Lipase Vancomycin Trough Salicylates Acetaminophen 12/25/21 12/25/21 12/25/21 06:01 08:26 08:26 RBC Hgb 11.7 L Hct 35.2 L Lymph % (Auto) 9.8 L [place] % (Auto) Lymph # (Auto) 0.5 L Seg Neutrophils % 84.2 H APTT D-Dimer ABG pO2 ABG HCO3 ABG O2 Saturation ABG Base Excess ABG Hemoglobin Sodium 130 L Potassium Chloride 96.6 L Carbon Dioxide 19 L BUN Creatinine 0.7 L Glucose 323 H POC Glucose 316 H Hemoglobin A1c Calcium 8.3 L Ferritin AST 123 H ALT 111 H Alkaline Phosphatase 144 H Lactate Dehydrogenase C-Reactive Protein Albumin 2.5 L Lipase Vancomycin Trough Salicylates Acetaminophen 12/25/21 12/25/21 12/25/21 08:26 08:26 08:26 RBC Hgb Hct Lymph % (Auto) [place] % (Auto) Lymph # (Auto) Seg Neutrophils % APTT D-Dimer 2019.48 H ABG pO2 ABG HCO3 ABG O2 Saturation ABG Base Excess ABG Hemoglobin Sodium Potassium Chloride Carbon Dioxide BUN Creatinine Glucose POC Glucose Hemoglobin A1c Calcium Ferritin 1288.0 H AST ALT Alkaline Phosphatase Lactate Dehydrogenase 215 H C-Reactive Protein 34.10 H Albumin Lipase Vancomycin Trough Salicylates Acetaminophen 12/25/21 12/25/21 12/25/21 10:59 15:45 20:29 RBC Hgb Hct Lymph % (Auto) [place] % (Auto) Lymph # (Auto) Seg Neutrophils % APTT D-Dimer ABG pO2 ABG HCO3 ABG O2 Saturation ABG Base Excess ABG Hemoglobin Sodium 135 L Potassium Chloride Carbon Dioxide 17 L BUN Creatinine 0.6 L Glucose 161 H POC Glucose 305 H 236 H Hemoglobin A1c Calcium 7.9 L Ferritin AST ALT Alkaline Phosphatase Lactate Dehydrogenase C-Reactive Protein Albumin Lipase Vancomycin Trough Salicylates Acetaminophen 12/25/21 12/26/21 12/26/21 20:59 00:19 01:23 RBC Hgb Hct Lymph % (Auto) [place] % (Auto) Lymph # (Auto) Seg Neutrophils % APTT D-Dimer ABG pO2 ABG HCO3 ABG O2 Saturation ABG Base Excess ABG Hemoglobin Sodium 133 L Potassium Chloride Carbon Dioxide 17 L BUN Creatinine 0.6 L Glucose 178 H POC Glucose 184 H 191 H Hemoglobin A1c Calcium 7.9 L Ferritin AST ALT Alkaline Phosphatase Lactate Dehydrogenase C-Reactive Protein Albumin Lipase Vancomycin Trough Salicylates Acetaminophen 12/26/21 12/26/21 12/26/21 05:52 06:08 06:08 RBC 3.59 L Hgb 10.8 L Hct 32.2 L Lymph % (Auto) [place] % (Auto) 10.2 H Lymph # (Auto) Seg Neutrophils % 72.0 H APTT D-Dimer ABG pO2 ABG HCO3 ABG O2 Saturation ABG Base Excess ABG Hemoglobin Sodium 136 L Potassium Chloride Carbon Dioxide 18 L BUN Creatinine 0.7 L Glucose 154 H POC Glucose 133 H Hemoglobin A1c Calcium Ferritin AST ALT Alkaline Phosphatase Lactate Dehydrogenase C-Reactive Protein Albumin Lipase Vancomycin Trough Salicylates Acetaminophen 12/26/21 12/26/21 12/26/21 06:08 06:08 12:07 RBC Hgb Hct Lymph % (Auto) [place] % (Auto) Lymph # (Auto) Seg Neutrophils % APTT D-Dimer ABG pO2 ABG HCO3 ABG O2 Saturation ABG Base Excess ABG Hemoglobin Sodium Potassium Chloride Carbon Dioxide BUN Creatinine Glucose POC Glucose 210 H Hemoglobin A1c 14.9 H Calcium Ferritin 1335.0 H AST ALT Alkaline Phosphatase Lactate Dehydrogenase C-Reactive Protein Albumin Lipase Vancomycin Trough Salicylates Acetaminophen 12/26/21 12/26/21 12/27/21 17:14 23:20 00:09 RBC Hgb Hct Lymph % (Auto) [place] % (Auto) Lymph # (Auto) Seg Neutrophils % APTT D-Dimer ABG pO2 ABG HCO3 ABG O2 Saturation ABG Base Excess ABG Hemoglobin Sodium Potassium Chloride Carbon Dioxide BUN Creatinine Glucose POC Glucose 213 H 195 H Hemoglobin A1c Calcium Ferritin AST ALT Alkaline Phosphatase Lactate Dehydrogenase C-Reactive Protein Albumin Lipase Vancomycin Trough 28.8 H Salicylates Acetaminophen 12/27/21 12/27/21 12/27/21 06:14 12:04 17:23 RBC Hgb Hct Lymph % (Auto) [place] % (Auto) Lymph # (Auto) Seg Neutrophils % APTT D-Dimer ABG pO2 ABG HCO3 ABG O2 Saturation ABG Base Excess ABG Hemoglobin Sodium Potassium Chloride Carbon Dioxide BUN Creatinine Glucose POC Glucose 177 H 229 H 231 H Hemoglobin A1c Calcium Ferritin AST ALT Alkaline Phosphatase Lactate Dehydrogenase C-Reactive Protein Albumin Lipase Vancomycin Trough Salicylates Acetaminophen 12/27/21 12/28/21 12/28/21 23:56 06:57 12:03 RBC Hgb Hct Lymph % (Auto) [place] % (Auto) Lymph # (Auto) Seg Neutrophils % APTT D-Dimer ABG pO2 ABG HCO3 ABG O2 Saturation ABG Base Excess ABG Hemoglobin Sodium Potassium Chloride Carbon Dioxide BUN Creatinine Glucose POC Glucose 237 H 211 H 221 H Hemoglobin A1c Calcium Ferritin AST ALT Alkaline Phosphatase Lactate Dehydrogenase C-Reactive Protein Albumin Lipase Vancomycin Trough Salicylates Acetaminophen 12/28/21 12/29/21 12/29/21 16:29 00:01 05:25 RBC Hgb Hct Lymph % (Auto) [place] % (Auto) Lymph # (Auto) Seg Neutrophils % APTT D-Dimer ABG pO2 ABG HCO3 ABG O2 Saturation ABG Base Excess ABG Hemoglobin Sodium Potassium Chloride Carbon Dioxide BUN Creatinine Glucose POC Glucose 209 H 203 H 163 H Hemoglobin A1c Calcium Ferritin AST ALT Alkaline Phosphatase Lactate Dehydrogenase C-Reactive Protein Albumin Lipase Vancomycin Trough Salicylates Acetaminophen 12/29/21 12/29/21 12/30/21 11:51 17:02 00:01 RBC Hgb Hct Lymph % (Auto) [place] % (Auto) Lymph # (Auto) Seg Neutrophils % APTT D-Dimer ABG pO2 ABG HCO3 ABG O2 Saturation ABG Base Excess ABG Hemoglobin Sodium Potassium Chloride Carbon Dioxide BUN Creatinine Glucose POC Glucose 244 H 214 H 160 H Hemoglobin A1c Calcium Ferritin AST ALT Alkaline Phosphatase Lactate Dehydrogenase C-Reactive Protein Albumin Lipase Vancomycin Trough Salicylates Acetaminophen 12/30/21 12/30/21 12/30/21 05:48 11:10 14:34 RBC Hgb Hct Lymph % (Auto) [place] % (Auto) Lymph # (Auto) Seg Neutrophils % APTT D-Dimer ABG pO2 ABG HCO3 ABG O2 Saturation ABG Base Excess ABG Hemoglobin Sodium Potassium Chloride Carbon Dioxide BUN Creatinine Glucose POC Glucose 121 H 159 H 167 H Hemoglobin A1c Calcium Ferritin AST ALT Alkaline Phosphatase Lactate Dehydrogenase C-Reactive Protein Albumin Lipase Vancomycin Trough Salicylates Acetaminophen 12/30/21 12/30/21 12/31/21 16:00 20:46 05:04 RBC Hgb Hct Lymph % (Auto) [place] % (Auto) Lymph # (Auto) Seg Neutrophils % APTT D-Dimer ABG pO2 ABG HCO3 ABG O2 Saturation ABG Base Excess ABG Hemoglobin Sodium Potassium Chloride Carbon Dioxide BUN Creatinine Glucose POC Glucose 172 H 254 H 158 H Hemoglobin A1c Calcium Ferritin AST ALT Alkaline Phosphatase Lactate Dehydrogenase C-Reactive Protein Albumin Lipase Vancomycin Trough Salicylates Acetaminophen 12/31/21 12/31/21 12/31/21 06:52 06:52 12:47 RBC 3.05 L Hgb 9.1 L Hct 26.9 L Lymph % (Auto) [place] % (Auto) Lymph # (Auto) Seg Neutrophils % APTT D-Dimer ABG pO2 ABG HCO3 ABG O2 Saturation ABG Base Excess ABG Hemoglobin Sodium Potassium 3.1 L Chloride Carbon Dioxide BUN 5 L Creatinine 0.5 L Glucose 128 H POC Glucose 163 H Hemoglobin A1c Calcium 7.0 L Ferritin AST ALT Alkaline Phosphatase Lactate Dehydrogenase C-Reactive Protein Albumin Lipase Vancomycin Trough Salicylates Acetaminophen 12/31/21 01/01/22 01/01/22 21:35 06:24 07:26 RBC Hgb Hct Lymph % (Auto) [place] % (Auto) Lymph # (Auto) Seg Neutrophils % APTT D-Dimer ABG pO2 ABG HCO3 ABG O2 Saturation ABG Base Excess ABG Hemoglobin Sodium Potassium Chloride Carbon Dioxide BUN Creatinine Glucose POC Glucose 153 H 119 H 109 H Hemoglobin A1c Calcium Ferritin AST ALT Alkaline Phosphatase Lactate Dehydrogenase C-Reactive Protein Albumin Lipase Vancomycin Trough Salicylates Acetaminophen 01/01/22 01/01/22 01/01/22 11:38 16:04 21:46 RBC Hgb Hct Lymph % (Auto) [place] % (Auto) Lymph # (Auto) Seg Neutrophils % APTT D-Dimer ABG pO2 ABG HCO3 ABG O2 Saturation ABG Base Excess ABG Hemoglobin Sodium Potassium Chloride Carbon Dioxide BUN Creatinine Glucose POC Glucose 175 H 187 H 242 H Hemoglobin A1c Calcium Ferritin AST ALT Alkaline Phosphatase Lactate Dehydrogenase C-Reactive Protein Albumin Lipase Vancomycin Trough Salicylates Acetaminophen 01/02/22 01/02/22 01/02/22 06:00 09:13 11:42 RBC Hgb Hct Lymph % (Auto) [place] % (Auto) Lymph # (Auto) Seg Neutrophils % APTT D-Dimer ABG pO2 ABG HCO3 ABG O2 Saturation ABG Base Excess ABG Hemoglobin Sodium Potassium Chloride Carbon Dioxide BUN Creatinine Glucose POC Glucose 137 H 158 H 210 H Hemoglobin A1c Calcium Ferritin AST ALT Alkaline Phosphatase Lactate Dehydrogenase C-Reactive Protein Albumin Lipase Vancomycin Trough Salicylates Acetaminophen 01/02/22 01/02/22 01/03/22 16:58 20:04 12:10 RBC Hgb Hct Lymph % (Auto) [place] % (Auto) Lymph # (Auto) Seg Neutrophils % APTT D-Dimer ABG pO2 ABG HCO3 ABG O2 Saturation ABG Base Excess ABG Hemoglobin Sodium Potassium Chloride Carbon Dioxide BUN Creatinine Glucose POC Glucose 166 H 211 H 179 H Hemoglobin A1c Calcium Ferritin AST ALT Alkaline Phosphatase Lactate Dehydrogenase C-Reactive Protein Albumin Lipase Vancomycin Trough Salicylates Acetaminophen 01/03/22 18:05 RBC Hgb Hct Lymph % (Auto) [place] % (Auto) Lymph # (Auto) Seg Neutrophils % APTT D-Dimer ABG pO2 ABG HCO3 ABG O2 Saturation ABG Base Excess ABG Hemoglobin Sodium Potassium Chloride Carbon Dioxide BUN Creatinine Glucose POC Glucose 251 H Hemoglobin A1c Calcium Ferritin AST ALT Alkaline Phosphatase Lactate Dehydrogenase C-Reactive Protein Albumin Lipase Vancomycin Trough Salicylates Acetaminophen Allied health notes reviewed: nursing
[2022-01-04] MEDS: INSULIN LISPRO 100 UNIT/ML SUB-Q SCH ×4 (01:23→17:54)
[2022-01-04] MEDS: HEPARIN 5,000 UNIT/1 ML VIAL SUB-Q SCH ×3 (05:07→21:19)
[2022-01-04] MEDS: FAMOTIDINE 20 MG TAB PO SCH ×2 (09:12→21:19)
--- NOTE | 2022-01-04 18:12 | Progress Note ---
Assessment and Plan 56-year-old male with known history of diabetes mellitus brought into the emergency room today via EMS after being found unresponsive and having agonal breathing. Most of the history was obtained from the ER staff as patient is already intubated and sedated. Patient was found to have been having agonal respiration and unresponsive by EMS. Was given albuterol nebulizing treatment and Solu-Medrol. He was subsequently intubated and sedated in the emergency room. Patient was said to have been missing from home for about 3 days was also said to have stepped on it nail with which his left foot. Left foot has been swollen and red. Work-up in the emergency room , initial blood glucose was 38, hypokalemia of 3.3 and hyponatremia of 128. Patient was given boluses of IV glucose with improvement of his blood glucose. General surgery consulted. He immediately had an incision and drainage of the swollen left foot. Patient started on antibiotics Zosyn, Vancomycin and Clindamycin. Patient also had a tetanus toxoid injection. CT of the head and neck, abdomen and pelvis did not reveal any acute abnormality. Chest x-ray within normal limits. Patient extubated . Patient transfered to Telemetry. Patient sleeping on room air. O2 saturation 98%. No acute respiratory distress. Patient afebrile. No Leukocytosis. Blood pressure 167/85, Pulse 78, Respirations 16. CT of chest done 12/25/[address] evidence for pulmonary embolism. Moderate left lower lobe pneumonia, unchanged. Patient presently on Cephazolin., S/C heparin and famotidine. - Patient Problems (1) Acute respiratory failure with hypoxia Current Visit: Yes Status: Acute Plan to address problem: Patient intubated and extubated. Patient presently on room air. O2 saturation 98%. (2) Abscess of left foot Current Visit: Yes Status: Acute Plan to address problem: Incision and drainage and wound care. (3) Pneumonia involving left lung Current Visit: Yes Status: Acute Plan to address problem: Patient was on multiple antibiotics. Zosyn, vancomycin, Clindamycin and Ceftriaxone. Patient presently on cephazolin. (4) Osteomyelitis of left foot Current Visit: Yes Status: Acute Plan to address problem: Antibiotics as per ID. Patient presently on cefazolin. Subjective Date of service: 01/04/22 Principal diagnosis: AHRF; CAP; AMS; Abscess of left foot; Possible Osteomyelitis; DM II Interval history: 56-year-old male with known history of diabetes mellitus brought into the emergency room today via EMS after being found unresponsive and having agonal breathing. Most of the history was obtained from the ER staff as patient is already intubated and sedated. Patient was found to have been having agonal respiration and unresponsive by EMS. Was given albuterol nebulizing treatment and Solu-Medrol. He was subsequently intubated and sedated in the emergency room. Patient was said to have been missing from home for about 3 days was also said to have stepped on it nail with which his left foot. Left foot has been swollen and red. Work-up in the emergency room , initial blood glucose was 38, hypokalemia of 3.3 and hyponatremia of 128. Patient was given boluses of IV glucose with improvement of his blood glucose. General surgery consulted. He immediately had an incision and drainage of the swollen left foot. Patient started on antibiotics Zosyn, Vancomycin and Clindamycin. Patient also had a tetanus toxoid injection. CT of the head and neck, abdomen and pelvis did not reveal any acute abnormality. Chest x-ray within normal limits. Patient extubated . Patient transfered to Telemetry. Patient sleeping on room air. O2 saturation 98%. No acute respiratory distress. Patient afebrile. No Leukocytosis. Blood pressure 167/85, Pulse 78, Respirations 16. CT of chest done 12/25/[address] evidence for pulmonary embolism. Moderate left lower lobe pneumonia, unchanged. Patient presently on Cephazolin., S/C heparin and famotidine. Objective Vital Signs - 12hr 01/04/22 01/04/22 01/04/22 07:12 09:00 11:15 Temperature 98.5 F 98.8 F Pulse Rate 72 64 Respiratory 20 18 Rate Blood Pressure 172/88 158/82 O2 Sat by Pulse 97 98 96 Oximetry 01/04/22 16:05 Temperature 98.5 F Pulse Rate 77 Respiratory 16 Rate Blood Pressure 153/82 O2 Sat by Pulse 97 Oximetry Constitutional: no acute distress, asleep Eyes: non-icteric ENT: oropharynx moist Neck: supple, no lymphadenopathy Effort: normal Ascultation: Bilateral: diminished breath sounds Percussion: Bilateral: not dull Cardiovascular: regular rate and rhythm Gastrointestinal: normoactive bowel sounds, soft, non-tender, non-distended Integumentary: other (L. foot infection) Extremities: no cyanosis, edema, other (Swelling of left foot. Left foot abscess .) Neurologic: non-focal exam, pupils equal and round, CN II-XII normal Psychiatric: mood appropriate, affect normal CBC and BMP: 12/31/21 06:52 12/31/21 06:52 ABG, PT/INR, D-dimer: ABG ABG pH 7.386 pH Units (7.350-7.450) 12/24/21 Unknown ABG pCO2 32.7 mm Hg 12/24/21 Unknown ABG pO2 308.2 mm Hg (80.0-90.0) H 12/24/21 Unknown ABG O2 Saturation 99.5 % (95.0-99.0) H 12/24/21 Unknown PT/INR, D-dimer PT 13.9 Sec. (12.2-14.9) 12/24/21 19:43 INR 0.96 (0.87-1.13) 12/24/21 19:43 D-Dimer 2019.48 ng/mlDDU (0-234) H 12/25/21 08:26 Abnormal lab findings: Abnormal Labs 12/24/21 12/24/21 12/24/21 19:43 19:43 19:43 RBC 3.58 L Hgb 10.3 L Hct 31.5 L Lymph % (Auto) [place] % (Auto) 10.9 H Lymph # (Auto) 1.1 L Seg Neutrophils % APTT 39.7 H D-Dimer ABG pO2 ABG HCO3 ABG O2 Saturation ABG Base Excess ABG Hemoglobin Sodium 128 L Potassium 3.3 L Chloride 95.9 L Carbon Dioxide 18 L BUN Creatinine 0.6 L Glucose 38 L* POC Glucose Hemoglobin A1c Calcium Ferritin AST 232 H ALT 126 H Alkaline Phosphatase 132 H Lactate Dehydrogenase C-Reactive Protein Albumin 2.6 L Lipase 6 L Vancomycin Trough Salicylates Acetaminophen 12/24/21 12/24/21 12/24/21 19:43 19:43 22:33 RBC Hgb Hct Lymph % (Auto) [place] % (Auto) Lymph # (Auto) Seg Neutrophils % APTT D-Dimer ABG pO2 ABG HCO3 ABG O2 Saturation ABG Base Excess ABG Hemoglobin Sodium 126 L Potassium 3.1 L Chloride 91.7 L Carbon Dioxide 19 L BUN Creatinine 0.7 L Glucose 115 H POC Glucose Hemoglobin A1c Calcium 8.3 L Ferritin AST ALT Alkaline Phosphatase Lactate Dehydrogenase C-Reactive Protein Albumin Lipase Vancomycin Trough Salicylates < 0.3 L Acetaminophen 5.0 L 12/24/21 12/25/21 12/25/21 Unknown 00:23 05:59 RBC Hgb Hct Lymph % (Auto) [place] % (Auto) Lymph # (Auto) Seg Neutrophils % APTT D-Dimer ABG pO2 308.2 H ABG HCO3 19.2 L ABG O2 Saturation 99.5 H ABG Base Excess -5.0 L ABG Hemoglobin 10.6 L Sodium Potassium Chloride Carbon Dioxide BUN Creatinine Glucose POC Glucose 157 H 469 H Hemoglobin A1c Calcium Ferritin AST ALT Alkaline Phosphatase Lactate Dehydrogenase C-Reactive Protein Albumin Lipase Vancomycin Trough Salicylates Acetaminophen 12/25/21 12/25/21 12/25/21 06:01 08:26 08:26 RBC Hgb 11.7 L Hct 35.2 L Lymph % (Auto) 9.8 L [place] % (Auto) Lymph # (Auto) 0.5 L Seg Neutrophils % 84.2 H APTT D-Dimer ABG pO2 ABG HCO3 ABG O2 Saturation ABG Base Excess ABG Hemoglobin Sodium 130 L Potassium Chloride 96.6 L Carbon Dioxide 19 L BUN Creatinine 0.7 L Glucose 323 H POC Glucose 316 H Hemoglobin A1c Calcium 8.3 L Ferritin AST 123 H ALT 111 H Alkaline Phosphatase 144 H Lactate Dehydrogenase C-Reactive Protein Albumin 2.5 L Lipase Vancomycin Trough Salicylates Acetaminophen 12/25/21 12/25/21 12/25/21 08:26 08:26 08:26 RBC Hgb Hct Lymph % (Auto) [place] % (Auto) Lymph # (Auto) Seg Neutrophils % APTT D-Dimer 2019.48 H ABG pO2 ABG HCO3 ABG O2 Saturation ABG Base Excess ABG Hemoglobin Sodium Potassium Chloride Carbon Dioxide BUN Creatinine Glucose POC Glucose Hemoglobin A1c Calcium Ferritin 1288.0 H AST ALT Alkaline Phosphatase Lactate Dehydrogenase 215 H C-Reactive Protein 34.10 H Albumin Lipase Vancomycin Trough Salicylates Acetaminophen 12/25/21 12/25/21 12/25/21 10:59 15:45 20:29 RBC Hgb Hct Lymph % (Auto) [place] % (Auto) Lymph # (Auto) Seg Neutrophils % APTT D-Dimer ABG pO2 ABG HCO3 ABG O2 Saturation ABG Base Excess ABG Hemoglobin Sodium 135 L Potassium Chloride Carbon Dioxide 17 L BUN Creatinine 0.6 L Glucose 161 H POC Glucose 305 H 236 H Hemoglobin A1c Calcium 7.9 L Ferritin AST ALT Alkaline Phosphatase Lactate Dehydrogenase C-Reactive Protein Albumin Lipase Vancomycin Trough Salicylates Acetaminophen 12/25/21 12/26/21 12/26/21 20:59 00:19 01:23 RBC Hgb Hct Lymph % (Auto) [place] % (Auto) Lymph # (Auto) Seg Neutrophils % APTT D-Dimer ABG pO2 ABG HCO3 ABG O2 Saturation ABG Base Excess ABG Hemoglobin Sodium 133 L Potassium Chloride Carbon Dioxide 17 L BUN Creatinine 0.6 L Glucose 178 H POC Glucose 184 H 191 H Hemoglobin A1c Calcium 7.9 L Ferritin AST ALT Alkaline Phosphatase Lactate Dehydrogenase C-Reactive Protein Albumin Lipase Vancomycin Trough Salicylates Acetaminophen 12/26/21 12/26/21 12/26/21 05:52 06:08 06:08 RBC 3.59 L Hgb 10.8 L Hct 32.2 L Lymph % (Auto) [place] % (Auto) 10.2 H Lymph # (Auto) Seg Neutrophils % 72.0 H APTT D-Dimer ABG pO2 ABG HCO3 ABG O2 Saturation ABG Base Excess ABG Hemoglobin Sodium 136 L Potassium Chloride Carbon Dioxide 18 L BUN Creatinine 0.7 L Glucose 154 H POC Glucose 133 H Hemoglobin A1c Calcium Ferritin AST ALT Alkaline Phosphatase Lactate Dehydrogenase C-Reactive Protein Albumin Lipase Vancomycin Trough Salicylates Acetaminophen 12/26/21 12/26/21 12/26/21 06:08 06:08 12:07 RBC Hgb Hct Lymph % (Auto) [place] % (Auto) Lymph # (Auto) Seg Neutrophils % APTT D-Dimer ABG pO2 ABG HCO3 ABG O2 Saturation ABG Base Excess ABG Hemoglobin Sodium Potassium Chloride Carbon Dioxide BUN Creatinine Glucose POC Glucose 210 H Hemoglobin A1c 14.9 H Calcium Ferritin 1335.0 H AST ALT Alkaline Phosphatase Lactate Dehydrogenase C-Reactive Protein Albumin Lipase Vancomycin Trough Salicylates Acetaminophen 12/26/21 12/26/21 12/27/21 17:14 23:20 00:09 RBC Hgb Hct Lymph % (Auto) [place] % (Auto) Lymph # (Auto) Seg Neutrophils % APTT D-Dimer ABG pO2 ABG HCO3 ABG O2 Saturation ABG Base Excess ABG Hemoglobin Sodium Potassium Chloride Carbon Dioxide BUN Creatinine Glucose POC Glucose 213 H 195 H Hemoglobin A1c Calcium Ferritin AST ALT Alkaline Phosphatase Lactate Dehydrogenase C-Reactive Protein Albumin Lipase Vancomycin Trough 28.8 H Salicylates Acetaminophen 12/27/21 12/27/21 12/27/21 06:14 12:04 17:23 RBC Hgb Hct Lymph % (Auto) [place] % (Auto) Lymph # (Auto) Seg Neutrophils % APTT D-Dimer ABG pO2 ABG HCO3 ABG O2 Saturation ABG Base Excess ABG Hemoglobin Sodium Potassium Chloride Carbon Dioxide BUN Creatinine Glucose POC Glucose 177 H 229 H 231 H Hemoglobin A1c Calcium Ferritin AST ALT Alkaline Phosphatase Lactate Dehydrogenase C-Reactive Protein Albumin Lipase Vancomycin Trough Salicylates Acetaminophen 12/27/21 12/28/21 12/28/21 23:56 06:57 12:03 RBC Hgb Hct Lymph % (Auto) [place] % (Auto) Lymph # (Auto) Seg Neutrophils % APTT D-Dimer ABG pO2 ABG HCO3 ABG O2 Saturation ABG Base Excess ABG Hemoglobin Sodium Potassium Chloride Carbon Dioxide BUN Creatinine Glucose POC Glucose 237 H 211 H 221 H Hemoglobin A1c Calcium Ferritin AST ALT Alkaline Phosphatase Lactate Dehydrogenase C-Reactive Protein Albumin Lipase Vancomycin Trough Salicylates Acetaminophen 12/28/21 12/29/21 12/29/21 16:29 00:01 05:25 RBC Hgb Hct Lymph % (Auto) [place] % (Auto) Lymph # (Auto) Seg Neutrophils % APTT D-Dimer ABG pO2 ABG HCO3 ABG O2 Saturation ABG Base Excess ABG Hemoglobin Sodium Potassium Chloride Carbon Dioxide BUN Creatinine Glucose POC Glucose 209 H 203 H 163 H Hemoglobin A1c Calcium Ferritin AST ALT Alkaline Phosphatase Lactate Dehydrogenase C-Reactive Protein Albumin Lipase Vancomycin Trough Salicylates Acetaminophen 12/29/21 12/29/21 12/30/21 11:51 17:02 00:01 RBC Hgb Hct Lymph % (Auto) [place] % (Auto) Lymph # (Auto) Seg Neutrophils % APTT D-Dimer ABG pO2 ABG HCO3 ABG O2 Saturation ABG Base Excess ABG Hemoglobin Sodium Potassium Chloride Carbon Dioxide BUN Creatinine Glucose POC Glucose 244 H 214 H 160 H Hemoglobin A1c Calcium Ferritin AST ALT Alkaline Phosphatase Lactate Dehydrogenase C-Reactive Protein Albumin Lipase Vancomycin Trough Salicylates Acetaminophen 12/30/21 12/30/21 12/30/21 05:48 11:10 14:34 RBC Hgb Hct Lymph % (Auto) [place] % (Auto) Lymph # (Auto) Seg Neutrophils % APTT D-Dimer ABG pO2 ABG HCO3 ABG O2 Saturation ABG Base Excess ABG Hemoglobin Sodium Potassium Chloride Carbon Dioxide BUN Creatinine Glucose POC Glucose 121 H 159 H 167 H Hemoglobin A1c Calcium Ferritin AST ALT Alkaline Phosphatase Lactate Dehydrogenase C-Reactive Protein Albumin Lipase Vancomycin Trough Salicylates Acetaminophen 12/30/21 12/30/21 12/31/21 16:00 20:46 05:04 RBC Hgb Hct Lymph % (Auto) [place] % (Auto) Lymph # (Auto) Seg Neutrophils % APTT D-Dimer ABG pO2 ABG HCO3 ABG O2 Saturation ABG Base Excess ABG Hemoglobin Sodium Potassium Chloride Carbon Dioxide BUN Creatinine Glucose POC Glucose 172 H 254 H 158 H Hemoglobin A1c Calcium Ferritin AST ALT Alkaline Phosphatase Lactate Dehydrogenase C-Reactive Protein Albumin Lipase Vancomycin Trough Salicylates Acetaminophen 12/31/21 12/31/21 12/31/21 06:52 06:52 12:47 RBC 3.05 L Hgb 9.1 L Hct 26.9 L Lymph % (Auto) [place] % (Auto) Lymph # (Auto) Seg Neutrophils % APTT D-Dimer ABG pO2 ABG HCO3 ABG O2 Saturation ABG Base Excess ABG Hemoglobin Sodium Potassium 3.1 L Chloride Carbon Dioxide BUN 5 L Creatinine 0.5 L Glucose 128 H POC Glucose 163 H Hemoglobin A1c Calcium 7.0 L Ferritin AST ALT Alkaline Phosphatase Lactate Dehydrogenase C-Reactive Protein Albumin Lipase Vancomycin Trough Salicylates Acetaminophen 12/31/21 01/01/22 01/01/22 21:35 06:24 07:26 RBC Hgb Hct Lymph % (Auto) [place] % (Auto) Lymph # (Auto) Seg Neutrophils % APTT D-Dimer ABG pO2 ABG HCO3 ABG O2 Saturation ABG Base Excess ABG Hemoglobin Sodium Potassium Chloride Carbon Dioxide BUN Creatinine Glucose POC Glucose 153 H 119 H 109 H Hemoglobin A1c Calcium Ferritin AST ALT Alkaline Phosphatase Lactate Dehydrogenase C-Reactive Protein Albumin Lipase Vancomycin Trough Salicylates Acetaminophen 01/01/22 01/01/22 01/01/22 11:38 16:04 21:46 RBC Hgb Hct Lymph % (Auto) [place] % (Auto) Lymph # (Auto) Seg Neutrophils % APTT D-Dimer ABG pO2 ABG HCO3 ABG O2 Saturation ABG Base Excess ABG Hemoglobin Sodium Potassium Chloride Carbon Dioxide BUN Creatinine Glucose POC Glucose 175 H 187 H 242 H Hemoglobin A1c Calcium Ferritin AST ALT Alkaline Phosphatase Lactate Dehydrogenase C-Reactive Protein Albumin Lipase Vancomycin Trough Salicylates Acetaminophen 01/02/22 01/02/22 01/02/22 06:00 09:13 11:42 RBC Hgb Hct Lymph % (Auto) [place] % (Auto) Lymph # (Auto) Seg Neutrophils % APTT D-Dimer ABG pO2 ABG HCO3 ABG O2 Saturation ABG Base Excess ABG Hemoglobin Sodium Potassium Chloride Carbon Dioxide BUN Creatinine Glucose POC Glucose 137 H 158 H 210 H Hemoglobin A1c Calcium Ferritin AST ALT Alkaline Phosphatase Lactate Dehydrogenase C-Reactive Protein Albumin Lipase Vancomycin Trough Salicylates Acetaminophen 01/02/22 01/02/22 01/03/22 16:58 20:04 12:10 RBC Hgb Hct Lymph % (Auto) [place] % (Auto) Lymph # (Auto) Seg Neutrophils % APTT D-Dimer ABG pO2 ABG HCO3 ABG O2 Saturation ABG Base Excess ABG Hemoglobin Sodium Potassium Chloride Carbon Dioxide BUN Creatinine Glucose POC Glucose 166 H 211 H 179 H Hemoglobin A1c Calcium Ferritin AST ALT Alkaline Phosphatase Lactate Dehydrogenase C-Reactive Protein Albumin Lipase Vancomycin Trough Salicylates Acetaminophen 01/03/22 01/03/22 01/04/22 18:05 22:02 05:29 RBC Hgb Hct Lymph % (Auto) [place] % (Auto) Lymph # (Auto) Seg Neutrophils % APTT D-Dimer ABG pO2 ABG HCO3 ABG O2 Saturation ABG Base Excess ABG Hemoglobin Sodium Potassium Chloride Carbon Dioxide BUN Creatinine Glucose POC Glucose 251 H 251 H 140 H Hemoglobin A1c Calcium Ferritin AST ALT Alkaline Phosphatase Lactate Dehydrogenase C-Reactive Protein Albumin Lipase Vancomycin Trough Salicylates Acetaminophen 01/04/22 01/04/22 01/04/22 07:11 11:14 16:04 RBC Hgb Hct Lymph % (Auto) [place] % (Auto) Lymph # (Auto) Seg Neutrophils % APTT D-Dimer ABG pO2 ABG HCO3 ABG O2 Saturation ABG Base Excess ABG Hemoglobin Sodium Potassium Chloride Carbon Dioxide BUN Creatinine Glucose POC Glucose 144 H 268 H 176 H Hemoglobin A1c Calcium Ferritin AST ALT Alkaline Phosphatase Lactate Dehydrogenase C-Reactive Protein Albumin Lipase Vancomycin Trough Salicylates Acetaminophen Allied health notes reviewed: nursing
--- NOTE | 2022-01-04 19:33 | Progress Note ---
Assessment and Plan Assessment and plan: --Abscess of left foot status post I&D Wound care, elevate the limb Continue current antibiotics, ID and surgery following --Probable chronic Osteomyelitis[on MRI foot] - Presented LLE swelling and left foot abscess - General Surgery consulted - s/p I&D of left foot by surgery on 12/24 and today - Vascular evaluated the patient - Continue current IV Abx Ancef 2 g every 8 hours for total 6 weeks stop date 02/11/[address] Kvng SAEED, if he can recommend alternative more affordable oral antibiotics And he informed that no other oral antibiotic is available to treat osteomyelitis. --Acute Hypoxemic Respiratory Failure ; requiring intubation Present on admission O2 sat on arrival was 60% Patient was intubated on the day of admission, extubated the next day Today patient is on room air saturating more than 94% --COVID 19 - campbell PCR test negative - Presented with unresponsiveness with agonal breathing - Intubated in the ED on 12/24, extubated next day Currently on room air saturating well --Community-Acquired Pneumonia - Imagings suggesting possible Left lung pneumonia - COVID PCR negative - Inflammatory markers and procal pending - Blood culture pending, Sputum culture growing GPC - Continue current IV Abx for now - ID following MSSA wound cultures MSSA urine cultures; ID recommend antibiotics Ancef 2 g every 8 hours stop date 02/10/2022 --Hyponatremia --Hypokalemia-improved - Probably related to dehydration/volume depletion - Na improved post IV hydration - Continue IVF resuscitation - Monitor and replace electrolytes as needed - Serial BMP Q6hrs - Strict intake and output #Acute Metabolic Encephalopathy - Probably r/t to multifactorial. hypoglycemia vs hyponatremia vs infectious process -Resolved #Hyperglycemia #Hypoglycemia-resolved #H/o Diabetes - Presented with low BG in the 30s required D10w gtt - Hyperglycemic this am, BG in the 300s - D/10w d/c - SSI initiated q6hrs - Continue IVF resuscitation with 1/2NS - Serial BMP - Avoid Hypoglycemia - Continue Hypoglycemic protocol #Transaminitis - Etiology unclear - Consult placed to gastroenterology for evaluation and recommendations - Continue to trend LFTs #GI/DVT prophylaxis - PPI- Pepcid - Continue AC- Hep SubQ This is a 56-year-old male with known history of DM admitted for Hypoglycemia, hyponatremia, and acute hypoxemic respiratory failure requiring ventilatory support. Pateint also noted with left foot abscess s/p I&D by Gen. Surgery. Hospital Course to Date: 12/25: Patient remains on the vent, awake, following commends on propofol gtt. Possible PST today, plan to wean to extubate. High BG this am, D10W gtt D/C. Hyponatremia is improving continue IVF resuscitation, serial BMP Q6hrs. LLE wound noted with CDI dressing. General Surgery recommendation noted, Vascular consulted. Wound Care also consulted. Continue current IV Abx for now, ID consulted for IV Abx management. 12/26: cx growing staph, wait for final report. Continue empiric antibiotics 12/27: Wound culture growing MSSA, continue empiric IV Ceftriaxone, PO Flagyl, IV vancomycin. Ordered for left foot MRI for further assessment of the infection 12/28: MRI left foot suggestive of plantar abscess, continue empiric antibiotics, patient would need another I and D, continue to follow clinically. 12/29: Continue empiric antibiotics per ID recommendation. MRI does demonstrate a multiloculated abscess of the left midfoot. vascular recommended debridement of the left foot as well as incision and drainage of the abscess in the operating room to ensure that all potential fluid pockets as well as necrotic tissue is well debrided -planned for tomorrow 12/30: S/p repeat I&D today, -antibiotics changed to IV Ancef 2 gm q8 hrs. Given abscess and osteomyelitis, will need to treat for 6 weeks. Case management consulted for Ancef 2 g every 8 hours until 02/10/2022. Order for PICC line 12/31; patient is evaluated by ID, in the setting of osteomyelitis recommended 6 weeks of IV Ancef, PICC line requested, case management setting up long-term antibiotics 01/01/2022; continue Ancef for total 6 weeks stop date 02/10/2022 Patient has social issues, no resources for long-term antibiotics, will check with ID for any alternative oral antibiotics that patient can afford 01/02; I discussed with ID Dr. Peralta if patient can be placed on alternative oral antibiotics due to patient's lack of resources and the high cost of the IV antibiotics , Dr. Peralta informed me that as patient has osteomyelitis patient needs IV Ancef for total 6 weeks and no other oral medications to treat osteomyelitis . Will inform the case management. 01/03; CM assisting with long-term antibiotics, follow-up with infusion center, and outpatient wound care PICC line is already ordered, discharge planning per case management Patient is medically stable for discharge 01/04; continue current management, DC planning per case management, no resources for long-term antibiotics History Interval history: I have seen and examined the patient at the bedside Patient's chart and medications reviewed No new complaints Hospitalist Physical - Constitutional Vitals: Temp Pulse Resp BP Pulse Ox 98.5 F 77 16 153/82 97 01/04/22 16:05 01/04/22 16:05 01/04/22 16:05 01/04/22 16:05 01/04/22 16:05 General appearance: Present: no acute distress, well-nourished - EENT Eyes: Present: PERRL, EOM intact - Neck Neck: Present: supple, normal ROM - Respiratory Respiratory effort: normal Respiratory: bilateral: diminished, negative: rales, rhonchi, wheezing - Cardiovascular Rhythm: regular Heart Sounds: Present: S1 & S2 - Extremities Extremities: abnormal (Foot dressing in place) Extremity abnormal: edema - Abdominal General gastrointestinal: soft, non-tender, non-distended, normal bowel sounds - Integumentary Integumentary: Present: clear, warm - Psychiatric Psychiatric: appropriate mood/affect, cooperative - Neurologic Neurologic: CNII-XII intact, moves all extremities HEART Score - HEART Score Troponin: Troponin T < 0.010 ng/mL (0.00-0.029) 12/24/21 22:33 Results - Labs CBC & Chem 7: 12/31/21 06:52 12/31/21 06:52 Labs: Laboratory Last Values WBC 9.9 K/mm3 (4.5-11.0) 12/31/21 06:52 RBC 3.05 M/mm3 (3.65-5.03) L 12/31/21 06:52 Hgb 9.1 gm/dl (11.8-15.2) L 12/31/21 06:52 Hct 26.9 % (35.5-45.6) L 12/31/21 06:52 MCV 88 fl (84-94) 12/31/21 06:52 MCH 30 pg (28-32) 12/31/21 06:52 MCHC 34 % (32-34) 12/31/21 06:52 RDW 14.7 % (13.2-15.2) 12/31/21 06:52 Plt Count 292 K/mm3 (140-440) 12/31/21 06:52 Lymph % (Auto) 17.3 % (13.4-35.0) 12/26/21 06:08 Humphreys % (Auto) 10.2 % (0.0-7.3) H 12/26/21 06:08 Eos % (Auto) 0.1 % (0.0-4.3) 12/26/21 06:08 Baso % (Auto) 0.4 % (0.0-1.8) 12/26/21 06:08 Lymph # (Auto) 1.2 K/mm3 (1.2-5.4) 12/26/21 06:08 Humphreys # (Auto) 0.7 K/mm3 (0.0-0.8) 12/26/21 06:08 Eos # (Auto) 0.0 K/mm3 (0.0-0.4) 12/26/21 06:08 Baso # (Auto) 0.0 K/mm3 (0.0-0.1) 12/26/21 06:08 Seg Neutrophils % 72.0 % (40.0-70.0) H 12/26/21 06:08 Seg Neutrophils # 4.9 K/mm3 (1.8-7.7) 12/26/21 06:08 PT 13.9 Sec. (12.2-14.9) 12/24/21 19:43 INR 0.96 (0.87-1.13) 12/24/21 19:43 APTT 39.7 Sec. (24.2-36.6) H 12/24/21 19:43 D-Dimer 2019.48 ng/mlDDU (0-234) H 12/25/21 08:26 ABG pH 7.386 pH Units (7.350-7.450) 12/24/21 Unknown ABG pCO2 32.7 mm Hg 12/24/21 Unknown ABG pO2 308.2 mm Hg (80.0-90.0) H 12/24/21 Unknown ABG HCO3 19.2 mmol/L (20.0-26.0) L 12/24/21 Unknown ABG O2 Saturation 99.5 % (95.0-99.0) H 12/24/21 Unknown ABG O2 Content 15.5 (0.0-44) 12/24/21 Unknown ABG Base Excess -5.0 mmol/L (-2.0-3.0) L 12/24/21 Unknown ABG Hemoglobin 10.6 gm/dl (14.0-18.0) L 12/24/21 Unknown ABG Carboxyhemoglobin 0.9 % (0.0-5.0) 12/24/21 Unknown ABG Methemoglobin 0.5 % (0.0-1.5) 12/24/21 Unknown Oxyhemoglobin 98.1 % (95.0-99.0) 12/24/21 Unknown FiO2 100 % 12/24/21 Unknown Sodium 138 mmol/L (137-145) 12/31/21 06:52 Potassium 3.1 mmol/L (3.6-5.0) L 12/31/21 06:52 Chloride 99.8 mmol/L (98-107) 12/31/21 06:52 Carbon Dioxide 28 mmol/L (22-30) 12/31/21 06:52 Anion Gap 13 mmol/L 12/31/21 06:52 BUN 5 mg/dL (9-20) L 12/31/21 06:52 Creatinine 0.5 mg/dL (0.8-1.3) L 12/31/21 06:52 Estimated GFR > 60 ml/min 12/31/21 06:52 BUN/Creatinine Ratio 10 % 12/31/21 06:52 Glucose 128 mg/dL (75-100) H 12/31/21 06:52 POC Glucose 176 mg/dL (70-105) H 01/04/22 16:04 Hemoglobin A1c 14.9 % (4-6) H 12/26/21 06:08 Lactic Acid 1.20 mmol/L (0.7-2.0) 12/24/21 22:33 Calcium 7.0 mg/dL (8.4-10.2) L 12/31/21 06:52 Phosphorus 3.40 mg/dL (2.5-4.5) 12/26/21 06:08 Magnesium 1.90 mg/dL (1.7-2.3) 12/26/21 06:08 Ferritin 1335.0 ng/mL (30.0-300.0) H 12/26/21 06:08 Total Bilirubin 0.40 mg/dL (0.1-1.2) 12/25/21 08:26 Direct Bilirubin < 0.2 mg/dL (0-0.2) 12/24/21 19:43 Indirect Bilirubin 0.2 mg/dL 12/24/21 19:43 AST 123 units/L (5-40) H 12/25/21 08:26 ALT 111 units/L (7-56) H 12/25/21 08:26 Alkaline Phosphatase 144 units/L (35-129) H 12/25/21 08:26 Ammonia 31.0 umol/L (25-60) 12/24/21 19:43 Lactate Dehydrogenase 215 units/L (91-180) H 12/25/21 08:26 Troponin T < 0.010 ng/mL (0.00-0.029) 12/24/21 22:33 C-Reactive Protein 34.10 mg/dL (0.00-1.30) H 12/25/21 08:26 NT-Pro-B Natriuret Pep 520.8 pg/mL (0-900) 12/24/21 19:43 Total Protein 6.8 g/dL (6.3-8.2) 12/25/21 08:26 Albumin 2.5 g/dL (3.9-5) L 12/25/21 08:26 Albumin/Globulin Ratio 0.6 % 12/25/21 08:26 Lipase 6 units/L (13-60) L 12/24/21 19:43 Procalcitonin 6.09 ng/mL (<0.15) 12/25/21 08:26 TSH 0.910 mlU/mL (0.270-4.200) 12/26/21 06:08 Urine Color Yellow (Yellow) 12/24/21 Unknown Urine Turbidity Slightly-cloudy (Clear) 12/24/21 Unknown Urine pH 6.0 (5.0-7.0) 12/24/21 Unknown Ur Specific Sims 1.020 (1.003-1.030) 12/24/21 Unknown Urine Protein 100 mg/dl mg/dL (Negative) 12/24/21 Unknown Urine Glucose (UA) Neg mg/dL (Negative) 12/24/21 Unknown Urine Ketones Neg mg/dL (Negative) 12/24/21 Unknown Urine Blood Mod (Negative) 12/24/21 Unknown Urine Nitrite Neg (Negative) 12/24/21 Unknown Urine Bilirubin Neg (Negative) 12/24/21 Unknown Urine Urobilinogen 2.0 mg/dL (<2.0) 12/24/21 Unknown Ur Leukocyte Esterase Neg (Negative) 12/24/21 Unknown Urine WBC (Auto) 1.0 /HPF (0.0-6.0) 12/24/21 Unknown Urine RBC (Auto) 1.0 /HPF (0.0-6.0) 12/24/21 Unknown U Epithel Cells (Auto) 1.0 /HPF (0-13.0) 12/24/21 Unknown Urine Bacteria (Auto) 1+ /HPF (Negative) 12/24/21 Unknown Urine Mucus Few /HPF 12/24/21 Unknown Vancomycin Trough 28.8 ug/mL (5.0-20.0) H 12/26/21 23:20 Salicylates < 0.3 mg/dL (2.8-20.0) L 12/24/21 19:43 Acetaminophen 5.0 ug/mL (10.0-30.0) L 12/24/21 19:43 Plasma/Serum Alcohol < 0.01 % (0-0.07) 12/24/21 19:43 Coronavirus (PCR) Negative (Negative) 12/25/21 09:45 Hepatitis A IgM Ab Non-reactive (NonReactive) 12/25/21 Unknown Hep Bs Antigen Non-reactive (Negative) 12/25/21 Unknown Hep B Core IgM Ab Non-reactive (NonReactive) 12/25/21 Unknown Hepatitis C Antibody Non-reactive (NonReactive) 12/25/21 Unknown Blood Type O POSITIVE 12/24/21 19:43 Antibody Screen Negative 12/24/21 19:43 Microbiology: Microbiology 12/30/21 Unknown Foot - Left Anaerobic Culture - Final Phillip/IV: Voiding Method Indwelling Catheter Active Medications - Current Medications Current Medications: Generic Name Dose Route Start Last Admin Trade Name Freq PRN Reason Stop Dose Admin Acetaminophen 650 mg 12/25/21 01:40 Acetaminophen 650 Mg Rect Supp [place] Q6H PRN Pain MILD(1-3)/Fever >100.5/PATEL Acetaminophen 650 mg 12/29/21 04:27 01/02/22 11:00 Acetaminophen 325 Mg Tab PO 650 mg Q6H PRN Administration Pain, Mild (1-3) Dextrose 0 ml 12/25/21 02:02 Dextrose 10% *Hypoglycemia IV PRN PRN Hypoglycemia Protocol Famotidine 20 mg 12/25/21 10:00 01/04/22 09:12 Famotidine 20 Mg Tab PO 20 mg BID KELTON Administration Heparin Sodium (Porcine) 5,000 unit 12/25/21 06:00 01/04/22 14:31 Heparin 5,000 Unit/1 Ml Vial SUB-Q 5,000 unit Q8HR KELTON Administration Cefazolin Sodium 2 gm/ Sodium 100 mls @ 200 mls/hr 12/27/21 15:00 01/04/22 14:31 Chloride IV 02/04/22 23:29 200 mls/hr Q8H KELTON Administration Protocol Insulin Human Lispro 0 unit 12/25/21 12:00 01/04/22 17:54 Insulin Lispro 100 Unit/Ml SUB-Q 2 unit Q6HR KELTON Administration Protocol Magnesium Hydroxide 30 ml 12/25/21 01:40 Magnesium Hydroxide (Mom) Oral Liqd Udc PO Q4H PRN Constipation Morphine Sulfate 2 mg 12/25/21 01:40 Morphine 2 Mg/1 Ml Inj IV Q4H PRN Pain, Moderate (4-6) Ondansetron HCl 4 mg 12/25/21 01:40 Ondansetron 4 Mg/2 Ml Inj IV Q8H PRN Nausea And Vomiting Sodium Chloride 10 ml 12/25/21 10:00 01/04/22 09:11 Sodium Chloride 0.9% 10 Ml Flush Syringe IV 10 ml BID KELTON Administration Sodium Chloride 10 ml 12/25/21 01:40 01/02/22 16:27 Sodium Chloride 0.9% 10 Ml Flush Syringe IV 10 ml PRN PRN Administration LINE FLUSH Nutrition/Malnutrition Assess - Dietary Evaluation Nutrition/Malnutrition Findings: Nutrition Notes Start: 12/25/21 11:36 Freq: Status: Active Protocol: Document 01/02/22 17:08 ADELA (Rec: 01/02/22 17:32 ADELA [id number]) Nutrition Notes Initial or Follow up Reassessment Current Diagnosis Diabetes,Respiratory Failure Other Pertinent Diagnosis L-Foot Cellulitis/ Osteomyelitis, MSSA Bacteremia , CAP. Current Diet Cardiac/Consistent Carbohydrates Diet (since L ). Labs/Tests 01/02: N/A. Pertinent Medications 01/02: Insulin, others nutritionally unremarkable. Height 5 ft 3 in Weight 65.7 kg [place] Body Weight (kg) 56.36 BMI 25.6 Weight change and time frame No body weight change reported in 3 days. Weight Status Overweight Subjective/Other Information RD consult for routine F/U on Dietary Advancement. No reports available on Pt's PO intake of meals at the time , but diet appears to be well tolerated, according to RN notes.. Procedure 12/30: Drainage of L -Foot Abscess, well tolerated. Percent of energy/protein needs met: Prescribed Cardiac/Consistent Carbohydrates Diet provides for energy/protein needs (1, 977 Kcal/86 g) during LOS. Burn Absent Trauma Absent GI Symptoms None Food Allergy No Skin Integrity/Comment L-Foot s/p procedure Minimum of two criteria No #1 Nutrition Diagnosis Increased nutrient needs ( specify in comment below) Comments: Protein to support wound healing processes. No reports available on Pt's PO intake of meals at the time , but diet appears to be well tolerated, according to RN notes. Diagnosis Progress(for reassessment Improved documentation) Is patient on ventilator? No Is Patient Ambulatory and/or Out of Bed No REE-([facility]-confined to bed) [phone] Calculation Used for Recommendations [facility] Additional Notes Protein: 1.25-1.5 g/Kg; 83-99 g/day. Fluids: 1 ml/Kcal, or as per MD. Nutrition Intervention Change Diet Order: Continue Cardiac/Consistent Carbohydrates Diet. Goal #1 Maintain body weight within +/ -3% of admission body weight during LOS. Follow-Up By: 01/09/22 Additional Comments Continue monitoring food tolerance, %PO intake of meals , and BM.
[2022-01-05] MEDS: INSULIN LISPRO 100 UNIT/ML SUB-Q SCH ×5 (04:22→22:00)
[2022-01-05] MEDS: HEPARIN 5,000 UNIT/1 ML VIAL SUB-Q SCH ×3 (05:42→22:23)
--- NOTE | 2022-01-05 07:26 | Progress Note ---
Assessment and Plan Patient is to begin aggressive local wound care with 3 times daily soaking of the foot with Betadine and saline soaks. His WBC count has never been elevated despite the finding of multiple abscesses in his left foot. Staph aureus present on reports of microbiology. In addition to the local wound care IV antibiotics for several additional days will be highly recommended. Subjective Date of service: 01/05/22 Patient Reports: Positive: no new complaints Narrative: Pt with out new co. Objective Vital Signs - 12hr 01/04/22 01/04/22 01/04/22 19:40 20:00 21:00 Temperature 98.3 F Pulse Rate 78 67 Pulse Rate [ 67 From Monitor] Respiratory 16 Rate Blood Pressure 167/85 Blood Pressure [Right] O2 Sat by Pulse 98 98 Oximetry 01/04/22 01/05/22 01/05/22 23:46 02:50 03:46 Temperature 98.6 F 98.0 F Pulse Rate 73 67 77 Pulse Rate [ From Monitor] Respiratory 16 15 Rate Blood Pressure 167/84 181/88 Blood Pressure [Right] O2 Sat by Pulse 96 99 Oximetry 01/05/22 04:00 Temperature 98 F Pulse Rate 72 Pulse Rate [ From Monitor] Respiratory 16 Rate Blood Pressure Blood Pressure 178/87 [Right] O2 Sat by Pulse 100 Oximetry - Musculoskeletal other (left remains swollen drains in place.) - Labs 12/31/21 06:52 12/31/21 06:52
[2022-01-05] MEDS: FAMOTIDINE 20 MG TAB PO SCH ×2 (09:36→22:22)
--- NOTE | 2022-01-05 10:48 | Progress Note ---
Assessment and Plan Assessment and plan: --Abscess of left foot status post I&D Wound care, elevate the limb Continue current antibiotics, ID and surgery following --Probable chronic Osteomyelitis[on MRI foot] - Presented LLE swelling and left foot abscess - General Surgery consulted - s/p I&D of left foot by surgery on 12/24 and today - Vascular evaluated the patient - Continue current IV Abx Ancef 2 g every 8 hours for total 6 weeks stop date 02/11/[address] Kvng SAEED, if he can recommend alternative more affordable oral antibiotics And he informed that no other oral antibiotic is available to treat osteomyelitis. --Acute Hypoxemic Respiratory Failure ; requiring intubation Present on admission O2 sat on arrival was 60% Patient was intubated on the day of admission, extubated the next day Today patient is on room air saturating more than 94% --COVID 19 - [place] PCR test negative - Presented with unresponsiveness with agonal breathing - Intubated in the ED on 12/24, extubated next day Currently on room air saturating well --Community-Acquired Pneumonia - Imagings suggesting possible Left lung pneumonia - COVID PCR negative - Inflammatory markers and procal pending - Blood culture pending, Sputum culture growing GPC - Continue current IV Abx for now - ID following MSSA wound cultures MSSA urine cultures; ID recommend antibiotics Ancef 2 g every 8 hours stop date 02/10/2022 --Hyponatremia --Hypokalemia-improved - Probably related to dehydration/volume depletion - Na improved post IV hydration - Continue IVF resuscitation - Monitor and replace electrolytes as needed - Serial BMP Q6hrs - Strict intake and output #Acute Metabolic Encephalopathy - Probably r/t to multifactorial. hypoglycemia vs hyponatremia vs infectious process -Resolved #Hyperglycemia #Hypoglycemia-resolved #H/o Diabetes - Presented with low BG in the 30s required D10w gtt - Hyperglycemic this am, BG in the 300s - D/10w d/c - SSI initiated q6hrs - Continue IVF resuscitation with 1/2NS - Serial BMP - Avoid Hypoglycemia - Continue Hypoglycemic protocol #Transaminitis - Etiology unclear - Consult placed to gastroenterology for evaluation and recommendations - Continue to trend LFTs #GI/DVT prophylaxis - PPI- Pepcid - Continue AC- Hep SubQ This is a 56-year-old male with known history of DM admitted for Hypoglycemia, hyponatremia, and acute hypoxemic respiratory failure requiring ventilatory support. Pateint also noted with left foot abscess s/p I&D by Gen. Surgery. Hospital Course to Date: 12/25: Patient remains on the vent, awake, following commends on propofol gtt. Possible PST today, plan to wean to extubate. High BG this am, D10W gtt D/C. Hyponatremia is improving continue IVF resuscitation, serial BMP Q6hrs. LLE wound noted with CDI dressing. General Surgery recommendation noted, Vascular consulted. Wound Care also consulted. Continue current IV Abx for now, ID consulted for IV Abx management. 12/26: cx growing staph, wait for final report. Continue empiric antibiotics 12/27: Wound culture growing MSSA, continue empiric IV Ceftriaxone, PO Flagyl, IV vancomycin. Ordered for left foot MRI for further assessment of the infection 12/28: MRI left foot suggestive of plantar abscess, continue empiric antibiotics, patient would need another I and D, continue to follow clinically. 12/29: Continue empiric antibiotics per ID recommendation. MRI does demonstrate a multiloculated abscess of the left midfoot. vascular recommended debridement of the left foot as well as incision and drainage of the abscess in the operating room to ensure that all potential fluid pockets as well as necrotic tissue is well debrided -planned for tomorrow 12/30: S/p repeat I&D today, -antibiotics changed to IV Ancef 2 gm q8 hrs. Given abscess and osteomyelitis, will need to treat for 6 weeks. Case management consulted for Ancef 2 g every 8 hours until 02/10/2022. Order for PICC line 12/31; patient is evaluated by ID, in the setting of osteomyelitis recommended 6 weeks of IV Ancef, PICC line requested, case management setting up long-term antibiotics 01/01/2022; continue Ancef for total 6 weeks stop date 02/10/2022 Patient has social issues, no resources for long-term antibiotics, will check with ID for any alternative oral antibiotics that patient can afford 01/02; I discussed with ID Dr. Peralta if patient can be placed on alternative oral antibiotics due to patient's lack of resources and the high cost of the IV antibiotics , Dr. Peralta informed me that as patient has osteomyelitis patient needs IV Ancef for total 6 weeks and no other oral medications to treat osteomyelitis . Will inform the case management. 01/03; CM assisting with long-term antibiotics, follow-up with infusion center, and outpatient wound care PICC line is already ordered, discharge planning per case management Patient is medically stable for discharge 01/04; continue current management, DC planning per case management, no resources for long-term antibiotics 01/05; awaiting long-term antibiotics set up, and outpatient wound care set up DC planning per case management History Interval history: I have seen and examined the patient at the bedside Patient's chart and medications reviewed Patient feels better no new complaints Stable to be discharge Case management assisting with long-term IV antibiotics and wound care Hospitalist Physical - Constitutional Vitals: Temp Pulse Resp BP Pulse Ox 98.5 F 80 18 155/80 97 01/05/22 08:22 01/05/22 08:22 01/05/22 08:22 01/05/22 08:01/05/22 08:22 General appearance: Present: no acute distress, well-nourished - EENT Eyes: Present: PERRL, EOM intact - Neck Neck: Present: supple, normal ROM - Respiratory Respiratory effort: normal Respiratory: bilateral: diminished, negative: rales, rhonchi, wheezing - Cardiovascular Rhythm: regular Heart Sounds: Present: S1 & S2 - Extremities Extremities: abnormal (Left foot dressing in place, left leg chronic blisters ) Extremity abnormal: other (Wound left leg) - Abdominal General gastrointestinal: soft, non-tender, non-distended, normal bowel sounds - Integumentary Integumentary: Present: clear, warm - Psychiatric Psychiatric: appropriate mood/affect - Neurologic Neurologic: moves all extremities HEART Score - HEART Score Troponin: Troponin T < 0.010 ng/mL (0.00-0.029) 12/24/21 22:33 Results - Labs CBC & Chem 7: 12/31/21 06:52 12/31/21 06:52 Labs: Laboratory Last Values WBC 9.9 K/mm3 (4.5-11.0) 12/31/21 06:52 RBC 3.05 M/mm3 (3.65-5.03) L 12/31/21 06:52 Hgb 9.1 gm/dl (11.8-15.2) L 12/31/21 06:52 Hct 26.9 % (35.5-45.6) L 12/31/21 06:52 MCV 88 fl (84-94) 12/31/21 06:52 MCH 30 pg (28-32) 12/31/21 06:52 MCHC 34 % (32-34) 12/31/21 06:52 RDW 14.7 % (13.2-15.2) 12/31/21 06:52 Plt Count 292 K/mm3 (140-440) 12/31/21 06:52 Lymph % (Auto) 17.3 % (13.4-35.0) 12/26/21 06:08 [place] % (Auto) 10.2 % (0.0-7.3) H 12/26/21 06:08 Eos % (Auto) 0.1 % (0.0-4.3) 12/26/21 06:08 Baso % (Auto) 0.4 % (0.0-1.8) 12/26/21 06:08 Lymph # (Auto) 1.2 K/mm3 (1.2-5.4) 12/26/21 06:08 [place] # (Auto) 0.7 K/mm3 (0.0-0.8) 12/26/21 06:08 Eos # (Auto) 0.0 K/mm3 (0.0-0.4) 12/26/21 06:08 Baso # (Auto) 0.0 K/mm3 (0.0-0.1) 12/26/21 06:08 Seg Neutrophils % 72.0 % (40.0-70.0) H 12/26/21 06:08 Seg Neutrophils # 4.9 K/mm3 (1.8-7.7) 12/26/21 06:08 PT 13.9 Sec. (12.2-14.9) 12/24/21 19:43 INR 0.96 (0.87-1.13) 12/24/21 19:43 APTT 39.7 Sec. (24.2-36.6) H 12/24/21 19:43 D-Dimer 2019.48 ng/mlDDU (0-234) H 12/25/21 08:26 ABG pH 7.386 pH Units (7.350-7.450) 12/24/21 Unknown ABG pCO2 32.7 mm Hg 12/24/21 Unknown ABG pO2 308.2 mm Hg (80.0-90.0) H 12/24/21 Unknown ABG HCO3 19.2 mmol/L (20.0-26.0) L 12/24/21 Unknown ABG O2 Saturation 99.5 % (95.0-99.0) H 12/24/21 Unknown ABG O2 Content 15.5 (0.0-44) 12/24/21 Unknown ABG Base Excess -5.0 mmol/L (-2.0-3.0) L 12/24/21 Unknown ABG Hemoglobin 10.6 gm/dl (14.0-18.0) L 12/24/21 Unknown ABG Carboxyhemoglobin 0.9 % (0.0-5.0) 12/24/21 Unknown ABG Methemoglobin 0.5 % (0.0-1.5) 12/24/21 Unknown Oxyhemoglobin 98.1 % (95.0-99.0) 12/24/21 Unknown FiO2 100 % 12/24/21 Unknown Sodium 138 mmol/L (137-145) 12/31/21 06:52 Potassium 3.1 mmol/L (3.6-5.0) L 12/31/21 06:52 Chloride 99.8 mmol/L (98-107) 12/31/21 06:52 Carbon Dioxide 28 mmol/L (22-30) 12/31/21 06:52 Anion Gap 13 mmol/L 12/31/21 06:52 BUN 5 mg/dL (9-20) L 12/31/21 06:52 Creatinine 0.5 mg/dL (0.8-1.3) L 12/31/21 06:52 Estimated GFR > 60 ml/min 12/31/21 06:52 BUN/Creatinine Ratio 10 % 12/31/21 06:52 Glucose 128 mg/dL (75-100) H 12/31/21 06:52 POC Glucose 164 mg/dL (70-105) H 01/05/22 05:28 Hemoglobin A1c 14.9 % (4-6) H 12/26/21 06:08 Lactic Acid 1.20 mmol/L (0.7-2.0) 12/24/21 22:33 Calcium 7.0 mg/dL (8.4-10.2) L 12/31/21 06:52 Phosphorus 3.40 mg/dL (2.5-4.5) 12/26/21 06:08 Magnesium 1.90 mg/dL (1.7-2.3) 12/26/21 06:08 Ferritin 1335.0 ng/mL (30.0-300.0) H 12/26/21 06:08 Total Bilirubin 0.40 mg/dL (0.1-1.2) 12/25/21 08:26 Direct Bilirubin < 0.2 mg/dL (0-0.2) 12/24/21 19:43 Indirect Bilirubin 0.2 mg/dL 12/24/21 19:43 AST 123 units/L (5-40) H 12/25/21 08:26 ALT 111 units/L (7-56) H 12/25/21 08:26 Alkaline Phosphatase 144 units/L (35-129) H 12/25/21 08:26 Ammonia 31.0 umol/L (25-60) 12/24/21 19:43 Lactate Dehydrogenase 215 units/L (91-180) H 12/25/21 08:26 Troponin T < 0.010 ng/mL (0.00-0.029) 12/24/21 22:33 C-Reactive Protein 34.10 mg/dL (0.00-1.30) H 12/25/21 08:26 NT-Pro-B Natriuret Pep 520.8 pg/mL (0-900) 12/24/21 19:43 Total Protein 6.8 g/dL (6.3-8.2) 12/25/21 08:26 Albumin 2.5 g/dL (3.9-5) L 12/25/21 08:26 Albumin/Globulin Ratio 0.6 % 12/25/21 08:26 Lipase 6 units/L (13-60) L 12/24/21 19:43 Procalcitonin 6.09 ng/mL (<0.15) 12/25/21 08:26 TSH 0.910 mlU/mL (0.270-4.200) 12/26/21 06:08 Urine Color Yellow (Yellow) 12/24/21 Unknown Urine Turbidity Slightly-cloudy (Clear) 12/24/21 Unknown Urine pH 6.0 (5.0-7.0) 12/24/21 Unknown Ur Specific [place] 1.020 (1.003-1.030) 12/24/21 Unknown Urine Protein 100 mg/dl mg/dL (Negative) 12/24/21 Unknown Urine Glucose (UA) Neg mg/dL (Negative) 12/24/21 Unknown Urine Ketones Neg mg/dL (Negative) 12/24/21 Unknown Urine Blood Mod (Negative) 12/24/21 Unknown Urine Nitrite Neg (Negative) 12/24/21 Unknown Urine Bilirubin Neg (Negative) 12/24/21 Unknown Urine Urobilinogen 2.0 mg/dL (<2.0) 12/24/21 Unknown Ur Leukocyte Esterase Neg (Negative) 12/24/21 Unknown Urine WBC (Auto) 1.0 /HPF (0.0-6.0) 12/24/21 Unknown Urine RBC (Auto) 1.0 /HPF (0.0-6.0) 12/24/21 Unknown U Epithel Cells (Auto) 1.0 /HPF (0-13.0) 12/24/21 Unknown Urine Bacteria (Auto) 1+ /HPF (Negative) 12/24/21 Unknown Urine Mucus Few /HPF 12/24/21 Unknown Vancomycin Trough 28.8 ug/mL (5.0-20.0) H 12/26/21 23:20 Salicylates < 0.3 mg/dL (2.8-20.0) L 12/24/21 19:43 Acetaminophen 5.0 ug/mL (10.0-30.0) L 12/24/21 19:43 Plasma/Serum Alcohol < 0.01 % (0-0.07) 12/24/21 19:43 Coronavirus (PCR) Negative (Negative) 12/25/21 09:45 Hepatitis A IgM Ab Non-reactive (NonReactive) 12/25/21 Unknown Hep Bs Antigen Non-reactive (Negative) 12/25/21 Unknown Hep B Core IgM Ab Non-reactive (NonReactive) 12/25/21 Unknown Hepatitis C Antibody Non-reactive (NonReactive) 12/25/21 Unknown Blood Type O POSITIVE 12/24/21 19:43 Antibody Screen Negative 12/24/21 19:43 Microbiology: Microbiology 12/30/21 Unknown Foot - Left Anaerobic Culture - Final Phillip/IV: Voiding Method Indwelling Catheter Active Medications - Current Medications Current Medications: Generic Name Dose Route Start Last Admin Trade Name Freq PRN Reason Stop Dose Admin Acetaminophen 650 mg 12/25/21 01:40 Acetaminophen 650 Mg Rect Supp UT Q6H PRN Pain MILD(1-3)/Fever >100.5/PATEL Acetaminophen 650 mg 12/29/21 04:27 01/02/22 11:00 Acetaminophen 325 Mg Tab PO 650 mg Q6H PRN Administration Pain, Mild (1-3) Amlodipine Besylate 5 mg 01/06/22 10:00 Amlodipine 5 Mg Tab PO QDAY KELTON Amlodipine Besylate 5 mg 01/05/22 10:44 Amlodipine 5 Mg Tab PO 01/05/22 10:45 ONCE ONE Dextrose 0 ml 12/25/21 02:02 Dextrose 10% *Hypoglycemia IV PRN PRN Hypoglycemia Protocol Famotidine 20 mg 12/25/21 10:00 01/05/22 09:36 Famotidine 20 Mg Tab PO 20 mg BID KELTON Administration Heparin Sodium (Porcine) 5,000 unit 12/25/21 06:00 01/05/22 05:42 Heparin 5,000 Unit/1 Ml Vial SUB-Q 5,000 unit Q8HR KELTON Administration Hydralazine HCl 25 mg 01/05/22 14:00 Hydralazine 25 Mg Tab PO Q8HR [facility] Cefazolin Sodium 2 gm/ Sodium 100 mls @ 200 mls/hr 12/27/21 15:00 01/05/22 06:19 Chloride IV 02/04/22 23:29 200 mls/hr Q8H KELTON Administration Protocol Insulin Human Lispro 0 unit 01/05/22 11:30 Insulin Lispro 100 Unit/Ml SUB-Q ACHS [facility] Protocol Magnesium Hydroxide 30 ml 12/25/21 01:40 Magnesium Hydroxide (Mom) Oral Liqd Udc PO Q4H PRN Constipation Morphine Sulfate 2 mg 12/25/21 01:40 Morphine 2 Mg/1 Ml Inj IV Q4H PRN Pain, Moderate (4-6) Ondansetron HCl 4 mg 12/25/21 01:40 Ondansetron 4 Mg/2 Ml Inj IV Q8H PRN Nausea And Vomiting Sodium Chloride 10 ml 12/25/21 10:00 01/05/22 09:35 Sodium Chloride 0.9% 10 Ml Flush Syringe IV 10 ml BID KELTON Administration Sodium Chloride 10 ml 12/25/21 01:40 01/02/22 16:27 Sodium Chloride 0.9% 10 Ml Flush Syringe IV 10 ml PRN PRN Administration LINE FLUSH Nutrition/Malnutrition Assess - Dietary Evaluation Nutrition/Malnutrition Findings: Nutrition Notes Start: 12/25/21 11:36 Freq: Status: Active Protocol: Document 01/02/22 17:08 ADELA (Rec: 01/02/22 17:32 ADELA [id number]) Nutrition Notes Initial or Follow up Reassessment Current Diagnosis Diabetes,Respiratory Failure Other Pertinent Diagnosis L-Foot Cellulitis/ Osteomyelitis, MSSA Bacteremia , CAP. Current Diet Cardiac/Consistent Carbohydrates Diet (since L ). Labs/Tests 01/02: N/A. Pertinent Medications 01/02: Insulin, others nutritionally unremarkable. Height 5 ft 3 in Weight 65.7 kg [place] Body Weight (kg) 56.36 BMI 25.6 Weight change and time frame No body weight change reported in 3 days. Weight Status Overweight Subjective/Other Information RD consult for routine F/U on Dietary Advancement. No reports available on Pt's PO intake of meals at the time , but diet appears to be well tolerated, according to RN notes.. Procedure 12/30: Drainage of L -Foot Abscess, well tolerated. Percent of energy/protein needs met: Prescribed Cardiac/Consistent Carbohydrates Diet provides for energy/protein needs (1, 977 Kcal/86 g) during LOS. Burn Absent Trauma Absent GI Symptoms None Food Allergy No Skin Integrity/Comment L-Foot s/p procedure Minimum of two criteria No #1 Nutrition Diagnosis Increased nutrient needs ( specify in comment below) Comments: Protein to support wound healing processes. No reports available on Pt's PO intake of meals at the time , but diet appears to be well tolerated, according to RN notes. Diagnosis Progress(for reassessment Improved documentation) Is patient on ventilator? No Is Patient Ambulatory and/or Out of Bed No REE-([place]-[facility] Jeor-confined to bed) [phone] Calculation Used for Recommendations [place] Je[place] Additional Notes Protein: 1.25-1.5 g/Kg; 83-99 g/day. Fluids: 1 ml/Kcal, or as per MD. Nutrition Intervention Change Diet Order: Continue Cardiac/Consistent Carbohydrates Diet. Goal #1 Maintain body weight within +/ -3% of admission body weight during LOS. Follow-Up By: 01/09/22 Additional Comments Continue monitoring food tolerance, %PO intake of meals , and BM.
[2022-01-05] MEDS ORDERED: amLODIPine 5 MG TAB PO ONE (11:30)
[2022-01-05] MEDS: hydrALAZINE 25 MG TAB PO SCH ×2 (13:44→22:01)
--- NOTE | 2022-01-05 17:33 | Progress Note ---
Assessment and Plan 56-year-old male with known history of diabetes mellitus brought into the emergency room today via EMS after being found unresponsive and having agonal breathing. Most of the history was obtained from the ER staff as patient is already intubated and sedated. Patient was found to have been having agonal respiration and unresponsive by EMS. Was given albuterol nebulizing treatment and Solu-Medrol. He was subsequently intubated and sedated in the emergency room. Patient was said to have been missing from home for about 3 days was also said to have stepped on it nail with which his left foot. Left foot has been swollen and red. Work-up in the emergency room , initial blood glucose was 38, hypokalemia of 3.3 and hyponatremia of 128. Patient was given boluses of IV glucose with improvement of his blood glucose. General surgery consulted. He immediately had an incision and drainage of the swollen left foot. Patient started on antibiotics Zosyn, Vancomycin and Clindamycin. Patient also had a tetanus toxoid injection. CT of the head and neck, abdomen and pelvis did not reveal any acute abnormality. Chest x-ray within normal limits. Patient extubated . Patient transfered to Telemetry. Patient awake. Patient is on room air. O2 saturation 97%. No acute respiratory distress. Patient afebrile. No Leukocytosis. Blood pressure 137/78, Pulse 89, Respirations 16. CT of chest done 12/25/[address] evidence for pulmonary embolism. Moderate left lower lobe pneumonia, unchanged. Patient presently on Cephazolin., S/C heparin and famotidine. - Patient Problems (1) Acute respiratory failure with hypoxia Current Visit: Yes Status: Acute Plan to address problem: Patient intubated and extubated. Patient presently on room air. O2 saturation 97%. (2) Abscess of left foot Current Visit: Yes Status: Acute Plan to address problem: Incision and drainage and wound care. (3) Pneumonia involving left lung Current Visit: Yes Status: Acute Plan to address problem: Patient was on multiple antibiotics. Zosyn, vancomycin, Clindamycin and Ceftriaxone. Patient presently on cephazolin. (4) Osteomyelitis of left foot Current Visit: Yes Status: Acute Plan to address problem: Antibiotics as per ID. Patient presently on cefazolin. Subjective Date of service: 01/05/22 Principal diagnosis: AHRF; CAP; AMS; Abscess of left foot; Possible Osteomyelitis; DM II Interval history: 56-year-old male with known history of diabetes mellitus brought into the emergency room today via EMS after being found unresponsive and having agonal b reathing. Most of the history was obtained from the ER staff as patient is already intubated and sedated. Patient was found to have been having agonal respiration and unresponsive by EMS. Was given albuterol nebulizing treatment and Solu-Medrol. He was subsequently intubated and sedated in the emergency room. Patient was said to have been missing from home for about 3 days was also said to have stepped on it nail with which his left foot. Left foot has been swollen and red. Work-up in the emergency room , initial blood glucose was 38, hypokalemia of 3.3 and hyponatremia of 128. Patient was given boluses of IV glucose with improvement of his blood glucose. General surgery consulted. He immediately had an incision and drainage of the swollen left foot. Patient started on antibiotics Zosyn, Vancomycin and Clindamycin. Patient also had a tetanus toxoid injection. CT of the head and neck, abdomen and pelvis did not reveal any acute abnormality. Chest x-ray within normal limits. Patient extubated . Patient transfered to Telemetry. Patient awake. Patient is on room air. O2 saturation 97%. No acute respiratory distress. Patient afebrile. No Leukocytosis. Blood pressure 137/78, Pulse 89, Respirations 16. CT of chest done 12/25/[address] evidence for pulmonary embolism. Moderate left lower lobe pneumonia, unchanged. Patient presently on Cephazolin., S/C heparin and famotidine. Objective Vital Signs - 12hr 01/05/22 01/05/22 01/05/22 08:22 10:00 15:55 Temperature 98.5 F 98.3 F Pulse Rate 80 74 Respiratory 18 20 Rate Blood Pressure 155/80 150/82 O2 Sat by Pulse 97 100 98 Oximetry Constitutional: no acute distress, alert Eyes: non-icteric ENT: oropharynx moist Neck: supple, no lymphadenopathy Effort: normal Ascultation: Bilateral: diminished breath sounds Percussion: Bilateral: not dull Cardiovascular: regular rate and rhythm Gastrointestinal: normoactive bowel sounds, soft, non-tender, non-distended Integumentary: other (L. foot infection) Extremities: no cyanosis, edema, other (Swelling of left foot. Left foot abscess .) Neurologic: non-focal exam, pupils equal and round, CN II-XII normal Psychiatric: mood appropriate, affect normal CBC and BMP: 12/31/21 06:52 12/31/21 06:52 ABG, PT/INR, D-dimer: ABG ABG pH 7.386 pH Units (7.350-7.450) 12/24/21 Unknown ABG pCO2 32.7 mm Hg 12/24/21 Unknown ABG pO2 308.2 mm Hg (80.0-90.0) H 12/24/21 Unknown ABG O2 Saturation 99.5 % (95.0-99.0) H 12/24/21 Unknown PT/INR, D-dimer PT 13.9 Sec. (12.2-14.9) 12/24/21 19:43 INR 0.96 (0.87-1.13) 12/24/21 19:43 D-Dimer 2019.48 ng/mlDDU (0-234) H 12/25/21 08:26 Abnormal lab findings: Abnormal Labs 12/24/21 12/24/21 12/24/21 19:43 19:43 19:43 RBC 3.58 L Hgb 10.3 L Hct 31.5 L Lymph % (Auto) Bent % (Auto) 10.9 H Lymph # (Auto) 1.1 L Seg Neutrophils % APTT 39.7 H D-Dimer ABG pO2 ABG HCO3 ABG O2 Saturation ABG Base Excess ABG Hemoglobin Sodium 128 L Potassium 3.3 L Chloride 95.9 L Carbon Dioxide 18 L BUN Creatinine 0.6 L Glucose 38 L* POC Glucose Hemoglobin A1c Calcium Ferritin AST 232 H ALT 126 H Alkaline Phosphatase 132 H Lactate Dehydrogenase C-Reactive Protein Albumin 2.6 L Lipase 6 L Vancomycin Trough Salicylates Acetaminophen 12/24/21 12/24/21 12/24/21 19:43 19:43 22:33 RBC Hgb Hct Lymph % (Auto) Bent % (Auto) Lymph # (Auto) Seg Neutrophils % APTT D-Dimer ABG pO2 ABG HCO3 ABG O2 Saturation ABG Base Excess ABG Hemoglobin Sodium 126 L Potassium 3.1 L Chloride 91.7 L Carbon Dioxide 19 L BUN Creatinine 0.7 L Glucose 115 H POC Glucose Hemoglobin A1c Calcium 8.3 L Ferritin AST ALT Alkaline Phosphatase Lactate Dehydrogenase C-Reactive Protein Albumin Lipase Vancomycin Trough Salicylates < 0.3 L Acetaminophen 5.0 L 12/24/21 12/25/21 12/25/21 Unknown 00:23 05:59 RBC Hgb Hct Lymph % (Auto) Bent % (Auto) Lymph # (Auto) Seg Neutrophils % APTT D-Dimer ABG pO2 308.2 H ABG HCO3 19.2 L ABG O2 Saturation 99.5 H ABG Base Excess -5.0 L ABG Hemoglobin 10.6 L Sodium Potassium Chloride Carbon Dioxide BUN Creatinine Glucose POC Glucose 157 H 469 H Hemoglobin A1c Calcium Ferritin AST ALT Alkaline Phosphatase Lactate Dehydrogenase C-Reactive Protein Albumin Lipase Vancomycin Trough Salicylates Acetaminophen 12/25/21 12/25/21 12/25/21 06:01 08:26 08:26 RBC Hgb 11.7 L Hct 35.2 L Lymph % (Auto) 9.8 L Bent % (Auto) Lymph # (Auto) 0.5 L Seg Neutrophils % 84.2 H APTT D-Dimer ABG pO2 ABG HCO3 ABG O2 Saturation ABG Base Excess ABG Hemoglobin Sodium 130 L Potassium Chloride 96.6 L Carbon Dioxide 19 L BUN Creatinine 0.7 L Glucose 323 H POC Glucose 316 H Hemoglobin A1c Calcium 8.3 L Ferritin AST 123 H ALT 111 H Alkaline Phosphatase 144 H Lactate Dehydrogenase C-Reactive Protein Albumin 2.5 L Lipase Vancomycin Trough Salicylates Acetaminophen 12/25/21 12/25/21 12/25/21 08:26 08:26 08:26 RBC Hgb Hct Lymph % (Auto) Bent % (Auto) Lymph # (Auto) Seg Neutrophils % APTT D-Dimer 2019.48 H ABG pO2 ABG HCO3 ABG O2 Saturation ABG Base Excess ABG Hemoglobin Sodium Potassium Chloride Carbon Dioxide BUN Creatinine Glucose POC Glucose Hemoglobin A1c Calcium Ferritin 1288.0 H AST ALT Alkaline Phosphatase Lactate Dehydrogenase 215 H C-Reactive Protein 34.10 H Albumin Lipase Vancomycin Trough Salicylates Acetaminophen 12/25/21 12/25/21 12/25/21 10:59 15:45 20:29 RBC Hgb Hct Lymph % (Auto) Bent % (Auto) Lymph # (Auto) Seg Neutrophils % APTT D-Dimer ABG pO2 ABG HCO3 ABG O2 Saturation ABG Base Excess ABG Hemoglobin Sodium 135 L Potassium Chloride Carbon Dioxide 17 L BUN Creatinine 0.6 L Glucose 161 H POC Glucose 305 H 236 H Hemoglobin A1c Calcium 7.9 L Ferritin AST ALT Alkaline Phosphatase Lactate Dehydrogenase C-Reactive Protein Albumin Lipase Vancomycin Trough Salicylates Acetaminophen 12/25/21 12/26/21 12/26/21 20:59 00:19 01:23 RBC Hgb Hct Lymph % (Auto) Bent % (Auto) Lymph # (Auto) Seg Neutrophils % APTT D-Dimer ABG pO2 ABG HCO3 ABG O2 Saturation ABG Base Excess ABG Hemoglobin Sodium 133 L Potassium Chloride Carbon Dioxide 17 L BUN Creatinine 0.6 L Glucose 178 H POC Glucose 184 H 191 H Hemoglobin A1c Calcium 7.9 L Ferritin AST ALT Alkaline Phosphatase Lactate Dehydrogenase C-Reactive Protein Albumin Lipase Vancomycin Trough Salicylates Acetaminophen 12/26/21 12/26/21 12/26/21 05:52 06:08 06:08 RBC 3.59 L Hgb 10.8 L Hct 32.2 L Lymph % (Auto) Bent % (Auto) 10.2 H Lymph # (Auto) Seg Neutrophils % 72.0 H APTT D-Dimer ABG pO2 ABG HCO3 ABG O2 Saturation ABG Base Excess ABG Hemoglobin Sodium 136 L Potassium Chloride Carbon Dioxide 18 L BUN Creatinine 0.7 L Glucose 154 H POC Glucose 133 H Hemoglobin A1c Calcium Ferritin AST ALT Alkaline Phosphatase Lactate Dehydrogenase C-Reactive Protein Albumin Lipase Vancomycin Trough Salicylates Acetaminophen 12/26/21 12/26/21 12/26/21 06:08 06:08 12:07 RBC Hgb Hct Lymph % (Auto) Bent % (Auto) Lymph # (Auto) Seg Neutrophils % APTT D-Dimer ABG pO2 ABG HCO3 ABG O2 Saturation ABG Base Excess ABG Hemoglobin Sodium Potassium Chloride Carbon Dioxide BUN Creatinine Glucose POC Glucose 210 H Hemoglobin A1c 14.9 H Calcium Ferritin 1335.0 H AST ALT Alkaline Phosphatase Lactate Dehydrogenase C-Reactive Protein Albumin Lipase Vancomycin Trough Salicylates Acetaminophen 12/26/21 12/26/21 12/27/21 17:14 23:20 00:09 RBC Hgb Hct Lymph % (Auto) Bent % (Auto) Lymph # (Auto) Seg Neutrophils % APTT D-Dimer ABG pO2 ABG HCO3 ABG O2 Saturation ABG Base Excess ABG Hemoglobin Sodium Potassium Chloride Carbon Dioxide BUN Creatinine Glucose POC Glucose 213 H 195 H Hemoglobin A1c Calcium Ferritin AST ALT Alkaline Phosphatase Lactate Dehydrogenase C-Reactive Protein Albumin Lipase Vancomycin Trough 28.8 H Salicylates Acetaminophen 12/27/21 12/27/21 12/27/21 06:14 12:04 17:23 RBC Hgb Hct Lymph % (Auto) Bent % (Auto) Lymph # (Auto) Seg Neutrophils % APTT D-Dimer ABG pO2 ABG HCO3 ABG O2 Saturation ABG Base Excess ABG Hemoglobin Sodium Potassium Chloride Carbon Dioxide BUN Creatinine Glucose POC Glucose 177 H 229 H 231 H Hemoglobin A1c Calcium Ferritin AST ALT Alkaline Phosphatase Lactate Dehydrogenase C-Reactive Protein Albumin Lipase Vancomycin Trough Salicylates Acetaminophen 12/27/21 12/28/21 12/28/21 23:56 06:57 12:03 RBC Hgb Hct Lymph % (Auto) Bent % (Auto) Lymph # (Auto) Seg Neutrophils % APTT D-Dimer ABG pO2 ABG HCO3 ABG O2 Saturation ABG Base Excess ABG Hemoglobin Sodium Potassium Chloride Carbon Dioxide BUN Creatinine Glucose POC Glucose 237 H 211 H 221 H Hemoglobin A1c Calcium Ferritin AST ALT Alkaline Phosphatase Lactate Dehydrogenase C-Reactive Protein Albumin Lipase Vancomycin Trough Salicylates Acetaminophen 12/28/21 12/29/21 12/29/21 16:29 00:01 05:25 RBC Hgb Hct Lymph % (Auto) Bent % (Auto) Lymph # (Auto) Seg Neutrophils % APTT D-Dimer ABG pO2 ABG HCO3 ABG O2 Saturation ABG Base Excess ABG Hemoglobin Sodium Potassium Chloride Carbon Dioxide BUN Creatinine Glucose POC Glucose 209 H 203 H 163 H Hemoglobin A1c Calcium Ferritin AST ALT Alkaline Phosphatase Lactate Dehydrogenase C-Reactive Protein Albumin Lipase Vancomycin Trough Salicylates Acetaminophen 12/29/21 12/29/21 12/30/21 11:51 17:02 00:01 RBC Hgb Hct Lymph % (Auto) Bent % (Auto) Lymph # (Auto) Seg Neutrophils % APTT D-Dimer ABG pO2 ABG HCO3 ABG O2 Saturation ABG Base Excess ABG Hemoglobin Sodium Potassium Chloride Carbon Dioxide BUN Creatinine Glucose POC Glucose 244 H 214 H 160 H Hemoglobin A1c Calcium Ferritin AST ALT Alkaline Phosphatase Lactate Dehydrogenase C-Reactive Protein Albumin Lipase Vancomycin Trough Salicylates Acetaminophen 12/30/21 12/30/21 12/30/21 05:48 11:10 14:34 RBC Hgb Hct Lymph % (Auto) Bent % (Auto) Lymph # (Auto) Seg Neutrophils % APTT D-Dimer ABG pO2 ABG HCO3 ABG O2 Saturation ABG Base Excess ABG Hemoglobin Sodium Potassium Chloride Carbon Dioxide BUN Creatinine Glucose POC Glucose 121 H 159 H 167 H Hemoglobin A1c Calcium Ferritin AST ALT Alkaline Phosphatase Lactate Dehydrogenase C-Reactive Protein Albumin Lipase Vancomycin Trough Salicylates Acetaminophen 12/30/21 12/30/21 12/31/21 16:00 20:46 05:04 RBC Hgb Hct Lymph % (Auto) Bent % (Auto) Lymph # (Auto) Seg Neutrophils % APTT D-Dimer ABG pO2 ABG HCO3 ABG O2 Saturation ABG Base Excess ABG Hemoglobin Sodium Potassium Chloride Carbon Dioxide BUN Creatinine Glucose POC Glucose 172 H 254 H 158 H Hemoglobin A1c Calcium Ferritin AST ALT Alkaline Phosphatase Lactate Dehydrogenase C-Reactive Protein Albumin Lipase Vancomycin Trough Salicylates Acetaminophen 12/31/21 12/31/21 12/31/21 06:52 06:52 12:47 RBC 3.05 L Hgb 9.1 L Hct 26.9 L Lymph % (Auto) Bent % (Auto) Lymph # (Auto) Seg Neutrophils % APTT D-Dimer ABG pO2 ABG HCO3 ABG O2 Saturation ABG Base Excess ABG Hemoglobin Sodium Potassium 3.1 L Chloride Carbon Dioxide BUN 5 L Creatinine 0.5 L Glucose 128 H POC Glucose 163 H Hemoglobin A1c Calcium 7.0 L Ferritin AST ALT Alkaline Phosphatase Lactate Dehydrogenase C-Reactive Protein Albumin Lipase Vancomycin Trough Salicylates Acetaminophen 12/31/21 01/01/22 01/01/22 21:35 06:24 07:26 RBC Hgb Hct Lymph % (Auto) Bent % (Auto) Lymph # (Auto) Seg Neutrophils % APTT D-Dimer ABG pO2 ABG HCO3 ABG O2 Saturation ABG Base Excess ABG Hemoglobin Sodium Potassium Chloride Carbon Dioxide BUN Creatinine Glucose POC Glucose 153 H 119 H 109 H Hemoglobin A1c Calcium Ferritin AST ALT Alkaline Phosphatase Lactate Dehydrogenase C-Reactive Protein Albumin Lipase Vancomycin Trough Salicylates Acetaminophen 01/01/22 01/01/22 01/01/22 11:38 16:04 21:46 RBC Hgb Hct Lymph % (Auto) Bent % (Auto) Lymph # (Auto) Seg Neutrophils % APTT D-Dimer ABG pO2 ABG HCO3 ABG O2 Saturation ABG Base Excess ABG Hemoglobin Sodium Potassium Chloride Carbon Dioxide BUN Creatinine Glucose POC Glucose 175 H 187 H 242 H Hemoglobin A1c Calcium Ferritin AST ALT Alkaline Phosphatase Lactate Dehydrogenase C-Reactive Protein Albumin Lipase Vancomycin Trough Salicylates Acetaminophen 01/02/22 01/02/22 01/02/22 06:00 09:13 11:42 RBC Hgb Hct Lymph % (Auto) Bent % (Auto) Lymph # (Auto) Seg Neutrophils % APTT D-Dimer ABG pO2 ABG HCO3 ABG O2 Saturation ABG Base Excess ABG Hemoglobin Sodium Potassium Chloride Carbon Dioxide BUN Creatinine Glucose POC Glucose 137 H 158 H 210 H Hemoglobin A1c Calcium Ferritin AST ALT Alkaline Phosphatase Lactate Dehydrogenase C-Reactive Protein Albumin Lipase Vancomycin Trough Salicylates Acetaminophen 01/02/22 01/02/22 01/03/22 16:58 20:04 12:10 RBC Hgb Hct Lymph % (Auto) Bent % (Auto) Lymph # (Auto) Seg Neutrophils % APTT D-Dimer ABG pO2 ABG HCO3 ABG O2 Saturation ABG Base Excess ABG Hemoglobin Sodium Potassium Chloride Carbon Dioxide BUN Creatinine Glucose POC Glucose 166 H 211 H 179 H Hemoglobin A1c Calcium Ferritin AST ALT Alkaline Phosphatase Lactate Dehydrogenase C-Reactive Protein Albumin Lipase Vancomycin Trough Salicylates Acetaminophen 01/03/22 01/03/22 01/04/22 18:05 22:02 05:29 RBC Hgb Hct Lymph % (Auto) Bent % (Auto) Lymph # (Auto) Seg Neutrophils % APTT D-Dimer ABG pO2 ABG HCO3 ABG O2 Saturation ABG Base Excess ABG Hemoglobin Sodium Potassium Chloride Carbon Dioxide BUN Creatinine Glucose POC Glucose 251 H 251 H 140 H Hemoglobin A1c Calcium Ferritin AST ALT Alkaline Phosphatase Lactate Dehydrogenase C-Reactive Protein Albumin Lipase Vancomycin Trough Salicylates Acetaminophen 01/04/22 01/04/22 01/04/22 07:11 11:14 16:04 RBC Hgb Hct Lymph % (Auto) Bent % (Auto) Lymph # (Auto) Seg Neutrophils % APTT D-Dimer ABG pO2 ABG HCO3 ABG O2 Saturation ABG Base Excess ABG Hemoglobin Sodium Potassium Chloride Carbon Dioxide BUN Creatinine Glucose POC Glucose 144 H 268 H 176 H Hemoglobin A1c Calcium Ferritin AST ALT Alkaline Phosphatase Lactate Dehydrogenase C-Reactive Protein Albumin Lipase Vancomycin Trough Salicylates Acetaminophen 01/04/22 01/05/22 01/05/22 23:45 05:28 11:42 RBC Hgb Hct Lymph % (Auto) Bent % (Auto) Lymph # (Auto) Seg Neutrophils % APTT D-Dimer ABG pO2 ABG HCO3 ABG O2 Saturation ABG Base Excess ABG Hemoglobin Sodium Potassium Chloride Carbon Dioxide BUN Creatinine Glucose POC Glucose 148 H 164 H 266 H Hemoglobin A1c Calcium Ferritin AST ALT Alkaline Phosphatase Lactate Dehydrogenase C-Reactive Protein Albumin Lipase Vancomycin Trough Salicylates Acetaminophen 01/05/22 16:33 RBC Hgb Hct Lymph % (Auto) Bent % (Auto) Lymph # (Auto) Seg Neutrophils % APTT D-Dimer ABG pO2 ABG HCO3 ABG O2 Saturation ABG Base Excess ABG Hemoglobin Sodium Potassium Chloride Carbon Dioxide BUN Creatinine Glucose POC Glucose 161 H Hemoglobin A1c Calcium Ferritin AST ALT Alkaline Phosphatase Lactate Dehydrogenase C-Reactive Protein Albumin Lipase Vancomycin Trough Salicylates Acetaminophen Allied health notes reviewed: nursing
[2022-01-06] MEDS: hydrALAZINE 25 MG TAB PO SCH ×3 (05:22→22:15)
[2022-01-06] MEDS: HEPARIN 5,000 UNIT/1 ML VIAL SUB-Q SCH ×3 (05:22→22:15)
--- NOTE | 2022-01-06 08:09 | Progress Note ---
Assessment and Plan Patient is to begin aggressive local wound care with 3 times daily soaking of the foot with Betadine and saline soaks. His WBC count has never been elevated despite the finding of multiple abscesses in his left foot. Staph aureus present on reports of microbiology. In addition to the local wound care IV antibiotics for several additional days will be highly recommended. Subjective Date of service: 01/06/22 Patient Reports: Positive: no new complaints Objective Vital Signs - 12hr 01/05/22 01/05/22 01/06/22 22:00 23:16 03:48 Temperature 98.9 F 98.4 F Pulse Rate 84 82 Pulse Rate [ 89 From Monitor] Respiratory 16 16 Rate Blood Pressure 159/87 179/96 O2 Sat by Pulse 98 96 97 Oximetry 01/06/22 01/06/22 04:00 05:22 Temperature Pulse Rate 71 Pulse Rate [ From Monitor] Respiratory Rate Blood Pressure 179/80 O2 Sat by Pulse Oximetry - Labs 12/31/21 06:52 12/31/21 06:52
--- NOTE | 2022-01-06 09:12 | Progress Note ---
Assessment and Plan Assessment and plan: --Abscess of left foot status post I&D Wound care, elevate the limb Continue current antibiotics, ID and surgery following --Probable chronic Osteomyelitis[on MRI foot] - Presented LLE swelling and left foot abscess - General Surgery consulted - s/p I&D of left foot by surgery on 12/24 and today - Vascular evaluated the patient - Continue current IV Abx Ancef 2 g every 8 hours for total 6 weeks stop date 02/11/[address] Kvng SAEED, if he can recommend alternative more affordable oral antibiotics And he informed that no other oral antibiotic is available to treat osteomyelitis. --Acute Hypoxemic Respiratory Failure ; requiring intubation Present on admission O2 sat on arrival was 60% Patient was intubated on the day of admission, extubated the next day Today patient is on room air saturating more than 94% --COVID 19 - campbell PCR test negative - Presented with unresponsiveness with agonal breathing - Intubated in the ED on 12/24, extubated next day Currently on room air saturating well --Community-Acquired Pneumonia - Imagings suggesting possible Left lung pneumonia - COVID PCR negative - Inflammatory markers and procal pending - Blood culture pending, Sputum culture growing GPC - Continue current IV Abx for now - ID following MSSA wound cultures MSSA urine cultures; ID recommend antibiotics Ancef 2 g every 8 hours stop date 02/10/2022 --Hyponatremia --Hypokalemia-improved - Probably related to dehydration/volume depletion - Na improved post IV hydration - Continue IVF resuscitation - Monitor and replace electrolytes as needed - Serial BMP Q6hrs - Strict intake and output #Acute Metabolic Encephalopathy - Probably r/t to multifactorial. hypoglycemia vs hyponatremia vs infectious process -Resolved #Hyperglycemia #Hypoglycemia-resolved #H/o Diabetes - Presented with low BG in the 30s required D10w gtt - Hyperglycemic this am, BG in the 300s - D/10w d/c - SSI initiated q6hrs - Continue IVF resuscitation with 1/2NS - Serial BMP - Avoid Hypoglycemia - Continue Hypoglycemic protocol #Transaminitis - Etiology unclear - Consult placed to gastroenterology for evaluation and recommendations - Continue to trend LFTs #GI/DVT prophylaxis - PPI- Pepcid - Continue AC- Hep SubQ This is a 56-year-old male with known history of DM admitted for Hypoglycemia, hyponatremia, and acute hypoxemic respiratory failure requiring ventilatory support. Pateint also noted with left foot abscess s/p I&D by Gen. Surgery. Hospital Course to Date: 12/25: Patient remains on the vent, awake, following commends on propofol gtt. Possible PST today, plan to wean to extubate. High BG this am, D10W gtt D/C. Hyponatremia is improving continue IVF resuscitation, serial BMP Q6hrs. LLE wound noted with CDI dressing. General Surgery recommendation noted, Vascular consulted. Wound Care also consulted. Continue current IV Abx for now, ID consulted for IV Abx management. 12/26: cx growing staph, wait for final report. Continue empiric antibiotics 12/27: Wound culture growing MSSA, continue empiric IV Ceftriaxone, PO Flagyl, IV vancomycin. Ordered for left foot MRI for further assessment of the infection 12/28: MRI left foot suggestive of plantar abscess, continue empiric antibiotics, patient would need another I and D, continue to follow clinically. 12/29: Continue empiric antibiotics per ID recommendation. MRI does demonstrate a multiloculated abscess of the left midfoot. vascular recommended debridement of the left foot as well as incision and drainage of the abscess in the operating room to ensure that all potential fluid pockets as well as necrotic tissue is well debrided -planned for tomorrow 12/30: S/p repeat I&D today, -antibiotics changed to IV Ancef 2 gm q8 hrs. Given abscess and osteomyelitis, will need to treat for 6 weeks. Case management consulted for Ancef 2 g every 8 hours until 02/10/2022. Order for PICC line 12/31; patient is evaluated by ID, in the setting of osteomyelitis recommended 6 weeks of IV Ancef, PICC line requested, case management setting up long-term antibiotics 01/01/2022; continue Ancef for total 6 weeks stop date 02/10/2022 Patient has social issues, no resources for long-term antibiotics, will check with ID for any alternative oral antibiotics that patient can afford 01/02; I discussed with ID Dr. Peralta if patient can be placed on alternative oral antibiotics due to patient's lack of resources and the high cost of the IV antibiotics , Dr. Peralta informed me that as patient has osteomyelitis patient needs IV Ancef for total 6 weeks and no other oral medications to treat osteomyelitis . Will inform the case management. 01/03; CM assisting with long-term antibiotics, follow-up with infusion center, and outpatient wound care PICC line is already ordered, discharge planning per case management Patient is medically stable for discharge 01/04; continue current management, DC planning per case management, no resources for long-term antibiotics 01/05; awaiting long-term antibiotics set up, and outpatient wound care set up DC planning per case management 01/06; DC planning per case management History Interval history: I have seen and examined the patient at the bedside Patient's chart and medications reviewed patient feels better no new complaints No new events reported by the nursing Vital signs noted Hospitalist Physical - Constitutional Vitals: Temp Pulse Resp BP Pulse Ox 98.4 F 71 16 179/80 97 01/06/22 03:48 01/06/22 04:00 01/06/22 03:48 01/06/22 05:22 01/06/22 03:48 General appearance: Present: no acute distress, well-nourished - EENT Eyes: Present: PERRL, EOM intact - Neck Neck: Present: supple, normal ROM - Respiratory Respiratory effort: normal Respiratory: bilateral: diminished, negative: rales, rhonchi, wheezing - Cardiovascular Rhythm: regular Heart Sounds: Present: S1 & S2 - Extremities Extremities: no ischemia, No edema - Abdominal General gastrointestinal: soft, non-tender, non-distended, normal bowel sounds - Integumentary Integumentary: Present: clear, warm - Psychiatric Psychiatric: appropriate mood/affect, cooperative - Neurologic Neurologic: CNII-XII intact, moves all extremities HEART Score - HEART Score Troponin: Troponin T < 0.010 ng/mL (0.00-0.029) 12/24/21 22:33 Results - Labs CBC & Chem 7: 12/31/21 06:52 12/31/21 06:52 Labs: Laboratory Last Values WBC 9.9 K/mm3 (4.5-11.0) 12/31/21 06:52 RBC 3.05 M/mm3 (3.65-5.03) L 12/31/21 06:52 Hgb 9.1 gm/dl (11.8-15.2) L 12/31/21 06:52 Hct 26.9 % (35.5-45.6) L 12/31/21 06:52 MCV 88 fl (84-94) 12/31/21 06:52 MCH 30 pg (28-32) 12/31/21 06:52 MCHC 34 % (32-34) 12/31/21 06:52 RDW 14.7 % (13.2-15.2) 12/31/21 06:52 Plt Count 292 K/mm3 (140-440) 12/31/21 06:52 Lymph % (Auto) 17.3 % (13.4-35.0) 12/26/21 06:08 [place] % (Auto) 10.2 % (0.0-7.3) H 12/26/21 06:08 Eos % (Auto) 0.1 % (0.0-4.3) 12/26/21 06:08 Baso % (Auto) 0.4 % (0.0-1.8) 12/26/21 06:08 Lymph # (Auto) 1.2 K/mm3 (1.2-5.4) 12/26/21 06:08 [place] # (Auto) 0.7 K/mm3 (0.0-0.8) 12/26/21 06:08 Eos # (Auto) 0.0 K/mm3 (0.0-0.4) 12/26/21 06:08 Baso # (Auto) 0.0 K/mm3 (0.0-0.1) 12/26/21 06:08 Seg Neutrophils % 72.0 % (40.0-70.0) H 12/26/21 06:08 Seg Neutrophils # 4.9 K/mm3 (1.8-7.7) 12/26/21 06:08 PT 13.9 Sec. (12.2-14.9) 12/24/21 19:43 INR 0.96 (0.87-1.13) 12/24/21 19:43 APTT 39.7 Sec. (24.2-36.6) H 12/24/21 19:43 D-Dimer 2019.48 ng/mlDDU (0-234) H 12/25/21 08:26 ABG pH 7.386 pH Units (7.350-7.450) 12/24/21 Unknown ABG pCO2 32.7 mm Hg 12/24/21 Unknown ABG pO2 308.2 mm Hg (80.0-90.0) H 12/24/21 Unknown ABG HCO3 19.2 mmol/L (20.0-26.0) L 12/24/21 Unknown ABG O2 Saturation 99.5 % (95.0-99.0) H 12/24/21 Unknown ABG O2 Content 15.5 (0.0-44) 12/24/21 Unknown ABG Base Excess -5.0 mmol/L (-2.0-3.0) L 12/24/21 Unknown ABG Hemoglobin 10.6 gm/dl (14.0-18.0) L 12/24/21 Unknown ABG Carboxyhemoglobin 0.9 % (0.0-5.0) 12/24/21 Unknown ABG Methemoglobin 0.5 % (0.0-1.5) 12/24/21 Unknown Oxyhemoglobin 98.1 % (95.0-99.0) 12/24/21 Unknown FiO2 100 % 12/24/21 Unknown Sodium 138 mmol/L (137-145) 12/31/21 06:52 Potassium 3.1 mmol/L (3.6-5.0) L 12/31/21 06:52 Chloride 99.8 mmol/L (98-107) 12/31/21 06:52 Carbon Dioxide 28 mmol/L (22-30) 12/31/21 06:52 Anion Gap 13 mmol/L 12/31/21 06:52 BUN 5 mg/dL (9-20) L 12/31/21 06:52 Creatinine 0.5 mg/dL (0.8-1.3) L 12/31/21 06:52 Estimated GFR > 60 ml/min 12/31/21 06:52 BUN/Creatinine Ratio 10 % 12/31/21 06:52 Glucose 128 mg/dL (75-100) H 12/31/21 06:52 POC Glucose 186 mg/dL (70-105) H 01/06/22 07:41 Hemoglobin A1c 14.9 % (4-6) H 12/26/21 06:08 Lactic Acid 1.20 mmol/L (0.7-2.0) 12/24/21 22:33 Calcium 7.0 mg/dL (8.4-10.2) L 12/31/21 06:52 Phosphorus 3.40 mg/dL (2.5-4.5) 12/26/21 06:08 Magnesium 1.90 mg/dL (1.7-2.3) 12/26/21 06:08 Ferritin 1335.0 ng/mL (30.0-300.0) H 12/26/21 06:08 Total Bilirubin 0.40 mg/dL (0.1-1.2) 12/25/21 08:26 Direct Bilirubin < 0.2 mg/dL (0-0.2) 12/24/21 19:43 Indirect Bilirubin 0.2 mg/dL 12/24/21 19:43 AST 123 units/L (5-40) H 12/25/21 08:26 ALT 111 units/L (7-56) H 12/25/21 08:26 Alkaline Phosphatase 144 units/L (35-129) H 12/25/21 08:26 Ammonia 31.0 umol/L (25-60) 12/24/21 19:43 Lactate Dehydrogenase 215 units/L (91-180) H 12/25/21 08:26 Troponin T < 0.010 ng/mL (0.00-0.029) 12/24/21 22:33 C-Reactive Protein 34.10 mg/dL (0.00-1.30) H 12/25/21 08:26 NT-Pro-B Natriuret Pep 520.8 pg/mL (0-900) 12/24/21 19:43 Total Protein 6.8 g/dL (6.3-8.2) 12/25/21 08:26 Albumin 2.5 g/dL (3.9-5) L 12/25/21 08:26 Albumin/Globulin Ratio 0.6 % 12/25/21 08:26 Lipase 6 units/L (13-60) L 12/24/21 19:43 Procalcitonin 6.09 ng/mL (<0.15) 12/25/21 08:26 TSH 0.910 mlU/mL (0.270-4.200) 12/26/21 06:08 Urine Color Yellow (Yellow) 12/24/21 Unknown Urine Turbidity Slightly-cloudy (Clear) 12/24/21 Unknown Urine pH 6.0 (5.0-7.0) 12/24/21 Unknown Ur Specific [place] 1.020 (1.003-1.030) 12/24/21 Unknown Urine Protein 100 mg/dl mg/dL (Negative) 12/24/21 Unknown Urine Glucose (UA) Neg mg/dL (Negative) 12/24/21 Unknown Urine Ketones Neg mg/dL (Negative) 12/24/21 Unknown Urine Blood Mod (Negative) 12/24/21 Unknown Urine Nitrite Neg (Negative) 12/24/21 Unknown Urine Bilirubin Neg (Negative) 12/24/21 Unknown Urine Urobilinogen 2.0 mg/dL (<2.0) 12/24/21 Unknown Ur Leukocyte Esterase Neg (Negative) 12/24/21 Unknown Urine WBC (Auto) 1.0 /HPF (0.0-6.0) 12/24/21 Unknown Urine RBC (Auto) 1.0 /HPF (0.0-6.0) 12/24/21 Unknown U Epithel Cells (Auto) 1.0 /HPF (0-13.0) 12/24/21 Unknown Urine Bacteria (Auto) 1+ /HPF (Negative) 12/24/21 Unknown Urine Mucus Few /HPF 12/24/21 Unknown Vancomycin Trough 28.8 ug/mL (5.0-20.0) H 12/26/21 23:20 Salicylates < 0.3 mg/dL (2.8-20.0) L 12/24/21 19:43 Acetaminophen 5.0 ug/mL (10.0-30.0) L 12/24/21 19:43 Plasma/Serum Alcohol < 0.01 % (0-0.07) 12/24/21 19:43 Coronavirus (PCR) Negative (Negative) 12/25/21 09:45 Hepatitis A IgM Ab Non-reactive (NonReactive) 12/25/21 Unknown Hep Bs Antigen Non-reactive (Negative) 12/25/21 Unknown Hep B Core IgM Ab Non-reactive (NonReactive) 12/25/21 Unknown Hepatitis C Antibody Non-reactive (NonReactive) 12/25/21 Unknown Blood Type O POSITIVE 12/24/21 19:43 Antibody Screen Negative 12/24/21 19:43 Phillip/IV: Voiding Method Indwelling Catheter Active Medications - Current Medications Current Medications: Generic Name Dose Route Start Last Admin Trade Name Freq PRN Reason Stop Dose Admin Acetaminophen 650 mg 12/25/21 01:40 Acetaminophen 650 Mg Rect Supp HI Q6H PRN Pain MILD(1-3)/Fever >100.5/PATEL Acetaminophen 650 mg 12/29/21 04:27 01/02/22 11:00 Acetaminophen 325 Mg Tab PO 650 mg Q6H PRN Administration Pain, Mild (1-3) Amlodipine Besylate 5 mg 01/06/22 10:00 Amlodipine 5 Mg Tab PO QDAY KELTON Dextrose 0 ml 12/25/21 02:02 Dextrose 10% *Hypoglycemia IV PRN PRN Hypoglycemia Protocol Famotidine 20 mg 12/25/21 10:00 01/05/22 22:22 Famotidine 20 Mg Tab PO 20 mg BID KELTON Administration Heparin Sodium (Porcine) 5,000 unit 12/25/21 06:00 01/06/22 05:22 Heparin 5,000 Unit/1 Ml Vial SUB-Q 5,000 unit Q8HR KELTON Administration Hydralazine HCl 25 mg 01/05/22 14:00 01/06/22 05:22 Hydralazine 25 Mg Tab PO 25 mg Q8HR [facility] Administration Cefazolin Sodium 2 gm/ Sodium 100 mls @ 200 mls/hr 12/27/21 15:00 01/05/22 23:53 Chloride IV 02/04/22 23:29 Infused Q8H [facility] Infusion Protocol Insulin Human Lispro 0 unit 01/05/22 11:30 01/05/22 22:00 Insulin Lispro 100 Unit/Ml SUB-Q Not Given ACHS [facility] Protocol Magnesium Hydroxide 30 ml 12/25/21 01:40 Magnesium Hydroxide (Mom) Oral Liqd Udc PO Q4H PRN Constipation Morphine Sulfate 2 mg 12/25/21 01:40 Morphine 2 Mg/1 Ml Inj IV Q4H PRN Pain, Moderate (4-6) Ondansetron HCl 4 mg 12/25/21 01:40 Ondansetron 4 Mg/2 Ml Inj IV Q8H PRN Nausea And Vomiting Sodium Chloride 10 ml 12/25/21 10:00 01/05/22 22:00 Sodium Chloride 0.9% 10 Ml Flush Syringe IV 10 ml BID KELTON Administration Sodium Chloride 10 ml 12/25/21 01:40 01/02/22 16:27 Sodium Chloride 0.9% 10 Ml Flush Syringe IV 10 ml PRN PRN Administration LINE FLUSH Nutrition/Malnutrition Assess - Dietary Evaluation Nutrition/Malnutrition Findings: Nutrition Notes Start: 12/25/21 11:36 Freq: Status: Active Protocol: Document 01/02/22 17:08 ADELA (Rec: 01/02/22 17:32 ADELA [id number]) Nutrition Notes Initial or Follow up Reassessment Current Diagnosis Diabetes,Respiratory Failure Other Pertinent Diagnosis L-Foot Cellulitis/ Osteomyelitis, MSSA Bacteremia , CAP. Current Diet Cardiac/Consistent Carbohydrates Diet (since L ). Labs/Tests 01/02: N/A. Pertinent Medications 01/02: Insulin, others nutritionally unremarkable. Height 5 ft 3 in Weight 65.7 kg [place] Body Weight (kg) 56.36 BMI 25.6 Weight change and time frame No body weight change reported in 3 days. Weight Status Overweight Subjective/Other Information RD consult for routine F/U on Dietary Advancement. No reports available on Pt's PO intake of meals at the time , but diet appears to be well tolerated, according to RN notes.. Procedure 12/30: Drainage of L -Foot Abscess, well tolerated. Percent of energy/protein needs met: Prescribed Cardiac/Consistent Carbohydrates Diet provides for energy/protein needs (1, 977 Kcal/86 g) during LOS. Burn Absent Trauma Absent GI Symptoms None Food Allergy No Skin Integrity/Comment L-Foot s/p procedure Minimum of two criteria No #1 Nutrition Diagnosis Increased nutrient needs ( specify in comment below) Comments: Protein to support wound healing processes. No reports available on Pt's PO intake of meals at the time , but diet appears to be well tolerated, according to RN notes. Diagnosis Progress(for reassessment Improved documentation) Is patient on ventilator? No Is Patient Ambulatory and/or Out of Bed No [facility] [phone] Calculation Used for Recommendations [facility] Additional Notes Protein: 1.25-1.5 g/Kg; 83-99 g/day. Fluids: 1 ml/Kcal, or as per MD. Nutrition Intervention Change Diet Order: Continue Cardiac/Consistent Carbohydrates Diet. Goal #1 Maintain body weight within +/ -3% of admission body weight during LOS. Follow-Up By: 01/09/22 Additional Comments Continue monitoring food tolerance, %PO intake of meals , and BM.
[2022-01-06] MEDS: amLODIPine 5 MG TAB PO SCH (09:31)
[2022-01-06] MEDS: FAMOTIDINE 20 MG TAB PO SCH ×2 (09:31→22:15)
[2022-01-06] MEDS: INSULIN LISPRO 100 UNIT/ML SUB-Q SCH ×4 (09:33→23:45)
--- NOTE | 2022-01-06 14:07 | Progress Note ---
Assessment and Plan Cultures: 12/24/2021 blood culture: No growth 12/24/2021 urine culture: MSSA 12/24/2021 sputum culture: usual resp daniel 12/24/2021 left foot wound culture: MSSA 12/30/2021 surgical culture L foot: MSSA A/P: 56-year-old male with diabetes mellitus was admitted to the hospital on December 24, 2021 with altered mental status: #Left foot cellulitis with abscess, diabetic foot infection: underlying pe ripheral vascular disease as well as evidence of abscess and extensive osteomyelitis. Underwent bedside I&D in the ER and then in OR by general surgery. Cultures growing MSSA. Vascular evaluated, no interventions planned. #Left lower lobe pneumonia: completed abx, on room air. #Diabetes mellitus type 2, uncontrolled #MSSA in urine culture: Generally not a uropathogen in the absence of instrum entation, its presence in the urinary tract is typically bacteremia related but blood cultures remained negative. #Acute encephalopathy: resolved. Recs: -continue IV Ancef 2 gm q8 hrs x 6 weeks (ending 02/04/2022) at high risk of limb loss. Oral antibiotics not preferred -wound care -optimize glycemic control Michelle Sroto MD [facility] O: [phone] F: [phone] Subjective Date of service: 01/06/22 Principal diagnosis: AHRF; CAP; AMS; Abscess of left foot; Possible Osteomyelitis; DM II Interval history: Afebrile, normal white count. Objective - Exam Narrative Exam: Physical Exam: Constitutional: Alert, cooperative. No acute distress Head, Ears, Nose: Normocephalic, atraumatic. External ears, nose normal Eyes: Conjunctivae/corneas clear. No icterus. No ptosis. Neck: Supple, no meningeal signs Cardiovascular: S1, S2 + Respiratory: Good air entry, clear to auscultation bilaterally GI: Soft, non-tender; bowel sounds normal. No peritoneal signs Musculoskeletal: Left foot with swelling, cellulitis, dressing present, left foot laterally with wound and purulence. [place]abez[place] with scab, no tenderness or purulence Skin: No rash or abscess Hem/Lymphatic: No palpable cervical or supraclavicular nodes. No lymphangitis Psych: Mood ok. Affect normal Neurological: Awake, alert, oriented. No gross abnormality - Constitutional Vitals: Vital Signs Temp Pulse Resp BP Pulse Ox 98.3 F 71 17 153/87 97 01/06/22 08:24 01/06/22 04:00 01/06/22 08:24 01/06/22 08:24 01/06/22 10:00 Temperature -Last 24 Hours Temperature 98.3 F Temperature 98.4 F Temperature 98.9 F Temperature 98.4 F Temperature 98.3 F - Labs CBC & Chem 7: 12/31/21 06:52 12/31/21 06:52 Labs: Abnormal lab results 01/05/22 01/05/22 01/06/22 Range/Units 16:33 20:16 07:41 POC Glucose 161 H 109 H 186 H (70-105) mg/dL 01/06/22 Range/Units 11:08 POC Glucose 301 H (70-105) mg/dL
--- NOTE | 2022-01-06 18:16 | Progress Note ---
Assessment and Plan 56-year-old male with known history of diabetes mellitus brought into the emergency room today via EMS after being found unresponsive and having agonal breathing. Most of the history was obtained from the ER staff as patient is already intubated and sedated. Patient was found to have been having agonal respiration and unresponsive by EMS. Was given albuterol nebulizing treatment and Solu-Medrol. He was subsequently intubated and sedated in the emergency room. Patient was said to have been missing from home for about 3 days was also said to have stepped on it nail with which his left foot. Left foot has been swollen and red. Work-up in the emergency room , initial blood glucose was 38, hypokalemia of 3.3 and hyponatremia of 128. Patient was given boluses of IV glucose with improvement of his blood glucose. General surgery consulted. He immediately had an incision and drainage of the swollen left foot. Patient started on antibiotics Zosyn, Vancomycin and Clindamycin. Patient also had a tetanus toxoid injection. CT of the head and neck, abdomen and pelvis did not reveal any acute abnormality. Chest x-ray within normal limits. Patient extubated . Patient transfered to Telemetry. Patient sleeping. Patient is on room air. O2 saturation 98%. No acute respiratory distress. Patient afebrile. No Leukocytosis. Blood pressure 141/80, Pulse 85, Respirations 18. CT of chest done 12/25/[address] evidence for pulmonary embolism. Moderate left lower lobe pneumonia, unchanged. Patient presently on Cephazolin., S/C heparin and famotidine. - Patient Problems (1) Acute respiratory failure with hypoxia Status: Acute Plan to address problem: Patient intubated and extubated. Patient presently on room air. O2 saturation 98 %. (2) Abscess of left foot Status: Acute Plan to address problem: Incision and drainage and wound care. (3) Pneumonia involving left lung Status: Acute Plan to address problem: Patient was on multiple antibiotics. Zosyn, vancomycin, Clindamycin and Ceftriaxone. Patient presently on cephazolin. (4) Osteomyelitis of left foot Status: Acute Plan to address problem: Antibiotics as per ID. Patient presently on cefazolin. Subjective Date of service: 01/06/22 Principal diagnosis: AHRF; CAP; AMS; Abscess of left foot; Possible Osteomyelitis; DM II Interval history: 56-year-old male with known history of diabetes mellitus brought into the emergency room today via EMS after being found unresponsive and having agonal breathing. Most of the history was obtained from the ER staff as patient is already intubated and sedated. Patient was found to have been having agonal respiration and unresponsive by EMS. Was given albuterol nebulizing treatment and Solu-Medrol. He was subsequently intubated and sedated in the emergency room. Patient was said to have been missing from home for about 3 days was also said to have stepped on it nail with which his left foot. Left foot has been swollen and red. Work-up in the emergency room , initial blood glucose was 38, hypokalemia of 3.3 and hyponatremia of 128. Patient was given boluses of IV glucose with improvement of his blood glucose. General surgery consulted. He immediately had an incision and drainage of the swollen left foot. Patient started on antibiotics Zosyn, Vancomycin and Clindamycin. Patient also had a tetanus toxoid injection. CT of the head and neck, abdomen and pelvis did not reveal any acute abnormality. Chest x-ray within normal limits. Patient extubated . Patient transfered to Telemetry. Patient sleeping. Patient is on room air. O2 saturation 98%. No acute respiratory distress. Patient afebrile. No Leukocytosis. Blood pressure 141/80, Pulse 85, Respirations 18. CT of chest done 12/25/[address] evidence for pulmonary embolism. Moderate left lower lobe pneumonia, unchanged. Patient presently on Cephazolin., S/C heparin and famotidine. Objective Vital Signs - 12hr 01/06/22 01/06/22 01/06/22 08:24 10:00 12:00 Temperature 98.3 F Pulse Rate 85 Respiratory 17 Rate Blood Pressure 153/87 O2 Sat by Pulse 97 Oximetry 01/06/22 15:55 Temperature 97.3 F L Pulse Rate 85 Respiratory 18 Rate Blood Pressure 141/80 O2 Sat by Pulse 98 Oximetry Constitutional: no acute distress, alert Eyes: non-icteric ENT: oropharynx moist Neck: supple, no lymphadenopathy Effort: normal Ascultation: Bilateral: diminished breath sounds Percussion: Bilateral: not dull Cardiovascular: regular rate and rhythm Gastrointestinal: normoactive bowel sounds, soft, non-tender, non-distended Integumentary: other (L. foot infection) Extremities: no cyanosis, edema, other (Swelling of left foot. Left foot abscess .) Neurologic: non-focal exam, pupils equal and round, CN II-XII normal Psychiatric: mood appropriate, affect normal CBC and BMP: 12/31/21 06:52 12/31/21 06:52 ABG, PT/INR, D-dimer: ABG ABG pH 7.386 pH Units (7.350-7.450) 12/24/21 Unknown ABG pCO2 32.7 mm Hg 12/24/21 Unknown ABG pO2 308.2 mm Hg (80.0-90.0) H 12/24/21 Unknown ABG O2 Saturation 99.5 % (95.0-99.0) H 12/24/21 Unknown PT/INR, D-dimer PT 13.9 Sec. (12.2-14.9) 12/24/21 19:43 INR 0.96 (0.87-1.13) 12/24/21 19:43 D-Dimer 2019.48 ng/mlDDU (0-234) H 12/25/21 08:26 Abnormal lab findings: Abnormal Labs 12/24/21 12/24/21 12/24/21 19:43 19:43 19:43 RBC 3.58 L Hgb 10.3 L Hct 31.5 L Lymph % (Auto) Dougherty % (Auto) 10.9 H Lymph # (Auto) 1.1 L Seg Neutrophils % APTT 39.7 H D-Dimer ABG pO2 ABG HCO3 ABG O2 Saturation ABG Base Excess ABG Hemoglobin Sodium 128 L Potassium 3.3 L Chloride 95.9 L Carbon Dioxide 18 L BUN Creatinine 0.6 L Glucose 38 L* POC Glucose Hemoglobin A1c Calcium Ferritin AST 232 H ALT 126 H Alkaline Phosphatase 132 H Lactate Dehydrogenase C-Reactive Protein Albumin 2.6 L Lipase 6 L Vancomycin Trough Salicylates Acetaminophen 12/24/21 12/24/21 12/24/21 19:43 19:43 22:33 RBC Hgb Hct Lymph % (Auto) Dougherty % (Auto) Lymph # (Auto) Seg Neutrophils % APTT D-Dimer ABG pO2 ABG HCO3 ABG O2 Saturation ABG Base Excess ABG Hemoglobin Sodium 126 L Potassium 3.1 L Chloride 91.7 L Carbon Dioxide 19 L BUN Creatinine 0.7 L Glucose 115 H POC Glucose Hemoglobin A1c Calcium 8.3 L Ferritin AST ALT Alkaline Phosphatase Lactate Dehydrogenase C-Reactive Protein Albumin Lipase Vancomycin Trough Salicylates < 0.3 L Acetaminophen 5.0 L 12/24/21 12/25/21 12/25/21 Unknown 00:23 05:59 RBC Hgb Hct Lymph % (Auto) Dougherty % (Auto) Lymph # (Auto) Seg Neutrophils % APTT D-Dimer ABG pO2 308.2 H ABG HCO3 19.2 L ABG O2 Saturation 99.5 H ABG Base Excess -5.0 L ABG Hemoglobin 10.6 L Sodium Potassium Chloride Carbon Dioxide BUN Creatinine Glucose POC Glucose 157 H 469 H Hemoglobin A1c Calcium Ferritin AST ALT Alkaline Phosphatase Lactate Dehydrogenase C-Reactive Protein Albumin Lipase Vancomycin Trough Salicylates Acetaminophen 12/25/21 12/25/21 12/25/21 06:01 08:26 08:26 RBC Hgb 11.7 L Hct 35.2 L Lymph % (Auto) 9.8 L Dougherty % (Auto) Lymph # (Auto) 0.5 L Seg Neutrophils % 84.2 H APTT D-Dimer ABG pO2 ABG HCO3 ABG O2 Saturation ABG Base Excess ABG Hemoglobin Sodium 130 L Potassium Chloride 96.6 L Carbon Dioxide 19 L BUN Creatinine 0.7 L Glucose 323 H POC Glucose 316 H Hemoglobin A1c Calcium 8.3 L Ferritin AST 123 H ALT 111 H Alkaline Phosphatase 144 H Lactate Dehydrogenase C-Reactive Protein Albumin 2.5 L Lipase Vancomycin Trough Salicylates Acetaminophen 12/25/21 12/25/21 12/25/21 08:26 08:26 08:26 RBC Hgb Hct Lymph % (Auto) Dougherty % (Auto) Lymph # (Auto) Seg Neutrophils % APTT D-Dimer 2019.48 H ABG pO2 ABG HCO3 ABG O2 Saturation ABG Base Excess ABG Hemoglobin Sodium Potassium Chloride Carbon Dioxide BUN Creatinine Glucose POC Glucose Hemoglobin A1c Calcium Ferritin 1288.0 H AST ALT Alkaline Phosphatase Lactate Dehydrogenase 215 H C-Reactive Protein 34.10 H Albumin Lipase Vancomycin Trough Salicylates Acetaminophen 12/25/21 12/25/21 12/25/21 10:59 15:45 20:29 RBC Hgb Hct Lymph % (Auto) Dougherty % (Auto) Lymph # (Auto) Seg Neutrophils % APTT D-Dimer ABG pO2 ABG HCO3 ABG O2 Saturation ABG Base Excess ABG Hemoglobin Sodium 135 L Potassium Chloride Carbon Dioxide 17 L BUN Creatinine 0.6 L Glucose 161 H POC Glucose 305 H 236 H Hemoglobin A1c Calcium 7.9 L Ferritin AST ALT Alkaline Phosphatase Lactate Dehydrogenase C-Reactive Protein Albumin Lipase Vancomycin Trough Salicylates Acetaminophen 12/25/21 12/26/21 12/26/21 20:59 00:19 01:23 RBC Hgb Hct Lymph % (Auto) Dougherty % (Auto) Lymph # (Auto) Seg Neutrophils % APTT D-Dimer ABG pO2 ABG HCO3 ABG O2 Saturation ABG Base Excess ABG Hemoglobin Sodium 133 L Potassium Chloride Carbon Dioxide 17 L BUN Creatinine 0.6 L Glucose 178 H POC Glucose 184 H 191 H Hemoglobin A1c Calcium 7.9 L Ferritin AST ALT Alkaline Phosphatase Lactate Dehydrogenase C-Reactive Protein Albumin Lipase Vancomycin Trough Salicylates Acetaminophen 12/26/21 12/26/21 12/26/21 05:52 06:08 06:08 RBC 3.59 L Hgb 10.8 L Hct 32.2 L Lymph % (Auto) Dougherty % (Auto) 10.2 H Lymph # (Auto) Seg Neutrophils % 72.0 H APTT D-Dimer ABG pO2 ABG HCO3 ABG O2 Saturation ABG Base Excess ABG Hemoglobin Sodium 136 L Potassium Chloride Carbon Dioxide 18 L BUN Creatinine 0.7 L Glucose 154 H POC Glucose 133 H Hemoglobin A1c Calcium Ferritin AST ALT Alkaline Phosphatase Lactate Dehydrogenase C-Reactive Protein Albumin Lipase Vancomycin Trough Salicylates Acetaminophen 12/26/21 12/26/21 12/26/21 06:08 06:08 12:07 RBC Hgb Hct Lymph % (Auto) Dougherty % (Auto) Lymph # (Auto) Seg Neutrophils % APTT D-Dimer ABG pO2 ABG HCO3 ABG O2 Saturation ABG Base Excess ABG Hemoglobin Sodium Potassium Chloride Carbon Dioxide BUN Creatinine Glucose POC Glucose 210 H Hemoglobin A1c 14.9 H Calcium Ferritin 1335.0 H AST ALT Alkaline Phosphatase Lactate Dehydrogenase C-Reactive Protein Albumin Lipase Vancomycin Trough Salicylates Acetaminophen 12/26/21 12/26/21 12/27/21 17:14 23:20 00:09 RBC Hgb Hct Lymph % (Auto) Dougherty % (Auto) Lymph # (Auto) Seg Neutrophils % APTT D-Dimer ABG pO2 ABG HCO3 ABG O2 Saturation ABG Base Excess ABG Hemoglobin Sodium Potassium Chloride Carbon Dioxide BUN Creatinine Glucose POC Glucose 213 H 195 H Hemoglobin A1c Calcium Ferritin AST ALT Alkaline Phosphatase Lactate Dehydrogenase C-Reactive Protein Albumin Lipase Vancomycin Trough 28.8 H Salicylates Acetaminophen 12/27/21 12/27/21 12/27/21 06:14 12:04 17:23 RBC Hgb Hct Lymph % (Auto) Dougherty % (Auto) Lymph # (Auto) Seg Neutrophils % APTT D-Dimer ABG pO2 ABG HCO3 ABG O2 Saturation ABG Base Excess ABG Hemoglobin Sodium Potassium Chloride Carbon Dioxide BUN Creatinine Glucose POC Glucose 177 H 229 H 231 H Hemoglobin A1c Calcium Ferritin AST ALT Alkaline Phosphatase Lactate Dehydrogenase C-Reactive Protein Albumin Lipase Vancomycin Trough Salicylates Acetaminophen 12/27/21 12/28/21 12/28/21 23:56 06:57 12:03 RBC Hgb Hct Lymph % (Auto) Dougherty % (Auto) Lymph # (Auto) Seg Neutrophils % APTT D-Dimer ABG pO2 ABG HCO3 ABG O2 Saturation ABG Base Excess ABG Hemoglobin Sodium Potassium Chloride Carbon Dioxide BUN Creatinine Glucose POC Glucose 237 H 211 H 221 H Hemoglobin A1c Calcium Ferritin AST ALT Alkaline Phosphatase Lactate Dehydrogenase C-Reactive Protein Albumin Lipase Vancomycin Trough Salicylates Acetaminophen 12/28/21 12/29/21 12/29/21 16:29 00:01 05:25 RBC Hgb Hct Lymph % (Auto) Dougherty % (Auto) Lymph # (Auto) Seg Neutrophils % APTT D-Dimer ABG pO2 ABG HCO3 ABG O2 Saturation ABG Base Excess ABG Hemoglobin Sodium Potassium Chloride Carbon Dioxide BUN Creatinine Glucose POC Glucose 209 H 203 H 163 H Hemoglobin A1c Calcium Ferritin AST ALT Alkaline Phosphatase Lactate Dehydrogenase C-Reactive Protein Albumin Lipase Vancomycin Trough Salicylates Acetaminophen 12/29/21 12/29/21 12/30/21 11:51 17:02 00:01 RBC Hgb Hct Lymph % (Auto) Dougherty % (Auto) Lymph # (Auto) Seg Neutrophils % APTT D-Dimer ABG pO2 ABG HCO3 ABG O2 Saturation ABG Base Excess ABG Hemoglobin Sodium Potassium Chloride Carbon Dioxide BUN Creatinine Glucose POC Glucose 244 H 214 H 160 H Hemoglobin A1c Calcium Ferritin AST ALT Alkaline Phosphatase Lactate Dehydrogenase C-Reactive Protein Albumin Lipase Vancomycin Trough Salicylates Acetaminophen 12/30/21 12/30/21 12/30/21 05:48 11:10 14:34 RBC Hgb Hct Lymph % (Auto) Dougherty % (Auto) Lymph # (Auto) Seg Neutrophils % APTT D-Dimer ABG pO2 ABG HCO3 ABG O2 Saturation ABG Base Excess ABG Hemoglobin Sodium Potassium Chloride Carbon Dioxide BUN Creatinine Glucose POC Glucose 121 H 159 H 167 H Hemoglobin A1c Calcium Ferritin AST ALT Alkaline Phosphatase Lactate Dehydrogenase C-Reactive Protein Albumin Lipase Vancomycin Trough Salicylates Acetaminophen 12/30/21 12/30/21 12/31/21 16:00 20:46 05:04 RBC Hgb Hct Lymph % (Auto) Dougherty % (Auto) Lymph # (Auto) Seg Neutrophils % APTT D-Dimer ABG pO2 ABG HCO3 ABG O2 Saturation ABG Base Excess ABG Hemoglobin Sodium Potassium Chloride Carbon Dioxide BUN Creatinine Glucose POC Glucose 172 H 254 H 158 H Hemoglobin A1c Calcium Ferritin AST ALT Alkaline Phosphatase Lactate Dehydrogenase C-Reactive Protein Albumin Lipase Vancomycin Trough Salicylates Acetaminophen 12/31/21 12/31/21 12/31/21 06:52 06:52 12:47 RBC 3.05 L Hgb 9.1 L Hct 26.9 L Lymph % (Auto) Dougherty % (Auto) Lymph # (Auto) Seg Neutrophils % APTT D-Dimer ABG pO2 ABG HCO3 ABG O2 Saturation ABG Base Excess ABG Hemoglobin Sodium Potassium 3.1 L Chloride Carbon Dioxide BUN 5 L Creatinine 0.5 L Glucose 128 H POC Glucose 163 H Hemoglobin A1c Calcium 7.0 L Ferritin AST ALT Alkaline Phosphatase Lactate Dehydrogenase C-Reactive Protein Albumin Lipase Vancomycin Trough Salicylates Acetaminophen 12/31/21 01/01/22 01/01/22 21:35 06:24 07:26 RBC Hgb Hct Lymph % (Auto) Dougherty % (Auto) Lymph # (Auto) Seg Neutrophils % APTT D-Dimer ABG pO2 ABG HCO3 ABG O2 Saturation ABG Base Excess ABG Hemoglobin Sodium Potassium Chloride Carbon Dioxide BUN Creatinine Glucose POC Glucose 153 H 119 H 109 H Hemoglobin A1c Calcium Ferritin AST ALT Alkaline Phosphatase Lactate Dehydrogenase C-Reactive Protein Albumin Lipase Vancomycin Trough Salicylates Acetaminophen 01/01/22 01/01/22 01/01/22 11:38 16:04 21:46 RBC Hgb Hct Lymph % (Auto) Dougherty % (Auto) Lymph # (Auto) Seg Neutrophils % APTT D-Dimer ABG pO2 ABG HCO3 ABG O2 Saturation ABG Base Excess ABG Hemoglobin Sodium Potassium Chloride Carbon Dioxide BUN Creatinine Glucose POC Glucose 175 H 187 H 242 H Hemoglobin A1c Calcium Ferritin AST ALT Alkaline Phosphatase Lactate Dehydrogenase C-Reactive Protein Albumin Lipase Vancomycin Trough Salicylates Acetaminophen 01/02/22 01/02/22 01/02/22 06:00 09:13 11:42 RBC Hgb Hct Lymph % (Auto) Dougherty % (Auto) Lymph # (Auto) Seg Neutrophils % APTT D-Dimer ABG pO2 ABG HCO3 ABG O2 Saturation ABG Base Excess ABG Hemoglobin Sodium Potassium Chloride Carbon Dioxide BUN Creatinine Glucose POC Glucose 137 H 158 H 210 H Hemoglobin A1c Calcium Ferritin AST ALT Alkaline Phosphatase Lactate Dehydrogenase C-Reactive Protein Albumin Lipase Vancomycin Trough Salicylates Acetaminophen 01/02/22 01/02/22 01/03/22 16:58 20:04 12:10 RBC Hgb Hct Lymph % (Auto) Dougherty % (Auto) Lymph # (Auto) Seg Neutrophils % APTT D-Dimer ABG pO2 ABG HCO3 ABG O2 Saturation ABG Base Excess ABG Hemoglobin Sodium Potassium Chloride Carbon Dioxide BUN Creatinine Glucose POC Glucose 166 H 211 H 179 H Hemoglobin A1c Calcium Ferritin AST ALT Alkaline Phosphatase Lactate Dehydrogenase C-Reactive Protein Albumin Lipase Vancomycin Trough Salicylates Acetaminophen 01/03/22 01/03/22 01/04/22 18:05 22:02 05:29 RBC Hgb Hct Lymph % (Auto) Dougherty % (Auto) Lymph # (Auto) Seg Neutrophils % APTT D-Dimer ABG pO2 ABG HCO3 ABG O2 Saturation ABG Base Excess ABG Hemoglobin Sodium Potassium Chloride Carbon Dioxide BUN Creatinine Glucose POC Glucose 251 H 251 H 140 H Hemoglobin A1c Calcium Ferritin AST ALT Alkaline Phosphatase Lactate Dehydrogenase C-Reactive Protein Albumin Lipase Vancomycin Trough Salicylates Acetaminophen 01/04/22 01/04/22 01/04/22 07:11 11:14 16:04 RBC Hgb Hct Lymph % (Auto) Dougherty % (Auto) Lymph # (Auto) Seg Neutrophils % APTT D-Dimer ABG pO2 ABG HCO3 ABG O2 Saturation ABG Base Excess ABG Hemoglobin Sodium Potassium Chloride Carbon Dioxide BUN Creatinine Glucose POC Glucose 144 H 268 H 176 H Hemoglobin A1c Calcium Ferritin AST ALT Alkaline Phosphatase Lactate Dehydrogenase C-Reactive Protein Albumin Lipase Vancomycin Trough Salicylates Acetaminophen 01/04/22 01/05/22 01/05/22 23:45 05:28 11:42 RBC Hgb Hct Lymph % (Auto) Dougherty % (Auto) Lymph # (Auto) Seg Neutrophils % APTT D-Dimer ABG pO2 ABG HCO3 ABG O2 Saturation ABG Base Excess ABG Hemoglobin Sodium Potassium Chloride Carbon Dioxide BUN Creatinine Glucose POC Glucose 148 H 164 H 266 H Hemoglobin A1c Calcium Ferritin AST ALT Alkaline Phosphatase Lactate Dehydrogenase C-Reactive Protein Albumin Lipase Vancomycin Trough Salicylates Acetaminophen 01/05/22 01/05/22 01/06/22 16:33 20:16 07:41 RBC Hgb Hct Lymph % (Auto) Dougherty % (Auto) Lymph # (Auto) Seg Neutrophils % APTT D-Dimer ABG pO2 ABG HCO3 ABG O2 Saturation ABG Base Excess ABG Hemoglobin Sodium Potassium Chloride Carbon Dioxide BUN Creatinine Glucose POC Glucose 161 H 109 H 186 H Hemoglobin A1c Calcium Ferritin AST ALT Alkaline Phosphatase Lactate Dehydrogenase C-Reactive Protein Albumin Lipase Vancomycin Trough Salicylates Acetaminophen 01/06/22 11:08 RBC Hgb Hct Lymph % (Auto) Dougherty % (Auto) Lymph # (Auto) Seg Neutrophils % APTT D-Dimer ABG pO2 ABG HCO3 ABG O2 Saturation ABG Base Excess ABG Hemoglobin Sodium Potassium Chloride Carbon Dioxide BUN Creatinine Glucose POC Glucose 301 H Hemoglobin A1c Calcium Ferritin AST ALT Alkaline Phosphatase Lactate Dehydrogenase C-Reactive Protein Albumin Lipase Vancomycin Trough Salicylates Acetaminophen Allied health notes reviewed: nursing
[2022-01-07] MEDS: HEPARIN 5,000 UNIT/1 ML VIAL SUB-Q SCH ×2 (05:03→16:25)
[2022-01-07] MEDS: hydrALAZINE 25 MG TAB PO SCH ×2 (05:03→16:25)
[2022-01-07] MEDS: INSULIN LISPRO 100 UNIT/ML SUB-Q SCH ×3 (07:30→18:12)
[2022-01-07] MEDS: amLODIPine 5 MG TAB PO SCH (10:23)
[2022-01-07] MEDS: FAMOTIDINE 20 MG TAB PO SCH (10:23)
--- NOTE | 2022-01-07 13:08 | Progress Note ---
Assessment and Plan Cultures: 12/24/2021 blood culture: No growth 12/24/2021 urine culture: MSSA 12/24/2021 sputum culture: usual resp daniel 12/24/2021 left foot wound culture: MSSA 12/30/2021 surgical culture L foot: MSSA A/P: 56-year-old male with diabetes mellitus was admitted to the hospital on December 24, 2021 with altered mental status: #Left foot cellulitis with abscess, diabetic foot infection: underlying pe ripheral vascular disease as well as evidence of abscess and extensive osteomyelitis. Underwent bedside I&D in the ER and then in OR by general surgery. Cultures growing MSSA. Vascular evaluated, no interventions planned. #Left lower lobe pneumonia: completed abx, on room air. #Diabetes mellitus type 2, uncontrolled #MSSA in urine culture: Generally not a uropathogen in the absence of instrum entation, its presence in the urinary tract is typically bacteremia related but blood cultures remained negative. #Acute encephalopathy: resolved. Recs: -continue IV Ancef 2 gm q8 hrs x 6 weeks (ending 02/04/2022) at high risk of limb loss. Oral antibiotics not preferred -wound care -optimize glycemic control Michelle Sorto MD [facility] O: [phone] F: [phone] Subjective Date of service: 01/07/22 Principal diagnosis: AHRF; CAP; AMS; Abscess of left foot; Possible Osteomyelitis; DM II Interval history: Afebrile, no acute changes. Objective - Exam Narrative Exam: Physical Exam: Constitutional: Alert, cooperative. No acute distress Head, Ears, Nose: Normocephalic, atraumatic. External ears, nose normal Eyes: Conjunctivae/corneas clear. No icterus. No ptosis. Neck: Supple, no meningeal signs Cardiovascular: S1, S2 + Respiratory: Good air entry, clear to auscultation bilaterally GI: Soft, non-tender; bowel sounds normal. No peritoneal signs Musculoskeletal: Left foot with swelling, cellulitis, dressing present, left foot laterally with wound and purulence. Cabezas with scab, no tenderness or purulence Skin: No rash or abscess Hem/Lymphatic: No palpable cervical or supraclavicular nodes. No lymphangitis Psych: Mood ok. Affect normal Neurological: Awake, alert, oriented. No gross abnormality - Constitutional Vitals: Vital Signs Temp Pulse Resp BP Pulse Ox 98.5 F 72 16 149/80 98 01/07/22 11:26 01/07/22 11:26 01/07/22 11:26 01/07/22 11:26 01/07/22 11:26 Temperature -Last 24 Hours Temperature 98.5 F Temperature 98.8 F Temperature 98.0 F Temperature 99.0 F Temperature 99.2 F Temperature 97.3 F Temperature 97.3 F - Labs CBC & Chem 7: 12/31/21 06:52 12/31/21 06:52 Labs: Abnormal lab results 01/07/22 01/07/22 Range/Units 08:23 12:02 POC Glucose 122 H 199 H (70-105) mg/dL
--- NOTE | 2022-01-07 17:18 | Discharge Summary ---
Providers - Providers Date of Admission: 12/25/21 01:40 Date of discharge: 01/07/22 Attending physician: DIPESH ROMERO 12/24/21 21:43 Consult to Physician [CONS] Routine Comment: Consulting Provider: LATESHA MANCERA Physician Instructions: Reason For Exam: Left foot abscess 12/24/21 22:15 Consult to Physician [CONS] Routine Comment: Dr. Mcguire spoke with Dr. Crocker @ [id number] Consulting Provider: RAFY CROCKER Physician Instructions: Reason For Exam: respiratory failure, intubated 12/25/21 05:56 Consult to Physician [CONS] Routine Comment: Consulting Provider: FRANCES JAY Physician Instructions: Reason For Exam: Elevated Liver Enzymes 12/25/21 07:34 Consult to Dietitian/Nutrition [CONS] Routine Physician Instructions: Reason For Exam: Reason for Consult: Write/Manage Tube Feeding 12/25/21 10:58 Consult to Wound/ET Nurse [CONS] Routine Reason For Exam: wound eval 12/25/21 13:55 Consult to Physician [CONS] Routine Comment: Consulting Provider: VALERIA CHAND Physician Instructions: Reason For Exam: Foot Ulcer, ?PVD 12/25/21 14:13 Consult to Physician [CONS] Routine Comment: Consulting Provider: ROSMERY PERALTA Physician Instructions: Reason For Exam: CAP; ? Chronic Osteomyelitis/LLE abcess 12/30/21 17:12 Consult to Case Management [CONS] Routine Services Needed at Discharge: Home Health Services Notified:: therapeutic case manager Additional Physician Instructions: Michelle Briggs MD [facility] ([facility]) M: [phone] O: [phone] F: [phone] Outpatient parenteral antibiotic therapy orders Diagnosis: Right foot osteomyelitis Antibiotic administration: Ancef 2 g every 8 hours until 02/04/2022 Line: PICC line Lab monitoring: CBC with differential, BUN, creatinine, LFTs, CRP once per week preferably on Thursday or Thursday For critical labs, call office: [phone] Michelle Briggs 12/31/21 06:43 PICC Line Insertion [Consult to PICC Line RN] [CONS] Routine Reason For Exam: need iv abx Type Line:: PICC Primary care physician: ACADEMIC AFFAIRS MANAGER Hospitalization Condition: Stable Hospital course: --Abscess of left foot status post I&D Wound care, elevate the limb Continue current antibiotics, ID and surgery following --Probable chronic Osteomyelitis[on MRI foot] - Presented LLE swelling and left foot abscess - General Surgery consulted - s/p I&D of left foot by surgery on 12/24 and today - Vascular evaluated the patient - Continue current IV Abx Ancef 2 g every 8 hours for total 6 weeks stop date 02/11/[address] Calderon ID, if he can recommend alternative more affordable oral antibiotics And he informed that no other oral antibiotic is available to treat osteomyelitis. --Acute Hypoxemic Respiratory Failure ; requiring intubation Present on admission O2 sat on arrival was 60% Patient was intubated on the day of admission, extubated the next day Today patient is on room air saturating more than 94% --COVID 19 - campbell PCR test negative - Presented with unresponsiveness with agonal breathing - Intubated in the ED on 12/24, extubated next day Currently on room air saturating well --Community-Acquired Pneumonia - Imagings suggesting possible Left lung pneumonia - COVID PCR negative - Inflammatory markers and procal pending - Blood culture pending, Sputum culture growing GPC - Continue current IV Abx for now - ID following MSSA wound cultures MSSA urine cultures; ID recommend antibiotics Ancef 2 g every 8 hours stop date 02/10/2022 --Hyponatremia --Hypokalemia-improved - Probably related to dehydration/volume depletion - Na improved post IV hydration - Continue IVF resuscitation - Monitor and replace electrolytes as needed - Serial BMP Q6hrs - Strict intake and output #Acute Metabolic Encephalopathy - Probably r/t to multifactorial. hypoglycemia vs hyponatremia vs infectious process -Resolved #Hyperglycemia #Hypoglycemia-resolved #H/o Diabetes - Presented with low BG in the 30s required D10w gtt - Hyperglycemic this am, BG in the 300s - D/10w d/c - SSI initiated q6hrs - Continue IVF resuscitation with 1/2NS - Serial BMP - Avoid Hypoglycemia - Continue Hypoglycemic protocol #Transaminitis - Etiology unclear - Consult placed to gastroenterology for evaluation and recommendations - Continue to trend LFTs #GI/DVT prophylaxis - PPI- Pepcid - Continue AC- Hep SubQ This is a 56-year-old male with known history of DM admitted for Hypoglycemia, hyponatremia, and acute hypoxemic respiratory failure requiring ventilatory support. Pateint also noted with left foot abscess s/p I&D by Gen. Surgery. Hospital Course to Date: 12/25: Patient remains on the vent, awake, following commends on propofol gtt. Possible PST today, plan to wean to extubate. High BG this am, D10W gtt D/C. Hyponatremia is improving continue IVF resuscitation, serial BMP Q6hrs. LLE wound noted with CDI dressing. General Surgery recommendation noted, Vascular consulted. Wound Care also consulted. Continue current IV Abx for now, ID consulted for IV Abx management. 12/26: cx growing staph, wait for final report. Continue empiric antibiotics 12/27: Wound culture growing MSSA, continue empiric IV Ceftriaxone, PO Flagyl, IV vancomycin. Ordered for left foot MRI for further assessment of the infection 12/28: MRI left foot suggestive of plantar abscess, continue empiric antibiotics, patient would need another I and D, continue to follow clinically. 12/29: Continue empiric antibiotics per ID recommendation. MRI does demonstrate a multiloculated abscess of the left midfoot. vascular recommended debridement of the left foot as well as incision and drainage of the abscess in the operating room to ensure that all potential fluid pockets as well as necrotic tissue is well debrided -planned for tomorrow 12/30: S/p repeat I&D today, -antibiotics changed to IV Ancef 2 gm q8 hrs. Given abscess and osteomyelitis, will need to treat for 6 weeks. Case management consulted for Ancef 2 g every 8 hours until 02/10/2022. Order for PICC line 12/31; patient is evaluated by ID, in the setting of osteomyelitis recommended 6 weeks of IV Ancef, PICC line requested, case management setting up long-term antibiotics 01/01/2022; continue Ancef for total 6 weeks stop date 02/10/2022 Patient has social issues, no resources for long-term antibiotics, will check with ID for any alternative oral antibiotics that patient can afford 01/02; I discussed with ID Dr. Peralta if patient can be placed on alternative oral antibiotics due to patient's lack of resources and the high cost of the IV antibiotics , Dr. Peralta informed me that as patient has osteomyelitis patient needs IV Ancef for total 6 weeks and no other oral medications to treat osteomyelitis . Will inform the case management. 01/03; CM assisting with long-term antibiotics, follow-up with infusion center, and outpatient wound care PICC line is already ordered, discharge planning per case management Patient is medically stable for discharge 01/04; continue current management, DC planning per case management, no resources for long-term antibiotics 01/05; awaiting long-term antibiotics set up, and outpatient wound care set up DC planning per case management 01/06; DC planning per case management Disposition: HOME HEALTH CARE SERVICE Core Measure Documentation - Palliative Care Palliative Care/ Comfort Measures: Not Applicable - Core Measures Any of the following diagnoses?: none Exam - Constitutional Vitals: Temp Pulse Resp BP Pulse Ox 98.5 F 72 16 149/80 98 01/07/22 11:26 01/07/22 11:26 01/07/22 11:26 01/07/22 11:01/07/22 11:26 Plan Follow up with: PRIMARY MD RUBEN [Primary Care Provider] - 7 Days LATESHA MANCERA MD [Staff Physician] - 14 Days RACHEL RIDDLE MD [Staff Physician] - 7 Days JUAN CARLOS BRIGGS MD [Staff Physician] - 02/07/22 Prescriptions: amLODIPine 10 mg PO QDAY #30 tablet hydrALAZINE [Apresoline TAB] 25 mg PO Q8HR #90 tablet Famotidine [Pepcid] 20 mg PO BID #30 tablet
--- NOTE | 2022-01-07 17:39 | Progress Note ---
Assessment and Plan Assessment and plan: --Abscess of left foot status post I&D Wound care, elevate the limb Continue current antibiotics, ID and surgery following --Probable chronic Osteomyelitis[on MRI foot] - Presented LLE swelling and left foot abscess - General Surgery consulted - s/p I&D of left foot by surgery on 12/24 and today - Vascular evaluated the patient - Continue current IV Abx Ancef 2 g every 8 hours for total 6 weeks stop date 02/11/[address] Kvng SAEED, if he can recommend alternative more affordable oral antibiotics And he informed that no other oral antibiotic is available to treat osteomyelitis. --Acute Hypoxemic Respiratory Failure ; requiring intubation Present on admission O2 sat on arrival was 60% Patient was intubated on the day of admission, extubated the next day Today patient is on room air saturating more than 94% --COVID 19 - campbell PCR test negative - Presented with unresponsiveness with agonal breathing - Intubated in the ED on 12/24, extubated next day Currently on room air saturating well --Community-Acquired Pneumonia - Imagings suggesting possible Left lung pneumonia - COVID PCR negative - Inflammatory markers and procal pending - Blood culture pending, Sputum culture growing GPC - Continue current IV Abx for now - ID following MSSA wound cultures MSSA urine cultures; ID recommend antibiotics Ancef 2 g every 8 hours stop date 02/10/2022 --Hyponatremia --Hypokalemia-improved - Probably related to dehydration/volume depletion - Na improved post IV hydration - Continue IVF resuscitation - Monitor and replace electrolytes as needed - Serial BMP Q6hrs - Strict intake and output #Acute Metabolic Encephalopathy - Probably r/t to multifactorial. hypoglycemia vs hyponatremia vs infectious process -Resolved #Hyperglycemia #Hypoglycemia-resolved #H/o Diabetes - Presented with low BG in the 30s required D10w gtt - Hyperglycemic this am, BG in the 300s - D/10w d/c - SSI initiated q6hrs - Continue IVF resuscitation with 1/2NS - Serial BMP - Avoid Hypoglycemia - Continue Hypoglycemic protocol #Transaminitis - Etiology unclear - Consult placed to gastroenterology for evaluation and recommendations - Continue to trend LFTs #GI/DVT prophylaxis - PPI- Pepcid - Continue AC- Hep SubQ This is a 56-year-old male with known history of DM admitted for Hypoglycemia, hyponatremia, and acute hypoxemic respiratory failure requiring ventilatory support. Pateint also noted with left foot abscess s/p I&D by Gen. Surgery. Hospital Course to Date: 12/25: Patient remains on the vent, awake, following commends on propofol gtt. Possible PST today, plan to wean to extubate. High BG this am, D10W gtt D/C. Hyponatremia is improving continue IVF resuscitation, serial BMP Q6hrs. LLE wound noted with CDI dressing. General Surgery recommendation noted, Vascular consulted. Wound Care also consulted. Continue current IV Abx for now, ID consulted for IV Abx management. 12/26: cx growing staph, wait for final report. Continue empiric antibiotics 12/27: Wound culture growing MSSA, continue empiric IV Ceftriaxone, PO Flagyl, IV vancomycin. Ordered for left foot MRI for further assessment of the infection 12/28: MRI left foot suggestive of plantar abscess, continue empiric antibiotics, patient would need another I and D, continue to follow clinically. 12/29: Continue empiric antibiotics per ID recommendation. MRI does demonstrate a multiloculated abscess of the left midfoot. vascular recommended debridement of the left foot as well as incision and drainage of the abscess in the operating room to ensure that all potential fluid pockets as well as necrotic tissue is well debrided -planned for tomorrow 12/30: S/p repeat I&D today, -antibiotics changed to IV Ancef 2 gm q8 hrs. Given abscess and osteomyelitis, will need to treat for 6 weeks. Case management consulted for Ancef 2 g every 8 hours until 02/10/2022. Order for PICC line 12/31; patient is evaluated by ID, in the setting of osteomyelitis recommended 6 weeks of IV Ancef, PICC line requested, case management setting up long-term antibiotics 01/01/2022; continue Ancef for total 6 weeks stop date 02/10/2022 Patient has social issues, no resources for long-term antibiotics, will check with ID for any alternative oral antibiotics that patient can afford 01/02; I discussed with ID Dr. Peralta if patient can be placed on alternative oral antibiotics due to patient's lack of resources and the high cost of the IV antibiotics , Dr. Peralta informed me that as patient has osteomyelitis patient needs IV Ancef for total 6 weeks and no other oral medications to treat osteomyelitis . Will inform the case management. 01/03; CM assisting with long-term antibiotics, follow-up with infusion center, and outpatient wound care PICC line is already ordered, discharge planning per case management Patient is medically stable for discharge 01/04; continue current management, DC planning per case management, no resources for long-term antibiotics 01/05; awaiting long-term antibiotics set up, and outpatient wound care set up DC planning per case management 01/06; DC planning per case management 01/07: Patient for PICC line today, case management setting up IV antibiotics, follow-up wound care Follow-up PICC line monitoring and home health Surgeon to check the wound/drains and clear prior to discharge Disposition; DC planning per case management Clearance and DC instructions regarding drains from surgeon Possible discharge in 1 to 2 days if stable and everything is set up History Interval history: I have seen and examined the patient at the bedside Patient's chart and medications reviewed Patient feels slightly better Receiving PICC line today Vital signs noted Hospitalist Physical - Constitutional Vitals: Temp Pulse Resp BP Pulse Ox 98.5 F 72 16 149/80 98 01/07/22 11:26 01/07/22 11:01/07/22 11:01/07/22 11:01/07/22 11:26 General appearance: Present: no acute distress, well-nourished - EENT Eyes: Present: PERRL, EOM intact - Neck Neck: Present: supple, normal ROM - Respiratory Respiratory effort: normal Respiratory: bilateral: diminished, negative: rales, rhonchi, wheezing - Cardiovascular Rhythm: regular Heart Sounds: Present: S1 & S2 - Extremities Extremities: no ischemia, abnormal (Foot dressing in place) - Abdominal General gastrointestinal: soft, non-tender, non-distended, normal bowel sounds - Integumentary Integumentary: Present: clear, warm - Psychiatric Psychiatric: appropriate mood/affect, cooperative - Neurologic Neurologic: moves all extremities HEART Score - HEART Score Troponin: Troponin T < 0.010 ng/mL (0.00-0.029) 12/24/21 22:33 Results - Labs CBC & Chem 7: 12/31/21 06:52 12/31/21 06:52 Labs: Laboratory Last Values WBC 9.9 K/mm3 (4.5-11.0) 12/31/21 06:52 RBC 3.05 M/mm3 (3.65-5.03) L 12/31/21 06:52 Hgb 9.1 gm/dl (11.8-15.2) L 12/31/21 06:52 Hct 26.9 % (35.5-45.6) L 12/31/21 06:52 MCV 88 fl (84-94) 12/31/21 06:52 MCH 30 pg (28-32) 12/31/21 06:52 MCHC 34 % (32-34) 12/31/21 06:52 RDW 14.7 % (13.2-15.2) 12/31/21 06:52 Plt Count 292 K/mm3 (140-440) 12/31/21 06:52 Lymph % (Auto) 17.3 % (13.4-35.0) 12/26/21 06:08 [place] % (Auto) 10.2 % (0.0-7.3) H 12/26/21 06:08 Eos % (Auto) 0.1 % (0.0-4.3) 12/26/21 06:08 Baso % (Auto) 0.4 % (0.0-1.8) 12/26/21 06:08 Lymph # (Auto) 1.2 K/mm3 (1.2-5.4) 12/26/21 06:08 [place] # (Auto) 0.7 K/mm3 (0.0-0.8) 12/26/21 06:08 Eos # (Auto) 0.0 K/mm3 (0.0-0.4) 12/26/21 06:08 Baso # (Auto) 0.0 K/mm3 (0.0-0.1) 12/26/21 06:08 Seg Neutrophils % 72.0 % (40.0-70.0) H 12/26/21 06:08 Seg Neutrophils # 4.9 K/mm3 (1.8-7.7) 12/26/21 06:08 PT 13.9 Sec. (12.2-14.9) 12/24/21 19:43 INR 0.96 (0.87-1.13) 12/24/21 19:43 APTT 39.7 Sec. (24.2-36.6) H 12/24/21 19:43 D-Dimer 2019.48 ng/mlDDU (0-234) H 12/25/21 08:26 ABG pH 7.386 pH Units (7.350-7.450) 12/24/21 Unknown ABG pCO2 32.7 mm Hg 12/24/21 Unknown ABG pO2 308.2 mm Hg (80.0-90.0) H 12/24/21 Unknown ABG HCO3 19.2 mmol/L (20.0-26.0) L 12/24/21 Unknown ABG O2 Saturation 99.5 % (95.0-99.0) H 12/24/21 Unknown ABG O2 Content 15.5 (0.0-44) 12/24/21 Unknown ABG Base Excess -5.0 mmol/L (-2.0-3.0) L 12/24/21 Unknown ABG Hemoglobin 10.6 gm/dl (14.0-18.0) L 12/24/21 Unknown ABG Carboxyhemoglobin 0.9 % (0.0-5.0) 12/24/21 Unknown ABG Methemoglobin 0.5 % (0.0-1.5) 12/24/21 Unknown Oxyhemoglobin 98.1 % (95.0-99.0) 12/24/21 Unknown FiO2 100 % 12/24/21 Unknown Sodium 138 mmol/L (137-145) 12/31/21 06:52 Potassium 3.1 mmol/L (3.6-5.0) L 12/31/21 06:52 Chloride 99.8 mmol/L (98-107) 12/31/21 06:52 Carbon Dioxide 28 mmol/L (22-30) 12/31/21 06:52 Anion Gap 13 mmol/L 12/31/21 06:52 BUN 5 mg/dL (9-20) L 12/31/21 06:52 Creatinine 0.5 mg/dL (0.8-1.3) L 12/31/21 06:52 Estimated GFR > 60 ml/min 12/31/21 06:52 BUN/Creatinine Ratio 10 % 12/31/21 06:52 Glucose 128 mg/dL (75-100) H 12/31/21 06:52 POC Glucose 276 mg/dL (70-105) H 01/07/22 16:58 Hemoglobin A1c 14.9 % (4-6) H 12/26/21 06:08 Lactic Acid 1.20 mmol/L (0.7-2.0) 12/24/21 22:33 Calcium 7.0 mg/dL (8.4-10.2) L 12/31/21 06:52 Phosphorus 3.40 mg/dL (2.5-4.5) 12/26/21 06:08 Magnesium 1.90 mg/dL (1.7-2.3) 12/26/21 06:08 Ferritin 1335.0 ng/mL (30.0-300.0) H 12/26/21 06:08 Total Bilirubin 0.40 mg/dL (0.1-1.2) 12/25/21 08:26 Direct Bilirubin < 0.2 mg/dL (0-0.2) 12/24/21 19:43 Indirect Bilirubin 0.2 mg/dL 12/24/21 19:43 AST 123 units/L (5-40) H 12/25/21 08:26 ALT 111 units/L (7-56) H 12/25/21 08:26 Alkaline Phosphatase 144 units/L (35-129) H 12/25/21 08:26 Ammonia 31.0 umol/L (25-60) 12/24/21 19:43 Lactate Dehydrogenase 215 units/L (91-180) H 12/25/21 08:26 Troponin T < 0.010 ng/mL (0.00-0.029) 12/24/21 22:33 C-Reactive Protein 34.10 mg/dL (0.00-1.30) H 12/25/21 08:26 NT-Pro-B Natriuret Pep 520.8 pg/mL (0-900) 12/24/21 19:43 Total Protein 6.8 g/dL (6.3-8.2) 12/25/21 08:26 Albumin 2.5 g/dL (3.9-5) L 12/25/21 08:26 Albumin/Globulin Ratio 0.6 % 12/25/21 08:26 Lipase 6 units/L (13-60) L 12/24/21 19:43 Procalcitonin 6.09 ng/mL (<0.15) 12/25/21 08:26 TSH 0.910 mlU/mL (0.270-4.200) 12/26/21 06:08 Urine Color Yellow (Yellow) 12/24/21 Unknown Urine Turbidity Slightly-cloudy (Clear) 12/24/21 Unknown Urine pH 6.0 (5.0-7.0) 12/24/21 Unknown Ur Specific [place] 1.020 (1.003-1.030) 12/24/21 Unknown Urine Protein 100 mg/dl mg/dL (Negative) 12/24/21 Unknown Urine Glucose (UA) Neg mg/dL (Negative) 12/24/21 Unknown Urine Ketones Neg mg/dL (Negative) 12/24/21 Unknown Urine Blood Mod (Negative) 12/24/21 Unknown Urine Nitrite Neg (Negative) 12/24/21 Unknown Urine Bilirubin Neg (Negative) 12/24/21 Unknown Urine Urobilinogen 2.0 mg/dL (<2.0) 12/24/21 Unknown Ur Leukocyte Esterase Neg (Negative) 12/24/21 Unknown Urine WBC (Auto) 1.0 /HPF (0.0-6.0) 12/24/21 Unknown Urine RBC (Auto) 1.0 /HPF (0.0-6.0) 12/24/21 Unknown U Epithel Cells (Auto) 1.0 /HPF (0-13.0) 12/24/21 Unknown Urine Bacteria (Auto) 1+ /HPF (Negative) 12/24/21 Unknown Urine Mucus Few /HPF 12/24/21 Unknown Vancomycin Trough 28.8 ug/mL (5.0-20.0) H 12/26/21 23:20 Salicylates < 0.3 mg/dL (2.8-20.0) L 12/24/21 19:43 Acetaminophen 5.0 ug/mL (10.0-30.0) L 12/24/21 19:43 Plasma/Serum Alcohol < 0.01 % (0-0.07) 12/24/21 19:43 Coronavirus (PCR) Negative (Negative) 12/25/21 09:45 Hepatitis A IgM Ab Non-reactive (NonReactive) 12/25/21 Unknown Hep Bs Antigen Non-reactive (Negative) 12/25/21 Unknown Hep B Core IgM Ab Non-reactive (NonReactive) 12/25/21 Unknown Hepatitis C Antibody Non-reactive (NonReactive) 12/25/21 Unknown Blood Type O POSITIVE 12/24/21 19:43 Antibody Screen Negative 12/24/21 19:43 Phillip/IV: Voiding Method Urinal Active Medications - Current Medications Current Medications: Generic Name Dose Route Start Last Admin Trade Name Freq PRN Reason Stop Dose Admin Acetaminophen 650 mg 12/25/21 01:40 Acetaminophen 650 Mg Rect Supp SC Q6H PRN Pain MILD(1-3)/Fever >100.5/PATEL Acetaminophen 650 mg 12/29/21 04:27 01/02/22 11:00 Acetaminophen 325 Mg Tab PO 650 mg Q6H PRN Administration Pain, Mild (1-3) Amlodipine Besylate 5 mg 01/06/22 10:00 01/07/22 10:23 Amlodipine 5 Mg Tab PO 5 mg QDAY KELTON Administration Dextrose 0 ml 12/25/21 02:02 Dextrose 10% *Hypoglycemia IV PRN PRN Hypoglycemia Protocol Famotidine 20 mg 12/25/21 10:00 01/07/22 10:23 Famotidine 20 Mg Tab PO 20 mg BID KELTON Administration Heparin Sodium (Porcine) 5,000 unit 12/25/21 06:00 01/07/22 16:25 Heparin 5,000 Unit/1 Ml Vial SUB-Q 5,000 unit Q8HR KELTON Administration Hydralazine HCl 25 mg 01/05/22 14:00 01/07/22 16:25 Hydralazine 25 Mg Tab PO 25 mg Q8HR KELTON Administration Cefazolin Sodium 2 gm/ Sodium 100 mls @ 200 mls/hr 12/27/21 15:00 01/07/22 10:24 Chloride IV 02/04/22 23:29 200 mls/hr Q8H KELTON Administration Protocol Insulin Human Lispro 0 unit 01/05/22 11:30 01/07/22 12:00 Insulin Lispro 100 Unit/Ml SUB-Q Not Given ACHS KLETON Protocol Magnesium Hydroxide 30 ml 12/25/21 01:40 Magnesium Hydroxide (Mom) Oral Liqd Udc PO Q4H PRN Constipation Morphine Sulfate 2 mg 12/25/21 01:40 Morphine 2 Mg/1 Ml Inj IV Q4H PRN Pain, Moderate (4-6) Ondansetron HCl 4 mg 12/25/21 01:40 Ondansetron 4 Mg/2 Ml Inj IV Q8H PRN Nausea And Vomiting Sodium Chloride 10 ml 12/25/21 10:00 01/07/22 10:25 Sodium Chloride 0.9% 10 Ml Flush Syringe IV 10 ml BID KETLON Administration Sodium Chloride 10 ml 12/25/21 01:40 01/02/22 16:27 Sodium Chloride 0.9% 10 Ml Flush Syringe IV 10 ml PRN PRN Administration LINE FLUSH Nutrition/Malnutrition Assess - Dietary Evaluation Nutrition/Malnutrition Findings: Nutrition Notes Start: 12/25/21 11:36 Freq: Status: Active Protocol: Document 01/02/22 17:08 ADELA (Rec: 01/02/22 17:32 ADELA [id number]) Nutrition Notes Initial or Follow up Reassessment Current Diagnosis Diabetes,Respiratory Failure Other Pertinent Diagnosis L-Foot Cellulitis/ Osteomyelitis, MSSA Bacteremia , CAP. Current Diet Cardiac/Consistent Carbohydrates Diet (since L ). Labs/Tests 01/02: N/A. Pertinent Medications 01/02: Insulin, others nutritionally unremarkable. Height 5 ft 3 in Weight 65.7 kg [place] Body Weight (kg) 56.36 BMI 25.6 Weight change and time frame No body weight change reported in 3 days. Weight Status Overweight Subjective/Other Information RD consult for routine F/U on Dietary Advancement. No reports available on Pt's PO intake of meals at the time , but diet appears to be well tolerated, according to RN notes.. Procedure 12/30: Drainage of L -Foot Abscess, well tolerated. Percent of energy/protein needs met: Prescribed Cardiac/Consistent Carbohydrates Diet provides for energy/protein needs (1, 977 Kcal/86 g) during LOS. Burn Absent Trauma Absent GI Symptoms None Food Allergy No Skin Integrity/Comment L-Foot s/p procedure Minimum of two criteria No #1 Nutrition Diagnosis Increased nutrient needs ( specify in comment below) Comments: Protein to support wound healing processes. No reports available on Pt's PO intake of meals at the time , but diet appears to be well tolerated, according to RN notes. Diagnosis Progress(for reassessment Improved documentation) Is patient on ventilator? No Is Patient Ambulatory and/or Out of Bed No REE-([facility]-confined to bed) [phone] Calculation Used for Recommendations [facility] Additional Notes Protein: 1.25-1.5 g/Kg; 83-99 g/day. Fluids: 1 ml/Kcal, or as per MD. Nutrition Intervention Change Diet Order: Continue Cardiac/Consistent Carbohydrates Diet. Goal #1 Maintain body weight within +/ -3% of admission body weight during LOS. Follow-Up By: 01/09/22 Additional Comments Continue monitoring food tolerance, %PO intake of meals , and BM.
[2022-01-07 17:45] VITALS: BP 157/87
== END 2022-01-07 19:30 | disposition home or self-care (01) | DRG 208 ==
LOC: ED 19:20 → CC1 12-25 01:40 → 4A 12-25 22:23
PROVIDERS: ADMIT Internal Medicine Geriatric Medicine; ATTEND Internal Medicine
PROC: 4A033R1 Measurement of Arterial Saturation, Peripheral, Percutaneous Approach (ICD-10-PCS; principal; 2021-12-24)
PROC: 5A1935Z Respiratory Ventilation, Less than 24 Consecutive Hours (ICD-10-PCS; 2021-12-24)
PROC: 0BH17EZ Insertion of Endotracheal Airway into Trachea, Via Natural or Artificial Opening (ICD-10-PCS; 2021-12-24)
PROC: 0Y9N0ZZ Drainage of Left Foot, Open Approach (ICD-10-PCS; 2021-12-24)
PROC: 0Y9N0ZZ Drainage of Left Foot, Open Approach (ICD-10-PCS; 2021-12-30)
PROC: 02HV33Z Insertion of Infusion Device into Superior Vena Cava, Percutaneous Approach (ICD-10-PCS; 2022-01-07)
DX: J96.01 Acute respiratory failure with hypoxia (principal); J18.9 Pneumonia, unspecified organism; G93.41 Metabolic encephalopathy; L02.612 Cutaneous abscess of left foot; E87.1 Hypo-osmolality and hyponatremia; M86.8X7 Other osteomyelitis, ankle and foot; L03.116 Cellulitis of left lower limb; Z20.822 Contact with and (suspected) exposure to COVID-19; E87.6 Hypokalemia; E11.65 Type 2 diabetes mellitus with hyperglycemia; E11.621 Type 2 diabetes mellitus with foot ulcer; E11.649 Type 2 diabetes mellitus with hypoglycemia without coma; K52.9 Noninfective gastroenteritis and colitis, unspecified; R00.1 Bradycardia, unspecified; E11.69 Type 2 diabetes mellitus with other specified complication
CPT/HCPCS: 36415; 70450; 71045; 71260; 71275; 72125; 74018; 74177; 76705; 80048; 80053; 80074; 80076; 80202; 80320; 81001; 82140; 82728; 82803; 82962; 83036; 83615; 83690; 83735; 83880; 84100; 84145; 84443; 84484; 85025; 85027; 85379; 85610; 85730; 86140; 86403; 86850; 86900; 86901; 87040; 87070; 87075; 87076; 87086; 87116; 87186; 87205; 93005; 93010; 93925; 93970; 94002; 94003; G0378; J2354; J3490; J7120; J7502; Q0162; Q9967; A9575; G0480; J0690; J0696; J1644; J1815; J1885; J2405; J2543; J2704; J3010; J3370; J3480; J7030; J7050; U0003

== ENCOUNTER 2022-02-08 13:24 | Emergency (ER) | payer SELFPAY ==
[2022-02-08 14:21] VITALS: BP 137/91
--- NOTE | 2022-02-08 15:31 | Emergency Department Report ---
ED General Adult HPI - General Stated complaint: IV PORT NEEDS REPLACING Time Seen by Provider: 02/08/22 15:02 Source: patient Mode of arrival: Ambulatory Limitations: Language Barrier - History of Present Illness Initial comments: Chief complaint: PICC line removal HPI: This 55-year-old male with history of diabetes mellitus, left foot cellulitis with abscess, diabetic foot infection, peripheral vascular disease, pneumonia who has PICC line in place. He is discharged from this hospital on January 07. According to EMR, Ancef was to be continued for 6 weeks. Patient has not followed up with primary care physician. According to electronic record last dose in the February 04, 2022. Patient is unclear of the plan of care. He denies any other concerns. I used [employer] line felt finisher to obtain history and provide information. When admitted last month patient was registered under the name Emery Rubalcava -: week(s) (Patient has a PICC line for 6 weeks) Location: left, upper extremity Severity scale (0 -10): 0 Consistency: constant Improves with: none Worsens with: none Associated Symptoms: denies other symptoms Treatments Prior to Arrival: none - Related Data Allergies Allergy/AdvReac Type Severity Reaction Status Date / Time No Known Allergies Allergy Verified 02/08/22 14:14 ED Review of Systems ROS: Stated complaint: IV PORT NEEDS REPLACING Other details as noted in HPI Comment: All other systems reviewed and negative Constitutional: denies: chills, fever, malaise Respiratory: denies: cough, shortness of breath Cardiovascular: denies: chest pain Gastrointestinal: denies: abdominal pain, nausea, vomiting ED Past Medical Hx - Past Medical History Previous Medical History?: Yes Hx Diabetes: Yes - Surgical History Past Surgical History?: Yes Additional Surgical History: Incision and debridement left foot for diabetic foot infection - Social History Smoking Status: Current Some Day Smoker Substance Use Type: None ED Physical Exam - General Limitations: Language Barrier General appearance: alert, in no apparent distress - Head Head exam: Present: atraumatic, normocephalic - Eye Eye exam: Present: normal appearance - ENT ENT exam: Present: mucous membranes moist - Neck Neck exam: Present: normal inspection - Cardiovascular Cardiovascular Exam: Present: gallop - GI/Abdominal GI/Abdominal exam: Present: soft - Extremities Exam Extremities exam: Present: other (Left foot large edematous wrapped in Tevin wrap) - Back Exam Back exam: Present: normal inspection - Neurological Exam Neurological exam: Present: alert, oriented X3 - Psychiatric Psychiatric exam: Present: normal affect, normal mood - Skin Skin exam: Present: warm, dry, intact, normal color, other (Left upper extremity, left bicep: Bandage clean dry intact PICC line in place). Absent: rash ED Course Vital Signs 02/08/22 14:20 Temperature 97.6 F Pulse Rate 91 H Respiratory 18 Rate Blood Pressure 137/91 [Right] O2 Sat by Pulse 99 Oximetry ED Medical Decision Making - Medical Decision Making PICC line in place with history of diabetic foot infection: I suspect the p atient will need antibiotics in the future. I encouraged him to follow-up with a primary care physician and drop tester before PICC line is removed Critical care attestation.: If time is entered above; I have spent that time in minutes in the direct care of this critically ill patient, excluding procedure time. ED Disposition Clinical Impression: S/P PICC central line placement, Diabetic foot infection Disposition: 01 HOME / SELF CARE / HOMELESS Is pt being admited?: No Does the pt Need Aspirin: No Condition: Stable Instructions: Diabetes Mellitus Type 2 in Adults (ED) Additional Instructions: Consulte a ambos mdicos antes de que le retiren la va intravenosa del sussy. Referrals: NURIS KILPATRICK MD [Staff Physician] - 3-5 Days KINGSTON AYALA DPM [Staff Physician] - 3-5 Days
== END 2022-02-08 16:29 | disposition home or self-care (01) ==
LOC: EDBD → ED 13:24 → MERGE 13:24 → ED 16:29
DX: L02.612 Cutaneous abscess of left foot (principal); L03.116 Cellulitis of left lower limb; L08.9 Local infection of the skin and subcutaneous tissue, unspecified; E11.9 Type 2 diabetes mellitus without complications; F17.200 Nicotine dependence, unspecified, uncomplicated; Z45.2 Encounter for adjustment and management of vascular access device; Z98.890 Other specified postprocedural states
CPT/HCPCS: 99282